=== PATIENT | female | born 1940 | race Caucasian/White ===

== ENCOUNTER → 2016-09-09 | Outpatient (CLI) | payer MEDICARE ==
--- NOTE | 2016-09-09 09:17 | CT ---
EXAMINATION TYPE: CT chest wo con DATE OF EXAM: 09/09/2016 COMPARISON: 09/01/2015 HISTORY: Patient has no complaints at time of study. Follow up study for known pulmonary nodule. CT DLP: 913 mGycm, Automated exposure control for dose reduction was used. CONTRAST: Performed injected with 0 mL of Omnipaque 300. TECHNIQUE: Axial images were obtained at 5 mm thick sections. Reconstructed images are reviewed on [employer] computer in the coronal plane. FINDINGS: Portion of the thyroid visualized is normal. On mediastinal windows there is a 1.4 x 1.6 cm nodule at the posterior left lung base. This is stable from August 2015. An additional 0.6 cm nodule appears stable in the posterior medial right lung base. Series 3 image 41. Some minimal stable peripheral thickening may be present in the posterior lateral right midlung. Series 3 image 33 lingular lung markings likewise appears stable. No enlarged mediastinal or hilar adenopathy is evident. The ascending aorta diameter at the level o f the main pulmonary artery is 3.6 cm. The main pulmonary artery diameter at the bifurcation is 3.7 cm. There is fullness within the main pulmonary artery at the bifurcation which could suggest some ea rly pulmonary hypertension. Coronary artery calcification is noted. Limited CT sections are obtained through the upper abdomen. Abdomen is essentially unremarkable. IMPRESSIONS: 1. Stable bilateral lung nodules. Follow-up in one year is again recommended to confirm stability.
== END | disposition home or self-care (01) ==
LOC: RADCTMAIN 08:42
PROVIDERS: ATTEND Internal Medicine
DX: R91.8 Other nonspecific abnormal finding of lung field (principal)
CPT/HCPCS: 71250

== ENCOUNTER → 2017-01-27 | Outpatient (CLI) | payer MEDICARE ==
[2017-01-27 12:56] LABS: CH 31.1; CHCM 31.1; HCT 47.5 % (34.0-46.0); HDW 2.07; HGB 14.4 gm/dL (11.4-16.0); MCH 30.6 pg (25.0-35.0); MCHC 30.4 g/dL (31.0-37.0); MCV 100.5 fL (80.0-100.0); Mean Platelet Volume 7.2; RBC 4.72 m/uL (3.80-5.40); RDW 13.7 % (11.5-15.5); WBC 8.1 k/uL (3.8-10.6)
[2017-01-27 13:01] LABS: ALT 40 U/L (9-52); AST 22 U/L (14-36); Alkaline Phosphatase 129 U/L (38-126); Anion Gap 10 mmol/L; Blood Urea Nitrogen 20 mg/dL (7-17); Calcium 9.5 mg/dL (8.4-10.2); Carbon Dioxide 28 mmol/L (22-30); Chloride 102 mmol/L (98-107); Glucose 114 mg/dL (74-99); Non-African American GFR(MDRD) 56 (>60 ml/min/1.73 sqM); Potassium 4.8 mmol/L (3.5-5.1); Sodium 140 mmol/L (137-145); Total Bilirubin 0.5 mg/dL (0.2-1.3); Total Protein 6.7 g/dL (6.3-8.2)
== END | disposition home or self-care (01) ==
LOC: LABWHC1 12:09
PROVIDERS: ATTEND Internal Medicine Interventional Cardiology
DX: I48.91 Unspecified atrial fibrillation (principal)
CPT/HCPCS: 36415; 80053; 84443; 85027

== ENCOUNTER 2017-02-22 05:55 | Day surgery (SDC) | payer MEDICARE ==
[2017-02-18 13:43] VITALS: BMI 50.1
[2017-02-22] MEDS ORDERED: ALPRAZolam 0.25 MG TAB PO PRN (06:14)
[2017-02-22] MEDS ORDERED: ASPIRIN 325 MG TAB PO STA (06:14)
[2017-02-22] MEDS ORDERED: ALPRAZolam 0.5 MG TAB PO PRN (06:14)
[2017-02-22] MEDS ORDERED: ATORVASTATIN 80 MG TAB PO STA (06:14)
[2017-02-22] MEDS ORDERED: NITROGLYCERIN SL TABS 0.4 MG TAB SUBLINGUAL PRN ×2 (06:14→10:43)
[2017-02-22] MEDS ORDERED: SODIUM CHLORIDE 0.9% 1,000 ML in EMPTY BAG 1 BAG IV ONE (06:30)
[2017-02-22] MEDS: SODIUM CHLORIDE 0.9% 1,000 ML IV SCH ×2 (07:05→17:42)
[2017-02-22] MEDS ORDERED: SODIUM CHLORIDE 0.9% 1,000 ML IV ONE (07:05)
[2017-02-22] MEDS ORDERED: Acetaminophen-Codeine 300-30mg TAB ONE (07:25)
[2017-02-22] MEDS ORDERED: LIDOCAINE 2% INJ 20 MG/ML (20 ML MDV) ONE (09:37)
[2017-02-22] MEDS ORDERED: VERAPAMIL 2.5 MG/ML 2 ML AMP ONE (09:37)
[2017-02-22] MEDS ORDERED: fentaNYL (PF) 50 MCG/ML 2 ML AMP ONE (09:50)
[2017-02-22] MEDS ORDERED: fentaNYL (PF) 50 MCG/ML 2 ML AMP IVP ONE (09:56)
[2017-02-22] MEDS ORDERED: MIDAZOLAM 2 MG/2 ML VIAL ONE (09:57)
[2017-02-22] MEDS ORDERED: LIDOCAINE 2% INJ 20 MG/ML SQ ONE (09:57)
[2017-02-22] MEDS ORDERED: METOPROLOL TARTRATE 5 MG/5 ML VIAL IVP ONE ×2 (10:00→10:01)
[2017-02-22] MEDS ORDERED: VERAPAMIL SYRINGE (5 MG/10 ML) IVP ONE (10:00)
[2017-02-22] MEDS ORDERED: MIDAZOLAM 2 MG/2 ML VIAL IVP ONE (10:00)
[2017-02-22] MEDS ORDERED: CLOPIDOGREL 75 MG TAB ONE (10:13)
[2017-02-22] MEDS ORDERED: BIVALIRUDIN BOLUS 250 MG/50 ML IV ONE (10:13)
[2017-02-22] MEDS ORDERED: BIVALIRUDIN 250 MG in SODIUM CHLORIDE 0.9% 50 ML IV ONE (10:14)
[2017-02-22] MEDS ORDERED: CLOPIDOGREL 75 MG TAB PO ONE (10:16)
[2017-02-22] MEDS ORDERED: IODIXANOL 320 MG/ML 100 ML INTRAARTER ONE (10:32)
[2017-02-22] MEDS ORDERED: RX INFO: IV CONTRAST WAS GIVEN 1 EACH MISC MISCELLANE PRN (10:43)
[2017-02-22] MEDS ORDERED: ZOLPIDEM 5 MG TAB PO PRN (10:43)
[2017-02-22] MEDS ORDERED: MAG HYDROX/AL HYDROX/SIMETH 30 ML CUP PO PRN (10:43)
[2017-02-22] MEDS ORDERED: ATROPINE SULFATE 0.1 MG/ML 10ML SYRINGE IV PRN (10:43)
[2017-02-22] MEDS ORDERED: SODIUM CHLORIDE 0.9% 1,000 ML IV SCH (10:45)
--- NOTE | 2017-02-22 11:24 | CC ---
CARDIAC CATHETERIZATION REPORT Mrs. Willis is a 77-year-old female with known history of hypertension, hyperlipidemia, who was recently noted to be in atrial fibrillation. She has been complaining of dyspnea on exertion and underwent a myocardial perfusion imaging that revealed inferolateral wall ischemia. In view of that, recommendation was made regarding cardiac catheterization. The procedure as well as the risks and complications were discussed with the patient who is in full understanding and agreement. PROCEDURE: Patient was brought to the laboratory technologist in a fasting semi-sedated state after receiving fentanyl and Benadryl and achieving moderate conscious sedated state. Using Xylocaine anesthesia in Seldinger technique, a 6-Thai sheath was introduced in the right radial artery. Selective right and left coronary angiography performed using care 5-Thai 3.5 bend right and left Michelle catheter. Multiple views of the coronary arteries including hemiaxial views were obtained. Following that, 5-Thai tight pigtail catheter was introduced into the left ventricle and pressures were calculated. Following that, catheter was removed. Images were reviewed. FINDINGS: FLUOROSCOPY: There was calcification involving the LAD and the right coronary artery. LEFT MAIN: This is a large-sized vessel trifurcating left circumflex, ramus intermedius and left anterior descending artery. Left main coronary artery has no evidence of high- grade stenosis. LEFT ANTERIOR DESCENDING ARTERY: This is a large-sized vessel reaching to the apex with a wrap around apex segment. The left anterior descending artery has a mild plaque in the proximal to mid segment up to 20%. The rest of the vessel has no high-grade stenosis. LEFT CIRCUMFLEX: This is a nondominant vessel giving rise to one obtuse marginal branch. The left circumflex as well as branches have no evidence of obstructive coronary artery disease. RAMUS INTERMEDIUS: This is a large-sized vessel reaching toward the apical lateral wall that has mild intimal disease proximally for about 20%. RIGHT CORONARY ARTERY: This is a large dominant vessel bifurcating distally PDA and posterolateral segment and branches. The right coronary artery in the proximal and mid segment has a 99% eccentric lesion. The rest of the vessel has no high-grade stenosis. LEFT VENTRICULOGRAM: Left ventriculogram was not performed. HEMODYNAMICS: There was no gradient across the aortic valve. The left ventricle end- diastolic pressure was 12 mmHg. CONCLUSION: 1. Critical stenosis involving the proximal and mid segment of the right coronary artery. 2. Mild disease in the ramus intermedius and the left anterior descending artery. RECOMMENDATION: In view of finding anatomy, I have recommended proceeding with angioplasty and stenting of the right coronary artery. The procedures as well as the risks and complications were discussed with the patient who was in full understanding and agreement. CARLA / JAZMIN: [id number] /
--- NOTE | 2017-02-22 11:39 | PTCA ---
PERCUTANEOUSTRANS CORORONARY ANGIOGRAPHY Mrs. Willis is a 77-year-old female with known history of hypertension, hyperlipidemia, who presented with an abnormal myocardial perfusion imaging and symptoms of progressive dyspnea. She underwent cardiac catheterization that revealed significant stenosis involving the proximal mid segment of the right coronary artery. In view of that, recommendation was made regarding angioplasty and stenting. The procedure as well as the risks and complications were discussed with the patient who is in full understanding and agreement. PROCEDURE: A 6-Jordanian FR4 guiding catheter was introduced in the system. After cannulating the right coronary ostium, a 0.014 balanced medium weight J-wire was advanced across the lesion, positioned distally. Then a 3.5 x 18 mm Xience Alpine stent was deployed, postdilated at 16 atmospheres. After the last inflation, after appropriate wait, the balloon and the guidewire were withdrawn back in the guiding catheter. Images were obtained, repeated. Those images reveal stable successful stenting. At that point, the guiding catheter, the balloon and the guidewire removed. The sheath was removed. Hemostasis was obtained with deployment of a TR band. There was no immediate complication. Patient was returned to her room in stable condition. Of note, the patient had no chest discomfort or EKG changes with the inflation. She has received Angiomax per protocol as well as oral loading dose of clopidogrel. She also received intra-arterial verapamil. RESULTS: Successful stenting of the proximal mid segment of the right coronary artery with reduction in stenosis from 99% to 0%. RECOMMENDATION: Patient will be continued on aspirin, Plavix, beta niki, and statin. The importance of dual antiplatelet treatment were discussed with the patient and her family and they are in full understanding and agreement. At later time, her aspirin will be stopped and she will be continued on anticoagulation because of her atrial fibrillation. Duration of the procedure is 35 minutes. MMODL / IJN: [id number] /
--- NOTE | 2017-02-22 11:45 | LTR ---
February 22, 2017 Re: Zaira Willis Dear Dr. Abad: I had the opportunity to perform coronary angiography including angioplasty and stenting on Mrs. Willis at [facility] on the 22 of February and a full copy of the procedure note will be forwarded to you. In brief, she was found to have significant stenosis involving the proximal mid segment of the right coronary artery underwent successful stenting of that vessel using a drug-eluting stent. I am hopeful that this procedure will stabilize her status and I will keep you updated on her progress. Thank you again for allowing me the opportunity to participate in her care. Please feel free to call for any questions. Sincerely yours, MD PELON TangL / MARCOSN: [id number] /
[2017-02-22] MEDS ORDERED: METOPROLOL TARTRATE 50 MG TAB PO ONE (12:15)
[2017-02-22] MEDS ORDERED: HYDROmorphone 0.5 MG/0.5 ML SYRINGE IVP STA (12:58)
[2017-02-22] MEDS: METOPROLOL TARTRATE 50 MG TAB PO SCH (20:08)
[2017-02-22 20:56] VITALS: RESP 18
[2017-02-22] MEDS ORDERED: ATORVASTATIN 80 MG TAB PO SCH (21:00)
[2017-02-22 21:07] LABS: Glucose,Whole Blood 128 mg/dL (75-99)
[2017-02-23] MEDS: SODIUM CHLORIDE 0.9% 1,000 ML IV SCH (01:54)
[2017-02-23 06:38] LABS: Anion Gap 10 mmol/L; Blood Urea Nitrogen 23 mg/dL (7-17); Calcium 9.3 mg/dL (8.4-10.2); Carbon Dioxide 24 mmol/L (22-30); Chloride 105 mmol/L (98-107); Glucose 104 mg/dL (74-99); Potassium 4.7 mmol/L (3.5-5.1); Sodium 139 mmol/L (137-145)
[2017-02-23 08:18] VITALS: BP 116/51; PULSE 52; TEMP 96.9
--- NOTE | 2017-02-23 08:28 | P.PN ---
Subjective Progress Note Date: 02/23/17 Principal diagnosis: RCA stent Discharge note This is a pleasant 77-year-old female with known history of hypertension, hyperlipidemia, who was recently noted to be in atrial fibrillation. She had been complaining of dyspnea on exertion and underwent a myocardial perfusion imaging which revealed inferior lateral wall ischemia. In view of that recommendations were made for her to proceed with cardiac catheterization. Patient was found to have critical stenosis involving the proximal and midsegment of the right coronary artery with mild disease in the ramus intermedius and left anterior descending artery. Patient underwent angioplasty and stenting of the right coronary artery. She was seen and examined this morning, feeling well overall. She has been up ambulating to the bathroom without any occult he. She denies any chest discomfort, no palpitations, and her breathing is stable. Let pressure 116/50 with a heart rate in the 60s, temperature 96.9 she is 95% on room air. Sodium 139, potassium 4.7, BUN 23, creatinine 0.9. EKG shows atrial fibrillation with no changes from post-PCI. Objective - Vital Signs Vital signs: Vital Signs Temp 96.9 F L 02/23/17 08:00 Pulse 52 L 02/23/17 08:00 Resp 18 02/23/17 03:15 BP 116/51 02/23/17 08:00 Pulse Ox 95 02/23/17 08:00 Intake & Output 02/22/17 02/23/17 02/23/17 18:59 06:59 18:59 Intake Total 730.7 Output Total 200 Balance 530.7 Weight 124.284 kg 126 kg Intake: IV 294.7 Sodium Chloride 0.9% 1, 100 000 ml @ 100 mls/hr IV . Q10H DEONTE Rx#:[id number] Intake, IV Titration 200 Amount Sodium Chloride 0.9% 1, 200 000 ml @ 100 mls/hr IV . Q10H DEONTE Rx#:[id number] Oral 236 Output: Urine 200 Other: Voiding Method Toilet # Voids 1 - Exam PHYSICAL EXAMINATION: HEENT: Head is atraumatic, normocephalic. Pupils equal, round. Neck is supple. There is no elevated jugular venous pressure. HEART EXAMINATION: S1 and S2 irregular irregular systolic ejection murmur is heard. CHEST EXAMINATION: Lungs are clear to auscultation and precussion. No chest wall tenderness is noted on palpation or with deep breathing. ABDOMEN: Soft,obese, nontender. Bowel sounds are heard. No organomegaly noted. EXTREMITIES: 2+ peripheral pulses with no evidence of peripheral edema and no calf tenderness noted. Right radial site is clean and dry, good distal pulse, no hematoma. NEUROLOGIC patient is awake, alert and oriented -3. . - Labs CBC & Chem 7: 02/23/17 05:40 Labs: Abnormal Lab Results - Last 24 Hours (Table) 02/22/17 02/23/17 Range/Units 21:05 05:40 BUN 23 H (7-17) mg/dL Glucose 104 H (74-99) mg/dL POC Glucose (mg/dL) 128 H (75-99) mg/dL Assessment and Plan Plan: Assessment and plan #1 status post angioplasty with stenting of the right coronary artery #2 hypertension #3 hyperlipidemia #4 chronic persistent atrial fibrillation #5 peripheral vascular disease Plan Patient may be able to be discharged home today. We will make her a follow-up appointment next week with Dr. Coates in the office. Sebastián BUN and creatinine will be checked at that time. She will be discharged home on aspirin 81 mg daily, Lipitor 80 mg daily, Plavix 75 mg daily, metoprolol 50 mg one tablet by mouth twice a day, Aldactone 50 mg daily, verapamil 120 mg daily, Savaysa 60 mg daily, and sublingual nitroglycerin as needed for chest pain. DNP note has been reviewed, I agree with a documented findings and plan of care. Patient was seen and examined.
[2017-02-23] MEDS ORDERED: Acetaminophen-Codeine 300-30mg TAB PO STA (08:32)
[2017-02-23] MEDS: METOPROLOL TARTRATE 50 MG TAB PO SCH (08:54)
[2017-02-23] MEDS ORDERED: ASPIRIN 81 MG PO SCH (09:00)
[2017-02-23] MEDS ORDERED: SPIRONOLACTONE 25 MG TAB PO SCH ×2 (09:00)
[2017-02-23] MEDS ORDERED: CLOPIDOGREL 75 MG TAB PO SCH (09:00)
[2017-02-23] MEDS ORDERED: VERAPAMIL SR 120 MG TABLET.ER PO SCH (09:00)
== END 2017-02-23 11:05 | disposition home or self-care (01) ==
LOC: CATHCVL 05:55 → 6SEL 12:52 → CATHCVL 02-23 11:05
PROVIDERS: ATTEND Internal Medicine Interventional Cardiology
DX: I25.10 Atherosclerotic heart disease of native coronary artery without angina pectoris (principal); I25.84 Coronary atherosclerosis due to calcified coronary lesion; I10 Essential (primary) hypertension; I48.2 Chronic atrial fibrillation; Z82.49 Family history of ischemic heart disease and other diseases of the circulatory system; I73.9 Peripheral vascular disease, unspecified; E78.2 Mixed hyperlipidemia; G47.33 Obstructive sleep apnea (adult) (pediatric); M19.90 Unspecified osteoarthritis, unspecified site; Z79.02 Long term (current) use of antithrombotics/antiplatelets; Z79.899 Other long term (current) drug therapy
CPT/HCPCS: 93458; 85347; 80048; C9600; C1769 ×3; C1887; C1894; C1874; J2001; J2250; Q9967; J3010; J0583; J1170

== ENCOUNTER 2017-02-25 19:14 | Observation (INO) | payer MEDICARE ==
--- NOTE | 2017-02-25 19:49 | ED ---
General Adult HPI - General Chief complaint: Dizziness Stated complaint: Jaw pain Time Seen by Provider: 02/25/17 19:26 Source: patient, family, RN notes reviewed, old records reviewed Mode of arrival: ambulatory Limitations: no limitations - History of Present Illness Initial comments: 77 -year-old female history of CAD and recent stent, postop day 3, presents for evaluation of lightheadedness, and jaw pain. Patient states that approximately 3 hours prior to arrival patient developed left-sided jaw pain. Denies central chest pain. States she does have some dyspnea associated with this. No nausea and no diaphoresis. She has been taking her medications as prescribed. She is currently on Plavix status post stenting. She does have history of atrial fibrillation and is on anticoagulation. Patient denies any abdominal pain. Denies vomiting or diarrhea. Denies headache. Denies vision changes. Denies fever or chills. Denies cough. - Related Data Home Medications Medication Instructions Recorded Confirmed Acetaminophen [Tylenol Extra 500 mg PO DAILY PRN 02/18/17 02/25/17 Strength] Acetaminophen-Codeine 300-30mg 1 tab PO Q6H PRN 02/18/17 02/25/17 [Tylenol #3] Edoxaban Tosylate [Savaysa] 60 mg PO QAM 02/18/17 02/25/17 Verapamil HCl [Verapamil ER] 120 mg PO QAM 02/18/17 02/25/17 Aspirin 81 mg PO HS 02/22/17 02/25/17 Clopidogrel [Plavix] 75 mg PO QAM 02/25/17 02/25/17 Spironolactone 50 mg PO QAM 02/25/17 02/25/17 Previous Rx's Medication Instructions Recorded Atorvastatin [Lipitor] 80 mg PO HS #30 tab 02/23/17 Metoprolol Tartrate [Lopressor] 50 mg PO BID #60 tab 02/23/17 Nitroglycerin Sl Tabs [Nitrostat] 0.4 mg SUBLINGUAL Q5M PRN #25 tab 02/23/17 Allergies Allergy/AdvReac Type Severity Reaction Status Date / Time No Known Allergies Allergy Verified 02/25/17 20:19 Review of Systems ROS Statement: Those systems with pertinent positive or pertinent negative responses have been documented in the HPI. ROS Other: All systems not noted in ROS Statement are negative. Past Medical History Past Medical History: Hyperlipidemia, Hypertension, Osteoarthritis (OA), Vascular Disorder Additional Past Medical History / Comment(s): hx irregular heart rate, 2 ruptured disc back, bladder leakage, pancreatitis, edd. lower leg swelling, shortness of breath History of Any Multi-Drug Resistant Organisms: None Reported Past Surgical History: Cholecystectomy, Hysterectomy, Orthopedic Surgery Additional Past Surgical History / Comment(s): lt knee arthroscopy Past Anesthesia/Blood Transfusion Reactions: No Reported Reaction Past Psychological History: No Psychological Hx Reported Smoking Status: Never smoker Past Alcohol Use History: Occasional Past Drug Use History: None Reported - Past Family History Mother Family Medical History: No Reported History General Exam Limitations: no limitations General appearance: alert, in no apparent distress, obese Head exam: Present: atraumatic, normocephalic Eye exam: Present: normal appearance, PERRL ENT exam: Present: normal exam Neck exam: Present: normal inspection. Absent: tenderness, meningismus Respiratory exam: Present: normal lung sounds bilaterally. Absent: respiratory distress, wheezes Cardiovascular Exam: Present: tachycardia, irregular rhythm GI/Abdominal exam: Present: soft. Absent: distended, tenderness Extremities exam: Present: normal inspection, normal capillary refill. Absent: pedal edema Neurological exam: Present: alert, oriented X3, CN II-XII intact. Absent: motor sensory deficit Psychiatric exam: Present: normal affect, normal mood, anxious. Absent: flat affect Skin exam: Present: warm, dry, intact. Absent: cyanosis, diaphoretic Course Vital Signs 02/25/17 02/25/17 19:15 20:19 Temperature 97.3 F L Pulse Rate 99 98 Respiratory 18 14 Rate Blood Pressure 132/89 125/57 O2 Sat by Pulse 96 98 Oximetry EKG Findings - EKG Comments: EKG Findings:: EKG shows atrial fibrillation with RVR, rate of 106, QRS duration 88, QTC [address] segment elevation, no significant change compared to prior Medical Decision Making - Medical Decision Making 77-year-old female presenting with left jaw pain, concern for anginal equivalent. EKG shows atrial fibrillation, no signs of acute ischemia. Patient has been taking her medication as prescribed. She had recent proximal and mid RCA stenting. Laboratory studies reveal normal white blood cell count, stable hemoglobin, left slightly normal limits, creatinine 1.1, troponin is negative chest x-ray shows cardiomegaly with no other acute findings. Head CT is obtained for complaint of lightheadedness and patient is on both antiplatelets and anti-coagulant, this is negative for intracranial hemorrhage. Patient will be observed for serial cardiac enzymes and cardiology evaluation. - Lab Data Result diagrams: 02/25/17 19:52 02/25/17 19:52 Lab Results 02/25/17 02/25/17 02/25/17 Range/Units 19:52 19:52 19:52 WBC 8.0 (3.8-10.6) k/uL RBC 4.40 (3.80-5.40) m/uL Hgb 13.5 (11.4-16.0) gm/dL Hct 42.9 (34.0-46.0) % MCV 97.4 (80.0-100.0) fL MCH 30.6 (25.0-35.0) pg MCHC 31.4 (31.0-37.0) g/dL RDW 12.4 (11.5-15.5) % Plt Count 245 (150-450) k/uL Neutrophils % 63 % Lymphocytes % 25 % Monocytes % 8 % Eosinophils % 2 % Basophils % 1 % Neutrophils # 5.0 (1.3-7.7) k/uL Lymphocytes # 2.0 (1.0-4.8) k/uL Monocytes # 0.6 (0-1.0) k/uL Eosinophils # 0.2 (0-0.7) k/uL Basophils # 0.0 (0-0.2) k/uL PT (9.0-12.0) sec INR (<1.2) APTT (22.0-30.0) sec Sodium 140 (137-145) mmol/L Potassium 4.5 (3.5-5.1) mmol/L Chloride 105 (98-107) mmol/L Carbon Dioxide 26 (22-30) mmol/L Anion Gap 9 mmol/L BUN 30 H (7-17) mg/dL Creatinine 1.11 H (0.52-1.04) mg/dL Est GFR (MDRD) Af Amer 58 (>60 ml/min/1.73 sqM) Est GFR (MDRD) Non-Af 48 (>60 ml/min/1.73 sqM) Glucose 92 (74-99) mg/dL Calcium 8.9 (8.4-10.2) mg/dL Magnesium 1.8 (1.6-2.3) mg/dL Total Bilirubin 0.4 (0.2-1.3) mg/dL AST 28 (14-36) U/L ALT 45 (9-52) U/L Alkaline Phosphatase 123 (38-126) U/L Total Creatine Kinase 50 (30-135) U/L CK-MB (CK-2) 0.2 (0.0-2.4) ng/mL CK-MB (CK-2) Rel Index 0.4 Troponin I <0.012 (0.000-0.034) ng/mL NT-Pro-B Natriuret Pep pg/mL Total Protein 6.0 L (6.3-8.2) g/dL Albumin 3.5 (3.5-5.0) g/dL 02/25/17 02/25/17 Range/Units 19:52 19:52 WBC (3.8-10.6) k/uL RBC (3.80-5.40) m/uL Hgb (11.4-16.0) gm/dL Hct (34.0-46.0) % MCV (80.0-100.0) fL MCH (25.0-35.0) pg MCHC (31.0-37.0) g/dL RDW (11.5-15.5) % Plt Count (150-450) k/uL Neutrophils % % Lymphocytes % % Monocytes % % Eosinophils % % Basophils % % Neutrophils # (1.3-7.7) k/uL Lymphocytes # (1.0-4.8) k/uL Monocytes # (0-1.0) k/uL Eosinophils # (0-0.7) k/uL Basophils # (0-0.2) k/uL PT 11.5 (9.0-12.0) sec INR 1.2 H (<1.2) APTT 23.3 (22.0-30.0) sec Sodium (137-145) mmol/L Potassium (3.5-5.1) mmol/L Chloride (98-107) mmol/L Carbon Dioxide (22-30) mmol/L Anion Gap mmol/L BUN (7-17) mg/dL Creatinine (0.52-1.04) mg/dL Est GFR (MDRD) Af Amer (>60 ml/min/1.73 sqM) Est GFR (MDRD) Non-Af (>60 ml/min/1.73 sqM) Glucose (74-99) mg/dL Calcium (8.4-10.2) mg/dL Magnesium (1.6-2.3) mg/dL Total Bilirubin (0.2-1.3) mg/dL AST (14-36) U/L ALT (9-52) U/L Alkaline Phosphatase (38-126) U/L Total Creatine Kinase (30-135) U/L CK-MB (CK-2) (0.0-2.4) ng/mL CK-MB (CK-2) Rel Index Troponin I (0.000-0.034) ng/mL NT-Pro-B Natriuret Pep 828 pg/mL Total Protein (6.3-8.2) g/dL Albumin (3.5-5.0) g/dL Disposition Clinical Impression: Anginal equivalent Disposition: ADMITTED IP TO THIS [facility] Condition: Stable Referrals: Gerard Abad MD [Primary Care Provider] - 1-2 days Decision to Admit Reason: Admit from EC Decision Date: 02/25/17 Decision Time: 21:55
[2017-02-25 20:06] LABS: Basophils % (A) 1 %; Eosinophils # (A) 0.2 k/uL (0-0.7); Eosinophils % (A) 2 %; HCT 42.9 % (34.0-46.0); HGB 13.5 gm/dL (11.4-16.0); Lymphocytes % (A) 25 %; MCH 30.6 pg (25.0-35.0); MCHC 31.4 g/dL (31.0-37.0); MCV 97.4 fL (80.0-100.0); Mean Platelet Volume 6.3; Monocytes # (A) 0.6 k/uL (0-1.0); Monocytes % (A) 8 %; Neutrophils % (A) 63 %; Platelet Count 245 k/uL (150-450); RDW 12.4 % (11.5-15.5)
[2017-02-25 20:11] LABS: Albumin 3.5 g/dL (3.5-5.0); Calcium 8.9 mg/dL (8.4-10.2); Magnesium 1.8 mg/dL (1.6-2.3); Potassium 4.5 mmol/L (3.5-5.1); Total Bilirubin 0.4 mg/dL (0.2-1.3)
--- NOTE | 2017-02-25 20:14 | CT ---
EXAMINATION TYPE: CT brain wo con DATE OF EXAM: 02/25/2017 COMPARISON: NONE HISTORY: Dizziness and jaw pain. CT DLP: 1007.1 mGycm Automated exposure control for dose reduction was used. FINDINGS: Ventricles and sulci appear normal for age. There is no mass effect nor midline shift. There is no si gn of intracranial hemorrhage. The calvarium is intact. IMPRESSION: NEGATIVE CT SCAN OF THE BRAIN. MILD ATROPHY.
[2017-02-25 20:15] LABS: Creatine Kinase 50 U/L (30-135)
[2017-02-25 20:28] LABS: Creatine Kinase MB 0.2 ng/mL (0.0-2.4); Troponin I <0.012 ng/mL (0.000-0.034)
[2017-02-25 20:31] LABS: INR 1.2 (<1.2); Partial Thromboplastin Time 23.3 sec (22.0-30.0); Prothrombin Time 11.5 sec (9.0-12.0)
--- NOTE | 2017-02-25 20:49 | XR ---
EXAMINATION TYPE: XR chest 2V DATE OF EXAM: 02/25/2017 COMPARISON: NONE HISTORY: Pain TECHNIQUE: Frontal and lateral views of the chest are obtained. FINDINGS: Exam is limited by patient size. Heart appears enlarged. There is no heart failure. There is no pleural effusion. Lungs appear clear of consolidation. Thoracic aorta is atheromatous. IMPRESSION: Cardiomegaly. No active cardiopulmonary disease.
[2017-02-25] MEDS ORDERED: ACETAMINOPHEN TAB 325 MG TAB PO PRN (21:55)
[2017-02-25] MEDS ORDERED: NALOXONE 0.4 MG/ML 1 ML VIAL IV PRN (21:55)
[2017-02-25] MEDS ORDERED: NITROGLYCERIN SL TABS 0.4 MG TAB SUBLINGUAL PRN (21:57)
[2017-02-25 22:43] VITALS: RESP 16
[2017-02-25 22:54] VITALS: BMI 50.3
[2017-02-25] MEDS ORDERED: MORPHINE SULFATE 2 MG/ML SYRINGE IVP PRN ×2 (23:00→23:01)
[2017-02-25] MEDS ORDERED: ZOLPIDEM 5 MG TAB PO PRN (23:00)
[2017-02-26 03:13] LABS: Creatine Kinase 44 U/L (30-135)
[2017-02-26 03:24] LABS: Creatine Kinase MB <0.2 ng/mL (0.0-2.4); Troponin I <0.012 ng/mL (0.000-0.034)
[2017-02-26 03:41] VITALS: TEMP 97.9
[2017-02-26 07:56] LABS: Creatine Kinase 44 U/L (30-135)
[2017-02-26 08:08] LABS: Creatine Kinase MB 0.3 ng/mL (0.0-2.4); Troponin I <0.012 ng/mL (0.000-0.034)
[2017-02-26 08:40] VITALS: BP 110/56; PULSE 64
[2017-02-26] MEDS ORDERED: VERAPAMIL SR 120 MG TABLET.ER PO SCH (09:00)
[2017-02-26] MEDS ORDERED: CLOPIDOGREL 75 MG TAB PO SCH (09:00)
[2017-02-26] MEDS ORDERED: METOPROLOL TARTRATE 50 MG TAB PO SCH (09:00)
[2017-02-26] MEDS ORDERED: EDOXABAN TOSYLATE 60 MG TABLET PO SCH (09:00)
[2017-02-26] MEDS ORDERED: SPIRONOLACTONE 25 MG TAB PO SCH (09:00)
[2017-02-26] MEDS ORDERED: METOPROLOL TARTRATE 25 MG TAB PO SCH (09:40)
--- NOTE | 2017-02-26 10:22 | CONS ---
CONSULTATION HISTORY: This is a 77-year-old female patient Dr. Coates who was recently admitted to the hospital and discharged after coronary stenting. He comes in with some chest discomfort going up into the jaw. She got very scared and came into the hospital. Her 12-lead ECG shows atrial fibrillation with RVR. No definite ST-T abnormalities. Three sets of cardiac enzymes are normal. LABORATORY DATA: Labs are reviewed. White count is 8.0, hemoglobin 13.5, hematocrit 42.9, electrolytes are normal. BUN is 30, creatinine 1.1. Three sets of cardiac enzymes are normal. NT proBNP is 828. MEDICATIONS: Medication list was reviewed and includes verapamil SR 120 mg daily, spironolactone, metoprolol tartrate 50 mg twice daily, , Plavix, Lipitor, aspirin, and Tylenol #3. ALLERGIES: No known drug allergies. REVIEW OF SYSTEMS: No fevers or chills or rigors. No cough or expectoration. No nausea, vomiting, diarrhea, hematuria, dysuria, strokes or seizures. No skin lesions or musculoskeletal complaints. REVIEW OF SYSTEMS: No fevers, chills or rigors. No cough or expectoration. No nausea, vomiting, diarrhea. No hematuria or dysuria. No strokes or seizures. No skin lesions. No musculoskeletal complaints. PHYSICAL EXAMINATION: On examination, blood pressure 110/56 mmHg, pulse rate is in the 90s to 110 beats per minute. Head and neck examination normal. Heart sounds are normal. Lungs are clear to auscultation. Extremities are warm. No edema. The rhythm is irregular. IMPRESSION: 1. Atrial fibrillation with rapid ventricular response, on appropriate drug treatment and on anticoagulants. 2. Coronary disease status post coronary artery stenting. 3. No evidence of acute myocardial infarction. Suggest rate control of atrial fibrillation and discharge in the next 24 to 48 hours. Suggest increase metoprolol to 75 mg twice daily for better rate control. Monitor on telemetry for up to 24 hours. TSH level and then she may go home. Follow up with Dr. Coates. MMODL / IJN: [id number] /
[2017-02-26] MEDS ORDERED: METOPROLOL TARTRATE 50 MG TAB PO STA (10:31)
--- NOTE | 2017-02-26 14:28 | P.DS ---
Providers Date of admission: 02/25/17 21:55 Expected date of discharge: 02/26/17 Attending physician: Gerard Abad Consults: 02/25/17 21:56 Consult Physician Urgent Consulting Provider: Daniel Negrete Consult Reason/Comments: Chest pain, anginal equivalent Do you want consulting provider notified?: Yes, Notify in am Primary care physician: Gerard Abad Hospital Course: This 77-year-old female was admitted to the hospital because of left jaw pain. The patient's pain was not typical for coronary artery disease however since the patient had a stent placed last week she was admitted to the hospital for observation. Her initial cardiac enzymes were negative EKG and unchanged and showed atrial fibrillation. The patient following admission remained hemodynamically stable with no significant symptoms to indicate coronary insufficiency. Her EKG rhythms remained stable with atrial fibrillation patient 's cardiac enzymes remained stable with no elevation of CPK and troponins remaining negative 3. Patient symptoms having been not recurrent and remaining stable patient is discharged home. Patient's condition was discussed with the patient and daughter in full detail including reviewed all the medications. Encouraged patient to lose weight and follow up in the outpatient. Patient's cervical degenerative arthritis and disc disease is probably the cause of the pain in the jaw line on the left side. The patient medication adjustment was metoprolol tartrate increased to 75 mg twice a day. This was because her heart rate had been in the 100 range. The patient was also seen by cardiology. Patient's condition stable at the time of discharge prognosis guarded she'll follow up with outpatient. Advised not to stop any anticoagulation without discussing with cardiology or me Final diagnosis to include 1. Left jaw pain 2. Coronary artery disease status post in place with a week ago 3. Chronic atrial fibrillation 4. History of benign essential hypertension, controlled 5. Chronic kidney disease stage III 6. Morbid obesity 7. 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 with radicular pain right leg Patient Condition at Discharge: Stable Plan - Discharge Summary New Discharge Prescriptions: New Metoprolol Tartrate [Lopressor] 75 mg PO BID tab Continue Acetaminophen-Codeine 300-30mg [Tylenol w/codeine #3] 1 tab PO Q6H PRN PRN Reason: Pain Acetaminophen [Tylenol Extra Strength] 500 mg PO DAILY PRN PRN Reason: Pain Verapamil HCl [Verapamil ER] 120 mg PO QAM Edoxaban Tosylate [Savaysa] 60 mg PO QAM Aspirin 81 mg PO HS Atorvastatin [Lipitor] 80 mg PO HS #30 tab Nitroglycerin Sl Tabs [Nitrostat] 0.4 mg SUBLINGUAL Q5M PRN #25 tab PRN Reason: Chest Pain Spironolactone 50 mg PO QAM Clopidogrel [Plavix] 75 mg PO QAM Discontinued Metoprolol Tartrate [Lopressor] 50 mg PO BID #60 tab Discharge Medication List Acetaminophen [Tylenol Extra Strength] 500 mg PO DAILY PRN 02/18/17 [History] Acetaminophen-Codeine 300-30mg [Tylenol w/codeine #3] 1 tab PO Q6H PRN 02/18/17 [History] Edoxaban Tosylate [Savaysa] 60 mg PO QAM 02/18/17 [History] Verapamil HCl [Verapamil ER] 120 mg PO QAM 02/18/17 [History] Aspirin 81 mg PO HS 02/22/17 [History] Atorvastatin [Lipitor] 80 mg PO HS #30 tab 02/23/17 [Rx] Nitroglycerin Sl Tabs [Nitrostat] 0.4 mg SUBLINGUAL Q5M PRN #25 tab 02/23/17 [Rx ] Clopidogrel [Plavix] 75 mg PO QAM 02/25/17 [History] Spironolactone 50 mg PO QAM 02/25/17 [History] Metoprolol Tartrate [Lopressor] 75 mg PO BID tab 02/26/17 [Rx] Follow up Appointment(s)/Referral(s): Gerard Abad MD [Primary Care Provider] - 1-2 days Discharge Disposition: HOME SELF-CARE
--- NOTE | 2017-02-26 14:50 | HP ---
HISTORY AND PHYSICAL ATTENDING PHYSICIAN: Dr. Ema Abad CHIEF COMPLAINT: Jaw pain. HISTORY OF PRESENT ILLNESS: This is a 77-year-old female who presented to the emergency room because of pain, which was reported as sharp jab on the lower left jaw. The patient has had the symptoms lasted off and on for a couple medications, resolved and then recurred. In view of this, she got nervous and came to the emergency room. She recently has had a stent placement. The patient denied any associated symptoms of chest pain, shortness of breath, palpitations. She is seen in the emergency room and subsequently admitted to the hospital for observation. She does have a history of atrial fibrillation at present and at present continues in atrial fibrillation and patient is on anticoagulation. Patient's troponins were negative in the emergency room. She did not reveal any evidence of any significant EKG changes. The patient does have a history of hypertension, obesity, and new onset atrial fibrillation. She does have this significant lumbosacral spine pain with some radicular symptoms to the right leg and had been receiving epidurals. In fact, the last epidural is when she went into atrial fibrillation. The patient had not received epidural at the time. Past history otherwise negative for any cardiac ailments. She has had chronic shortness of breath with dyspnea on exertion, mostly related to her obesity. The patient is morbidly obese. PAST MEDICAL HISTORY: Significant for as mentioned above, hypertension, obesity, atrial fibrillation, coronary artery disease with the right coronary artery stent placement about a week ago. PAST SURGICAL HISTORY: Negative for any major surgeries. PERSONAL HISTORY: Nonsmoker. No alcohol. ALLERGIES: None known. MEDICATIONS: Included verapamil 120 mg daily, spironolactone 50 mg daily, Nitrostat sublingual, Savaysa 60 mg daily, Plavix 75 mg daily, aspirin 81 mg daily, Lipitor 80 mg daily, Tylenol daily, metoprolol 75 mg b.i.d. SOCIAL HISTORY: Patient is , lives alone. Daughter helps out. FAMILY MEDICAL HISTORY: One daughter in good health. REVIEW OF SYSTEMS: NEURO: Denies any headaches, dizziness. No double vision, blurred vision. No symptoms of TIA, syncope, seizures. PSYCH: Some anxiety. CARDIAC: No chest pain, angina, palpitations. Present complaint of jaw pain. RESPIRATORY: No shortness of breath, cough, hemoptysis. GI: No nausea, vomiting, abdominal pain, diarrhea. : No symptoms of hematuria, urgency or frequency. EXTREMITIES: Denies pain, edema. CONSTITUTIONAL: No fever, chills. HEMATOLOGICAL: No anemia or bleeding disorder. ENDOCRINE: No history of diabetes mellitus, hypothyroidism. SKIN: Denies any rashes. PHYSICAL EXAMINATION: Pleasant, obese female present in no distress. Vital signs revealed temperature 97.9, pulse 64, respirations 16, blood pressure 110/56, pulse ox 97% on room air. HEENT: Normocephalic. Neck decreased range of motion. Pupils are reactive. Nostrils clear. Oral cavity is moist. No tenderness of the jaw. There is no supraclavicular lymphadenopathy. CHEST: Clear to auscultation and percussion. CARDIAC: Normal S1, S2 with no gallops, murmurs. Irregular rhythm. ABDOMEN: Protuberant, soft. Bowel sounds are active. EXTREMITIES: Reveal trace edema at the ankles. NEUROLOGICAL: Awake, alert, oriented x3 with well-coordinated movements. LABORATORY ASSESSMENT: Normal CBC, INR, BUN 30, creatinine 1.11, otherwise normal hepatic function, normal troponin and CPK and troponins. Thyroid function was normal. EKG reveals atrial fibrillation. Rate of 106. No acute ST changes. ER had done CT scan of the brain for no particular reason that could be identified by me. ASSESSMENT: 1. Left jaw pain, atypical, suspect cervical arthritic disease as the cause. 2. Coronary artery disease status post recent stent. 3. Chronic atrial fibrillation. 4. Obesity. 5. Hypertension. 6. Chronic kidney disease stage 3. PLAN: The patient is stable. Continue present medical regimen. Patient's condition discussed with the patient. Prognosis is guarded. The patient condition discussed with the daughter. MMODL / IJN: [id number] /
[2017-02-26] MEDS ORDERED: ATORVASTATIN 80 MG TAB PO SCH (21:00)
[2017-02-26] MEDS ORDERED: ASPIRIN 81 MG PO SCH (21:00)
[2017-02-27] MEDS ORDERED: EDOXABAN TOSYLATE 30 MG TABLET PO SCH (09:00)
== END 2017-02-26 12:26 | disposition home or self-care (01) ==
LOC: EC 19:14 → 3OBS 21:55
PROVIDERS: ADMIT Internal Medicine; ATTEND Internal Medicine
DX: R68.84 Jaw pain (principal); I25.118 Atherosclerotic heart disease of native coronary artery with other forms of angina pectoris; Z95.5 Presence of coronary angioplasty implant and graft; E78.5 Hyperlipidemia, unspecified; I48.2 Chronic atrial fibrillation; I12.9 Hypertensive chronic kidney disease with stage 1 through stage 4 chronic kidney disease, or unspecified chronic kidney disease; N18.3 Chronic kidney disease, stage 3 (moderate); M50.30 Other cervical disc degeneration, unspecified cervical region; M47.27 Other spondylosis with radiculopathy, lumbosacral region; Z79.01 Long term (current) use of anticoagulants; M19.90 Unspecified osteoarthritis, unspecified site; E66.01 Morbid (severe) obesity due to excess calories; Z79.82 Long term (current) use of aspirin; Z79.02 Long term (current) use of antithrombotics/antiplatelets; Z79.899 Other long term (current) drug therapy
CPT/HCPCS: 99285 ×2; 96374; 36415; 93005; 83880; 80053; 84443; 82550 ×2; 82553 ×2; 83735; 84484 ×2; 85025; 85610; 85730; 71046; 70450; G0378 ×2; J2270

== ENCOUNTER → 2017-03-15 | Outpatient (CLI) | payer MEDICARE ==
--- NOTE | 2017-03-15 17:57 | CONS ---
CONSULTATION REASON FOR CONSULTATION: Daytime drowsiness. HISTORY OF PRESENT ILLNESS: Pleasant 77-year-old female patient, obese who has been diagnosed having obstructive sleep apnea more than 15 years ago. The patient has been treated with CPAP for a few years and subsequently she quit the treatment. With her recent symptoms of symptomatology of snoring, sleep fragmentation and excessive daytime sleepiness and furthermore the recent cardiac events, the patient was asked to come [facility] to undergo another sleep evaluation. Specifically the patient is having snoring. She is unable to lay down in bed, and she moves back and forth to the bedside recliner to make herself more comfortable. She quits breathing. She snores loud and she is very much somnolent and sleepy during the day. Sleep is fragmented. At the same time she was having chest pain and jaw pain and she had further investigation with Cardiology and she was found to be in atrial fibrillation. She underwent a cardiac catheterization where she was found to have an underlying coronary artery disease with 99% lesion in the RCA. Successful stenting was performed by Cardiology. She is a bit anxious and she was recently started on angiolytic by her primary care physician. She has gained more than 30 pounds over the past 10 years at least. She is interested in considering the treatment of obstructive sleep apnea especially with ongoing symptomatology. Bison score is 11. PAST MEDICAL HISTORY: 1. Coronary artery disease with recent stenting of the RCA. 2. Chronic atrial fibrillation. 3. Obstructive sleep apnea. 4. Chronic back pain. 5. Obesity. 6. Hypertension. 7. Degenerative arthritis. 8. Impaired hearing. 9. Chronic anxiety. SURGICAL HISTORY: Includes cardiac catheterization and stenting, cholecystectomy and left knee surgery. DRUG ALLERGIES: Not known. OUTPATIENT MEDICATION LIST: Includes Aldactone 50 mg p.o. daily, Lipitor 80 mg p.o. daily, verapamil 120 mg p.o. daily, Savaysa 60 mg p.o. daily, metoprolol 75 mg twice a day. Plavix 75 mg p.o. daily, aspirin 81 mg p.o. daily and Tylenol Extra Strength. SOCIAL HISTORY: The patient is a nonsmoker. No history of alcohol. No history of IV drugs. FAMILY HISTORY: Negative for sleep apnea. REVIEW OF SYSTEMS: 12-point review of system was done. Constitutional is positive for obesity and weight gain. No fever, chills or night sweats. Head/HEENT: No head trauma. She has impaired hearing. Some visual changes in addition. She has loud snoring. She is a nose breather. No sinus infections. Cardiovascular: Angina and chest pain recovered following cardiac stent insertion. She has no palpitations. She has underlying chronic atrial fibrillation. Pulmonary exertional dyspnea chronic. No cough, sputum production, chest tightness or wheezing. GI: Negative for nausea, vomiting, abdominal pain, or GI bleed. negative for dysuria, frequency, urgency. MUSCULOSKELETAL: Chronic arthritic pain with large joints such as the knees and she has chronic back pains. Skin is negative for any wounds, ulceration or cellulitis. Neuro is negative for stroke or seizure activity or altered mentation. She is having some problems with her memory and concentration. His skin is negative. No wounds or ulcerations. Psych is positive for increased anxiety. PHYSICAL EXAMINATION: Her current vitals: BP is 111/81, pulse 75, respiratory rate 16, temperature 97.1, saturation 95% on room air. Neck size is 16 and quarter of an inch. Bison score is 11. BMI 52.9, weight is 280 and height is 5 feet 1 inches. General appearance: Calm, comfortable. Head is atraumatic, normocephalic. Neck short supple neck. Crowding of posterior pharynx, Mallampati class IV. LUNGS: Diminished breath sounds bilaterally, otherwise clear. HEART: Sounds are irregular. Positive S1, S2. No S3, S4. No murmurs. ABDOMEN: Soft, nontender. No organomegaly. EXTREMITIES: No edema. No cyanosis or clubbing. NEUROLOGIC: A and O x3. There is no focal neurological deficits. PSYCHIATRIC: There is increased anxiety. No depression. Skin is negative for open wounds, ulcers or cellulitis. IMPRESSION: 1. Obstructive sleep apnea. Symptomatic. The patient is coming in for reevaluation. She has been diagnosed and treated for obstructive sleep apnea more than 15 years ago and she is coming in for a reevaluation. She is obviously more symptomatic. 2. Daytime drowsiness and sleepiness, Bison Score of 11. 3. Obesity with a BMI of 52.9. 4. Coronary artery disease with recent angioplasty and stenting of RCA. 5. Chronic atrial fibrillation. 6. Chronic back pain. 7. Impaired hearing. 8. Hypertension. 9. Degenerative arthritis. PLAN: 1. We will proceed with a screening polysomnogram to assess the presence and severity of obstructive sleep apnea. 2. Encourage weight loss. 3. Tight control of cardiovascular risk factors. 4. Agree on a tranquilizer to improve his anxiety and this was taken care of by primary care physician. 5. We will review the sleep study and make further recommendations on treatment if needed. MMODL / IJN: [id number] /
== END | disposition home or self-care (01) ==
LOC: SLEEP 16:16
PROVIDERS: ATTEND Internal Medicine Critical Care Medicine
DX: G47.33 Obstructive sleep apnea (adult) (pediatric) (principal); I25.10 Atherosclerotic heart disease of native coronary artery without angina pectoris; M54.9 Dorsalgia, unspecified; G89.29 Other chronic pain; H91.90 Unspecified hearing loss, unspecified ear; I48.2 Chronic atrial fibrillation; M19.90 Unspecified osteoarthritis, unspecified site; F41.9 Anxiety disorder, unspecified; I10 Essential (primary) hypertension; E66.9 Obesity, unspecified; Z68.43 Body mass index [BMI] 50.0-59.9, adult; Z95.5 Presence of coronary angioplasty implant and graft; Z79.899 Other long term (current) drug therapy; Z79.02 Long term (current) use of antithrombotics/antiplatelets; Z79.82 Long term (current) use of aspirin
CPT/HCPCS: 99211

== ENCOUNTER 2017-03-17 06:03 | Day surgery (SDC) | payer MEDICARE ==
[2017-03-09 16:20] VITALS: BMI 50.6
[~2017-03-17 06:03] MED LIST: LACTATED RINGERS 1,000 ML IV SCH; SODIUM CHLORIDE 0.9% 1,000 ML IV SCH
[2017-03-17] MEDS ORDERED: SODIUM CHLORIDE 0.9% 500 ML IV ONE (06:46)
[2017-03-17] MEDS ORDERED: PROPOFOL 10 MG/ML 20 ML VIAL IV ONE (07:12)
[2017-03-17] MEDS: BENZOCAINE SPRAY 1 SPRAY CAN MUCOUS MEM ONE ×2 (07:12→07:14)
[2017-03-17] MEDS ORDERED: ACETAMINOPHEN TAB 500 MG TAB PO PRN (07:33)
[2017-03-17] MEDS ORDERED: Acetaminophen-Codeine 300-30mg TAB PO PRN (07:33)
[2017-03-17] MEDS ORDERED: NITROGLYCERIN SL TABS 0.4 MG TAB SUBLINGUAL PRN (07:33)
[2017-03-17] MEDS: HYDROmorphone 4 MG/ML 1 ML SYRINGE IV ONE ×2 (07:39→07:40)
[2017-03-17] MEDS ORDERED: HYDROmorphone 4 MG/ML 1 ML SYRINGE IVP ONE (07:40)
[2017-03-17] MEDS ORDERED: SODIUM CHLORIDE 0.9% 1,000 ML IV SCH (07:45)
--- NOTE | 2017-03-17 07:54 | ECHOT ---
TRANSESOPHAGEAL ECHOCARDIOGRAM INDICATION: Atrial fibrillation. PROCEDURE: After explaining the procedure to the patient as well as risks and the complications, after obtaining sedated state by the anesthesia department, her blood pressure, heart rate, O2 saturation was monitored. The throat was sprayed with Cetacaine. The probe was then introduced in the esophagus without difficulty. Images were obtained. Following that, the probe was removed. There was no immediate complication. FINDINGS: The left atrial size is mildly dilated. The left atrial appendage is normal. Left ventricular size and systolic function are normal. The aortic valve, mitral valve and tricuspid valve are normal. No pericardial effusion was noted. Descending thoracic aorta revealed no evidence of significant atherosclerotic. Contrast bubble study revealed no evidence of shunting across the interatrial septum. Doppler pulse wave and color Doppler obtained and revealed moderate mitral and tricuspid regurgitation with trace pulmonic regurgitation with no shunting by color Doppler study. CONCLUSION: 1. Mildly dilated left atrium with normal appearance left atrial appendage. 2. Normal left ventricular size and systolic function. 3. Moderate mitral and tricuspid regurgitation. 4. Trace pulmonic regurgitation. 5. No shunting across the interatrial septum. MMODL / IJN: [id number] /
[2017-03-17] MEDS ORDERED: IV FLUID CONTINUATION 1,000 ML IV ONE (08:00)
--- NOTE | 2017-03-17 08:00 | CE ---
CARDIAC ELECTROPHYSIOLOGY REPORT CARDIOVERSION PROCEDURE NOTE. INDICATION: Atrial fibrillation. PROCEDURE: After performing transesophageal echocardiogram and after obtaining sedated state, a biphasic synchronized cardioversion using 200 joules was unsuccessful in restoring normal sinus rhythm. A subsequent cardioversion using 300 joules were successful in restoring normal sinus rhythm. There was no immediate complication. CARLA / JAZMIN: [id number] /
[2017-03-17 08:16] VITALS: TEMP 98.1
[2017-03-17] MEDS ORDERED: ONDANSETRON 4 MG/2 ML VIAL ONE (09:28)
[2017-03-17 10:40] VITALS: RESP 16
[2017-03-17 12:02] VITALS: BP 111/72; PULSE 48
[2017-03-17] MEDS ORDERED: ASPIRIN 81 MG PO SCH (21:00)
[2017-03-17] MEDS ORDERED: METOPROLOL TARTRATE 25 MG TAB PO SCH (21:00)
[2017-03-17] MEDS ORDERED: ATORVASTATIN 80 MG TAB PO SCH (21:00)
[2017-03-18] MEDS ORDERED: CLOPIDOGREL 75 MG TAB PO SCH (09:00)
[2017-03-18] MEDS ORDERED: SPIRONOLACTONE 25 MG TAB PO SCH (09:00)
[2017-03-18] MEDS ORDERED: EDOXABAN TOSYLATE 60 MG TABLET PO SCH (09:00)
== END 2017-03-17 12:02 | disposition home or self-care (01) ==
LOC: CATHCVL 06:03
PROVIDERS: ATTEND Internal Medicine Interventional Cardiology
DX: I07.1 Rheumatic tricuspid insufficiency (principal); I37.1 Nonrheumatic pulmonary valve insufficiency; I48.1 Persistent atrial fibrillation; I25.10 Atherosclerotic heart disease of native coronary artery without angina pectoris; I10 Essential (primary) hypertension; E78.2 Mixed hyperlipidemia; I73.9 Peripheral vascular disease, unspecified; Z82.49 Family history of ischemic heart disease and other diseases of the circulatory system; G47.33 Obstructive sleep apnea (adult) (pediatric); M19.90 Unspecified osteoarthritis, unspecified site; Z79.82 Long term (current) use of aspirin; Z79.899 Other long term (current) drug therapy; Z79.02 Long term (current) use of antithrombotics/antiplatelets
CPT/HCPCS: 93312; 93320; 93325; 92960; J2405; J2704; J1170; 93005

== ENCOUNTER → 2017-05-10 | Day surgery (SDC) | payer MEDICARE ==
[2017-05-06 10:53] VITALS: BMI 49.9
[~2017-05-10] MED LIST changes: +ATORVASTATIN 80 MG TAB PO SCH; +Acetaminophen-Codeine 300-30mg TAB PO PRN; +CLOPIDOGREL 75 MG TAB PO SCH; +EDOXABAN TOSYLATE 60 MG TABLET PO SCH; +METOPROLOL TARTRATE 25 MG TAB PO SCH; +NITROGLYCERIN SL TABS 0.4 MG TAB SUBLINGUAL PRN; +ONDANSETRON 4 MG/2 ML VIAL IVP ONE; +PROPOFOL 10 MG/ML 20 ML VIAL IV ONE; +SODIUM CHLORIDE 0.9% 1,000 ML IV ONE; +SPIRONOLACTONE 25 MG TAB PO SCH
[2017-05-10 06:53] VITALS: TEMP 98.2
--- NOTE | 2017-05-10 08:02 | CE ---
CARDIAC ELECTROPHYSIOLOGY REPORT CARDIOVERSION PROCEDURE NOTE INDICATION: Atrial fibrillation. PROCEDURE: After explaining the procedure to the patient as well as risks and the complications, blood pressure, heart rate, O2 saturation was monitored. She received sedation per the anesthesia department and after achieving sedated state, a synchronized cardioversion using 250 joules, 300 joules and subsequently 300 joules were unsuccessful in restoring normal sinus rhythm. There was no immediate complication. CARLA / MARCOSN: [id number] /
[2017-05-10 08:58] VITALS: RESP 20
[2017-05-10 09:21] VITALS: BP 110/64; PULSE 80
== END | disposition home or self-care (01) ==
LOC: CATHCVL 05:58
PROVIDERS: ATTEND Internal Medicine Interventional Cardiology
DX: I48.1 Persistent atrial fibrillation (principal); I25.10 Atherosclerotic heart disease of native coronary artery without angina pectoris; Z95.5 Presence of coronary angioplasty implant and graft; I11.0 Hypertensive heart disease with heart failure; I50.9 Heart failure, unspecified; E78.2 Mixed hyperlipidemia; G47.33 Obstructive sleep apnea (adult) (pediatric); I73.9 Peripheral vascular disease, unspecified; Z99.89 Dependence on other enabling machines and devices; Z79.02 Long term (current) use of antithrombotics/antiplatelets; Z79.899 Other long term (current) drug therapy; Z79.891 Long term (current) use of opiate analgesic; Z82.49 Family history of ischemic heart disease and other diseases of the circulatory system
CPT/HCPCS: 92960; J2405; J2704

== ENCOUNTER → 2017-07-05 | Outpatient (CLI) | payer MEDICARE ==
--- NOTE | 2017-07-05 20:43 | PN ---
PROGRESS NOTE Zaira has severe symptomatic obstructive sleep apnea with an AHI of 55. Currently she is on CPAP pressure of 10 cm of water. She is coming in for a followup and a compliancy check. She reports marked improvement in her sleep quality in general. She is waking up much more alert and awake during the day. She is using her CPAP 100% of the time. She is achieving more than 4 hours 90% of the time. Her average CPAP is around 5 hours and 35 minutes. Her AHI while on treatment is down to 3.1. Leak factor is only 27. No complaints otherwise for now and treatment is successful. REVIEW OF SYSTEMS: 12-point review of system was done. Positive findings are mentioned above in the history of present illness. No palpitation at night time. No chest pain at night time. No shortness of breath. No heartburn. No sleepwalking or sleep talking. No parasomnias. PHYSICAL EXAMINATION: Her BP 117/75, pulse 100, respirations 16, temp 98.6, weight is 281. GENERAL APPEARANCE: Calm, comfortable. Head is atraumatic, normocephalic. NECK: Supple. There is no JVD. No goiter or neck masses. LUNGS: Clear to auscultation. HEART: Sounds are regular rate and rhythm. Normal S1, S2. No S3. No murmurs. ABDOMEN: Soft, nontender. No organomegaly. EXTREMITIES: No edema. No cyanosis or clubbing. NEURO: Alert and oriented x3. No focal neurological deficits. PSYCH is negative for anxiety or depression. IMPRESSION: 1. Severe symptomatic obstructive sleep apnea with an AHI of 55.6, currently on CPAP with successful therapy at a pressure of 10 cm of water. 2. Chronic atrial fibrillation. 3. Coronary artery disease. 4. Hypertension. 5. Hypersomnia improved. 6. Obesity. PLAN: 1. Continue CPAP at same level of pressure. 2. Encourage weight loss. 3. Treatment successful. 4. See me back in a year's time or earlier if needed. MMODL / IJN: [id number] /
== END | disposition home or self-care (01) ==
LOC: SLEEP 14:03
PROVIDERS: ATTEND Internal Medicine Critical Care Medicine
DX: G47.33 Obstructive sleep apnea (adult) (pediatric) (principal); I48.2 Chronic atrial fibrillation; I25.10 Atherosclerotic heart disease of native coronary artery without angina pectoris; I10 Essential (primary) hypertension; G47.10 Hypersomnia, unspecified; E66.9 Obesity, unspecified; Z99.89 Dependence on other enabling machines and devices

== ENCOUNTER → 2018-07-04 | Outpatient (CLI) | payer MEDICARE ==
--- NOTE | 2018-07-04 20:05 | PN ---
PROGRESS NOTE This is a pleasant 78-year-old female patient with known history of severe obstructive sleep apnea with an AHI of 55 and currently on CPAP of 10. She is coming in for an annual check. She is using AirFit nose mask. Her weight has been down by around 5 pounds. She is currently weighing 276. Compliancy check was done. The patient has been averaging around 3.6 hours of CPAP use per night with a leak factor of 60 per minute, and AHI is down to 2.6 while on treatment. No other new complaints for now. I noted that her compliance has gone down in general. Never the less, despite all this, she is feeling well. No major hypersomnia or sleepiness during the day. She continues to be in atrial fibrillation. She is on long-term anticoagulation with Coumadin. No recent heart attack. She is known to have coronary artery disease. Her current [place] score is 11. REVIEW OF SYSTEMS: Fourteen-point review of system was done, positive points all mentioned above in the history of present illness. PHYSICAL EXAMINATION: BP is 143/60, pulse is 90. Respirations 16, temperature 98.1. Saturation 96% on room air. Height is 5 feet 1 inches, weight is 276. BMI 52.1. GENERAL APPEARANCE: Calm, comfortable. Head is atraumatic, normocephalic. NECK: Supple. No JVD. No goiter or neck masses. LUNGS: Clear to auscultation. HEART: Sounds are regular rate and rhythm. Normal S1, S2. No S3. No murmurs. ABDOMEN: Soft, nontender. No organomegaly. EXTREMITIES: No edema. No cyanosis or clubbing. IMPRESSION: 1. Severe obstructive sleep apnea AHI 55 currently on CPAP pressure of 10. 2. Suboptimal compliancy based on the compliance data as noted today. 3. Hypersomnia with some interval worsening and sleepiness [place] score is 11. 4. Coronary artery disease. 5. Hypertension. 6. Obesity. PLAN: 1. We will ask the patient to utilize CPAP machine more frequently. The compliancy data has gone down. 2. Continue using AirFit P10 nose mask/pillow. 3. Encourage weight loss. 4. See me back in the office in a year's time in followup. MMODL / IJN: [id number] /
== END ==
LOC: SLEEP 13:06
PROVIDERS: ATTEND Internal Medicine Critical Care Medicine
DX: G47.33 Obstructive sleep apnea (adult) (pediatric) (principal); E66.9 Obesity, unspecified; I48.91 Unspecified atrial fibrillation; I25.10 Atherosclerotic heart disease of native coronary artery without angina pectoris; I10 Essential (primary) hypertension; Z99.89 Dependence on other enabling machines and devices; Z79.01 Long term (current) use of anticoagulants; Z68.43 Body mass index [BMI] 50.0-59.9, adult

== ENCOUNTER → 2018-07-26 | Outpatient (CLI) | payer MEDICARE ==
[2018-07-26 19:56] LABS: Albumin 4.2 g/dL (3.80-4.90); Albumin/Globulin Ratio 1.91 (1.60-3.17); Anion Gap 9.6 mmol/L (4.00-12.00); BUN/Creat Ratio 23.33 Ratio (12.00-20.00); Calcium 9.3 mg/dL (8.7-10.3); Carbon Dioxide 23.4 mmol/L (21.6-31.8); Globulin 2.2 g/dL (1.6-3.3); Potassium 4.6 mmol/L (3.5-5.5); Total Bilirubin 0.7 mg/dL (0.3-1.2); Total Protein 6.4 g/dL (6.2-8.2)
== END | disposition home or self-care (01) ==
LOC: LABWHC1 11:54
PROVIDERS: ATTEND Internal Medicine Interventional Cardiology
DX: I10 Essential (primary) hypertension (principal)
CPT/HCPCS: 36415; 80053

== ENCOUNTER 2018-08-04 11:53 | Inpatient (IN) | payer MEDICARE ==
[2018-08-04] MEDS ORDERED: MORPHINE SULFATE 4 MG/ML SYRINGE IVP STA (13:02)
[2018-08-04] MEDS ORDERED: methylPREDNISolone SOD SUCCI 125 MG/2 ML VIAL IV STA (13:02)
[2018-08-04 13:29] LABS: Basophils % (A) 0 %; Eosinophils # (A) 0.3 k/uL (0-0.7); Eosinophils % (A) 4 %; HCT 41.6 % (34.0-46.0); HGB 13.5 gm/dL (11.4-16.0); Lymphocytes # (A) 1.8 k/uL (1.0-4.8); Lymphocytes % (A) 29 %; MCH 32.2 pg (25.0-35.0); MCHC 32.4 g/dL (31.0-37.0); MCV 99.5 fL (80.0-100.0); Mean Platelet Volume 6.7; Monocytes # (A) 0.4 k/uL (0-1.0); Monocytes % (A) 6 %; Neutrophils # (A) 3.5 k/uL (1.3-7.7); Neutrophils % (A) 58 %; Platelet Count 185 k/uL (150-450); RBC 4.18 m/uL (3.80-5.40); RDW 12.6 % (11.5-15.5); WBC 6.2 k/uL (3.8-10.6)
[2018-08-04 13:48] LABS: Calcium 8.9 mg/dL (8.4-10.2); Potassium 4.6 mmol/L (3.5-5.1)
--- NOTE | 2018-08-04 14:29 | ED ---
Back Pain HPI - General Source: patient, EMS, RN notes reviewed, old records reviewed Limitations: physical limitation <Kelly Powell - Last Filed: 08/04/18 18:32> <Lakhwinder James - Last Filed: 08/06/18 07:15> - General Chief Complaint: Back Pain/Injury Stated Complaint: Back pain Time Seen by Provider: 08/04/18 12:02 - History of Present Illness Initial Comments: Patient is a morbidly obese 78-year-old female presents resources with worsening chronic back pain. She states that today she also sharp pain in the right side of her back, was unable to ambulate. Patient states that she has had a history of injection under spinal help with similar complaints. She states the pain does radiate down her right leg. She denies any recent fall or trauma. She denies abdominal pain. Patient reports she has history of CHF. She denies any worsening chest pain or shortness of breath. Patient states that she is having difficulty ambulating (Kelly Powell) - Related Data Home Medications Medication Instructions Recorded Confirmed Spironolactone 75 mg PO DAILY 02/25/17 08/04/18 ALPRAZolam [Xanax] 0.25 mg PO HS PRN 08/04/18 08/04/18 Apixaban [Eliquis] 5 mg PO BID 08/04/18 08/04/18 Metoprolol Tartrate [Lopressor] 75 mg PO BID 08/04/18 08/04/18 Previous Rx's Medication Instructions Recorded Atorvastatin [Lipitor] 80 mg PO HS #30 tab 02/23/17 Nitroglycerin Sl Tabs [Nitrostat] 0.4 mg SUBLINGUAL Q5M PRN #25 tab 02/23/17 Allergies Allergy/AdvReac Type Severity Reaction Status Date / Time No Known Allergies Allergy Verified 08/04/18 16:36 Review of Systems ROS Other: All systems not noted in ROS Statement are negative. <Kelly Powell - Last Filed: 08/04/18 18:32> ROS Other: All systems not noted in ROS Statement are negative. <Lakhwinder James - Last Filed: 08/06/18 07:15> ROS Statement: Those systems with pertinent positive or pertinent negative responses have been documented in the HPI. Past Medical History Past Medical History: Hyperlipidemia, Hypertension, Osteoarthritis (OA), Vascular Disorder Additional Past Medical History / Comment(s): -hx irregular heart rate, 2 ruptured disc back, bladder leakage, pancreatitis, edd. lower leg swelling, shortness of breath History of Any Multi-Drug Resistant Organisms: None Reported Past Surgical History: Cholecystectomy, Heart Catheterization With Stent, Hysterectomy, Orthopedic Surgery Additional Past Surgical History / Comment(s): lt knee arthroscopy Past Anesthesia/Blood Transfusion Reactions: No Reported Reaction Date of Last Stent Placement:: FEB 2017 Past Psychological History: Anxiety - Past Family History Mother Family Medical History: No Reported History Additional Family Medical History / Comment(s): heart issues Father Family Medical History: Cancer Additional Family Medical History / Comment(s): . <Kelly Powell - Last Filed: 08/04/18 18:32> General Exam Limitations: physical limitation General appearance: alert, in no apparent distress Head exam: Present: atraumatic, normocephalic, normal inspection Eye exam: Present: normal appearance, PERRL, EOMI. Absent: scleral icterus, conjunctival injection, periorbital swelling ENT exam: Present: normal exam, mucous membranes moist Neck exam: Present: normal inspection. Absent: tenderness, meningismus, lymphadenopathy Respiratory exam: Present: normal lung sounds bilaterally. Absent: respiratory distress, wheezes, rales, rhonchi, stridor Cardiovascular Exam: Present: regular rate, normal rhythm, normal heart sounds. Absent: systolic murmur, diastolic murmur, rubs, gallop, clicks GI/Abdominal exam: Present: soft, normal bowel sounds. Absent: distended, tenderness, guarding, rebound, rigid Extremities exam: Present: normal inspection, full ROM, normal capillary refill, other (Normocephalic pedis pulse bilaterally.). Absent: tenderness, pedal edema, joint swelling, calf tenderness Back exam: Present: normal inspection Neurological exam: Present: alert, oriented X3, CN II-XII intact Psychiatric exam: Present: normal affect <Kelly Powell - Last Filed: 08/04/18 18:32> - General Exam Comments Initial Comments: Morbidly obese 70-year-old female. No siginficiant Distress. (Kelly Powell) Course Vital Signs 08/04/18 08/04/18 11:56 15:30 Temperature 97.8 F 97.2 F L Pulse Rate 77 63 Respiratory 18 18 Rate Blood Pressure 125/83 121/73 O2 Sat by Pulse 98 96 Oximetry Medical Decision Making - Lab Data Result diagrams: 08/04/18 13:15 08/04/18 13:15 - Radiology Data Radiology results: report reviewed <AndreKelly lynn - Last Filed: 08/04/18 18:32> - Lab Data Result diagrams: 08/04/18 13:15 08/04/18 13:15 <Lakhwinder James - Last Filed: 08/06/18 07:15> - Medical Decision Making This patient's a 70-year-old female presenting to emergency department for evaluation for acute exacerbation of chronic back pain. She was unable to get out of her chair. She arrived via EMS. She is given IV fluids and pain medication. Multiple Tylenol or attempted to Kelly Patient and she was unable to do due to feeling dizzy as well as worsening pain. Labs were reviewed and unremarkable. I discussed that we can treat Patient with sugar pain medication steroids and have her follow up outpatient only, however family states they're concerned with taking her home by herself. Discussed with Dr. Hunt discusses Dr. Pak. will admit the Patient for observation due to acute exacerbation of chronic back pain, inability to ambulate. Generalized weakness. He states that they do think that she should be admitted to a rehab facility. (Kelly Powell) 70-year-old female presenting to the emergency department for acute on chronic back pain. Multiple rounds of pain medication or unsuccessful in alleviating the patient's pain. She is unable to ambulate. She will be kept in observation, may require placement. (Lakhwinder James) - Lab Data Lab Results 08/04/18 08/04/18 08/04/18 Range/Units 13:15 13:15 13:15 WBC 6.2 (3.8-10.6) k/uL RBC 4.18 (3.80-5.40) m/uL Hgb 13.5 (11.4-16.0) gm/dL Hct 41.6 (34.0-46.0) % MCV 99.5 (80.0-100.0) fL MCH 32.2 (25.0-35.0) pg MCHC 32.4 (31.0-37.0) g/dL RDW 12.6 (11.5-15.5) % Plt Count 185 (150-450) k/uL Neutrophils % 58 % Lymphocytes % 29 % Monocytes % 6 % Eosinophils % 4 % Basophils % 0 % Neutrophils # 3.5 (1.3-7.7) k/uL Lymphocytes # 1.8 (1.0-4.8) k/uL Monocytes # 0.4 (0-1.0) k/uL Eosinophils # 0.3 (0-0.7) k/uL Basophils # 0.0 (0-0.2) k/uL PT (9.0-12.0) sec INR (<1.2) APTT (22.0-30.0) sec Sodium 139 (137-145) mmol/L Potassium 4.6 (3.5-5.1) mmol/L Chloride 107 (98-107) mmol/L Carbon Dioxide 28 (22-30) mmol/L Anion Gap 4 mmol/L BUN 25 H (7-17) mg/dL Creatinine 0.76 (0.52-1.04) mg/dL Est GFR (CKD-EPI)AfAm 87 (>60 ml/min/1.73 sqM) Est GFR (CKD-EPI)NonAf 76 (>60 ml/min/1.73 sqM) Glucose 94 (74-99) mg/dL Calcium 8.9 (8.4-10.2) mg/dL Troponin I (0.000-0.034) ng/mL NT-Pro-B Natriuret Pep 1060 pg/mL Urine Color Urine Appearance (Clear) Urine pH (5.0-8.0) Ur Specific [place] (1.001-1.035) Urine Protein (Negative) Urine Glucose (UA) (Negative) Urine Ketones (Negative) Urine Blood (Negative) Urine Nitrite (Negative) Urine Bilirubin (Negative) Urine Urobilinogen (<2.0) mg/dL Ur Leukocyte Esterase (Negative) 08/04/18 08/04/18 08/04/18 Range/Units 13:15 13:15 15:49 WBC (3.8-10.6) k/uL RBC (3.80-5.40) m/uL Hgb (11.4-16.0) gm/dL Hct (34.0-46.0) % MCV (80.0-100.0) fL MCH (25.0-35.0) pg MCHC (31.0-37.0) g/dL RDW (11.5-15.5) % Plt Count (150-450) k/uL Neutrophils % % Lymphocytes % % Monocytes % % Eosinophils % % Basophils % % Neutrophils # (1.3-7.7) k/uL Lymphocytes # (1.0-4.8) k/uL Monocytes # (0-1.0) k/uL Eosinophils # (0-0.7) k/uL Basophils # (0-0.2) k/uL PT 10.6 (9.0-12.0) sec INR 1.0 (<1.2) APTT 23.5 (22.0-30.0) sec Sodium (137-145) mmol/L Potassium (3.5-5.1) mmol/L Chloride (98-107) mmol/L Carbon Dioxide (22-30) mmol/L Anion Gap mmol/L BUN (7-17) mg/dL Creatinine (0.52-1.04) mg/dL Est GFR (CKD-EPI)AfAm (>60 ml/min/1.73 sqM) Est GFR (CKD-EPI)NonAf (>60 ml/min/1.73 sqM) Glucose (74-99) mg/dL Calcium (8.4-10.2) mg/dL Troponin I <0.012 (0.000-0.034) ng/mL NT-Pro-B Natriuret Pep pg/mL Urine Color Light Yellow Urine Appearance Clear (Clear) Urine pH 5.5 (5.0-8.0) Ur Specific [place] 1.010 (1.001-1.035) Urine Protein Negative (Negative) Urine Glucose (UA) Negative (Negative) Urine Ketones Negative (Negative) Urine Blood Negative (Negative) Urine Nitrite Negative (Negative) Urine Bilirubin Negative (Negative) Urine Urobilinogen <2.0 (<2.0) mg/dL Ur Leukocyte Esterase Negative (Negative) 08/04/18 16:40 EKG performed at 1537 shows atrial fibrillation with PVCs, old. Nonspecific ST- T abnormally. Abnormal QRST angle. Abnormal T wave abnormality. Abnormal EKG. Ventricular rate of 99 bpm intervals undetected. Stressors a 6 QTQTC 336/431 ms. (Kelly Powell) - Radiology Data Also will return disease. Central stenosis L3-L4 and L4-L5. (Kelly Powell) Disposition Is patient prescribed a controlled substance at d/c from ED?: No Time of Disposition: 18:34 <Kelly Powell - Last Filed: 08/04/18 18:32> <Lakhwinder James - Last Filed: 08/06/18 07:15> Clinical Impression: Acute exacerbation of chronic low back pain, Generalized weakness, Risk for falls Disposition: ADMITTED IP TO THIS HOSP Condition: Stable
[2018-08-04] MEDS ORDERED: ONDANSETRON 4 MG/2 ML VIAL IVP STA (14:53)
--- NOTE | 2018-08-04 14:59 | CT ---
EXAMINATION TYPE: CT lumbar spine wo con DATE OF EXAM: 08/04/2018 COMPARISON: None HISTORY: Low back pain. CT DLP: 1963.[address] of the lumbar spine was performed. Bone and soft tissue window settings are submitted as well as coronal and sagittal reconstructions. L1-L2: Mild degenerative disc space narrowing No disc herniation protrusion or central stenosis. No facet joint arthropathy. No evidence for foraminal encroachment. L2-L3: There is evidence of vacuum disc. Circumferential disc bulge with mild effacement of the ventr al thecal sac. Bilateral lateral recess stenosis and foraminal encroachment. No evidence for central stenosis at this time. L3-L4: Moderate to severe degenerative disc disease. Circumferential disc bulge with hypertrophy of t he ligamentum flavum and facet joint arthropathy resulting in mild central stenosis. Mild bilateral f oraminal encroachment. L4-L5: Grade 1 anterolisthesis L4 and L5 of 3 mm. Moderate circumferential disc bulge. The ligamentum flavum and facet joint arthropathy with moderate central stenosis noted. No disc herni ation seen. L5-S1: Severe disc space narrowing. No paraspinal masses are identified. Lumbar segments are free if fracture. IMPRESSION: 1. Multilevel degenerative disc disease. 2. 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
[2018-08-04 16:01] LABS: Appearance,Urine Clear (Clear); Bilirubin,Urine Negative (Negative); Blood,Urine Negative (Negative); Color,Urine Light Yellow; Glucose,Urine (UA) Negative (Negative); Ketones,Urine Negative (Negative); Leukocyte Esterase,Urine Negative (Negative); Nitrite,Urine Negative (Negative); PH, Urine 5.5 (5.0-8.0); Protein,Urine Negative (Negative); Urobilinogen,Urine <2.0 mg/dL (<2.0)
--- NOTE | 2018-08-04 16:17 | XR ---
EXAMINATION TYPE: XR chest 2V DATE OF EXAM: 08/04/2018 COMPARISON: 02/25/2017 HISTORY: Shortness of breath TECHNIQUE: Frontal and lateral views of the chest are obtained. FINDINGS: Scattered senescent parenchymal changes noted. Hyperinflation compatible with COPD. No evidence for infiltrate. No evidence for atelectasis. There is evidence of cardiomegaly with chronic pulmonary venous prominence. No overt failure seen. Mediastinal structures are stable and grossly unremarkable. No evidence for hilar prominence. Degenerative changes dorsal spine. IMPRESSION: 1. There is evidence of cardiomegaly with chronic pulmonary venous prominence. No overt failure seen.
[2018-08-04 16:49] LABS: Partial Thromboplastin Time 23.5 sec (22.0-30.0); Prothrombin Time 10.6 sec (9.0-12.0)
[2018-08-04] MEDS ORDERED: ACETAMINOPHEN TAB 325 MG TAB PO PRN (18:35)
[2018-08-04] MEDS ORDERED: MORPHINE SULFATE 4 MG/ML SYRINGE IV PRN (18:35)
[2018-08-04] MEDS ORDERED: IBUPROFEN 400 MG TAB PO PRN (18:35)
[2018-08-04] MEDS ORDERED: ONDANSETRON 4 MG/2 ML VIAL IVP PRN (18:35)
[2018-08-04] MEDS ORDERED: NALOXONE 0.4 MG/ML 1 ML VIAL IV PRN (18:35)
[2018-08-04] MEDS ORDERED: ALPRAZolam 0.25 MG TAB PO PRN (21:52)
[2018-08-04] MEDS ORDERED: NITROGLYCERIN SL TABS 0.4 MG TAB SUBLINGUAL PRN (21:52)
[2018-08-04] MEDS: APIXABAN 5 MG TAB PO SCH (22:03)
[2018-08-04] MEDS: ATORVASTATIN 80 MG TAB PO SCH (22:05)
[2018-08-04] MEDS: METOPROLOL TARTRATE 25 MG TAB PO SCH (22:06)
[2018-08-04] MEDS: KETOROLAC 30 MG/ML 1 ML VIAL IVP PRN (22:10)
--- NOTE | 2018-08-04 22:51 | P.HPIM ---
History of Present Illness H&P Date: 08/04/18 Patient is a 78-year-old female with a past medical history of hypertension, hyperlipidemia, atrial fibrillation on Eliquis, coronary artery disease status post 1 stent in 2018, and chronic spine and hip DJD presents to the ED for acute worsening of chronic back and right hip pain. The patient notes that she has been suffering with chronic right-sided back pain for the past 7-8 years for which she has been following with an orthopedic surgeon and has received multiple steroids injections to her hip. She she notes that her pain is normally intermittent and at worst is a 10 out of 10, though after waking up today, her pain was a 15 out of 10, radiating to her R leg (typical of her pain), and she was unable to ambulate. She subsequently came to the ED. She notes that her symptoms are similar to prior with the exception of the intensity of the pain. She also reported long-standing stress urinary incontinence though denied recent worsening. She further denied bowel incontinence, or LE tingling or numbness. The patient denied fever, chills, nausea, vomiting, chest pain, SOB, diarrhea, or abdominal pain. She underwent an extensive evaluation in the ED w/ Lumbar spine CT showing multi-level DJD w/ spinal stenosis at L3-4 and L4-5. CXR revealed cardiomegaly with venous congestion. Laboratory evaluation revealed Troponin level < 0.012, BNP 1060, UA unremarkable, WBC 6.2, Hgb 13.5, BUn 25, and Cr 0.76. She was admitted to the medicine service for further management. Review of Systems Pertinent positives and negatives as discussed in HPI, a complete review of systems was performed and all other systems are negative. Past Medical History Past Medical History: Hyperlipidemia, Hypertension, Osteoarthritis (OA), Vasc ular Disorder Additional Past Medical History / Comment(s): -hx irregular heart rate, 2 ruptured disc back, bladder leakage, pancreatitis, edd. lower leg swelling, shortness of breath History of Any Multi-Drug Resistant Organisms: None Reported Past Surgical History: Cholecystectomy, Heart Catheterization With Stent, Hyster ectomy, Orthopedic Surgery Additional Past Surgical History / Comment(s): lt knee arthroscopy Past Anesthesia/Blood Transfusion Reactions: No Reported Reaction Date of Last Stent Placement:: FEB 2017 Past Psychological History: Anxiety - Past Family History Mother Family Medical History: No Reported History Additional Family Medical History / Comment(s): heart issues Father Family Medical History: Cancer Additional Family Medical History / Comment(s): . Medications and Allergies Home Medications Medication Instructions Recorded Confirmed Type Atorvastatin [Lipitor] 80 mg PO HS #30 tab 02/23/17 08/04/18 Rx Nitroglycerin Sl Tabs [Nitrostat] 0.4 mg SUBLINGUAL Q5M PRN #25 tab 02/23/17 08/04/18 Rx Spironolactone 75 mg PO DAILY 02/25/17 08/04/18 History ALPRAZolam [Xanax] 0.25 mg PO HS PRN 08/04/18 08/04/18 History Apixaban [Eliquis] 5 mg PO BID 08/04/18 08/04/18 History Metoprolol Tartrate [Lopressor] 75 mg PO BID 08/04/18 08/04/18 History Allergies Allergy/AdvReac Type Severity Reaction Status Date / Time No Known Allergies Allergy Verified 08/04/18 16:36 Physical Exam Vitals: Vital Signs Temp Pulse Pulse Resp BP BP Pulse Ox 08/04/18 21:39 97.8 F 82 18 111/78 92 L 08/04/18 15:30 97.2 F L 63 18 121/73 96 08/04/18 11:56 97.8 F 77 18 125/83 98 Intake and Output 08/04/18 08/04/18 08/04/18 06:59 14:59 22:59 Other: Weight 126.552 kg General: non toxic, no distress, appears at stated age, morbidly obese Derm: no unusual rashes/lesions no unusual ecchymoses, warm, dry Head: atraumatic, normocephalic, symmetric Eyes: EOMI, no lid lag, anicteric sclera, pupils equal round reactive to light ENT: Nose and ears atraumatic, no thrush, no pharyngeal erythema Neck: No thyromegaly, no cervical lymphadenopathy, trachea midline, supple Mouth: no lip lesion, mucus membranes moist Cardiovascular: S1S2 reg, no murmur, positive posterior tibial pulse bilateral, no edema, capillary refill less than 2 seconds Lungs: CTA bilateral, no rhonchi, no rales , no accessory muscle use Abdominal: soft, nontender to palpation, no guarding, no appreciable organomegaly, normal bowel sounds Ext: no gross muscle atrophy, muscle strength 5 out of 5 in UEs edd, Strength proximally of RLE limited to a 2/5 due to pain, distally strength 5/5 for edd LEs, LLE Proximal strengthh 3/5, no contractures, R posterior hip diffuse tenderness, no spinal tenderness noted Neuro: CN II-XI grossly intact, light touch intact all 4 extremities, finger to nose within normal limits, Psych: Alert, oriented, appropriate affect Results CBC & Chem 7: 08/04/18 13:15 08/04/18 13:15 Labs: Abnormal Lab Results - Last 24 Hours (Table) 08/04/18 Range/Units 13:15 BUN 25 H (7-17) mg/dL Assessment and Plan Plan: Acute worsening of chronic lower back and hip pain, secondary to DJD -Will consult Neurology and Orthopedic surgery -PT consult -Pain control -Fall precautions -Received Solumedrol in the ED Chronic conditions: HTN, HLD, Afib -C/w home meds DVT prophylaxis -Eliquis The patient is admitted with an anticipated less than 2 midnight stay for evaluation of acute on chronic lower back pain. CODE STATUS:full code Discussed with: patient, daughter Anticipated discharge date: 08/06/[address]: home A total of 45 minutes was spent on the care of this complex patient more than 50% of the time was spent in counseling and care coordination.
[2018-08-05] MEDS: SODIUM CHLORIDE 0.9% 1,000 ML IV SCH ×2 (02:43→20:21)
[2018-08-05 05:33] VITALS: RESP 16
[2018-08-05] MEDS: SPIRONOLACTONE 25 MG TAB PO SCH (09:32)
[2018-08-05] MEDS: APIXABAN 5 MG TAB PO SCH ×2 (09:32→20:20)
[2018-08-05] MEDS: METOPROLOL TARTRATE 25 MG TAB PO SCH ×2 (09:32→20:18)
[2018-08-05] MEDS: PANTOPRAZOLE 40 MG/10 ML VIAL IV SCH (09:33)
--- NOTE | 2018-08-05 12:16 | P.PN ---
Subjective Progress Note Date: 08/05/18 Patient seen and examined at bedside friend is present reports her pain at about a 1 today, reports that she's previously seen her PCP Dr. Abad was in the process of sending referral to Dr. Mckeon's office. The patient previously did well with intra-articular steroid injection. No acute events overnight Objective - Vital Signs Vital signs: Vital Signs Temp 97.3 F L 08/05/18 11:39 Pulse 84 08/05/18 11:39 Resp 16 08/05/18 11:39 BP 113/67 08/05/18 11:39 Pulse Ox 96 08/05/18 11:39 Intake & Output 08/04/18 08/05/18 08/05/18 18:59 06:59 18:59 Weight 126.552 kg 127 kg Other: Voiding Method Toilet Toilet # Voids 1 1 - Exam General: non toxic, no distress, appears at stated age, morbidly obese Derm: no unusual rashes/lesions no unusual ecchymoses, warm, dry Head: atraumatic, normocephalic, symmetric Eyes: EOMI, no lid lag, anicteric sclera, pupils equal round reactive to light ENT: Nose and ears atraumatic, no thrush, no pharyngeal erythema Neck: No thyromegaly, no cervical lymphadenopathy, trachea midline, supple Mouth: no lip lesion, mucus membranes moist Cardiovascular: S1S2 reg, no murmur, positive posterior tibial pulse bilateral, no edema, capillary refill less than 2 seconds Lungs: CTA bilateral, no rhonchi, no rales , no accessory muscle use Abdominal: soft, nontender to palpation, no guarding, no appreciable organomegaly, normal bowel sounds Ext: no gross muscle atrophy, muscle strength 5 out of 5 in UEs edd, Strength proximally of RLE limited to a 2/5 due to pain, distally strength 5/5 for edd LEs, LLE Proximal strengthh 3/5, no contractures, R posterior hip diffuse tenderness, no spinal tenderness noted Neuro: CN II-XI grossly intact, light touch intact all 4 extremities, finger to nose within normal limits, Psych: Alert, oriented, appropriate affect - Labs CBC & Chem 7: 08/04/18 13:15 08/04/18 13:15 Labs: Abnormal Lab Results - Last 24 Hours (Table) 08/04/18 Range/Units 13:15 BUN 25 H (7-17) mg/dL Assessment and Plan Assessment: Acute worsening of chronic lower back and hip pain, secondary to DJD -Will consult Neurology and Orthopedic surgery -PT consult -Pain control -Fall precautions -Received Solumedrol in the ED Chronic conditions: HTN, HLD, Afib -C/w home meds DVT prophylaxis -Eliquis The patient is admitted with an anticipated less than 2 midnight stay for evaluation of acute on chronic lower back pain. CODE STATUS:full code Discussed with: patient, daughter Anticipated discharge date: 08/06/[address]: home A total of 45 minutes was spent on the care of this complex patient more than 50% of the time was spent in counseling and care coordination.
--- NOTE | 2018-08-05 14:21 | XR ---
EXAMINATION TYPE: XR Hip Complete RT , 2 VIEWS DATE OF EXAM ORDERED: 08/05/2018 HISTORY: Hip pain. COMPARISON: None. FINDINGS: There are degenerative changes within the right hip with overgrowth of the acetabulum and joint space loss. No fracture or other bony destructive lesion is seen. IMPRESSION: OSTEOARTHRITIS.
--- NOTE | 2018-08-05 16:09 | P.CNOR ---
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 The patie nt states there was no injury that she knows of. She states her pain is located to the posterior right hip and which radiates into the groin. She states she was unable to bear weight or ambulate yesterday, therefore an ambulance was called and she was brought to the emergency department. She was given steroids and pain medication in the ED, with improvement of symptoms. She states currently her pain is located in the right posterior hip, and it has decreased markedly since presenting to the ED yesterday. Patient states she has been walking with a cane, which she does at baseline. Patient states she has received steroid injections into the back by Dr. Saravia, she has also seen Dr. Mckeon in the office for evaluation of her right hip, which she has done physical therapy for. Patient denies injury or falls, chest pain, shortness breath, fevers, chills, warmth or erythema of the right hip. She denies pain in the right knee, ankle, or foot. Patient denies additional complaints at the time of my exam. Vital signs stable. Past Medical History Past Medical History: Hyperlipidemia, Hypertension, Osteoarthritis (OA), Vascular Disorder Additional Past Medical History / Comment(s): -hx irregular heart rate, 2 ruptured disc back, bladder leakage, pancreatitis, edd. lower leg swelling, shortness of breath History of Any Multi-Drug Resistant Organisms: None Reported Past Surgical History: Cholecystectomy, Heart Catheterization With Stent, Hysterectomy, Orthopedic Surgery Additional Past Surgical History / Comment(s): lt knee arthroscopy Past Anesthesia/Blood Transfusion Reactions: No Reported Reaction Date of Last Stent Placement:: FEB 2017 Past Psychological History: Anxiety - Past Family History Mother Family Medical History: No Reported History Additional Family Medical History / Comment(s): heart issues Father Family Medical History: Cancer Additional Family Medical History / Comment(s): . Medications and Allergies Home Medications Medication Instructions Recorded Confirmed Type Atorvastatin [Lipitor] 80 mg PO HS #30 tab 02/23/17 08/04/18 Rx Nitroglycerin Sl Tabs [Nitrostat] 0.4 mg SUBLINGUAL Q5M PRN #25 tab 02/23/17 08/04/18 Rx Spironolactone 75 mg PO DAILY 02/25/17 08/04/18 History ALPRAZolam [Xanax] 0.25 mg PO HS PRN 08/04/18 08/04/18 History Apixaban [Eliquis] 5 mg PO BID 08/04/18 08/04/18 History Metoprolol Tartrate [Lopressor] 75 mg PO BID 08/04/18 08/04/18 History Allergies Allergy/AdvReac Type Severity Reaction Status Date / Time No Known Allergies Allergy Verified 08/04/18 16:36 Physical Examination On examination, the patient is sitting up in a wheelchair in no apparent distress. She is alert and oriented 3. There is no pain on palpation of the lumbar spine. There is pain on palpation of the right posterior hip. There is no pain with PROM of the right hip, knee, or ankle. Patient is able to dorsiflex and plantar flex the ankle without issue. She is able to dorsiflex and plantar flex the great toe without issue. Sensation is intact to light touch of the r ight lower extremity. Neurovascular and circulatory status is intact of the right lower extremity. The calves are soft and nontender to palpation bilaterally. Results CT lumbar spine 08/04/18: Multilevel degenerative disc disease. 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 Right hip x-ray 08/05/18: No acute fractures. No acute bony abnormalities. - Labs Labs: Abnormal Lab Results - Last 24 Hours (Table) 08/04/18 Range/Units 13:15 BUN 25 H (7-17) mg/dL H & H 08/04/18 Range/Units 13:15 Hgb 13.5 (11.4-16.0) gm/dL Hct 41.6 (34.0-46.0) % Coagulation 08/04/18 Range/Units 13:15 INR 1.0 (<1.2) Result Diagrams: 08/04/18 13:15 08/04/18 13:15 Assessment and Plan Assessment: Acute on chronic right hip pain. Plan: - X-rays of the right hip were negative for an acute fracture. There is no surgical intervention planned at this time. - Continue pain management per primary team. - Physical therapy for mobilization. - We will continue to monitor the patient while she remains inpatient and make recommendations as needed. Patient discussed with Dr. Hernandez.
[2018-08-05] MEDS: ATORVASTATIN 80 MG TAB PO SCH (20:20)
[2018-08-05 22:06] LABS: Appearance,Urine Clear (Clear); Bilirubin,Urine Negative (Negative); Blood,Urine Negative (Negative); Color,Urine Yellow; Glucose,Urine (UA) Negative (Negative); Ketones,Urine Negative (Negative); Leukocyte Esterase,Urine Negative (Negative); Nitrite,Urine Negative (Negative); PH, Urine 5.5 (5.0-8.0); Protein,Urine Negative (Negative); Specific Gravity,Urine 1.018 (1.001-1.035); Urobilinogen,Urine <2.0 mg/dL (<2.0)
[2018-08-06] MEDS: KETOROLAC 30 MG/ML 1 ML VIAL IVP PRN ×2 (01:16→08:46)
[2018-08-06 05:33] VITALS: BP 118/63; PULSE 85; TEMP 97.5
[2018-08-06] MEDS: PANTOPRAZOLE 40 MG/10 ML VIAL IV SCH (08:44)
[2018-08-06] MEDS: APIXABAN 5 MG TAB PO SCH (08:45)
[2018-08-06] MEDS: METOPROLOL TARTRATE 25 MG TAB PO SCH (08:45)
--- NOTE | 2018-08-06 09:06 | P.DS ---
Providers Date of admission: 08/04/18 18:03 Expected date of discharge: 08/06/18 Attending physician: Jacoby Carter MD Consults: 08/04/18 18:35 Consult Physician Stat Consulting Provider: Tony Andrade Consult Reason/Comments: acute on chronic back pain Do you want consulting provider notified?: Yes 08/04/18 22:49 Consult Physician Urgent Consulting Provider: Yesy Figueroa Consult Reason/Comments: acute on chronic LBP Do you want consulting provider notified?: Yes Primary care physician: Gerard [facility] Course: Discharge diagnosis Acute on chronic lower back pain Hip pain Lumbar degenerative joint disease Essential hypertension Atrial fibrillation Patient is a 78-year-old female with a past medical history of hypertension, hyperlipidemia, atrial fibrillation on Eliquis, coronary artery disease status post 1 stent in 2018, and chronic spine and hip DJD presents to the ED for acute worsening of chronic back and right hip pain that was admitted and placed in observation for intractable pain, she was started on analgesic therapy with morphine and given a loading dose of IV Solu-Medrol in the ER He continued on NSAID therapy with Toradol. CT of the lumbar spine was consistent with multilevel degenerative joint disease with central stenosis at L3-4 and L4-5. The patient was evaluated by orthopedic surgery recommended no surgical intervention at this time only continued analgesic regimen with plans for physical therapy and mobilization. With treatment the patient's pain subsided and she was able to get up and ambulate without any significant discomfort she was then discharged home in stable condition with home health for PT. This discharge process took approximately 30 minutes. Focused exam Extremities: No pain on palpation of the lumbar spine, no pain with PROM of the right hip, knee, or ankle; noted pain with palpation in the right posterior hip, Neurovascularly intact, able to dorsiflex and plantarflex of the ankle Patient Condition at Discharge: Stable Plan - Discharge Summary New Discharge Prescriptions: New Naproxen [EC-Naproxen] 500 mg PO AC-BID #20 tablet. Continue Atorvastatin [Lipitor] 80 mg PO HS #30 tab Nitroglycerin Sl Tabs [Nitrostat] 0.4 mg SUBLINGUAL Q5M PRN #25 tab PRN Reason: Chest Pain Spironolactone 75 mg PO DAILY Apixaban [Eliquis] 5 mg PO BID ALPRAZolam [Xanax] 0.25 mg PO HS PRN PRN Reason: Insomnia Metoprolol Tartrate [Lopressor] 75 mg PO BID Discharge Medication List Atorvastatin [Lipitor] 80 mg PO HS #30 tab 02/23/17 [Rx] Nitroglycerin Sl Tabs [Nitrostat] 0.4 mg SUBLINGUAL Q5M PRN #25 tab 02/23/17 [Rx] Spironolactone 75 mg PO DAILY 02/25/17 [History] ALPRAZolam [Xanax] 0.25 mg PO HS PRN 08/04/18 [History] Apixaban [Eliquis] 5 mg PO BID 08/04/18 [History] Metoprolol Tartrate [Lopressor] 75 mg PO BID 08/04/18 [History] Naproxen [EC-Naproxen] 500 mg PO AC-BID #20 tablet. 08/06/18 [Rx] Follow up Appointment(s)/Referral(s): Gerard Abad MD [Primary Care Provider] - 1-2 days [facility], [NON-STAFF] - 1-2 Days Discharge Disposition: HOME WITH HOME HEALTH SERVICES
[2018-08-06] MEDS: SPIRONOLACTONE 25 MG TAB PO SCH (11:29)
== END 2018-08-06 12:21 | disposition home health service (06) | DRG 552 ==
LOC: EC 11:53 → 3NMEDONC 18:03 → OBSVTOIN 18:03 → 3NMEDONC 08-05 12:39
PROVIDERS: ADMIT Family Medicine; ATTEND Family Medicine
DX: M47.816 Spondylosis without myelopathy or radiculopathy, lumbar region (principal); Z68.43 Body mass index [BMI] 50.0-59.9, adult; M48.061 Spinal stenosis, lumbar region without neurogenic claudication; E66.01 Morbid (severe) obesity due to excess calories; E78.5 Hyperlipidemia, unspecified; F41.9 Anxiety disorder, unspecified; G89.29 Other chronic pain; I11.0 Hypertensive heart disease with heart failure; I25.10 Atherosclerotic heart disease of native coronary artery without angina pectoris; I48.91 Unspecified atrial fibrillation; I50.9 Heart failure, unspecified; M16.10 Unilateral primary osteoarthritis, unspecified hip; Z79.01 Long term (current) use of anticoagulants; Z79.899 Other long term (current) drug therapy; Z90.710 Acquired absence of both cervix and uterus; Z91.81 History of falling; Z90.49 Acquired absence of other specified parts of digestive tract
CPT/HCPCS: 36415; 71046; 72131; 73502; 80048; 81003; 83880; 84484; 85025; 85610; 85730; 93005; 96374; 96375; 99285

== ENCOUNTER → 2018-10-05 | Outpatient (CLI) | payer MEDICARE ==
--- NOTE | 2018-10-05 18:01 | US ---
EXAMINATION TYPE: US venous doppler duplex LE LT DATE OF EXAM: 10/05/2018 5:43 PM COMPARISON: NONE CLINICAL HISTORY: M25.562 Pain in L knee. Pain left knee after injury on 09/24/2018. Pt is on blood th inners. No hx of DVT. SIDE PERFORMED: Left TECHNIQUE: The lower extremity deep venous system is examined utilizing real time linear array sonog vero with graded compression, doppler sonography and color-flow sonography. VESSELS IMAGED: Common Femoral Vein Deep Femoral Vein Greater Saphenous Vein * Femoral Vein Popliteal Vein Proximal Calf Veins (* superficial vessels) Left Leg: No evidence of DVT in veins imaged. Limited due to body habitus and technical limitations. Prox calf veins not clearly seen. EIV not seen. No evidence of deep venous thrombosis in the left leg. IMPRESSION:
== END | disposition home or self-care (01) ==
LOC: RADUSWWP 16:57
PROVIDERS: ATTEND Orthopaedic Surgery
DX: M79.662 Pain in left lower leg (principal); M25.562 Pain in left knee; S80.12XA Contusion of left lower leg, initial encounter

== ENCOUNTER 2020-01-15 16:38 | Observation (INO) | payer MEDICARE ==
[2020-01-15] MEDS ORDERED: ASPIRIN 81 MG PO STA (17:12)
--- NOTE | 2020-01-15 17:17 | ED ---
General Adult HPI - General Chief complaint: Arrhythmia/Palpitations Stated complaint: Afib/PCP sent Time Seen by Provider: 01/15/20 16:43 Source: patient, RN notes reviewed Mode of arrival: wheelchair Limitations: no limitations - History of Present Illness Initial comments: Patient is a pleasant 80-year-old female presenting to the emergency department after seen her doctor yesterday and today. Patient was there for routine visit. Patient does have history of atrophic ablation and was found to be an inch atrial fibrillation. Days. Patient unclear how often she is normally in atrial fibrillation. Patient did have some episodes of chest discomfort that have been mild, none at this time. Discomfort is left breast. No associated dyspnea, na usea, or diaphoresis. No leg pain or new leg swelling. - Related Data Home Medications Medication Instructions Recorded Confirmed Spironolactone 75 mg PO DAILY 02/25/17 08/04/18 ALPRAZolam [Xanax] 0.25 mg PO HS PRN 08/04/18 08/04/18 Apixaban [Eliquis] 5 mg PO BID 08/04/18 08/04/18 Metoprolol Tartrate [Lopressor] 75 mg PO BID 08/04/18 08/04/18 Previous Rx's Medication Instructions Recorded Atorvastatin [Lipitor] 80 mg PO HS #30 tab 02/23/17 Nitroglycerin Sl Tabs [Nitrostat] 0.4 mg SUBLINGUAL Q5M PRN #25 tab 02/23/17 Naproxen [EC-Naproxen] 500 mg PO AC-BID #20 tablet. 08/06/18 Allergies Allergy/AdvReac Type Severity Reaction Status Date / Time codeine Allergy Hallucinati Verified 01/15/20 16:45 ons Review of Systems ROS Statement: Those systems with pertinent positive or pertinent negative responses have been documented in the HPI. ROS Other: All systems not noted in ROS Statement are negative. Constitutional: Denies: fever Eyes: Denies: eye pain ENT: Denies: ear pain Respiratory: Denies: cough Cardiovascular: Reports: as per HPI, chest pain. Denies: palpitations Endocrine: Denies: fatigue Gastrointestinal: Denies: abdominal pain Genitourinary: Denies: dysuria Musculoskeletal: Denies: back pain Skin: Denies: rash Neurological: Denies: weakness Past Medical History Past Medical History: Atrial Fibrillation, Hyperlipidemia, Hypertension, Osteoarthritis (OA), Vascular Disorder Additional Past Medical History / Comment(s): -hx irregular heart rate, 2 ruptured disc back, bladder leakage, pancreatitis, edd. lower leg swelling, shortness of breath History of Any Multi-Drug Resistant Organisms: None Reported Past Surgical History: Cholecystectomy, Heart Catheterization With Stent, Hysterectomy, Orthopedic Surgery Additional Past Surgical History / Comment(s): lt knee arthroscopy Past Anesthesia/Blood Transfusion Reactions: No Reported Reaction Date of Last Stent Placement:: FEB 2017 Past Psychological History: Anxiety Smoking Status: Never smoker Past Alcohol Use History: Occasional Past Drug Use History: None Reported - Past Family History Mother Family Medical History: No Reported History Additional Family Medical History / Comment(s): heart issues Father Family Medical History: Cancer Additional Family Medical History / Comment(s): . General Exam Limitations: no limitations General appearance: alert, in no apparent distress Head exam: Present: normocephalic Eye exam: Present: normal appearance Neck exam: Present: normal inspection Respiratory exam: Present: normal lung sounds bilaterally. Absent: chest wall tenderness Cardiovascular Exam: Present: regular rate, normal rhythm Expanded Peripheral pulses: 2+: Radial (R), Radial (L), Dorsalis Pedis (R), Dorsalis Pedis (L) GI/Abdominal exam: Present: soft. Absent: distended, tenderness, guarding Extremities exam: Present: pedal edema (Patient states chronic). Absent: calf tenderness Neurological exam: Present: alert Psychiatric exam: Present: normal affect, normal mood Skin exam: Present: normal color Course Vital Signs 01/15/20 16:41 Temperature 98.6 F Pulse Rate 78 Respiratory 20 Rate Blood Pressure 161/68 O2 Sat by Pulse 95 Oximetry - Reevaluation(s) Reevaluation #1: 01/15/20 18:31 Patient did have monitor reading several times with heart rate up to 1:30 or 140, atrial fibrillation. Patient was placed on monitor to monitor for tachycardia. EKG Findings - EKG Comments: EKG Findings:: A. fib with rate of 89. QRS 88. QT 314. QTC 32. Normal axis. Low QRS voltage. Nonspecific ST-T. Medical Decision Making - Medical Decision Making Patient evaluated. Patient and family updated. Case was discussed in detail with Dr. Martinez, who will admit covering for Dr. Hernandez. - Lab Data Result diagrams: 01/15/20 17:26 01/15/20 17:28 Lab Results 01/15/20 01/15/20 01/15/20 Range/Units 17:26 17:28 17:28 WBC 7.1 (3.8-10.6) k/uL RBC 4.52 (3.80-5.40) m/uL Hgb 14.6 (11.4-16.0) gm/dL Hct 44.5 (34.0-46.0) % MCV 98.6 (80.0-100.0) fL MCH 32.3 (25.0-35.0) pg MCHC 32.8 (31.0-37.0) g/dL RDW 12.0 (11.5-15.5) % Plt Count 209 (150-450) k/uL MPV 7.1 Neutrophils % 59 % Lymphocytes % 28 % Monocytes % 8 % Eosinophils % 3 % Basophils % 0 % Neutrophils # 4.2 (1.3-7.7) k/uL Lymphocytes # 2.0 (1.0-4.8) k/uL Monocytes # 0.6 (0-1.0) k/uL Eosinophils # 0.2 (0-0.7) k/uL Basophils # 0.0 (0-0.2) k/uL PT 11.6 (9.0-12.0) sec INR 1.1 (<1.2) APTT 25.3 (22.0-30.0) sec Sodium 138 (137-145) mmol/L Potassium 4.3 (3.5-5.1) mmol/L Chloride 107 (98-107) mmol/L Carbon Dioxide 26 (22-30) mmol/L Anion Gap 5 mmol/L BUN 21 H (7-17) mg/dL Creatinine 1.09 H (0.52-1.04) mg/dL Est GFR (CKD-EPI)AfAm 56 (>60 ml/min/1.73 sqM) Est GFR (CKD-EPI)NonAf 48 (>60 ml/min/1.73 sqM) Glucose 88 (74-99) mg/dL Calcium 9.4 (8.4-10.2) mg/dL Magnesium 1.4 L (1.6-2.3) mg/dL Total Bilirubin 1.2 (0.2-1.3) mg/dL AST 28 (14-36) U/L ALT 20 (4-34) U/L Alkaline Phosphatase 115 (38-126) U/L Troponin I (0.000-0.034) ng/mL Total Protein 6.2 L (6.3-8.2) g/dL Albumin 3.6 (3.5-5.0) g/dL 01/15/20 Range/Units 17:28 WBC (3.8-10.6) k/uL RBC (3.80-5.40) m/uL Hgb (11.4-16.0) gm/dL Hct (34.0-46.0) % MCV (80.0-100.0) fL MCH (25.0-35.0) pg MCHC (31.0-37.0) g/dL RDW (11.5-15.5) % Plt Count (150-450) k/uL MPV Neutrophils % % Lymphocytes % % Monocytes % % Eosinophils % % Basophils % % Neutrophils # (1.3-7.7) k/uL Lymphocytes # (1.0-4.8) k/uL Monocytes # (0-1.0) k/uL Eosinophils # (0-0.7) k/uL Basophils # (0-0.2) k/uL PT (9.0-12.0) sec INR (<1.2) APTT (22.0-30.0) sec Sodium (137-145) mmol/L Potassium (3.5-5.1) mmol/L Chloride (98-107) mmol/L Carbon Dioxide (22-30) mmol/L Anion Gap mmol/L BUN (7-17) mg/dL Creatinine (0.52-1.04) mg/dL Est GFR (CKD-EPI)AfAm (>60 ml/min/1.73 sqM) Est GFR (CKD-EPI)NonAf (>60 ml/min/1.73 sqM) Glucose (74-99) mg/dL Calcium (8.4-10.2) mg/dL Magnesium (1.6-2.3) mg/dL Total Bilirubin (0.2-1.3) mg/dL AST (14-36) U/L ALT (4-34) U/L Alkaline Phosphatase (38-126) U/L Troponin I <0.012 (0.000-0.034) ng/mL Total Protein (6.3-8.2) g/dL Albumin (3.5-5.0) g/dL Critical Care Time Critical Care Time: Yes Total Critical Care Time: 32 Disposition Clinical Impression: Atrial fibrillation with RVR, Chest pain Disposition: ADMITTED IP TO THIS HOSP Is patient prescribed a controlled substance at d/c from ED?: No Referrals: Luna Newell MD [Primary Care Provider] - 1-2 days Decision Time: 18:32
[2020-01-15 17:43] LABS: Basophils % (A) 0 %; Eosinophils # (A) 0.2 k/uL (0-0.7); Eosinophils % (A) 3 %; HCT 44.5 % (34.0-46.0); HGB 14.6 gm/dL (11.4-16.0); Lymphocytes % (A) 28 %; MCH 32.3 pg (25.0-35.0); MCHC 32.8 g/dL (31.0-37.0); MCV 98.6 fL (80.0-100.0); Mean Platelet Volume 7.1; Monocytes # (A) 0.6 k/uL (0-1.0); Monocytes % (A) 8 %; Neutrophils # (A) 4.2 k/uL (1.3-7.7); Neutrophils % (A) 59 %; Platelet Count 209 k/uL (150-450); RBC 4.52 m/uL (3.80-5.40); WBC 7.1 k/uL (3.8-10.6)
[2020-01-15 17:55] LABS: Albumin 3.6 g/dL (3.5-5.0); Calcium 9.4 mg/dL (8.4-10.2); Magnesium 1.4 mg/dL (1.6-2.3); Potassium 4.3 mmol/L (3.5-5.1); Total Bilirubin 1.2 mg/dL (0.2-1.3); Total Protein 6.2 g/dL (6.3-8.2)
[2020-01-15] MEDS ORDERED: DILTIAZEM 125 MG in SODIUM CHLORIDE 0.9% 100 ML IV SCH (18:00)
--- NOTE | 2020-01-15 18:08 | XR ---
EXAMINATION TYPE: XR chest 2V DATE OF EXAM: 01/15/2020 COMPARISON: 08/04/2018 HISTORY: Back pain TECHNIQUE: 2 views FINDINGS: Heart is enlarged. There is mild pulmonary congestion. There is some mild infiltrate at the right lung base. There are chest leads. There is no definite pleural effusion. IMPRESSION: Cardiomegaly and small area of infiltrate right lower lobe. Infiltrate is new compared to old exam. There is mild pulmonary congestion but no obvious heart failure. No definite pleural fluid .
[2020-01-15 18:09] LABS: INR 1.1 (<1.2); Partial Thromboplastin Time 25.3 sec (22.0-30.0); Prothrombin Time 11.6 sec (9.0-12.0)
[2020-01-15] MEDS: MAGNESIUM SULFATE-D5W PMX 1 GM in DEXTROSE/WATER 1 100ML.BAG IVPB SCH ×2 (19:00→22:18)
[2020-01-15] MEDS: ONDANSETRON 4 MG/2 ML VIAL IVP SCH ×2 (19:06→23:30)
[2020-01-15] MEDS ORDERED: ALPRAZolam 0.25 MG TAB PO PRN (22:01)
[2020-01-15] MEDS ORDERED: Acetaminophen-Codeine 300-30mg TAB PO PRN (22:01)
--- NOTE | 2020-01-15 22:01 | P.HPIM ---
History of Present Illness H&P Date: 01/15/20 The patient is an 80-year-old female with a PMH of persistent A. fib on Eliquis, hypertension, and hyperlipidemia who presented to the emergency room with complaints of chest discomfort. The patient was initially seen at her PMDs office yesterday for routine physical, at which time she was noted to be in A. fib at 103 bpm. The patient had also endorsed occasional left-sided chest discomfort and her primary care physician advised her to come to the emergency room. The patient however did not wish to do so at the time and thereby came in earlier today. She reports intermittent L sided chest discomfort, occurring 3-4 times weekly, pressure-like and aching in nature, nonradiating, 4 out of 10 in intensity, with no associated features. The pain occurs at rest and exertion with no clear inciting or alleviating features. She notes tenderness at the site though notes that it is not pleuritic in nature. She denied associated shortness of breath, palpitations, or dizziness. Denied orthopnea, PND. Notes chronic unchanged lower extremity bilateral edema. Denied lower extremity pain. The patient also denied fever, chills, cough, nausea, vomiting, diarrhea, or abdominal pain. The patient underwent an extensive evaluation in the emergency room. She was noted to be in A. fib with RVR on the monitor and subsequent started on Cardizem infusion. EKG revealed A. fib at 89 bpm. Chest x-ray revealed cardiomegaly with a small area of infiltrate in the right lower lobe with mild pulmonary congestion. Review of Systems Pertinent positives and negatives as discussed in HPI, a complete review of systems was performed and all other systems are negative. Past Medical History Past Medical History: Atrial Fibrillation, Hyperlipidemia, Hypertension, Osteoarthritis (OA), Vascular Disorder Additional Past Medical History / Comment(s): -hx irregular heart rate, 2 ruptured disc back, bladder leakage, pancreatitis, edd. lower leg swelling, shortness of breath History of Any Multi-Drug Resistant Organisms: None Reported Past Surgical History: Cholecystectomy, Heart Catheterization With Stent, Hysterectomy, Orthopedic Surgery Additional Past Surgical History / Comment(s): lt knee arthroscopy Past Anesthesia/Blood Transfusion Reactions: No Reported Reaction Date of Last Stent Placement:: FEB 2017 Past Psychological History: Anxiety Smoking Status: Never smoker Past Alcohol Use History: Occasional Past Drug Use History: None Reported - Past Family History Mother Family Medical History: No Reported History Additional Family Medical History / Comment(s): heart issues Father Family Medical History: Cancer Additional Family Medical History / Comment(s): . Medications and Allergies Home Medications Medication Instructions Recorded Confirmed Type Atorvastatin [Lipitor] 80 mg PO HS #30 tab 02/23/17 01/15/20 Rx Nitroglycerin Sl Tabs [Nitrostat] 0.4 mg SUBLINGUAL Q5M PRN #25 tab 02/23/17 01/15/20 Rx Spironolactone 75 mg PO DAILY 02/25/17 01/15/20 History ALPRAZolam [Xanax] 0.25 mg PO HS PRN 08/04/18 01/15/20 History Apixaban [Eliquis] 5 mg PO BID 08/04/18 01/15/20 History Metoprolol Tartrate [Lopressor] 75 mg PO BID 08/04/18 01/15/20 History Acetaminophen [Tylenol] 1,000 mg PO Q4-6H PRN 01/15/20 01/15/20 History Acetaminophen-Codeine 300-30mg 1 tab PO Q6H PRN 01/15/20 01/15/20 History [Tylenol w/codeine #3] Aspirin EC [Ecotrin Low Dose] 81 mg PO DAILY 01/15/20 01/15/20 History Calcium Carbonate [Calcium] 600 mg PO DAILY 01/15/20 01/15/20 History Cholecalciferol [Vitamin D3 (25 1,000 unit PO DAILY 01/15/20 01/15/20 History Mcg = 1000 Iu)] Metoprolol Tartrate [Lopressor] 100 mg PO DIRECTED 01/15/20 01/15/20 History Allergies Allergy/AdvReac Type Severity Reaction Status Date / Time codeine Allergy Hallucinati Verified 01/15/20 18:31 ons Physical Exam Vitals: Vital Signs Temp Pulse Resp BP Pulse Ox 01/15/20 18:28 100 18 134/72 98 01/15/20 16:41 98.6 F 78 20 161/68 95 Intake and Output 01/15/20 01/15/20 01/15/20 06:59 14:59 22:59 Other: Weight 121.563 kg General: non toxic, no distress, appears at stated age, morbidly obese Derm: no unusual rashes/lesions no unusual ecchymoses, warm, dry Head: atraumatic, normocephalic, symmetric Eyes: EOMI, no lid lag, anicteric sclera, pupils equal round reactive to light ENT: Nose and ears atraumatic, no thrush, no pharyngeal erythema Neck: No thyromegaly, no cervical lymphadenopathy, trachea midline, supple Mouth: no lip lesion, mucus membranes moist Cardiovascular: Irregularly irregular, no murmur, positive posterior tibial pulse bilateral, 1+ bilateral lower extremity edema, capillary refill less than 2 seconds, left sided chest point tenderness with reproducible pain Lungs: CTA bilateral, no rhonchi, no rales , no accessory muscle use Abdominal: soft, nontender to palpation, no guarding, no appreciable organomeg sabina, normal bowel sounds Ext: no gross muscle atrophy, muscle strength 4 out of 5 in all 4 extremities grossly, no contractures, Neuro: CN II-XI grossly intact, light touch intact all 4 extremities, finger to nose within normal limits, Psych: Alert, oriented, appropriate affect Results CBC & Chem 7: 01/15/20 17:26 01/15/20 17:28 Labs: Abnormal Lab Results - Last 24 Hours (Table) 01/15/20 Range/Units 17:28 BUN 21 H (7-17) mg/dL Creatinine 1.09 H (0.52-1.04) mg/dL Magnesium 1.4 L (1.6-2.3) mg/dL Total Protein 6.2 L (6.3-8.2) g/dL Assessment and Plan Plan: Atypical chest pain -Rule out ACS -Trend troponin -Cardiac monitoring -Cardiology consult ATej morales with RVR -Cardizem infusion for now -Continue with home Eliquis -Continue with home metoprolol (patient's dose was increased yesterday by PMD from 75 mg twice a day to 100 mg twice a day) Hypomagnesemia -Replace and monitor CKD stage 3a -At baseline DVT prophylaxis -Eliquis The patient is admitted with an anticipated less than 2 midnight stay for evaluation of chest pain CODE STATUS: Full Code Discussed with: Patient Anticipated discharge date: in am Anticipated discharge place: Home A total of 35 minutes was spent on the care of this complex patient more than 50% of the time was spent in counseling and care coordination.
[2020-01-15] MEDS ORDERED: ATORVASTATIN 80 MG TAB PO STA (22:28)
[2020-01-15] MEDS: METOPROLOL TARTRATE 50 MG TAB PO SCH (23:29)
[2020-01-16 00:04] VITALS: RESP 18
[2020-01-16] MEDS ORDERED: MAGNESIUM SULFATE-D5W PMX 1 GM in DEXTROSE/WATER 1 100ML.BAG IVPB ONE (03:06)
[2020-01-16] MEDS: ONDANSETRON 4 MG/2 ML VIAL IVP SCH (08:03)
[2020-01-16 08:07] VITALS: PULSE 62
[2020-01-16] MEDS: METOPROLOL TARTRATE 50 MG TAB PO SCH (08:09)
[2020-01-16 08:39] LABS: HCT 44.3 % (34.0-46.0); HGB 14.4 gm/dL (11.4-16.0); MCH 33.1 pg (25.0-35.0); MCHC 32.5 g/dL (31.0-37.0); MCV 101.9 fL (80.0-100.0); Mean Platelet Volume 7.1; Platelet Count 215 k/uL (150-450); RBC 4.35 m/uL (3.80-5.40); RDW 12.2 % (11.5-15.5); WBC 6.6 k/uL (3.8-10.6)
[2020-01-16] MEDS ORDERED: ASPIRIN 325 MG TAB PO SCH (09:00)
[2020-01-16] MEDS ORDERED: SPIRONOLACTONE 25 MG TAB PO SCH (09:00)
[2020-01-16] MEDS ORDERED: APIXABAN 5 MG TAB PO SCH (09:00)
[2020-01-16] MEDS ORDERED: CALCIUM CARBONATE 500 MG CHEWABLE PO SCH (09:00)
[2020-01-16] MEDS ORDERED: ASPIRIN 81 MG PO SCH (09:00)
[2020-01-16 09:03] LABS: Calcium 8.8 mg/dL (8.4-10.2); Magnesium 2.2 mg/dL (1.6-2.3); Potassium 4.7 mmol/L (3.5-5.1)
--- NOTE | 2020-01-16 10:10 | P.CRDCN ---
History of Present Illness History of present illness: HISTORY OF PRESENTING ILLNESS This is a pleasant 80-year-old female past medical history significant for chronic persistent atrial fibrillation on long-term anticoagulation, dyslip idemia, hypertension, coronary artery disease status post PCI of the mid RCA in 2018 and morbid obesity. She underwent a cardioversion on 2 separate occasions in 2018 that was unsuccessful. She follows in the office with Dr. Coates. We have been asked to see in consultation for atrial fibrillation. She was sent to the hospital on advice of her primary care physician. The patient states she recently reestablished with a new PCP as hers recently retired. When she was in the office she was noted to be in atrial fibrillation. The patient has a history of chronic persistent A. fib. According to the patient she had no symptoms of chest pain, shortness of breath, dizziness or palpitations. She is seen and examined sitting up in the chair in no acute distress. On arrival to the emergency department EKG revealed atrial fibrillation with heart rate 89. Telemetry tracings revealed persistent atrial fibrillation with controlled ventricular rates. Chest x-ray reveals cardiomegaly and a small area of infiltrate of the right lower lobe. No obvious heart failure. Laboratory data reviewed, CBC unremarkable, sodium 138, potassium 4.7, creatinine 1.11, magnesium 2.2, cardiac enzymes negative 3, LDL 55 and HDL 55. Currently maintained on Eliquis 5 mg twice a day, atorvastatin 80 mg at bedtime, Lopressor 75 mg twice a day, Aldactone 75 mg daily and aspirin 81 mg daily. Most recent e chocardiogram obtained in the office in 2018 reveals preserved LV systolic function with ejection fraction 50%, moderate concentric LVH, mild mitral regurgitation and moderately dilated left atrium. REVIEW OF SYSTEMS At the time of my exam: CONSTITUTIONAL: Denies fever or chills. CARDIOVASCULAR: Denies chest pain, shortness of breath, orthopnea, PND or palpitations. RESPIRATORY: Denies cough. GASTROINTESTINAL: Denies abdominal pain, diarrhea, constipation, nausea or vomiting. MUSCULOSKELETAL: Denies myalgias. NEUROLOGIC: Denies numbness, tingling or weakness. ENDOCRINE: Denies fatigue, weight change, polydipsia or polyurina. GENITOURINARY: Denies burning, hematuria or urgency with micturation. HEMATOLOGIC: Denies history of anemia or bleeding. PHYSICAL EXAMINATION Blood pressure 110/55 heart rate 62 afebrile and maintaining oxygen saturation on room air. CONSTITUTIONAL: No apparent distress. Morbidly obese. HEENT: Head is normocephalic. Pupils are equal, round. Sclerae anicteric. Mucous membranes of the mouth are moist. No JVD. No carotid bruit. CHEST EXAMINATION: Lungs are clear to auscultation. No chest wall tenderness is noted on palpation or with deep breathing. HEART EXAMINATION: Irregular rate and rhythm. S1, S2 heard. Systolic ejection murmur at the apex, no gallops or rub. ABDOMEN: Soft, nontender. Positive bowel sounds. EXTREMITIES: 2+ peripheral pulses, no lower extremity edema and no calf tenderness. NEUROLOGIC EXAMINATION: Patient is awake, alert and oriented x3. ASSESSMENT Chronic persistent atrial fibrillation with controlled ventricular rate mainta ined on Eliquis and beta blockers Hypomagnesemia status post replacement Hypertension Dyslipidemia Coronary artery disease status post PCI of the RCA in 2018 Morbid obesity, BMI 48 PLAN Clinically stable from a cardiac perspective. Heart rates are controlled on current medical regimen. Stable for discharge, follow-up in the office with Dr. Coates in 2 weeks. Thank you kindly for this consultation. Nurse Practitioner note has been reviewed, I agree with a documented findings and plan of care. Patient was seen and examined. Past Medical History Past Medical History: Atrial Fibrillation, Hyperlipidemia, Hypertension, Osteoarthritis (OA), Vascular Disorder Additional Past Medical History / Comment(s): -hx irregular heart rate, 2 ruptured disc back, bladder leakage, pancreatitis, edd. lower leg swelling, shortness of breath History of Any Multi-Drug Resistant Organisms: None Reported Past Surgical History: Cholecystectomy, Heart Catheterization With Stent, Hysterectomy, Orthopedic Surgery Additional Past Surgical History / Comment(s): lt knee arthroscopy Past Anesthesia/Blood Transfusion Reactions: No Reported Reaction Date of Last Stent Placement:: FEB 2017 Past Psychological History: Anxiety Smoking Status: Never smoker Past Alcohol Use History: Occasional Past Drug Use History: None Reported - Past Family History Mother Family Medical History: No Reported History Additional Family Medical History / Comment(s): heart issues Father Family Medical History: Cancer Additional Family Medical History / Comment(s): . Medications and Allergies Home Medications Medication Instructions Recorded Confirmed Type Atorvastatin [Lipitor] 80 mg PO HS #30 tab 02/23/17 01/15/20 Rx Nitroglycerin Sl Tabs [Nitrostat] 0.4 mg SUBLINGUAL Q5M PRN #25 tab 02/23/17 01/15/20 Rx Spironolactone 75 mg PO DAILY 02/25/17 01/15/20 History ALPRAZolam [Xanax] 0.25 mg PO HS PRN 08/04/18 01/15/20 History Apixaban [Eliquis] 5 mg PO BID 08/04/18 01/15/20 History Metoprolol Tartrate [Lopressor] 75 mg PO BID 08/04/18 01/15/20 History Acetaminophen [Tylenol] 1,000 mg PO Q4-6H PRN 01/15/20 01/15/20 History Acetaminophen-Codeine 300-30mg 1 tab PO Q6H PRN 01/15/20 01/15/20 History [Tylenol w/codeine #3] Aspirin EC [Ecotrin Low Dose] 81 mg PO DAILY 01/15/20 01/15/20 History Calcium Carbonate [Calcium] 600 mg PO DAILY 01/15/20 01/15/20 History Cholecalciferol [Vitamin D3 (25 1,000 unit PO DAILY 01/15/20 01/15/20 History Mcg = 1000 Iu)] Metoprolol Tartrate [Lopressor] 100 mg PO DIRECTED 01/15/20 01/15/20 History Allergies Allergy/AdvReac Type Severity Reaction Status Date / Time codeine Allergy Hallucinati Verified 01/15/20 18:31 ons Physical Exam Vitals: Vital Signs Temp Pulse Pulse Resp BP BP Pulse Ox 01/16/20 08:00 98.4 F 62 18 110/55 98 01/16/20 03:39 97.5 F L 77 18 120/75 99 01/16/20 00:00 97.8 F 89 18 103/57 97 01/15/20 21:59 97.7 F 83 20 100/59 94 L 01/15/20 18:28 100 18 134/72 98 01/15/20 16:41 98.6 F 78 20 161/68 95 Intake and Output 01/15/20 01/16/20 01/16/20 22:59 06:59 14:59 Intake Total 720 Balance 720 Intake: Oral 720 Other: # Voids 1 1 Weight 121.563 kg 121.3 kg Results 01/16/20 07:34 01/16/20 07:34 Cardiac Enzymes 01/15/20 01/15/20 01/15/20 Range/Units 17:28 17:28 20:00 AST 28 (14-36) U/L Troponin I <0.012 <0.012 (0.000-0.034) ng/mL 01/15/20 Range/Units 23:14 AST (14-36) U/L Troponin I <0.012 (0.000-0.034) ng/mL Coagulation 01/15/20 Range/Units 17:28 PT 11.6 (9.0-12.0) sec APTT 25.3 (22.0-30.0) sec Lipids 01/16/20 Range/Units 07:34 Triglycerides 82 (<150) mg/dL Cholesterol 126 (<200) mg/dL HDL Cholesterol 55 (40-60) mg/dL CBC 01/15/20 01/16/20 Range/Units 17:26 07:34 WBC 7.1 6.6 (3.8-10.6) k/uL RBC 4.52 4.35 (3.80-5.40) m/uL Hgb 14.6 14.4 (11.4-16.0) gm/dL Hct 44.5 44.3 (34.0-46.0) % Plt Count 209 215 (150-450) k/uL Comprehensive Metabolic Panel 01/15/20 01/16/20 Range/Units 17:28 07:34 Sodium 138 138 (137-145) mmol/L Potassium 4.3 4.7 (3.5-5.1) mmol/L Chloride 107 102 (98-107) mmol/L Carbon Dioxide 26 32 H (22-30) mmol/L BUN 21 H 20 H (7-17) mg/dL Creatinine 1.09 H 1.11 H (0.52-1.04) mg/dL Glucose 88 153 H (74-99) mg/dL Calcium 9.4 8.8 (8.4-10.2) mg/dL AST 28 (14-36) U/L ALT 20 (4-34) U/L Alkaline Phosphatase 115 (38-126) U/L Total Protein 6.2 L (6.3-8.2) g/dL Albumin 3.6 (3.5-5.0) g/dL Current Medications Generic Name Dose Route Start Last Admin Trade Name Freq PRN Reason Stop Dose Admin Acetaminophen/Codeine Phosphate 1 each 01/15/20 22:01 Acetaminophen-Codeine 300-30mg Tab PO Q6H PRN Pain Alprazolam 0.25 mg 01/15/20 22:01 Alprazolam 0.25 Mg Tab PO HS PRN Insomnia Apixaban 5 mg 01/16/20 09:00 01/16/20 08:08 Apixaban 5 Mg Tab PO 5 mg BID DEONTE Administration Aspirin 81 mg 01/16/20 09:00 01/16/20 08:08 Aspirin 81 Mg PO 81 mg DAILY EDONTE Administration Atorvastatin Calcium 80 mg 01/16/20 21:00 Atorvastatin 80 Mg Tab PO HS DEONTE Calcium Carbonate/Glycine 500 mg 01/16/20 09:00 01/16/20 08:09 Calcium Carbonate 500 Mg Chewable PO 500 mg DAILY DEONTE Administration Diltiazem HCl 125 mg/ Sodium 125 mls @ 2.5 mls/hr 01/15/20 18:00 01/15/20 18:07 Chloride IV 2.5 mg/hr .Q24H DEOTNE 2.5 mls/hr Administration 2.5 MG/HR Metoprolol Tartrate 100 mg 01/15/20 22:30 01/16/20 08:09 Metoprolol Tartrate 50 Mg Tab PO 100 mg BID DEONTE Administration Ondansetron HCl 4 mg 01/15/20 19:15 01/16/20 08:03 Ondansetron 4 Mg/2 Ml Vial IVP Not Given Q8HR DEONTE Spironolactone 75 mg 01/16/20 09:00 01/16/20 08:09 Spironolactone 25 Mg Tab PO 75 mg DAILY DEONTE Administration Intake and Output 01/15/20 01/16/20 01/16/20 22:59 06:59 14:59 Intake Total 720 Balance 720 Intake: Oral 720 Other: # Voids 1 1 Weight 121.563 kg 121.3 kg 01/16/20 07:34 01/16/20 07:34
--- NOTE | 2020-01-16 10:52 | ECHOF ---
Referral Reason:Chest pain, A. fib MEASUREMENTS -------- HEIGHT: 157.5 cm WEIGHT: 121.1 kg BP: 120/75 RVIDd: 3.4 cm (< 3.3) IVSd: 1.3 cm (0.6 - 1.1) LVIDd: 4.5 cm (3.9 - 5.3) LVPWd: 1.6 cm (0.6 - 1.1) IVSs: 1.6 cm LVIDs: 3.6 cm LVPWs: 2.1 cm LAESV Index (A-L): 39.86 ml/m Ao Diam: 3.2 cm (2.0 - 3.7) AV Cusp: 1.8 cm (1.5 - 2.6) MV EXCURSION: 21.085 mm (> 18.000) MV EF SLOPE: 101 mm/s (70 - 150) EPSS: 0.9 cm RAP: 5.00 mmHg RVSP: 29.49 mmHg FINDINGS -------- Atrial fibrillation. This was a technically difficult study with suboptimal views. The left ventricular size is normal. There is mild concentric left ventricular hypertrophy. Overa ll left ventricular systolic function is mildly impaired with, an EF between 45 - 50 %. The right ventricle is mild to moderately enlarged. LA is moderately dilated 34-39 ml/m2 The right atrium was not well visualized. xx ml of Lumason was utilized for enhancement of images. Interatrial and interventricular septum intact. There is no evidence of aortic regurgitation. There is no evidence of aortic stenosis. [id number] mitral regurgitation is present. Mild tricuspid regurgitation present. There is no evidence of pulmonary hypertension. The right v entricular systolic pressure, as measured by Doppler, is 29.49mmHg. There is no pulmonic regurgitation present. The aortic root size is normal. Normal inferior vena cava with normal inspiratory collapse consistent with estimated right atrial pre ssure of 5 mmHg. There is no pericardial effusion. CONCLUSIONS -------- 1. The left ventricular size is normal. 2. There is mild concentric left ventricular hypertrophy. 3. Overall left ventricular systolic function is mildly impaired with, an EF between 45 - 50 %. 4. The right ventricle is mild to moderately enlarged. 5. LA is moderately dilated 34-39 ml/m2 6. Gael-ng-yzzwnxiy mitral regurgitation is present. 7. Mild tricuspid regurgitation present. POULTRYMAN: Carissa Rousseau RDCS
[2020-01-16 11:23] VITALS: BP 91/54; TEMP 98.1
--- NOTE | 2020-01-16 11:59 | P.DS ---
Providers Date of admission: 01/15/20 18:34 Expected date of discharge: 01/16/20 Attending physician: Guillermina Escobar Consults: 01/15/20 18:33 Consult Physician Urgent Consulting Provider: Luna Coates Consult Reason/Comments: a fib, cp Do you want consulting provider notified?: Yes Primary care physician: Luna Newell MD Hospital Course: This is a 80-year-old female with past medical history significant for chronic atrial fibrillation on anticoagulation with Eliquis, essential hypertension, coronary artery disease, and hyperlipidemia who presented to the emergency room with chest discomfort. Patient was sent by her PCP. She was noted to have A. fib with RVR with heart rate up to 130. Patient was evaluated in the ER and started on low-dose Cardizem drip. Her heart rate improved significantly. Her home dose of metoprolol was increased to 100 mg twice daily. She was seen and evaluated by cardiology. Echocardiogram showed EF of 40-45%. Mild to moderate MR noted. No significant valvular disease otherwise. Patient was noted to have hypomagnesemia on presentation which was replaced. Her overall condition improved significantly. She was cleared by cardiology for discharge. Patient will be discharged home in a stable condition. For further details about this hospitalization please refer to the electronic chart. Time spent on discharge > 30 minutes including counseling and coordination of care Patient Condition at Discharge: Stable Plan - Discharge Summary Discharge Rx Participant: No New Discharge Prescriptions: Continue Atorvastatin [Lipitor] 80 mg PO HS #30 tab Nitroglycerin Sl Tabs [Nitrostat] 0.4 mg SUBLINGUAL Q5M PRN #25 tab PRN Reason: Chest Pain Spironolactone 75 mg PO DAILY Apixaban [Eliquis] 5 mg PO BID ALPRAZolam [Xanax] 0.25 mg PO HS PRN PRN Reason: Insomnia Calcium Carbonate [Calcium] 600 mg PO DAILY Cholecalciferol [Vitamin D3 (25 Mcg = 1000 Iu)] 1,000 unit PO DAILY Aspirin EC [Ecotrin Low Dose] 81 mg PO DAILY Acetaminophen-Codeine 300-30mg [Tylenol w/codeine #3] 1 tab PO Q6H PRN PRN Reason: Pain Acetaminophen [Tylenol] 1,000 mg PO Q4-6H PRN PRN Reason: Pain Changed Metoprolol Tartrate [Lopressor] 100 mg PO BID #60 tab Discontinued Metoprolol Tartrate [Lopressor] 75 mg PO BID Discharge Medication List Atorvastatin [Lipitor] 80 mg PO HS #30 tab 02/23/17 [Rx] Nitroglycerin Sl Tabs [Nitrostat] 0.4 mg SUBLINGUAL Q5M PRN #25 tab 02/23/17 [Rx] Spironolactone 75 mg PO DAILY 02/25/17 [History] ALPRAZolam [Xanax] 0.25 mg PO HS PRN 08/04/18 [History] Apixaban [Eliquis] 5 mg PO BID 08/04/18 [History] Acetaminophen [Tylenol] 1,000 mg PO Q4-6H PRN 01/15/20 [History] Acetaminophen-Codeine 300-30mg [Tylenol w/codeine #3] 1 tab PO Q6H PRN 01/15/20 [History] Aspirin EC [Ecotrin Low Dose] 81 mg PO DAILY 01/15/20 [History] Calcium Carbonate [Calcium] 600 mg PO DAILY 01/15/20 [History] Cholecalciferol [Vitamin D3 (25 Mcg = 1000 Iu)] 1,000 unit PO DAILY 01/15/20 [History] Metoprolol Tartrate [Lopressor] 100 mg PO BID #60 tab 01/16/20 [Rx] Follow up Appointment(s)/Referral(s): Luna Newell MD [Primary Care Provider] - 3 Days Discharge Disposition: HOME SELF-CARE
[2020-01-16] MEDS ORDERED: ATORVASTATIN 80 MG TAB PO SCH (21:00)
== END 2020-01-16 15:35 | disposition home or self-care (01) ==
LOC: EC 16:38 → 3SCARD 18:34 → INTOOBSV 18:34
PROVIDERS: ADMIT Internal Medicine; ATTEND Internal Medicine
DX: I48.19 Other persistent atrial fibrillation (principal); E78.5 Hyperlipidemia, unspecified; E66.01 Morbid (severe) obesity due to excess calories; Z68.42 Body mass index [BMI] 45.0-49.9, adult; E83.42 Hypomagnesemia; I13.10 Hypertensive heart and chronic kidney disease without heart failure, with stage 1 through stage 4 chronic kidney disease, or unspecified chronic kidney disease; N18.31 Chronic kidney disease, stage 3a; I25.10 Atherosclerotic heart disease of native coronary artery without angina pectoris; G47.00 Insomnia, unspecified; M19.90 Unspecified osteoarthritis, unspecified site; R32 Unspecified urinary incontinence; I49.9 Cardiac arrhythmia, unspecified; R60.9 Edema, unspecified; M79.89 Other specified soft tissue disorders; F41.9 Anxiety disorder, unspecified; Z79.82 Long term (current) use of aspirin; Z79.891 Long term (current) use of opiate analgesic; Z79.899 Other long term (current) drug therapy; Z79.01 Long term (current) use of anticoagulants; Z88.5 Allergy status to narcotic agent; Z90.710 Acquired absence of both cervix and uterus; Z90.49 Acquired absence of other specified parts of digestive tract; Z95.5 Presence of coronary angioplasty implant and graft; Z87.19 Personal history of other diseases of the digestive system; Z82.49 Family history of ischemic heart disease and other diseases of the circulatory system; Z80.9 Family history of malignant neoplasm, unspecified
CPT/HCPCS: 96366 ×3; 96368 ×2; 93005 ×2; 96365; 96375; 99291; 36415; 80061; 80053; 80048; 83735 ×2; 84484; 85025; 85027; 85610; 85730; 71046; G0378 ×2; C8929; J2405; J3475 ×2; Q9950; 93306

== ENCOUNTER → 2020-02-04 | Outpatient (CLI) | payer MEDICARE ==
--- NOTE | 2020-02-05 16:40 | BD ---
EXAMINATION TYPE: Axial Bone Density DATE OF EXAM: 02/04/2020 COMPARISON: NONE CLINICAL HISTORY: Height: 5 FT 3/4 IN Weight: 265 FRAX RISK QUESTIONS: Alcohol (3 or more units per day): NO Family History (Parent hip fracture): NO Glucocorticoids (More than 3mos): NO (Ex: prednisone, prednisolone, methylprednisolone, dexamethasone, and hydrocortisone). History of Fracture in Adulthood: YES Secondary Osteoporosis: 1. Type 1 Diabetes: NO 2. Hyperthyroidism: NO 3. Menopause before 45: YES 4. Malnutrition: NO 5. Chronic liver disease: NO Rheumatoid Arthritis: YES Current Tobacco Use: NO RISK FACTORS HISTORY OF: Family History of Osteoporosis: NO Active: NO Diet low in dairy products/other sources of calcium: NO Postmenopausal woman: AGE 50 Take estrogen and/or progesterone medications: NONE Lost more than 2 inches in height since high school: YES Poor Health: FAIR MEDICATIONS: Additional Medications: ELEQUIS, VIT D 3 , CALCIUM H2O PILL, ASPIRIN, METOPROLOL, Additional History: A FIB PT SHORT OF BREATHE EXAM MEASUREMENTS: Bone mineral densitometry was performed using the Petsy System. Bone mineral density as measured about the Lumbar spine is: ----- L1-L4(G/cm2): 1.421 T Score Values are as follows: ----- L2: 1.8 ----- L3: 2.0 ----- L4: 2.3 ----- L1-L4: 2.0 Bone mineral density has: INCREASED 4.2 % since study of: 2007 Bone mineral density about the R hip (g/cm2): 0.794 Bone mineral density about the L hip (g/cm2): 0.973 T Score values are as follows: -----R Neck: -1.8 -----L Neck: -0.5 -----R Total: -0.7 -----L Total: 0.1 Bone mineral density has: DECREASED -6.5 % since study of: 2007 IMPRESSION: Osteopenia (T Score between -2.5 and -1). There is slightly increased risk of fracture and the patient may be considered for treatment. Re-Screen 2-5 years. NOTE: T-SCORE=SD OF THE YOUNG ADULT MEAN.
== END | disposition home or self-care (01) ==
LOC: RADBDWWP 16:18
PROVIDERS: ATTEND Internal Medicine
DX: M85.80 Other specified disorders of bone density and structure, unspecified site (principal); Z78.0 Asymptomatic menopausal state
CPT/HCPCS: 77080

== ENCOUNTER 2020-07-21 17:20 | Emergency (ER) | payer MEDICARE ==
[2020-07-21 17:24] VITALS: BP 116/80; PULSE 89; RESP 18; TEMP 98.1
[2020-07-21] MEDS ORDERED: AMPICILLIN-SULBACTAM 3 GM in SODIUM CHLORIDE 0.9% 100 ML IVPB STA (17:48)
[2020-07-21] MEDS ORDERED: KETOROLAC 15 MG/ML 1 ML VIAL IVP STA (17:48)
--- NOTE | 2020-07-21 17:52 | ED ---
General Adult HPI - General Chief complaint: Recheck/Abnormal Lab/Rx Stated complaint: abn labs Time Seen by Provider: 07/21/20 17:25 Source: patient, RN notes reviewed, old records reviewed Mode of arrival: wheelchair Limitations: no limitations - History of Present Illness Initial comments: This is an 80-year-old female who presents emergency Department dated she's been on 2 different antibiotics to treat a urinary tract infection over the last jeevan h and her doctor just told her today that the antibiotics she was on was not doing the trick because her cultures came back and showed that it wasn't effective. Patient states now she has right CVA tenderness there is no left CVA tenderness. Patient denies any suprapubic pain. Patient denies any dysuria hematuria urinary frequency. Patient denies any fever chills. Patient denies any chest pain difficulty breathing shortness of breath. - Related Data Home Medications Medication Instructions Recorded Confirmed Spironolactone 75 mg PO DAILY 02/25/17 01/15/20 ALPRAZolam [Xanax] 0.25 mg PO HS PRN 08/04/18 01/15/20 Apixaban [Eliquis] 5 mg PO BID 08/04/18 01/15/20 Acetaminophen [Tylenol] 1,000 mg PO Q4-6H PRN 01/15/20 01/15/20 Acetaminophen-Codeine 300-30mg 1 tab PO Q6H PRN 01/15/20 01/15/20 [Tylenol w/codeine #3] Aspirin EC [Ecotrin Low Dose] 81 mg PO DAILY 01/15/20 01/15/20 Calcium Carbonate [Calcium] 600 mg PO DAILY 01/15/20 01/15/20 Cholecalciferol [Vitamin D3 (25 1,000 unit PO DAILY 01/15/20 01/15/20 Mcg = 1000 Iu)] Previous Rx's Medication Instructions Recorded Atorvastatin [Lipitor] 80 mg PO HS #30 tab 02/23/17 Nitroglycerin Sl Tabs [Nitrostat] 0.4 mg SUBLINGUAL Q5M PRN #25 tab 02/23/17 Metoprolol Tartrate [Lopressor] 100 mg PO BID #60 tab 01/16/20 Allergies Allergy/AdvReac Type Severity Reaction Status Date / Time codeine Allergy Hallucinati Verified 07/21/20 17:24 ons Review of Systems ROS Statement: Those systems with pertinent positive or pertinent negative responses have been documented in the HPI. ROS Other: All systems not noted in ROS Statement are negative. Past Medical History Past Medical History: Atrial Fibrillation, Hyperlipidemia, Hypertension, Osteoarthritis (OA), Vascular Disorder Additional Past Medical History / Comment(s): -hx irregular heart rate, 2 ruptured disc back, bladder leakage, pancreatitis, edd. lower leg swelling, shortness of breath History of Any Multi-Drug Resistant Organisms: None Reported Past Surgical History: Cholecystectomy, Heart Catheterization With Stent, Hysterectomy, Orthopedic Surgery Additional Past Surgical History / Comment(s): lt knee arthroscopy Past Anesthesia/Blood Transfusion Reactions: No Reported Reaction Date of Last Stent Placement:: FEB 2017 Past Psychological History: Anxiety Smoking Status: Never smoker Past Alcohol Use History: Occasional Past Drug Use History: None Reported - Past Family History Mother Family Medical History: No Reported History Additional Family Medical History / Comment(s): heart issues Father Family Medical History: Cancer Additional Family Medical History / Comment(s): . General Exam - General Exam Comments Initial Comments: GENERAL: Patient is well-developed and well-nourished. Patient is nontoxic and well- hydrated and is in mild distress. ENT: Neck is soft and supple. No significant lymphadenopathy is noted. Oropharynx is clear. Moist mucous membranes. Neck has full range of motion without eliciting any pain. EYES: The sclera were anicteric and conjunctiva were pink and moist. Extraocular movements were intact and pupils were equal round and reactive to light. Eyelids were unremarkable. PULMONARY: Unlabored respirations. Good breath sounds bilaterally. No audible rales rhonchi or wheezing was noted. CARDIOVASCULAR: There is a regular rate and rhythm without any murmurs gallops or rubs. ABDOMEN: Soft and nontender with normal bowel sounds. SKIN: Skin is clear with no lesions or rashes and otherwise unremarkable. NEUROLOGIC: Patient is alert and oriented x3. Cranial nerves II through XII are grossly intact. Motor and sensory are also intact. Normal speech, volume and content. Symmetrical smile. MUSCULOSKELETAL: Normal extremities with adequate strength and full range of motion. Patient has right CVA tenderness LYMPHATICS: No significant lymphadenopathy is noted PSYCHIATRIC: Normal psychiatric evaluation. Limitations: no limitations Course Vital Signs 07/21/20 17:21 Temperature 98.1 F Pulse Rate 89 Respiratory 18 Rate Blood Pressure 116/80 O2 Sat by Pulse 97 Oximetry Medical Decision Making - Medical Decision Making Patient states the back pain goes away if she sits still and doesn't move and any movement seems to bring it on or make it worse. - Lab Data Result diagrams: 07/21/20 18:07 07/21/20 18:07 Lab Results 07/21/20 07/21/20 07/21/20 Range/Units 18:07 18:07 19:42 WBC 6.5 (3.8-10.6) k/uL RBC 4.65 (3.80-5.40) m/uL Hgb 14.4 (11.4-16.0) gm/dL Hct 45.9 (34.0-46.0) % MCV 98.7 (80.0-100.0) fL MCH 31.0 (25.0-35.0) pg MCHC 31.4 (31.0-37.0) g/dL RDW 12.9 (11.5-15.5) % Plt Count 222 (150-450) k/uL MPV 6.9 Neutrophils % 62 % Lymphocytes % 26 % Monocytes % 7 % Eosinophils % 3 % Basophils % 0 % Neutrophils # 4.0 (1.3-7.7) k/uL Lymphocytes # 1.7 (1.0-4.8) k/uL Monocytes # 0.5 (0-1.0) k/uL Eosinophils # 0.2 (0-0.7) k/uL Basophils # 0.0 (0-0.2) k/uL Sodium 141 (137-145) mmol/L Potassium 4.2 (3.5-5.1) mmol/L Chloride 107 (98-107) mmol/L Carbon Dioxide 29 (22-30) mmol/L Anion Gap 5 mmol/L BUN 20 H (7-17) mg/dL Creatinine 1.06 H (0.52-1.04) mg/dL Est GFR (CKD-EPI)AfAm 58 (>60 ml/min/1.73 sqM) Est GFR (CKD-EPI)NonAf 50 (>60 ml/min/1.73 sqM) Glucose 88 (74-99) mg/dL Calcium 9.1 (8.4-10.2) mg/dL Total Bilirubin 0.8 (0.2-1.3) mg/dL AST 28 (14-36) U/L ALT 18 (4-34) U/L Alkaline Phosphatase 142 H (38-126) U/L Total Protein 6.2 L (6.3-8.2) g/dL Albumin 3.7 (3.5-5.0) g/dL Urine Color Yellow Urine Appearance Clear (Clear) Urine pH 5.5 (5.0-8.0) Ur Specific Upperco >1.030 (1.001-1.035) Urine Protein 1+ (Negative) Urine Glucose (UA) Negative (Negative) Urine Ketones Negative (Negative) Urine Blood Negative (Negative) Urine Nitrite Negative (Negative) Urine Bilirubin Negative (Negative) Urine Urobilinogen <2.0 (<2.0) mg/dL Ur Leukocyte Esterase Negative (Negative) Urine RBC <1 (0-5) /hpf Urine WBC 2 (0-5) /hpf Ur Squamous Epith Cells 8 H (0-4) /hpf Hyaline Casts 34 H (0-2) /lpf Urine Mucus Rare H (None) /hpf Disposition Clinical Impression: Musculoskeletal back pain Disposition: HOME SELF-CARE Condition: Good Additional Instructions: Patient should take Motrin 400 mg 3 times a day for 4-5 days. Is patient prescribed a controlled substance at d/c from ED?: No Referrals: Luna Newell MD [Primary Care Provider] - 1-2 days Time of Disposition: 20:35
[2020-07-21 18:17] LABS: Basophils % (A) 0 %; Eosinophils # (A) 0.2 k/uL (0-0.7); Eosinophils % (A) 3 %; HCT 45.9 % (34.0-46.0); HGB 14.4 gm/dL (11.4-16.0); Lymphocytes # (A) 1.7 k/uL (1.0-4.8); Lymphocytes % (A) 26 %; MCHC 31.4 g/dL (31.0-37.0); MCV 98.7 fL (80.0-100.0); Mean Platelet Volume 6.9; Monocytes # (A) 0.5 k/uL (0-1.0); Monocytes % (A) 7 %; Neutrophils % (A) 62 %; Platelet Count 222 k/uL (150-450); RBC 4.65 m/uL (3.80-5.40); RDW 12.9 % (11.5-15.5); WBC 6.5 k/uL (3.8-10.6)
[2020-07-21 18:46] LABS: Albumin 3.7 g/dL (3.5-5.0); Calcium 9.1 mg/dL (8.4-10.2); Potassium 4.2 mmol/L (3.5-5.1); Total Bilirubin 0.8 mg/dL (0.2-1.3); Total Protein 6.2 g/dL (6.3-8.2)
[2020-07-21 19:53] LABS: Color,Urine Yellow
[2020-07-21 19:54] LABS: Appearance,Urine Clear (Clear); Bilirubin,Urine Negative (Negative); Glucose,Urine (UA) Negative (Negative); Ketones,Urine Negative (Negative); PH, Urine 5.5 (5.0-8.0); Protein,Urine 1+ (Negative); Specific Gravity,Urine >1.030 (1.001-1.035)
[2020-07-21 19:55] LABS: Blood,Urine Negative (Negative); Leukocyte Esterase,Urine Negative (Negative); Nitrite,Urine Negative (Negative); Urobilinogen,Urine <2.0 mg/dL (<2.0)
[2020-07-21 20:05] LABS: Hyaline Casts,Urine 34 /lpf (0-2); Mucus,Urine Rare /hpf; RBC,Urine <1 /hpf (0-5); Squamous Epithelial Cell,Urine 8 /hpf (0-4); WBC,Urine 2 /hpf (0-5)
[2020-07-21] MEDS ORDERED: Acetaminophen-Codeine 300-30mg TAB PO STA (20:07)
== END 2020-07-21 20:55 | disposition home or self-care (01) ==
LOC: EC 17:20
DX: M54.9 Dorsalgia, unspecified (principal); R79.9 Abnormal finding of blood chemistry, unspecified; I10 Essential (primary) hypertension; E78.5 Hyperlipidemia, unspecified; I48.91 Unspecified atrial fibrillation; M19.90 Unspecified osteoarthritis, unspecified site; F41.9 Anxiety disorder, unspecified; Z79.82 Long term (current) use of aspirin; Z79.01 Long term (current) use of anticoagulants
CPT/HCPCS: 36415; 80053; 85025; 81001; 87040; 87086; 99283; 96365; 96375; J0295; J1885

== ENCOUNTER → 2021-09-21 | Outpatient (CLI) | payer MEDICARE ==
--- NOTE | 2021-09-21 10:58 | CT ---
EXAMINATION TYPE: CT brain cspine wo con CT DLP: 732.70 mGycm, Automated exposure control for dose reduction was used. DATE OF EXAM: 09/21/2021 10:15 AM COMPARISON: CT brain 02/25/2017. CLINICAL INDICATION:Female, 81 years old with history of W19.XXXA Fall at home; Fall TECHNIQUE: Brain: Multiple axial CT images of the brain were obtained without IV contrast. Cspine: Axial CT images from the skull base to the inferior aspect of T2 we obtained without intraven ous contrast. Coronal and sagittal reformatted images were also reviewed. FINDINGS: Brain: Extra-axial spaces: No abnormal extra-axial fluid collections. Ventricular system: Within normal limits Cerebral parenchyma: No acute intraparenchymal hemorrhage or mass effect. The barber-white junction is well differentiated. Scattered hypoattenuating areas are seen within the white matter. Cerebral vol ume loss. Cerebellum: Unremarkable. Mass effect: No evidence of midline shift. Intracranial vasculature: Atherosclerotic calcifications of the intracranial vessels. Soft tissues: Normal. Calvarium/osseous structures: No depressed skull fracture. Paranasal sinuses and mastoid air cells: Clear. Visualized orbits: No acute process. Cervical spine: Fracture: None. Osseous structures: Unremarkable Vertebral alignment: No spondylolisthesis. Straightening of the cervical spine which may be due to pa tient position versus muscle spasm. Spinal canal/Neural Foramina: Disc osteophyte complexes at C5-C6 and C6-C7 with at least mild spinal canal stenosis. Facet joint uncovertebral joint arthropathy scattered throughout the cervical spine w ith varying degrees of neural foraminal stenosis. Neck soft tissues: Prevertebral soft tissues are within normal limits. Other: The airway is patent. Mosaic attenuation in the left upper lobe likely related to air trapping . IMPRESSION: * No acute intracranial process. * Nonspecific white matter changes, likely secondary to chronic small vessel ischemic disease. * No evidence of cervical spine fracture. * Mild to moderate multilevel degenerative disc disease.
== END | disposition home or self-care (01) ==
LOC: RADCTMAIN 09:19
PROVIDERS: ATTEND Internal Medicine
DX: M47.812 Spondylosis without myelopathy or radiculopathy, cervical region (principal); M48.02 Spinal stenosis, cervical region; M99.71 Connective tissue and disc stenosis of intervertebral foramina of cervical region
CPT/HCPCS: 70450; 72125

== ENCOUNTER 2022-06-25 12:30 | Emergency (ER) | payer MEDICARE ==
--- NOTE | 2022-06-25 13:14 | ED ---
General Adult HPI - General Chief complaint: Urogenital Stated complaint: UTI/AMS Time Seen by Provider: 06/25/22 13:02 Source: patient, family ([email or web address]), RN notes reviewed Mode of arrival: ambulatory Limitations: altered mental status, physical limitation - History of Present Illness Initial comments: Patient is a 82-year-old female presenting to the emergency room with her daughter with concerns regarding worsening episodes of confusion ongoing for the last few weeks. She reports generalized malaise last week with fevers and body aches along with worsening of her chronic urinary incontinence and dysuria. She admits to continued occasional dysuria. She states that she was placed on samples of Myrbetriq 3 weeks ago by her urologist which did help with her urgency incontinence some. Patient reports that overall she is feeling better than last week however her daughter is concerned regarding her continued episodes of confusion. She reported abdominal pain with nausea and vomiting last week but denies any at this time. She denies any chest pain, shortness of breath, abdominal pain, pelvic pain, flank pain, hematuria, dizziness, fevers or chills. In addition to her urinary incontinence as indicated above she has past medical history is for A. fib, hypertension, hyperlipidemia, osteoarthritis, peripheral vascular disease with chronic lower extremity edema. - Related Data Home Medications Medication Instructions Recorded Confirmed Spironolactone 50 mg PO DAILY 02/25/17 06/25/22 Apixaban [Eliquis] 5 mg PO BID 08/04/18 06/25/22 Aspirin EC [Ecotrin Low Dose] 81 mg PO DAILY 01/15/20 06/25/22 Benzocaine/Menthol [place] 1 applic TOPICAL QID PRN 06/25/22 06/25/22 [Dermoplast [place]] Cholecalciferol [Vitamin D3 (25 100 mcg PO DAILY 06/25/22 06/25/22 Mcg = 1000 Iu)] Cranberry 4,200 Mg Qd 4,200 mg PO DAILY 06/25/22 06/25/22 Mirabegron [Myrbetriq] 25 mg PO DAILY 06/25/22 06/25/22 Previous Rx's Medication Instructions Recorded Atorvastatin [Lipitor] 80 mg PO HS #30 tab 02/23/17 Nitroglycerin Sl Tabs [Nitrostat] 0.4 mg SUBLINGUAL Q5M PRN #25 tab 02/23/17 Metoprolol Tartrate [Lopressor] 100 mg PO BID #60 tab 01/16/20 Sulfamethox-Tmp 800-160Mg [Bactrim 1 tab PO Q12HR 5 Days #10 tab 06/25/22 DS 800-160 mg] Allergies Allergy/AdvReac Type Severity Reaction Status Date / Time codeine Allergy Hallucinati Verified 06/25/22 14:05 ons Review of Systems ROS Statement: Those systems with pertinent positive or pertinent negative responses have been documented in the HPI. ROS Other: All systems not noted in ROS Statement are negative. Past Medical History Past Medical History: Atrial Fibrillation, Hyperlipidemia, Hypertension, Osteoarthritis (OA), Vascular Disorder Additional Past Medical History / Comment(s): -hx irregular heart rate, 2 ruptured disc back, bladder leakage, pancreatitis, edd. lower leg swelling, shortness of breath History of Any Multi-Drug Resistant Organisms: ESBL Date of last positivie culture/infection: 07/15/20 ESBL Klebsiella MDRO Source:: Urine Past Surgical History: Cholecystectomy, Heart Catheterization With Stent, Hysterectomy, Orthopedic Surgery Additional Past Surgical History / Comment(s): lt knee arthroscopy Past Anesthesia/Blood Transfusion Reactions: No Reported Reaction Date of Last Stent Placement:: FEB 2017 Past Psychological History: Anxiety Smoking Status: Never smoker Past Alcohol Use History: Occasional Past Drug Use History: None Reported - Past Family History Mother Family Medical History: No Reported History Additional Family Medical History / Comment(s): heart issues Father Family Medical History: Cancer Additional Family Medical History / Comment(s): . General Exam - General Exam Comments Initial Comments: GENERAL: No acute distress, obese. HEENT: Normocephalic, atraumatic. Pupils equal, round, reactive to light. Moist mucous membranes. LUNGS: No respiratory distress. Clear to auscultation, no adventitious sounds, no use of accessory muscles. HEART: Irregular rhythm, controlled rate, systolic murmur III/ no rub or gallop. ABDOMEN: Normal bowel sounds. Soft, non-tender, non-distended. Rounded. BACK: Normal inspection. EXTREMITIES: Bilateral lower extremity edema +4, chronic with discoloration, range of motion limited due to edema and obesity. NEUROLOGIC: Alert & oriented x 3. Poor historian. Forgetful at times. CN II-XII grossly intact. PSYCHIATRIC: Normal affect and behavior. DERMATOLOGIC: Bilateral lower extremities discolored with erythema and primarily anteriorly. Excoriation to buttocks not evaluated.. Limitations: altered mental status, physical limitation Course Vital Signs 06/25/22 06/25/22 12:32 15:00 Temperature 98.0 F Pulse Rate 92 74 Respiratory 18 18 Rate Blood Pressure 115/62 120/73 O2 Sat by Pulse 97 96 Oximetry Medical Decision Making - Medical Decision Making Was pt. sent in by a medical professional or institution (, PA, FREIGHT CALLER, urgent care, hospital, or intermediate...) When possible be specific @ -No Did you speak to anyone other than the patient for history (EMS, parent, family, police, friend...)? What history was obtained from this source @ -Yes, spoke with daughter at bedside for confirmation and clarification of history of present illness, past medical history and current medications. Did you review nursing and triage notes (agree or disagree)? Why? @ -I reviewed and agree with nursing and triage notes Were old charts reviewed (outside hosp., previous admission, EMS record, old EKG, old radiological studies, urgent care reports/EKG's, intermediate records)? Report findings @ -No old charts were reviewed Differential Diagnosis (chest pain, altered mental status, abdominal pain women, abdominal pain men, vaginal bleeding, weakness, fever, dyspnea, syncope, headache, dizziness, GI bleed, back pain, seizure, CVA, palpatations, mental health, musculoskeletal)? @ -Differential Altered Mental Status: Hypoglycemia, DKA, hypercapnia, ETOH, overdose, CO poisoning, trauma, myxedema coma, HTN encephalopathy, infection, encephalitis, psychosis, intercranial hemorrhage, hepatic encephalopathy, meningitis, CVA, this is not meant to be an all-inclusive list EKG interpreted by me (3pts min.). @ -None done X-rays interpreted by me (1pt min.). @ -None done CT interpreted by me (1pt min.). @ -None done U/S interpreted by me (1pt. min.). @ -None done What testing was considered but not performed or refused? (CT, X-rays, U/S, labs)? Why? @ -CT of brain considered but deferred due to intermittent episodes of conf usion with alert and oriented at time of the exam without any focal neurological deficits and systems consistent with urinary tract infection. What meds were considered but not given or refused? Why? @ -None Did you discuss the management of the patient with other professionals (professionals i.e. , PA, FREIGHT CALLER, lab, RT, psych nurse, social worker masters, city plant supervisor, teacher, aoc plans intelligence officer chief, dependency case manager)? Give summary @ -No Was smoking cessation discussed for >3mins.? @ -No Was critical care preformed (if so, how long)? @ -No Were there social determinants of health that impacted care today? How? (Homelessness, low income, unemployed, alcoholism, drug addiction, transportation, low edu. Level, literacy, decrease access to med. care, [facility], rehab)? @ -No Was there de-escalation of care discussed even if they declined (Discuss DNR or withdrawal of care, Hospice)? DNR status @ -No What co-morbidities impacted this encounter? (DM, HTN, Smoking, COPD, CAD, C ancer, CVA, ARF, Chemo, Hep., AIDS, mental health diagnosis, sleep apnea, morbid obesity)? @ -None Was patient admitted / discharged? Hospital course, mention meds given and route, prescriptions, significant lab abnormalities, going to OR and other pertinent info. @ -82-year-old female presenting to the emergency room with her nadja jenn with concerns regarding worsening episodes of confusion ongoing for the last few weeks. She reports generalized malaise last week with fevers and body aches along with worsening of her chronic urinary incontinence and dysuria. Overall neuro exam without significant abnormalities, forgetful and poor historian at times but alert and oriented times 3 without focal neurological deficits no indication for diagnostic imaging at this time. Will obtain laboratory studies of CBC, CMP, lactic acid, urinalysis with reflex to culture. Currently afebrile without any tachycardia due to lower extremity edema and absence of sepsis symptoms will hold IV hydration and antibiotics at this time. CBC with white cell count high normal 10.3, neutrophils elevated 8.4 no other abnormalities on CBC with differential. CMP with low sodium 136 normal renal function remaining electrolytes normal. AST elevated 49 a.l. T normal 33 alkaline phosphatase elevated 278. Lactic acid elevation noted with level of 2. 3. Urinalysis with large amount of blood, positive for nitrates large leukocyte Estrace RBCs 100, WBCs greater than 182 rare white blood cell clumps, many bacteria and rare mucus. No indication for diagnostic imaging. Discussion with pharmacy regarding patient's treatment for urinary tract infection last month reveals that she was on Cipro 250 mg twice a day for 3 days. Will treat with Bactrim in the setting of recent Cipro treatment in the setting of no antibiotic drug ALLERGIES and normal renal function. Discussed urinary tract symptoms, when to seek medical attention. Advised keeping perineum clean and dry with regular incontinence pads changing. Encouraged continued follow-up with urology. Questions and concerns answered. Return parameters to the emergency room discussed. Will discharge home in stable condition on Bactrim for urinary tract infection advising follow-up with primary care provider and urologist. Undiagnosed new problem with uncertain prognosis? @ -No Drug Therapy requiring intensive monitoring for toxicity (Heparin, Nitro, Insulin, Cardizem)? @ -No Were any procedures done? @ -No Diagnosis/symptom? @ -Urinary tract infection Acute, or Chronic, or Acute on Chronic? @ -Acute Uncomplicated (without systemic symptoms) or Complicated (systemic symptoms)? @ -Uncomplicated Side effects of treatment? @ -No Exacerbation, Progression, or Severe Exacerbation? @ -No Poses a threat to life or bodily function? How? (Chest pain, [place], [place], pneumonia, PE, COPD, DKA, ARF, appy, cholecystitis, CVA, Diverticulitis, Homicidal, Suicidal, threat to staff... and all critical care pts) @ -No. Case discussed with Dr. Zendejas. - Lab Data Result diagrams: 06/25/22 13:31 06/25/22 13:31 Lab Results 06/25/22 06/25/22 06/25/22 Range/Units 13:31 13:31 13:31 WBC 10.3 (3.8-10.6) k/uL RBC 4.33 (3.80-5.40) m/uL Hgb 13.8 (11.4-16.0) gm/dL Hct 42.6 (34.0-46.0) % MCV 98.3 (80.0-100.0) fL MCH 31.9 (25.0-35.0) pg MCHC 32.4 (31.0-37.0) g/dL RDW 12.4 (11.5-15.5) % Plt Count 315 (150-450) k/uL MPV 7.4 Neutrophils % 82 % Lymphocytes % 9 % Monocytes % 6 % Eosinophils % 2 % Basophils % 0 % Neutrophils # 8.4 H (1.3-7.7) k/uL Lymphocytes # 1.0 (1.0-4.8) k/uL Monocytes # 0.6 (0-1.0) k/uL Eosinophils # 0.2 (0-0.7) k/uL Basophils # 0.0 (0-0.2) k/uL Sodium 136 L (137-145) mmol/L Potassium 3.9 (3.5-5.1) mmol/L Chloride 100 (98-107) mmol/L Carbon Dioxide 28 (22-30) mmol/L Anion Gap 8 mmol/L BUN 15 (7-17) mg/dL Creatinine 0.99 (0.52-1.04) mg/dL Est GFR (CKD-EPI)AfAm 62 (>60 ml/min/1.73 sqM) Est GFR (CKD-EPI)NonAf 53 (>60 ml/min/1.73 sqM) Glucose 109 H (74-99) mg/dL Plasma Lactic Acid Rony (0.7-2.0) mmol/L Calcium 8.0 L (8.4-10.2) mg/dL Total Bilirubin 1.2 (0.2-1.3) mg/dL AST 49 H (14-36) U/L ALT 33 (4-34) U/L Alkaline Phosphatase 278 H (38-126) U/L Total Protein 5.8 L (6.3-8.2) g/dL Albumin 3.0 L (3.5-5.0) g/dL Urine Color Yellow Urine Appearance Turbid H (Clear) Urine pH 6.0 (5.0-8.0) Ur Specific [place] 1.012 (1.001-1.035) Urine Protein 1+ H (Negative) Urine Glucose (UA) Negative (Negative) Urine Ketones Negative (Negative) Urine Blood Large H (Negative) Urine Nitrite Positive H (Negative) Urine Bilirubin Negative (Negative) Urine Urobilinogen <2.0 (<2.0) mg/dL Ur Leukocyte Esterase Large H (Negative) Urine RBC 100 H (0-5) /hpf Urine WBC >182 H (0-5) /hpf Urine WBC Clumps Rare H (None) /hpf Ur Squamous Epith Cells 3 (0-4) /hpf Urine Bacteria Many H (None) /hpf Urine Mucus Rare H (None) /hpf 06/25/22 Range/Units 13:31 WBC (3.8-10.6) k/uL RBC (3.80-5.40) m/uL Hgb (11.4-16.0) gm/dL Hct (34.0-46.0) % MCV (80.0-100.0) fL MCH (25.0-35.0) pg MCHC (31.0-37.0) g/dL RDW (11.5-15.5) % Plt Count (150-450) k/uL MPV Neutrophils % % Lymphocytes % % Monocytes % % Eosinophils % % Basophils % % Neutrophils # (1.3-7.7) k/uL Lymphocytes # (1.0-4.8) k/uL Monocytes # (0-1.0) k/uL Eosinophils # (0-0.7) k/uL Basophils # (0-0.2) k/uL Sodium (137-145) mmol/L Potassium (3.5-5.1) mmol/L Chloride (98-107) mmol/L Carbon Dioxide (22-30) mmol/L Anion Gap mmol/L BUN (7-17) mg/dL Creatinine (0.52-1.04) mg/dL Est GFR (CKD-EPI)AfAm (>60 ml/min/1.73 sqM) Est GFR (CKD-EPI)NonAf (>60 ml/min/1.73 sqM) Glucose (74-99) mg/dL Plasma Lactic Acid Rony 2.3 H* (0.7-2.0) mmol/L Calcium (8.4-10.2) mg/dL Total Bilirubin (0.2-1.3) mg/dL AST (14-36) U/L ALT (4-34) U/L Alkaline Phosphatase (38-126) U/L Total Protein (6.3-8.2) g/dL Albumin (3.5-5.0) g/dL Urine Color Urine Appearance (Clear) Urine pH (5.0-8.0) Ur Specific [place] (1.001-1.035) Urine Protein (Negative) Urine Glucose (UA) (Negative) Urine Ketones (Negative) Urine Blood (Negative) Urine Nitrite (Negative) Urine Bilirubin (Negative) Urine Urobilinogen (<2.0) mg/dL Ur Leukocyte Esterase (Negative) Urine RBC (0-5) /hpf Urine WBC (0-5) /hpf Urine WBC Clumps (None) /hpf Ur Squamous Epith Cells (0-4) /hpf Urine Bacteria (None) /hpf Urine Mucus (None) /hpf Disposition Clinical Impression: Urinary tract infection Disposition: HOME SELF-CARE Condition: Stable Instructions (If sedation given, give patient instructions): Urinary Tract Infection in Women (ED) Additional Instructions: Keep perineum clean and dry with regular changing of urinary incontinence pads. Do not attempt to hold urine. Please complete course of antibiotic as prescribed. Please follow-up with your primary care provider and or your urologist as needed. Please return to the Emergency Department if symptoms worsen or any other concerns. Prescriptions: Sulfamethox-Tmp 800-160Mg [Bactrim DS 800-160 mg] 1 tab PO Q12HR 5 Days #10 tab Is patient prescribed a controlled substance at d/c from ED?: No Referrals: Joe Araya MD [Primary Care Provider] - 1-2 days Time of Disposition: 15:28
[2022-06-25 13:48] LABS: Basophils % (A) 0 %; Eosinophils # (A) 0.2 k/uL (0-0.7); Eosinophils % (A) 2 %; HCT 42.6 % (34.0-46.0); HGB 13.8 gm/dL (11.4-16.0); Lymphocytes % (A) 9 %; MCH 31.9 pg (25.0-35.0); MCHC 32.4 g/dL (31.0-37.0); MCV 98.3 fL (80.0-100.0); Mean Platelet Volume 7.4; Monocytes # (A) 0.6 k/uL (0-1.0); Monocytes % (A) 6 %; Neutrophils # (A) 8.4 k/uL (1.3-7.7); Neutrophils % (A) 82 %; Platelet Count 315 k/uL (150-450); RBC 4.33 m/uL (3.80-5.40); RDW 12.4 % (11.5-15.5); WBC 10.3 k/uL (3.8-10.6)
[2022-06-25 14:12] LABS: Total Bilirubin 1.2 mg/dL (0.2-1.3); Total Protein 5.8 g/dL (6.3-8.2)
[2022-06-25 14:16] LABS: Potassium 3.9 mmol/L (3.5-5.1)
[2022-06-25 15:10] LABS: Appearance,Urine Turbid (Clear); Bacteria,Urine Many /hpf; Bilirubin,Urine Negative (Negative); Blood,Urine Large (Negative); Color,Urine Yellow; Glucose,Urine (UA) Negative (Negative); Ketones,Urine Negative (Negative); Leukocyte Esterase,Urine Large (Negative); Mucus,Urine Rare /hpf; Nitrite,Urine Positive (Negative); Protein,Urine 1+ (Negative); RBC,Urine 100 /hpf (0-5); Specific Gravity,Urine 1.012 (1.001-1.035); Squamous Epithelial Cell,Urine 3 /hpf (0-4); Urobilinogen,Urine <2.0 mg/dL (<2.0); WBC,Urine >182 /hpf (0-5)
[2022-06-25] MEDS ORDERED: SULFAMETHOX-TMP 800-160MG 1 EACH TAB PO STA (15:26)
[2022-06-25 15:49] VITALS: BP 101/81; PULSE 99; RESP 20; TEMP 97.6
== END 2022-06-25 15:52 | disposition home or self-care (01) ==
LOC: EC 12:30
DX: N39.0 Urinary tract infection, site not specified (principal); I10 Essential (primary) hypertension; I48.91 Unspecified atrial fibrillation; Z79.01 Long term (current) use of anticoagulants; Z79.82 Long term (current) use of aspirin; Z88.5 Allergy status to narcotic agent; Z90.49 Acquired absence of other specified parts of digestive tract
CPT/HCPCS: 36415; 80053; 81001; 83605; 85025; 87040; 87077; 87086; 87186; 99283

== ENCOUNTER 2022-08-14 13:01 | Emergency (ER) | payer MEDICARE ==
[2022-08-14] MEDS ORDERED: IPRATROPIUM-ALBUTEROL 3 ML NEB INHALATION STA (13:28)
[2022-08-14] MEDS ORDERED: FAMOTIDINE 20 MG/2 ML VIAL IV STA (13:28)
[2022-08-14] MEDS ORDERED: diphenhydrAMINE 50 MG/ML 1 ML VIAL IVP STA (13:28)
[2022-08-14] MEDS ORDERED: methylPREDNISolone SOD SUCCI 125 MG/2 ML VIAL IV STA (13:28)
[2022-08-14] MEDS ORDERED: cefTRIAXone IN SWFI 1,000 MG/10 ML SYRINGE IVP STA (13:28)
--- NOTE | 2022-08-14 13:31 | ED ---
General Adult HPI - General Chief complaint: Allergic Reaction Stated complaint: allergic reaction Time Seen by Provider: 08/14/22 13:05 Source: patient, RN notes reviewed, old records reviewed Mode of arrival: ambulatory - History of Present Illness Initial comments: This is an 82-year-old female presents emergency department stating that she took her first dose of Bactrim for urinary tract infection she became itchy all over had a rash on her legs she also noted a little bit of difficulty breathing but not severe. Patient stated she had no problems swallowing. Patient denies any chest pain or palpitations. Patient states she still is itching she did not take any medications at home. Patient states she doesn't believe she took Bactrim in the past. - Related Data Home Medications Medication Instructions Recorded Confirmed Spironolactone 50 mg PO DAILY 02/25/17 06/25/22 Apixaban [Eliquis] 5 mg PO BID 08/04/18 06/25/22 Aspirin EC [Ecotrin Low Dose] 81 mg PO DAILY 01/15/20 06/25/22 Benzocaine/Menthol [place] 1 applic TOPICAL QID PRN 06/25/22 06/25/22 [Dermoplast [place]] Cholecalciferol [Vitamin D3 (25 100 mcg PO DAILY 06/25/22 06/25/22 Mcg = 1000 Iu)] Cranberry 4,200 Mg Qd 4,200 mg PO DAILY 06/25/22 06/25/22 Mirabegron [Myrbetriq] 25 mg PO DAILY 06/25/22 06/25/22 Previous Rx's Medication Instructions Recorded Atorvastatin [Lipitor] 80 mg PO HS #30 tab 02/23/17 Nitroglycerin Sl Tabs [Nitrostat] 0.4 mg SUBLINGUAL Q5M PRN #25 tab 02/23/17 Metoprolol Tartrate [Lopressor] 100 mg PO BID #60 tab 01/16/20 Sulfamethox-Tmp 800-160Mg [Bactrim 1 tab PO Q12HR 5 Days #10 tab 06/25/22 DS 800-160 mg] Ciprofloxacin HCl [Cipro] 500 mg PO Q12HR #20 tablet 08/14/22 predniSONE [Deltasone] 40 mg PO DAILY #8 tab 08/14/22 Allergies Allergy/AdvReac Type Severity Reaction Status Date / Time codeine Allergy Hallucinati Verified 08/14/22 13:07 ons Review of Systems ROS Statement: Those systems with pertinent positive or pertinent negative responses have been documented in the HPI. ROS Other: All systems not noted in ROS Statement are negative. Past Medical History Past Medical History: Atrial Fibrillation, Hyperlipidemia, Hypertension, Osteoarthritis (OA), Vascular Disorder Additional Past Medical History / Comment(s): -hx irregular heart rate, 2 ruptured disc back, bladder leakage, pancreatitis, edd. lower leg swelling, shortness of breath History of Any Multi-Drug Resistant Organisms: ESBL Date of last positivie culture/infection: 07/15/20 ESBL Klebsiella MDRO Source:: Urine Past Surgical History: Cholecystectomy, Heart Catheterization With Stent, Hysterectomy, Orthopedic Surgery Additional Past Surgical History / Comment(s): lt knee arthroscopy Past Anesthesia/Blood Transfusion Reactions: No Reported Reaction Date of Last Stent Placement:: FEB 2017 Past Psychological History: Anxiety Smoking Status: Never smoker Past Alcohol Use History: Occasional Past Drug Use History: None Reported - Past Family History Mother Family Medical History: No Reported History Additional Family Medical History / Comment(s): heart issues Father Family Medical History: Cancer Additional Family Medical History / Comment(s): . General Exam - General Exam Comments Initial Comments: GENERAL: Patient is well-developed and well-nourished. Patient is nontoxic and well- hydrated and is in mild distress. ENT: Neck is soft and supple. No significant lymphadenopathy is noted. Oropharynx is clear. Moist mucous membranes. Neck has full range of motion without eliciting any pain. EYES: The sclera were anicteric and conjunctiva were pink and moist. Extraocular movements were intact and pupils were equal round and reactive to light. Eyelids were unremarkable. PULMONARY: Unlabored respirations. Good breath sounds bilaterally. Patient has slight expiratory wheeze CARDIOVASCULAR: There is a regular rate and rhythm without any murmurs gallops or rubs. ABDOMEN: Soft and nontender with normal bowel sounds. SKIN: Patient has small hives on her back and a couple on her legs. NEUROLOGIC: Patient is alert and oriented x3. Cranial nerves II through XII are grossly intact. Motor and sensory are also intact. Normal speech, volume and content. Symmetrical smile. MUSCULOSKELETAL: Normal extremities with adequate strength and full range of motion. LYMPHATICS: No significant lymphadenopathy is noted PSYCHIATRIC: Normal psychiatric evaluation. Course Vital Signs 08/14/22 08/14/22 08/14/22 13:03 13:28 13:30 Temperature 97.4 F L Pulse Rate 79 Pulse Rate [ 60 Investment Representative ] Respiratory 24 20 Rate Blood Pressure 106/64 O2 Sat by Pulse 97 Oximetry 08/14/22 08/14/22 08/14/22 13:43 13:53 14:29 Temperature 98.8 F Pulse Rate 66 70 76 Pulse Rate [ Investment Representative ] Respiratory 20 Rate Blood Pressure 91/61 O2 Sat by Pulse 97 Oximetry Medical Decision Making - Medical Decision Making Was pt. sent in by a medical professional or institution (, LALY, COIN MACHINE COLLECTOR SUPERVISOR, urgent care, hospital, or intermediate...) When possible be specific @ -No Did you speak to anyone other than the patient for history (EMS, parent, family, police, friend...)? What history was obtained from this source @ -No Did you review nursing and triage notes (agree or disagree)? Why? @ -I reviewed and agree with nursing and triage notes Were old charts reviewed (outside hosp., previous admission, EMS record, old EKG, old radiological studies, urgent care reports/EKG's, intermediate records)? Report findings @ -No old charts were reviewed Differential Diagnosis (chest pain, altered mental status, abdominal pain women, abdominal pain men, vaginal bleeding, weakness, fever, dyspnea, syncope, headache, dizziness, GI bleed, back pain, seizure, CVA, palpatations, mental health, musculoskeletal)? @ -DDifferential Dyspnea: Coronary syndrome, arrhythmia, tamponade, asthma, COPD, pulmonary embolism, pneumonia, pneumothorax, pulmonary effusion, anaphylaxis, diabetic ketoacidosis, flailed chest, pulmonary contusion, diaphragmatic rupture, anemia, neuromuscular, this is not meant to be an all-inclusive list. y EKG interpreted by me (3pts min.). @ -As above X-rays interpreted by me (1pt min.). @ -None done CT interpreted by me (1pt min.). @ -None done U/S interpreted by me (1pt. min.). @ -None done What testing was considered but not performed or refused? (CT, X-rays, U/S, labs)? Why? @ -None What meds were considered but not given or refused? Why? @ -None Did you discuss the management of the patient with other professionals (professionals i.e. , PA, COIN MACHINE COLLECTOR SUPERVISOR, lab, RT, psych nurse, rn social work, senior contracts administrator, teacher, campus police officer, case technician)? Give summary @ -No Was smoking cessation discussed for >3mins.? @ -No Was critical care preformed (if so, how long)? @ -No Were there social determinants of health that impacted care today? How? (Homelessness, low income, unemployed, alcoholism, drug addiction, transportation, low edu. Level, literacy, decrease access to med. care, retirement, rehab)? @ -No Was there de-escalation of care discussed even if they declined (Discuss DNR or withdrawal of care, Hospice)? DNR status @ -No What co-morbidities impacted this encounter? (DM, HTN, Smoking, COPD, CAD, Cancer, CVA, ARF, Chemo, Hep., AIDS, mental health diagnosis, sleep apnea, morbid obesity)? @ -None Was patient admitted / discharged? Hospital course, mention meds given and route, prescriptions, significant lab abnormalities, going to OR and other pertinent info. @ -Patient is a very slight wheeze slightly given albuterol treatment. Patient did have some hives on her back and legs Pepcid and Benadryl and Solu-Medrol. When I went back and reevaluated. She was feeling much better but she still was a little nauseated so she received Zofran. Patient will be sent home with prednisone and Zofran. Patient also be given a new antibiotic because the Bactrim is which she believes caused this ALLERGIC reaction . Patient also had 2 g of Rocephin for her urinary tract infection Undiagnosed new problem with uncertain prognosis? @ -No Drug Therapy requiring intensive monitoring for toxicity (Heparin, Nitro, Insulin, Cardizem)? @ -No Were any procedures done? @ -No Diagnosis/symptom? @ -ALLERGIC reaction Acute, or Chronic, or Acute on Chronic? @ -Acute Uncomplicated (without systemic symptoms) or Complicated (systemic symptoms)? @ -Complicated Side effects of treatment? @ -No Exacerbation, Progression, or Severe Exacerbation? @ -No Poses a threat to life or bodily function? How? (Chest pain, [place], [place], pneumonia, PE, COPD, DKA, ARF, appy, cholecystitis, CVA, Diverticulitis, Homicidal, Suicidal, threat to staff... and all critical care pts) @ -No Diagnosis/symptom? @ -Urinary tract infection Acute, or Chronic, or Acute on Chronic? @ -Acute Uncomplicated (without systemic symptoms) or Complicated (systemic symptoms)? @ -Uncomplicated Side effects of treatment? @ -none Exacerbation, Progression, or Severe Exacerbation] @ -no Poses a threat to life or bodily function? @ -no Disposition Clinical Impression: Allergic reaction Disposition: HOME SELF-CARE Additional Instructions: Patient should stop Bactrim patient should start taking Cipro as prescribed Prescriptions: Ciprofloxacin HCl [Cipro] 500 mg PO Q12HR #20 tablet predniSONE [Deltasone] 40 mg PO DAILY #8 tab Is patient prescribed a controlled substance at d/c from ED?: No Referrals: Joe Araya MD [Primary Care Provider] - 1-2 days Time of Disposition: 14:54
[2022-08-14 14:34] VITALS: TEMP 98.8
[2022-08-14] MEDS ORDERED: ONDANSETRON 4 MG ODT STARTER PACK 2 TAB BTL PO STA (14:56)
[2022-08-14 16:07] VITALS: BP 96/44; PULSE 65; RESP 18
== END 2022-08-14 16:07 | disposition home or self-care (01) ==
LOC: EC 13:01
DX: T78.40XA Allergy, unspecified, initial encounter (principal); I10 Essential (primary) hypertension; I48.91 Unspecified atrial fibrillation; E78.5 Hyperlipidemia, unspecified; M19.90 Unspecified osteoarthritis, unspecified site; F41.9 Anxiety disorder, unspecified; Z79.01 Long term (current) use of anticoagulants; Z79.82 Long term (current) use of aspirin; Z79.899 Other long term (current) drug therapy; Z88.5 Allergy status to narcotic agent
CPT/HCPCS: 94640; 99283; 96374; 96375 ×3; J1200; J2930; J0696; S0119

== ENCOUNTER 2023-05-13 10:43 | Inpatient (IN) | payer MEDICARE ==
--- NOTE | 2023-05-13 11:20 | ED ---
General Adult HPI - General Chief complaint: Chest Pain Stated complaint: Chest Pains/SOB Time Seen by Provider: 05/13/23 10:55 Source: patient, RN notes reviewed, old records reviewed Mode of arrival: ambulatory Limitations: no limitations - History of Present Illness Initial comments: This is an 83-year-old female who presents to the emergency department stating that she was recently treated for urinary tract infection and has been placed on some meds. Patient states last night she had an episode of diarrhea which she often does but she also was feeling short of breath. Patient states this morning she woke up and continued to feel short of breath and she is now having some anterior chest pain which she describes as a pressure. Patient states she also was mildly nauseated. Patient denies any radiation of the pain. Patient denies any diaphoretic episode. Patient denies any vomiting today or any diarrhea today. Patient denies any increased swelling to the legs or calf tenderness. - Related Data Home Medications Medication Instructions Recorded Confirmed Spironolactone 50 mg PO DAILY 02/25/17 05/13/23 Apixaban [Eliquis] 5 mg PO BID 08/04/18 05/13/23 Aspirin EC [Ecotrin Low Dose] 81 mg PO DAILY 01/15/20 05/13/23 Cholecalciferol (Vitamin D3) 50 mcg PO DAILY 05/13/23 05/13/23 [Vitamin D3 (50 Mcg = 2000 Iu)] Cranberry Fruit Extract [Cranberry] 500 mg PO DAILY 05/13/23 05/13/23 Nitrofurantoin Monohyd/M-Cryst 100 mg PO Q12HR 05/13/23 05/13/23 [Macrobid] Tolterodine ER [Detrol LA] 4 mg PO DAILY 05/13/23 05/13/23 Previous Rx's Medication Instructions Recorded Atorvastatin [Lipitor] 80 mg PO HS #30 tab 02/23/17 Metoprolol Tartrate [Lopressor] 100 mg PO BID #60 tab 01/16/20 Allergies Allergy/AdvReac Type Severity Reaction Status Date / Time codeine Allergy Hallucinati Verified 05/13/23 13:40 ons Review of Systems ROS Statement: Those systems with pertinent positive or pertinent negative responses have been documented in the HPI. ROS Other: All systems not noted in ROS Statement are negative. Past Medical History Past Medical History: Atrial Fibrillation, Hyperlipidemia, Hypertension, Osteoarthritis (OA), Vascular Disorder Additional Past Medical History / Comment(s): -hx irregular heart rate, 2 ruptured disc back, bladder leakage, pancreatitis, edd. lower leg swelling, shortness of breath History of Any Multi-Drug Resistant Organisms: ESBL Date of last positivie culture/infection: 07/15/20 ESBL Klebsiella MDRO Source:: Urine Past Surgical History: Cholecystectomy, Heart Catheterization With Stent, Hysterectomy, Orthopedic Surgery Additional Past Surgical History / Comment(s): lt knee arthroscopy Past Anesthesia/Blood Transfusion Reactions: No Reported Reaction Date of Last Stent Placement:: FEB 2017 Past Psychological History: Anxiety Smoking Status: Never smoker Past Alcohol Use History: Occasional Past Drug Use History: None Reported - Past Family History Mother Family Medical History: No Reported History Additional Family Medical History / Comment(s): heart issues Father Family Medical History: Cancer Additional Family Medical History / Comment(s): . General Exam - General Exam Comments Initial Comments: GENERAL: Patient is well-developed and well-nourished. Patient is nontoxic and well- hydrated and is in mild distress. ENT: Neck is soft and supple. No significant lymphadenopathy is noted. Oropharynx is clear. Moist mucous membranes. Neck has full range of motion without eliciting any pain. EYES: The sclera were anicteric and conjunctiva were pink and moist. Extraocular movements were intact and pupils were equal round and reactive to light. Eyelids were unremarkable. PULMONARY: Unlabored respirations. Good breath sounds bilaterally. No audible rales rhonchi or wheezing was noted. CARDIOVASCULAR: There is a regular rate and rhythm without any murmurs gallops or rubs. ABDOMEN: Soft and nontender with normal bowel sounds. SKIN: Skin is clear with no lesions or rashes and otherwise unremarkable. NEUROLOGIC: Patient is alert and oriented x3. Cranial nerves II through XII are grossly intact. Motor and sensory are also intact. Normal speech, volume and content. Symmetrical smile. MUSCULOSKELETAL: Normal extremities with adequate strength and full range of motion. 2+ edema bilaterally LYMPHATICS: No significant lymphadenopathy is noted PSYCHIATRIC: Normal psychiatric evaluation. Limitations: no limitations Course Vital Signs 05/13/23 05/13/23 05/13/23 10:45 12:05 12:08 Temperature 98.2 F Pulse Rate 104 H 117 H Respiratory 20 24 Rate Blood Pressure 109/73 129/74 O2 Sat by Pulse 90 L 89 L 96 Oximetry Medical Decision Making - Medical Decision Making EKG is interpreted by myself but EKG shows atrial fibrillation at 118 bpm QRS is 89 QT interval is 285 QTc is 355. Patient's EKG shows no ST segment elevation. Was pt. sent in by a medical professional or institution (LALY Morales, SWAMPER, urgent care, hospital, or fci...) When possible be specific @ -No Did you speak to anyone other than the patient for history (EMS, parent, family, police, friend...)? What history was obtained from this source @ -No Did you review nursing and triage notes (agree or disagree)? Why? @ -I reviewed and agree with nursing and triage notes Were old charts reviewed (outside hosp., previous admission, EMS record, old EKG, old radiological studies, urgent care reports/EKG's, fci records)? Report findings @ -I reviewed prior charts and this patient compared the x-rays to this patient this x-ray shows more infiltrate and pulmonary edema Differential Diagnosis (chest pain, altered mental status, abdominal pain women, abdominal pain men, vaginal bleeding, weakness, fever, dyspnea, syncope, headache, dizziness, GI bleed, back pain, seizure, CVA, palpatations, mental health, musculoskeletal)? @ -Differential Dyspnea: Coronary syndrome, arrhythmia, tamponade, asthma, COPD, pulmonary embolism, pneumonia, pneumothorax, pulmonary effusion, anaphylaxis, diabetic ketoacidosis, flailed chest, pulmonary contusion, diaphragmatic rupture, anemia, neuromuscular, this is not meant to be an all-inclusive list. EKG interpreted by me (3pts min.). @ -As above X-rays interpreted by me (1pt min.). @ -X-ray of the chest shows pulmonary edema and possible infiltrates CT interpreted by me (1pt min.). @ -None done U/S interpreted by me (1pt. min.). @ -None done What testing was considered but not performed or refused? (CT, X-rays, U/S, labs)? Why? @ -None What meds were considered but not given or refused? Why? @ -None Did you discuss the management of the patient with other professionals (professionals i.e. LALY Morales, SWAMPER, lab, RT, psych nurse, high school social studies teacher, coin machine service repairer, teacher, correction officer city or county jail, briefcase sewer)? Give summary @ -I spoke with [facility] hospitalist they agreed to admit the patient. Was smoking cessation discussed for >3mins.? @ -No Was critical care preformed (if so, how long)? @ -35 minutes Were there social determinants of health that impacted care today? How? (Homelessness, low income, unemployed, alcoholism, drug addiction, transportation, low edu. Level, literacy, decrease access to med. care, residential, rehab)? @ -No Was there de-escalation of care discussed even if they declined (Discuss DNR or withdrawal of care, Hospice)? DNR status @ -No What co-morbidities impacted this encounter? (DM, HTN, Smoking, COPD, CAD, [place] ncer, CVA, ARF, Chemo, Hep., AIDS, mental health diagnosis, sleep apnea, morbid obesity)? @ -None Was patient admitted / discharged? Hospital course, mention meds given and route, prescriptions, significant lab abnormalities, going to OR and other pertinent info. @ -Patient had pulmonary edema on the chest x-ray I started the patient on Lasix. Patient also had a possible infiltrate with elevated white count and I started the patient on Rocephin and will put patient on antibiotics as an inpatient. Patient also had a very low magnesium at 1.1 so I ordered 3 g of mag sulfate IV. I spoke with [facility]'s hospitalist and they agreed to admit the patient. Undiagnosed new problem with uncertain prognosis? @ -No Drug Therapy requiring intensive monitoring for toxicity (Heparin, Nitro, In sulin, Cardizem)? @ -No Were any procedures done? @ -No Diagnosis/symptom? @ -Acute pulmonary edema Acute, or Chronic, or Acute on Chronic? @ -Acute Uncomplicated (without systemic symptoms) or Complicated (systemic symptoms)? @ -Complicated Side effects of treatment? @ -No Exacerbation, Progression, or Severe Exacerbation? @ -No Poses a threat to life or bodily function? How? (Chest pain, [place], [place], pneumonia, PE, COPD, DKA, ARF, appy, cholecystitis, CVA, Diverticulitis, Homicidal, Suicidal, threat to staff... and all critical care pts) @ -Yes this could lead to endorgan dysfunction Diagnosis/symptom? @ -Hypomagnesemia Acute, or Chronic, or Acute on Chronic? @ -Acute Uncomplicated (without systemic symptoms) or Complicated (systemic symptoms)? @ -Complicated Side effects of treatment? @ -None Exacerbation, Progression, or Severe Exacerbation] @ -No Poses a threat to life or bodily function? @ -No Diagnosis/symptom? @ -Pneumonia Acute, or Chronic, or Acute on Chronic? @ -Acute Uncomplicated (without systemic symptoms) or Complicated (systemic symptoms)? @ -Complicated Side effects of treatment? @ -None Exacerbation, Progression, or Severe Exacerbation] @ -No Poses a threat to life or bodily function? @ -Yes this could lead to sepsis and end organ dysfunction - Lab Data Result diagrams: 05/13/23 11:35 05/13/23 11:35 Lab Results 05/13/23 05/13/23 05/13/23 Range/Units 11:35 11:35 11:35 WBC 16.5 H (3.8-10.6) k/uL RBC 4.35 (3.80-5.40) m/uL Hgb 14.0 (11.4-16.0) gm/dL Hct 43.8 (34.0-46.0) % MCV 100.7 H (80.0-100.0) fL MCH 32.1 (25.0-35.0) pg MCHC 31.9 (31.0-37.0) g/dL RDW 12.1 (11.5-15.5) % Plt Count 261 (150-450) k/uL MPV 8.2 Neutrophils % 84 % Lymphocytes % 6 % Monocytes % 6 % Eosinophils % 3 % Basophils % 0 % Neutrophils # 13.8 H (1.3-7.7) k/uL Lymphocytes # 1.0 (1.0-4.8) k/uL Monocytes # 1.0 (0-1.0) k/uL Eosinophils # 0.5 (0-0.7) k/uL Basophils # 0.1 (0-0.2) k/uL PT 13.8 H (10.0-12.5) sec INR 1.3 H (<1.2) APTT 24.9 (22.0-30.0) sec Sodium 134 L (137-145) mmol/L Potassium 4.9 (3.5-5.1) mmol/L Chloride 99 (98-107) mmol/L Carbon Dioxide 25 (22-30) mmol/L Anion Gap 10 mmol/L BUN 17 (7-17) mg/dL Creatinine 1.00 (0.52-1.04) mg/dL Est GFR (CKD-EPI)AfAm 61 (>60 ml/min/1.73 sqM) Est GFR (CKD-EPI)NonAf 53 (>60 ml/min/1.73 sqM) Glucose 90 (74-99) mg/dL Calcium 8.6 (8.4-10.2) mg/dL Magnesium 1.1 L (1.6-2.3) mg/dL Total Bilirubin 2.4 H (0.2-1.3) mg/dL AST 47 H (14-36) U/L ALT 27 (4-34) U/L Alkaline Phosphatase 209 H (38-126) U/L Troponin I (0.000-0.034) ng/mL NT-Pro-B Natriuret Pep 2380 pg/mL Total Protein 6.8 (6.3-8.2) g/dL Albumin 3.4 L (3.5-5.0) g/dL Lipase 32 (23-300) U/L Urine Color Urine Appearance (Clear) Urine pH (5.0-8.0) Ur Specific Colver (1.001-1.035) Urine Protein (Negative) Urine Glucose (UA) (Negative) Urine Ketones (Negative) Urine Blood (Negative) Urine Nitrite (Negative) Urine Bilirubin (Negative) Urine Urobilinogen (<2.0) mg/dL Ur Leukocyte Esterase (Negative) 05/13/23 05/13/23 Range/Units 11:35 12:39 WBC (3.8-10.6) k/uL RBC (3.80-5.40) m/uL Hgb (11.4-16.0) gm/dL Hct (34.0-46.0) % MCV (80.0-100.0) fL MCH (25.0-35.0) pg MCHC (31.0-37.0) g/dL RDW (11.5-15.5) % Plt Count (150-450) k/uL MPV Neutrophils % % Lymphocytes % % Monocytes % % Eosinophils % % Basophils % % Neutrophils # (1.3-7.7) k/uL Lymphocytes # (1.0-4.8) k/uL Monocytes # (0-1.0) k/uL Eosinophils # (0-0.7) k/uL Basophils # (0-0.2) k/uL PT (10.0-12.5) sec INR (<1.2) APTT (22.0-30.0) sec Sodium (137-145) mmol/L Potassium (3.5-5.1) mmol/L Chloride (98-107) mmol/L Carbon Dioxide (22-30) mmol/L Anion Gap mmol/L BUN (7-17) mg/dL Creatinine (0.52-1.04) mg/dL Est GFR (CKD-EPI)AfAm (>60 ml/min/1.73 sqM) Est GFR (CKD-EPI)NonAf (>60 ml/min/1.73 sqM) Glucose (74-99) mg/dL Calcium (8.4-10.2) mg/dL Magnesium (1.6-2.3) mg/dL Total Bilirubin (0.2-1.3) mg/dL AST (14-36) U/L ALT (4-34) U/L Alkaline Phosphatase (38-126) U/L Troponin I <0.012 (0.000-0.034) ng/mL NT-Pro-B Natriuret Pep pg/mL Total Protein (6.3-8.2) g/dL Albumin (3.5-5.0) g/dL Lipase (23-300) U/L Urine Color Yellow Urine Appearance Clear (Clear) Urine pH 5.0 (5.0-8.0) Ur Specific Colver 1.010 (1.001-1.035) Urine Protein Negative (Negative) Urine Glucose (UA) Negative (Negative) Urine Ketones Negative (Negative) Urine Blood Negative (Negative) Urine Nitrite Negative (Negative) Urine Bilirubin Negative (Negative) Urine Urobilinogen <2.0 (<2.0) mg/dL Ur Leukocyte Esterase Negative (Negative) Critical Care Time Critical Care Time: Yes Total Critical Care Time: 35 Disposition Clinical Impression: Hypomagnesemia, Pneumonia, Acute pulmonary edema, Atrial fibrillation with rapid ventricular response Disposition: ADMITTED IP TO THIS [facility] Time of Disposition: 13:32
--- NOTE | 2023-05-13 11:54 | XR ---
EXAMINATION TYPE: XR chest 2V DATE OF EXAM: 05/13/2023 COMPARISON: 01/15/2020 HISTORY: Shortness of breath TECHNIQUE: Frontal and lateral views of the chest are obtained. FINDINGS: Scattered senescent parenchymal changes noted. No evidence for infiltrate. No evidence for atelectasis. Cardiomegaly with scattered infiltrates and small effusions compatible with mild CHF. Correlate clini nasra. Infiltrates of other etiology not excluded. Mediastinal structures are stable and grossly unremarkable. No evidence for hilar prominence. Degenerative changes dorsal spine. IMPRESSION: 1. Cardiomegaly with scattered infiltrates and small effusions compatible with mild CHF. Correlate cl inically. Infiltrates of other etiology not excluded.
[2023-05-13] MEDS: ASPIRIN 81 MG PO STA (11:59)
[2023-05-13] MEDS: NITROGLYCERIN OINT 1 INCH/GM PACKET TOPICAL STA (12:00)
[2023-05-13 12:02] LABS: Basophils # (A) 0.1 k/uL (0-0.2); Basophils % (A) 0 %; Eosinophils # (A) 0.5 k/uL (0-0.7); Eosinophils % (A) 3 %; HCT 43.8 % (34.0-46.0); Lymphocytes % (A) 6 %; MCH 32.1 pg (25.0-35.0); MCHC 31.9 g/dL (31.0-37.0); MCV 100.7 fL (80.0-100.0); Mean Platelet Volume 8.2; Monocytes % (A) 6 %; Neutrophils # (A) 13.8 k/uL (1.3-7.7); Neutrophils % (A) 84 %; Platelet Count 261 k/uL (150-450); RBC 4.35 m/uL (3.80-5.40); RDW 12.1 % (11.5-15.5); WBC 16.5 k/uL (3.8-10.6)
[2023-05-13 12:03] LABS: ALT 27 U/L (4-34); African American GFR (CKD) 61 (>60 ml/min/1.73 sqM); Albumin 3.4 g/dL (3.5-5.0); Anion Gap 10 mmol/L; Blood Urea Nitrogen 17 mg/dL (7-17); Calcium 8.6 mg/dL (8.4-10.2); Carbon Dioxide 25 mmol/L (22-30); Chloride 99 mmol/L (98-107); Glucose 90 mg/dL (74-99); Lipase 32 U/L (23-300); Non-African American GFR(CKD) 53 (>60 ml/min/1.73 sqM); Sodium 134 mmol/L (137-145); Total Bilirubin 2.4 mg/dL (0.2-1.3); Total Protein 6.8 g/dL (6.3-8.2)
[2023-05-13 12:04] LABS: INR 1.3 (<1.2); Partial Thromboplastin Time 24.9 sec (22.0-30.0); Prothrombin Time 13.8 sec (10.0-12.5)
[2023-05-13 12:10] LABS: NT-Pro-B-Type Natriuretic Pept 2380 pg/mL
[2023-05-13 12:23] LABS: AST 47 U/L (14-36); Alkaline Phosphatase 209 U/L (38-126); Magnesium 1.1 mg/dL (1.6-2.3); Potassium 4.9 mmol/L (3.5-5.1)
[2023-05-13 12:59] LABS: Appearance,Urine Clear (Clear); Bilirubin,Urine Negative (Negative); Blood,Urine Negative (Negative); Color,Urine Yellow; Glucose,Urine (UA) Negative (Negative); Ketones,Urine Negative (Negative); Leukocyte Esterase,Urine Negative (Negative); Nitrite,Urine Negative (Negative); Protein,Urine Negative (Negative); Urobilinogen,Urine <2.0 mg/dL (<2.0)
[2023-05-13] MEDS ORDERED: PNEUMONIA PROTOCOL UTILIZED 1 EACH MISC PO PRN (13:33)
[2023-05-13] MEDS: MAGNESIUM SULFATE-D5W PMX 1 GM in DEXTROSE/WATER 1 100ML.BAG IVPB SCH (15:09)
[2023-05-13] MEDS: cefTRIAXone IN SWFI 1,000 MG/10 ML SYRINGE IVP STA (15:09)
[2023-05-13] MEDS: FUROSEMIDE 10 MG/ML 4 ML VIAL IV STA (15:10)
[2023-05-13] MEDS: AZITHROMYCIN 500 MG in SODIUM CHLORIDE 0.9% 250 ML IVPB STA (15:10)
[2023-05-13] MEDS: DILTIAZEM 125 MG in SODIUM CHLORIDE 0.9% 100 ML IV SCH (17:53)
[2023-05-13] MEDS: DILTIAZEM DRIP BOLUS FROM BAG 1 MG SOLN IV ONE (17:54)
[2023-05-13] MEDS: FUROSEMIDE 10 MG/ML 4 ML VIAL IV SCH (20:29)
[2023-05-13] MEDS: APIXABAN 5 MG TAB PO SCH (20:30)
[2023-05-13] MEDS: ATORVASTATIN 80 MG TAB PO SCH (20:30)
[2023-05-13] MEDS: METOPROLOL TARTRATE 50 MG TAB PO SCH (20:30)
--- NOTE | 2023-05-14 08:00 | XR ---
EXAMINATION TYPE: XR chest 1V portable DATE OF EXAM: 05/14/2023 HISTORY: Shortness of breath. COMPARISON: 05/13/2023 TECHNIQUE: Single view of the chest is submitted. FINDINGS: Demonstrated are scattered senescent parenchymal change. Perihilar and basilar infiltrates persist without significant change. Small effusions are noted. Continued cardiomegaly. Hilar and mediastinal structures are within normal limits. Degenerative changes are seen of the dorsal spine. IMPRESSION: 1. Perihilar and basilar infiltrates persist without significant change. Small effusions are noted.
[2023-05-14] MEDS: SPIRONOLACTONE 25 MG TAB PO SCH (08:11)
[2023-05-14] MEDS: AZITHROMYCIN 500 MG TAB PO SCH (08:11)
[2023-05-14] MEDS: ASPIRIN 81 MG PO SCH (08:12)
--- NOTE | 2023-05-14 10:13 | P.CRDCN ---
History of Present Illness History of present illness: HISTORY OF PRESENT ILLNESS: This is a 83-year-old female with a past medical history significant for atrial fibrillation, coronary artery disease with previous stenting, peripheral vascul ar disease, hypertension, and hyperlipidemia. Patient follows in the office with Dr. Coates. We have been asked to see the patient in consultation for congestive heart failure. Patient examined at the bedside. Patient presented to the hospital with a chief complaint of shortness of breath. Patient also reports having GI symptoms at home. Patient was found to be positive for COVID. Patient was found to be in A-fib with RVR. She was started on IV Cardizem. Heart rates are controlled this morning. Patient was also found to be in congestive heart failure and was started on IV diuretics. She reports improvement in her shortness of breath this morning. She currently denies any chest pain or pressure. Blood pressure is on the lower end with a systolic around 90 DIAGNOSTICS: - EKG reveals A-fib with RVR. - Chest xray cardiomegaly with scattered infiltrates and small effusions compatible with mild CHF.. - Laboratory data: WBC 16.5. Hemoglobin 14.0. Platelet count 261. Sodium 134. Potassium 4.9. BUN 17. Creatinine 1.0. Magnesium 1.1. Troponin negative x 1. proBNP 2380. - Current home cardiac medications include Aldactone 50 mg daily, Lipitor 80 mg at night, metoprolol tartrate 100 mg twice a day, aspirin 81 mg daily, and Eliquis 5 mg twice a day. - Most recent echocardiogram obtained in August 2021 reveals ejection fraction 50% with mild MR. - Cardiac catheterization history: February 2017 with stenting of the mid RCA REVIEW OF SYSTEMS: At the time of my exam: CONSTITUTIONAL: Denies fever or chills. HEENT: Denies blurred vision, vision changes, or eye pain. Denies hemoptysis CARDIOVASCULAR: Denies chest pain. Denies orthopnea. Denies PND. Denies palpitations RESPIRATORY: Denies shortness of breath. GASTROINTESTINAL: Denies abdominal pain. Denies nausea or vomiting. HEMATOLOGIC: Denies bleeding disorders. GENITOURINARY: Denies any blood in urine. SKIN: Denies pruitis. Denies rash. PHYSICAL EXAM: VITAL SIGNS: Reviewed. GENERAL: Well-developed in no acute distress. HEENT: Head is normocephalic. Pupils are equal, round. Sclerae anicteric. Mucous membranes of the mouth are moist. Neck supple. No JVD or thyromegaly LUNGS: Respirations even and unlabored. Lungs essentially clear to auscultation bilaterally, diminished. HEART: Irregular rate and rhythm. S1 and S2 heard. Systolic murmur noted ABDOMEN: Soft. Nondistended. Nontender. EXTREMITIES: Normal range of motion. No clubbing or cyanosis. Peripheral pulses intact. 1+ bilateral lower extremity edema NEUROLOGIC: Awake and alert. Oriented x 3. ASSESSMENT: Nausea Diarrhea COVID-19 Permanent atrial fibrillation with RVR, currently rate controlled Acute heart failure with preserved EF, 50% Coronary artery disease with stenting of the mid RCA Peripheral vascular disease Hypertension Hyperlipidemia Morbid obesity: BMI 43.7 PLAN: Obtain 2D echo to assess cardiac structure and function Discontinue IV Cardizem Continue oral dose of metoprolol Continue IV Lasix 40 mg every 12 hours Daily weights, accurate intake and output, and monitoring of kidney function Further recommendations pending patient course Nurse practitioner note has been reviewed by physician. Signing provider agrees with the documented findings, assessment, and plan of care documented by PIG CASTER as a scribe. Past Medical History Past Medical History: Atrial Fibrillation, Hyperlipidemia, Hypertension, Osteoarthritis (OA), Vascular Disorder Additional Past Medical History / Comment(s): -hx irregular heart rate, 2 ruptured disc back, bladder leakage, pancreatitis, edd. lower leg swelling, shortness of breath History of Any Multi-Drug Resistant Organisms: ESBL Date of last positivie culture/infection: 07/15/20 ESBL Klebsiella MDRO Source:: Urine Past Surgical History: Cholecystectomy, Heart Catheterization With Stent, Hysterectomy, Orthopedic Surgery Additional Past Surgical History / Comment(s): lt knee arthroscopy Past Anesthesia/Blood Transfusion Reactions: No Reported Reaction Date of Last Stent Placement:: FEB 2017 Past Psychological History: Anxiety Smoking Status: Never smoker Past Alcohol Use History: Occasional Past Drug Use History: None Reported - Past Family History Mother Family Medical History: No Reported History Additional Family Medical History / Comment(s): heart issues Father Family Medical History: Cancer Additional Family Medical History / Comment(s): . Medications and Allergies Home Medications Medication Instructions Recorded Confirmed Type Atorvastatin [Lipitor] 80 mg PO HS #30 tab 02/23/17 05/13/23 Rx Spironolactone 50 mg PO DAILY 02/25/17 05/13/23 History Apixaban [Eliquis] 5 mg PO BID 08/04/18 05/13/23 History Aspirin EC [Ecotrin Low Dose] 81 mg PO DAILY 01/15/20 05/13/23 History Metoprolol Tartrate [Lopressor] 100 mg PO BID #60 tab 01/16/20 05/13/23 Rx Cholecalciferol (Vitamin D3) 50 mcg PO DAILY 05/13/23 05/13/23 History [Vitamin D3 (50 Mcg = 2000 Iu)] Cranberry Fruit Extract [Cranberry] 500 mg PO DAILY 05/13/23 05/13/23 History Nitrofurantoin Monohyd/M-Cryst 100 mg PO Q12HR 05/13/23 05/13/23 History [Macrobid] Tolterodine ER [Detrol LA] 4 mg PO DAILY 05/13/23 05/13/23 History Allergies Allergy/AdvReac Type Severity Reaction Status Date / Time codeine Allergy Hallucinati Verified 05/13/23 13:40 ons Physical Exam Vitals: Vital Signs Temp Pulse Pulse Resp BP BP Pulse Ox 05/14/23 08:17 16 96 05/14/23 08:06 98.0 F 74 16 91/57 98 05/14/23 03:09 89 19 84/50 97 05/13/23 23:10 80 18 94/61 97 05/13/23 20:27 97.6 F 72 18 98/64 98 05/13/23 16:00 60 18 95/60 98 05/13/23 15:00 97.5 F L 126 H 20 124/58 98 05/13/23 14:00 128 H 22 126/58 98 05/13/23 13:00 115 H 22 118/78 96 05/13/23 12:08 96 05/13/23 12:05 117 H 24 129/74 89 L 05/13/23 11:15 126 H 20 05/13/23 10:45 98.2 F 104 H 20 109/73 90 L Intake and Output 05/13/23 05/14/23 05/14/23 22:59 06:59 14:59 Intake Total 358 71.583 Output Total 700 1500 Balance -342 -1500 71.583 Intake: Intake, IV Titration 71.583 Amount Diltiazem 125 mg In 71.583 Sodium Chloride 0.9% 100 ml @ 5 MG/HR 5 mls/hr IV .Q24H [facility] Rx#:[id number] Oral 358 Output: Urine 700 1500 Other: Voiding Method External Catheter External Catheter External Catheter Weight 105 kg Results 05/13/23 11:35 05/13/23 11:35 Cardiac Enzymes 05/13/23 05/13/23 Range/Units 11:35 11:35 AST 47 H (14-36) U/L Troponin I <0.012 (0.000-0.034) ng/mL Coagulation 05/13/23 Range/Units 11:35 PT 13.8 H (10.0-12.5) sec APTT 24.9 (22.0-30.0) sec CBC 05/13/23 Range/Units 11:35 WBC 16.5 H (3.8-10.6) k/uL RBC 4.35 (3.80-5.40) m/uL Hgb 14.0 (11.4-16.0) gm/dL Hct 43.8 (34.0-46.0) % Plt Count 261 (150-450) k/uL Comprehensive Metabolic Panel 05/13/23 Range/Units 11:35 Sodium 134 L (137-145) mmol/L Potassium 4.9 (3.5-5.1) mmol/L Chloride 99 (98-107) mmol/L Carbon Dioxide 25 (22-30) mmol/L BUN 17 (7-17) mg/dL Creatinine 1.00 (0.52-1.04) mg/dL Glucose 90 (74-99) mg/dL Calcium 8.6 (8.4-10.2) mg/dL AST 47 H (14-36) U/L ALT 27 (4-34) U/L Alkaline Phosphatase 209 H (38-126) U/L Total Protein 6.8 (6.3-8.2) g/dL Albumin 3.4 L (3.5-5.0) g/dL Current Medications Generic Name Dose Route Start Last Admin Trade Name Freq PRN Reason Stop Dose Admin Apixaban 5 mg 05/13/23 21:00 05/14/23 08:11 Apixaban 5 Mg Tab PO 5 mg BID DEONTE Administration Protocol Aspirin 81 mg 05/14/23 09:00 05/14/23 08:12 Aspirin 81 Mg PO 81 mg DAILY DEONTE Administration Atorvastatin Calcium 80 mg 05/13/23 21:00 05/13/23 20:30 Atorvastatin 80 Mg Tab PO 80 mg HS DEONTE Administration Azithromycin 500 mg 05/14/23 09:00 05/14/23 08:11 Azithromycin 500 Mg Tab PO 05/15/23 09:01 500 mg DAILY DEONTE Administration Protocol Furosemide 40 mg 05/13/23 21:00 05/14/23 08:11 Furosemide 10 Mg/Ml 4 Ml Vial IV 40 mg Q12HR DEONTE Administration Ceftriaxone Sodium 2 gm/ 50 mls @ 100 mls/hr 05/14/23 09:00 05/14/23 08:11 Sodium Chloride IVPB 05/17/23 09:29 100 mls/hr Q24HR DEONTE Administration Protocol Metoprolol Tartrate 100 mg 05/13/23 21:00 05/14/23 08:11 Metoprolol Tartrate 50 Mg Tab PO 100 mg BID DEONTE Administration Miscellaneous Information 1 each 05/13/23 13:33 Pneumonia Protocol Utilized 1 Each Misc PO ONCE PRN Per Protocol Spironolactone 50 mg 05/14/23 09:00 05/14/23 08:11 Spironolactone 25 Mg Tab PO 50 mg DAILY DEONTE Administration Intake and Output 05/13/23 05/14/23 05/14/23 22:59 06:59 14:59 Intake Total 358 71.583 Output Total 700 1500 Balance -342 -1500 71.583 Intake: Intake, IV Titration 71.583 Amount Diltiazem 125 mg In 71.583 Sodium Chloride 0.9% 100 ml @ 5 MG/HR 5 mls/hr IV .Q24H [facility] Rx#:[id number] Oral 358 Output: Urine 700 1500 Other: Voiding Method External Catheter External Catheter External Catheter Weight 105 kg 05/13/23 11:35 05/13/23 11:35
--- NOTE | 2023-05-14 10:59 | P.HPIM ---
History of Present Illness 83-year-old pleasant female with known history of congestive heart failure with preserved ejection fraction came with complaints of shortness of breath and orthopnea, admitted for CHF exacerbation found to have pulm edema on the chest x-ray with elevated BNP of around 2380 no significant pedal edema on exam. Patient is also found to have COVID-19. Patient does not have any fevers does have leukocytosis I do not have any procalcitonin available patient is complaining of cough without any significant sputum production does not use any oxygen at home presently on 2 L of oxygen. Heart rate went up today morning patient does have history of atrial fibrillation presently in A-fib with rapid ventricular rate. Patient lives by herself and not dependent on ADLs and IADLs. Patient has nausea and diarrhea which resolved at this time. REVIEW OF SYSTEMS: CONSTITUTIONAL: No fever, no malaise, no fatigue. HEENT: No recent visual problems or hearing problems. Denied any sore throat. CARDIOVASCULAR: No chest pain, no palpitations, no syncope. PULMONARY: , no hemoptysis. GASTROINTESTINAL: No diarrhea, no nausea, no vomiting, no abdominal pain. NEUROLOGICAL: No headaches, no weakness, no numbness. HEMATOLOGICAL: Denies any bleeding or petechiae. GENITOURINARY: Denies any burning micturition, frequency, or urgency. MUSCULOSKELETAL/RHEUMATOLOGICAL: Denies any joint pain, swelling, or any muscle pain. ENDOCRINE: Denies any polyuria or polydipsia. The rest of the 14-point review of systems is negative. PHYSICAL EXAMINATION: GENERAL: The patient is alert and oriented x3, not in any acute distress. Well developed, well nourished. Obese HEENT: Pupils are round and equally reacting to light. EOMI. No scleral icterus. No conjunctival pallor. Normocephalic, atraumatic. No pharyngeal erythema. No thyromegaly. CARDIOVASCULAR: S1 and S2 present. No murmurs, rubs, or gallops. PULMONARY: Chest is clear to auscultation, no wheezing or crackles. ABDOMEN: Soft, nontender, nondistended, normoactive bowel sounds. No palpable organomegaly. MUSCULOSKELETAL: No joint swelling or deformity. EXTREMITIES: No cyanosis, clubbing, or pedal edema. NEUROLOGICAL: Gross neurological examination did not reveal any focal deficits. SKIN: No rashes. Assessment and plan -Congestive heart failure chronic diastolic dysfunction with acute exacerbation patient is on Lasix 40 mg twice a day which will be continued her CHF exacerbation is probably secondary to her COVID-19 illness -Nausea vomiting diarrhea: Secondary to COVID-19 -Acute hypoxemia secondary to congestive heart failure -Permanent atrial fibrillation with rapid ventricular rate currently atrial rate controlled, Cardizem was discontinued and patient was started on metoprolol overall -Coronary disease with stenting to RCA -Peripheral vascular disease -Hypertension -Hyperlipidemia -Obesity patient will benefit from sleep study as an outpatient -Concerns for age-related muscle atrophy and patient lives by herself will get physical therapy and Occupational Therapy evaluation to assess appropriateness of discharge back to home when medically stable -Low possibility of pneumonia antibiotics were discontinued I will obtain procalcitonin if that is negative patient will not require any antibiotics DVT prophylaxis: On anticoagulation for atrial fibrillation with Eliquis Past Medical History Past Medical History: Atrial Fibrillation, Hyperlipidemia, Hypertension, Osteoarthritis (OA), Vascular Disorder Additional Past Medical History / Comment(s): -hx irregular heart rate, 2 ruptured disc back, bladder leakage, pancreatitis, edd. lower leg swelling, shortness of breath History of Any Multi-Drug Resistant Organisms: ESBL Date of last positivie culture/infection: 07/15/20 ESBL Klebsiella MDRO Source:: Urine Past Surgical History: Cholecystectomy, Heart Catheterization With Stent, Hysterectomy, Orthopedic Surgery Additional Past Surgical History / Comment(s): lt knee arthroscopy Past Anesthesia/Blood Transfusion Reactions: No Reported Reaction Date of Last Stent Placement:: FEB 2017 Past Psychological History: Anxiety Smoking Status: Never smoker Past Alcohol Use History: Occasional Past Drug Use History: None Reported - Past Family History Mother Family Medical History: No Reported History Additional Family Medical History / Comment(s): heart issues Father Family Medical History: Cancer Additional Family Medical History / Comment(s): . Medications and Allergies Home Medications Medication Instructions Recorded Confirmed Type Atorvastatin [Lipitor] 80 mg PO HS #30 tab 02/23/17 05/13/23 Rx Spironolactone 50 mg PO DAILY 02/25/17 05/13/23 History Apixaban [Eliquis] 5 mg PO BID 08/04/18 05/13/23 History Aspirin EC [Ecotrin Low Dose] 81 mg PO DAILY 01/15/20 05/13/23 History Metoprolol Tartrate [Lopressor] 100 mg PO BID #60 tab 01/16/20 05/13/23 Rx Cholecalciferol (Vitamin D3) 50 mcg PO DAILY 05/13/23 05/13/23 History [Vitamin D3 (50 Mcg = 2000 Iu)] Cranberry Fruit Extract [Cranberry] 500 mg PO DAILY 05/13/23 05/13/23 History Nitrofurantoin Monohyd/M-Cryst 100 mg PO Q12HR 05/13/23 05/13/23 History [Macrobid] Tolterodine ER [Detrol LA] 4 mg PO DAILY 05/13/23 05/13/23 History Allergies Allergy/AdvReac Type Severity Reaction Status Date / Time codeine Allergy Hallucinati Verified 05/13/23 13:40 ons Physical Exam Vitals: Vital Signs Temp Pulse Pulse Resp BP BP Pulse Ox 05/14/23 08:17 16 96 05/14/23 08:06 98.0 F 74 16 91/57 98 05/14/23 03:09 89 19 84/50 97 05/13/23 23:10 80 18 94/61 97 05/13/23 20:27 97.6 F 72 18 98/64 98 05/13/23 16:00 60 18 95/60 98 05/13/23 15:00 97.5 F L 126 H 20 124/58 98 05/13/23 14:00 128 H 22 126/58 98 05/13/23 13:00 115 H 22 118/78 96 05/13/23 12:08 96 05/13/23 12:05 117 H 24 129/74 89 L 05/13/23 11:15 126 H 20 Intake and Output 05/13/23 05/14/23 05/14/23 22:59 06:59 14:59 Intake Total 358 71.583 Output Total 700 1500 Balance -342 -1500 71.583 Intake: Intake, IV Titration 71.583 Amount Diltiazem 125 mg In 71.583 Sodium Chloride 0.9% 100 ml @ 5 MG/HR 5 mls/hr IV .Q24H [facility] Rx#:[id number] Oral 358 Output: Urine 700 1500 Other: Voiding Method External Catheter External Catheter External Catheter Weight 105 kg Results CBC & Chem 7: 05/13/23 11:35 05/13/23 11:35 Labs: Abnormal Lab Results - Last 24 Hours (Table) 04/06/3005/13/23 05/13/23 Range/Units 11:35 11:35 11:35 WBC 16.5 H (3.8-10.6) k/uL MCV 100.7 H (80.0-100.0) fL Neutrophils # 13.8 H (1.3-7.7) k/uL PT 13.8 H (10.0-12.5) sec INR 1.3 H (<1.2) Sodium 134 L (137-145) mmol/L Magnesium 1.1 L (1.6-2.3) mg/dL Total Bilirubin 2.4 H (0.2-1.3) mg/dL AST 47 H (14-36) U/L Alkaline Phosphatase 209 H (38-126) U/L Albumin 3.4 L (3.5-5.0) g/dL SARS-CoV-2 (PCR) (Not Detectd) 05/13/23 Range/Units 19:16 WBC (3.8-10.6) k/uL MCV (80.0-100.0) fL Neutrophils # (1.3-7.7) k/uL PT (10.0-12.5) sec INR (<1.2) Sodium (137-145) mmol/L Magnesium (1.6-2.3) mg/dL Total Bilirubin (0.2-1.3) mg/dL AST (14-36) U/L Alkaline Phosphatase (38-126) U/L Albumin (3.5-5.0) g/dL SARS-CoV-2 (PCR) Detected A (Not Detectd)
[2023-05-14] MEDS: ACETAMINOPHEN TAB 325 MG TAB PO PRN (15:42)
[2023-05-14 17:34] LABS: Magnesium 1.9 mg/dL (1.6-2.3)
[2023-05-14] MEDS: MAGNESIUM SULFATE-D5W PMX 1 GM in DEXTROSE/WATER 1 100ML.BAG IVPB ONE (18:07)
[2023-05-14] MEDS: FAMOTIDINE 20 MG TAB PO SCH (20:44)
[2023-05-15 06:26] LABS: HCT 40.3 % (34.0-46.0); HGB 12.7 gm/dL (11.4-16.0); MCH 32.1 pg (25.0-35.0); MCHC 31.6 g/dL (31.0-37.0); MCV 101.5 fL (80.0-100.0); Mean Platelet Volume 7.7; Platelet Count 259 k/uL (150-450); RBC 3.97 m/uL (3.80-5.40); RDW 12.1 % (11.5-15.5); WBC 11.4 k/uL (3.8-10.6)
[2023-05-15 06:50] LABS: African American GFR (CKD) 52 (>60 ml/min/1.73 sqM); Anion Gap 5 mmol/L; Blood Urea Nitrogen 27 mg/dL (7-17); Carbon Dioxide 34 mmol/L (22-30); Chloride 97 mmol/L (98-107); Glucose 108 mg/dL (74-99); Non-African American GFR(CKD) 46 (>60 ml/min/1.73 sqM); Potassium 3.7 mmol/L (3.5-5.1); Sodium 136 mmol/L (137-145)
--- NOTE | 2023-05-15 09:16 | CA ---
Transthoracic Echo Report Name: Zaira Willis Age: 83 Gender: F : 1940 Exam Date: 05/14/2023 10:36 Exam Location: [facility] Ht (in): 61 Wt (lb): 231 Ordering Physician: Valery Aparicio Attending/Referring Phys: [id number], Markus Senior Education Specialist Josephine Galan, EVANGELIST Procedure CPT: Indications: LV function, AF, CHF Cardiac Hx: a fib Technical Quality: Technically difficult study Contrast 1: Definity Total Dose (mL): 2 Contrast 2: Total Dose (mL): MEASUREMENTS (Male / Female) Normal Values 2D ECHO LV Diastolic Diameter PLAX 5.0 cm 4.2 - 5.9 / 3.9 - 5.3 cm LV Systolic Diameter PLAX 3.2 cm IVS Diastolic Thickness 1.1 cm 0.6 - 1.0 / 0.6 - 0.9 cm LVPW Diastolic Thickness 1.2 cm 0.6 - 1.0 / 0.6 - 0.9 cm LV Relative Wall Thickness 0.5 RV Internal Dim ED PLAX 3.0 cm LVOT Diameter 2.1 cm LA Systolic Diameter LX 4.5 cm 3.0 - 4.0 / 2.7 - 3.8 cm LA Volume 65.6 cm??? 18 - 58 / 22 - 52 cm??? LA Volume Index 30.0 cm???/m??? 16 - 28 cm???/m??? M-MODE Aortic Root Diameter MM 2.8 cm DOPPLER AV Peak Velocity 135.3 cm/s AV Peak Gradient 7.3 mmHg MV Area PHT 4.6 cm??? MV Deceleration Time 196.8 ms TR Peak Velocity 243.5 cm/s TR Peak Gradient 23.7 mmHg Right Ventricular Systolic Press 28.1 mmHg FINDINGS Left Ventricle Left ventricular ejection fraction is estimated at 40 %. Left ventricular wall thickness normal. Mildly increased septal wall thickness. Mildly increased posterior wall thickness. Right Ventricle Normal right ventricular size. Right ventricular systolic pressure within normal limits. Right Atrium Right atrium not well visualized. Left Atrium Moderately increased left atrial diameter. Mildly increased left atrial volume. Mildly increased left atrial area. Mitral Valve Mitral valve thickened. Mild mitral annular calcification. No mitral stenosis, regurgitation or prolapse. Aortic Valve Trileaflet aortic valve. Thickened aortic valve without stenosis. Tricuspid Valve Structurally normal tricuspid valve. Mild tricuspid regurgitation. Pulmonic Valve Structurally normal pulmonic valve. No pulmonic regurgitation. Pericardium No pericardial effusion. Pericardial fat pad Aorta Normal size aortic root and proximal ascending aorta. CONCLUSIONS Moderate LV systolic dysfunction with an ejection fraction of 40% Moderate left atrial enlargement Previewed by: Dr. Elder Rajput MD (Electronically Signed) Final Date: 15 May 2023 09:15
--- NOTE | 2023-05-15 09:49 | P.PN ---
Subjective HISTORY OF PRESENT ILLNESS: This is a 83-year-old female with a past medical history significant for atrial fibrillation, coronary artery disease with previous stenting, peripheral vascular disease, hypertension, and hyperlipidemia. Patient follows in the office with Dr. Coates. We have been asked to see the patient in consultation for congestive heart failure. Patient examined at the bedside. Patient presented to the hospital with a chief complaint of shortness of breath. Patient also reports having GI symptoms at home. Patient was found to be positive for COVID. Patient was found to be in A-fib with RVR. She was started on IV Cardizem. Heart rates are controlled this morning. Patient was also found to be in congestive heart failure and was started on IV diuretics. She reports improvement in her shortness of breath this morning. She currently denies any chest pain or pressure. Blood pressure is on the lower end with a s ystolic around 90 DIAGNOSTICS: - EKG reveals A-fib with RVR. - Chest xray cardiomegaly with scattered infiltrates and small effusions compatible with mild CHF.. - Laboratory data: WBC 16.5. Hemoglobin 14.0. Platelet count 261. Sodium 134. Potassium 4.9. BUN 17. Creatinine 1.0. Magnesium 1.1. Troponin negative x 1. proBNP 2380. - Current home cardiac medications include Aldactone 50 mg daily, Lipitor 80 mg at night, metoprolol tartrate 100 mg twice a day, aspirin 81 mg daily, and Eliquis 5 mg twice a day. - Most recent echocardiogram obtained in August 2021 reveals ejection fraction 50% with mild MR. - Cardiac catheterization history: February 2017 with stenting of the mid RCA 05/15/2023 Patient examined this morning. She is sitting up in the chair. Patient denies chest pain or pressure. She reports mild shortness of breath. Telemetry reveals atrial fibrillation with a heart rate in the 80s. She states that she does not feel quite back to her baseline yet. Echocardiogram completed revealing ejection fraction 40%, mild TR PHYSICAL EXAM: VITAL SIGNS: Reviewed. GENERAL: Well-developed in no acute distress. HEENT: Head is normocephalic. Pupils are equal, round. Sclerae anicteric. Mucous membranes of the mouth are moist. Neck supple. No JVD or thyromegaly LUNGS: Respirations even and unlabored. Lungs essentially clear to auscultation bilaterally, diminished. HEART: Irregular rate and rhythm. S1 and S2 heard. Systolic murmur noted ABDOMEN: Soft. Nondistended. Nontender. EXTREMITIES: Normal range of motion. No clubbing or cyanosis. Peripheral pulses intact. 1+ bilateral lower extremity edema NEUROLOGIC: Awake and alert. Oriented x 3. ASSESSMENT: Nausea Diarrhea COVID-19 Permanent atrial fibrillation with RVR, currently rate controlled Acute heart failure with reduced EF, 40% New onset cardiomyopathy, 40%, ischemic versus nonischemic, previous echocardi ogram in August 2021 revealed ejection fraction 50% Coronary artery disease with stenting of the mid RCA Peripheral vascular disease Hypertension Hyperlipidemia Morbid obesity: BMI 43.7 PLAN: Continue current cardiac medications Continue IV lasix 40mg Q12 IVP Daily weights, accurate I&O, and monitoring of kidney function Add Farxiga Will need further evaluation of new cardiomyopathy when recovered from Covid Further recommendations pending patient course Nurse practitioner note has been reviewed by physician. Signing provider agrees with the documented findings, assessment, and plan of care documented by MANUFACTURING PRODUCTION TECHNICIAN as a scribe. Objective - Vital Signs Vital signs: Vital Signs Temp 98.2 F 05/15/23 07:38 Pulse 88 05/15/23 07:38 Resp 20 05/15/23 07:38 BP 92/57 05/15/23 07:38 Pulse Ox 97 05/15/23 07:38 FiO2 Intake & Output 05/14/23 05/15/23 05/15/23 18:59 06:59 18:59 Intake Total 411.583 358 Output Total 1950 1999 Balance -1538.417 -1999 358 Weight 100 kg Intake: Intake, IV Titration 71.583 Amount Diltiazem 125 mg In 71.583 Sodium Chloride 0.9% 100 ml @ 5 MG/HR 5 mls/hr IV .Q24H [facility] Rx#:[id number] Oral 340 358 Output: Urine 1949 1999 Other: Voiding Method External Catheter External Catheter External Catheter # Voids 2 # Bowel Movements 0 - Labs CBC & Chem 7: 05/15/23 06:08 05/15/23 06:08 Labs: Abnormal Lab Results - Last 24 Hours (Table) 05/15/23 05/15/23 Range/Units 06:08 06:08 WBC 11.4 H (3.8-10.6) k/uL MCV 101.5 H (80.0-100.0) fL Sodium 136 L (137-145) mmol/L Chloride 97 L (98-107) mmol/L Carbon Dioxide 34 H (22-30) mmol/L BUN 27 H (7-17) mg/dL Creatinine 1.12 H (0.52-1.04) mg/dL Glucose 108 H (74-99) mg/dL Calcium 8.0 L (8.4-10.2) mg/dL Microbiology - Last 24 Hours (Table) 05/13/23 14:45 Blood Culture - Preliminary Blood 05/13/23 14:50 Blood Culture - Preliminary Blood
--- NOTE | 2023-05-15 13:55 | P.PN ---
Subjective Progress Note Date: 05/15/23 83-year-old pleasant female with known history of congestive heart failure with preserved ejection fraction came with complaints of shortness of breath and orthopnea, admitted for CHF exacerbation found to have pulm edema on the chest x-ray with elevated BNP of around 2380 no significant pedal edema on exam. Patient is also found to have COVID-19. Patient does not have any fevers does have leukocytosis I do not have any procalcitonin available patient is complaining of cough without any significant sputum production does not use any oxygen at home presently on 2 L of oxygen. Heart rate went up today morning patient does have history of atrial fibrillation presently in A-fib with rapid ventricular rate. Patient lives by herself and not dependent on ADLs and IADLs. Patient has nausea and diarrhea which resolved at this time. 05/15/2023 Patient is evaluated in follow-up today on the medical floor. She is reporting improvement in her shortness of breath. She is been maintained on IV Lasix she does have continued lower extremity edema. Patient remains on oxygen 2 L nasal cannula. Procalcitonin level is mildly elevated at 1.05. White blood cell count improving down to 11.4. Echocardiogram comes back showing moderate LV systolic dysfunction with an ejection fraction of 40% with moderate left atrial enlargement. Anticoagulated with Eliquis. Review of Systems Constitutional: Denied any fatigue denied any fever. Cardio vascular: denied any chest pain, palpitations Gastrointestinal: denied any nausea, vomiting. Reports diarrhea. Pulmonary: Denied any shortness of breath cough Neurologic denied any new focal deficits All inpatient medications were reviewed and appropriate changes in these medications as dictated in the interval history and assessment and plan. PHYSICAL EXAMINATION: GENERAL: The patient is alert and oriented x3, not in any acute distress. Well developed, well nourished. Obese HEENT: Pupils are round and equally reacting to light. EOMI. No scleral icterus. No conjunctival pallor. Normocephalic, atraumatic. No pharyngeal erythema. No thyromegaly. CARDIOVASCULAR: S1 and S2 present. No murmurs, rubs, or gallops. PULMONARY: Chest is clear to auscultation, no wheezing or crackles. ABDOMEN: Soft, nontender, nondistended, normoactive bowel sounds. No palpable organomegaly. MUSCULOSKELETAL: No joint swelling or deformity. EXTREMITIES: No cyanosis, clubbing, or pedal edema. Mild lower extremity peripheral edema. NEUROLOGICAL: Gross neurological examination did not reveal any focal deficits. SKIN: No rashes. Assessment and plan -Congestive heart failure chronic diastolic dysfunction with acute exacerbation patient is on Lasix 40 mg twice a day which will be continued her CHF exacerbation is probably secondary to her COVID-19 illness -Nausea vomiting diarrhea: Secondary to COVID-19, although patient does report the diarrhea and liquid stools has been ongoing for the last year. She feels like she is due for a colonoscopy and is asking for something to help bulk her stools up. We will add Questran if the C. difficile is negative. -Acute hypoxemia secondary to congestive heart failure continues into liters nasal cannula with an oxygen saturation of 98% we can probably wean the oxygen at this point. -Permanent atrial fibrillation with rapid ventricular rate currently atrial rate controlled, Cardizem was discontinued and patient was started on metoprolol -Coronary disease with stenting to RCA -Peripheral vascular disease -Hypertension -Hyperlipidemia -Obesity patient will benefit from sleep study as an outpatient -Concerns for age-related muscle atrophy and patient lives by herself will get physical therapy and Occupational Therapy evaluation to assess appropriateness of discharge back to home when medically stable -Low possibility of pneumonia antibiotics were discontinued, procalcitonin is mildly elevated at 1.05. DVT prophylaxis: On anticoagulation for atrial fibrillation with Eliquis The impression and plan of care has been dictated by Yesi Larios, Nurse Practitioner as directed. Dr. Ave MD I have performed a history and physical examination and medical decision making of this patient, discussed the same with the dictator, and agree with the dictators assessment and plan as written, documented as a scribe. Based on total visit time, I have performed more than 50% of this visit. Objective - Vital Signs Vital signs: Vital Signs Temp 98.2 F 05/15/23 07:38 Pulse 72 05/15/23 13:06 Resp 20 05/15/23 11:03 BP 87/55 05/15/23 11:03 Pulse Ox 98 05/15/23 11:03 FiO2 Intake & Output 05/14/23 05/15/23 05/15/23 18:59 06:59 18:59 Intake Total 411.583 358 Output Total 1949 1999 2384 Balance -2876.010 -1999 -1277 Weight 100 kg Intake: Intake, IV Titration 71.583 Amount Diltiazem 125 mg In 71.583 Sodium Chloride 0.9% 100 ml @ 5 MG/HR 5 mls/hr IV .Q24H [facility] Rx#:[id number] Oral 340 358 Output: Urine 1949 1999 177 Other: Voiding Method External Catheter External Catheter External Catheter # Voids 2 # Bowel Movements 0 - Labs CBC & Chem 7: 05/15/23 06:08 05/15/23 06:08 Labs: Abnormal Lab Results - Last 24 Hours (Table) 05/14/23 05/15/23 05/15/23 Range/Units 11:04 06:08 06:08 WBC 11.4 H (3.8-10.6) k/uL MCV 101.5 H (80.0-100.0) fL Sodium 136 L (137-145) mmol/L Chloride 97 L (98-107) mmol/L Carbon Dioxide 34 H (22-30) mmol/L BUN 27 H (7-17) mg/dL Creatinine 1.12 H (0.52-1.04) mg/dL Glucose 108 H (74-99) mg/dL Calcium 8.0 L (8.4-10.2) mg/dL Procalcitonin 1.05 H (0.02-0.09) ng/mL Microbiology - Last 24 Hours (Table) 05/13/23 14:45 Blood Culture - Preliminary Blood 05/13/23 14:50 Blood Culture - Preliminary Blood Assessment and Plan Time with Patient: Less than 30
[2023-05-16] MEDS: DAPAGLIFLOZIN PROPANEDIOL 10 MG TABLET PO SCH (09:10)
[2023-05-16 09:54] LABS: African American GFR (CKD) 61 (>60 ml/min/1.73 sqM); Anion Gap 10 mmol/L; Blood Urea Nitrogen 29 mg/dL (7-17); Calcium 8.5 mg/dL (8.4-10.2); Carbon Dioxide 32 mmol/L (22-30); Chloride 94 mmol/L (98-107); Glucose 166 mg/dL (74-99); Non-African American GFR(CKD) 53 (>60 ml/min/1.73 sqM); Potassium 3.7 mmol/L (3.5-5.1); Sodium 136 mmol/L (137-145)
[2023-05-16] MEDS: FUROSEMIDE 10 MG/ML 4 ML VIAL IV SCH (12:31)
--- NOTE | 2023-05-16 14:17 | P.PN ---
Subjective Progress Note Date: 05/16/23 HISTORY OF PRESENT ILLNESS: This is a 83-year-old female with a past medical history significant for atrial fibrillation, coronary artery disease with previous stenting, peripheral vascular disease, hypertension, and hyperlipidemia. Patient follows in the office with Dr. Coates. We have been asked to see the patient in consultation for congestive heart failure. Patient examined at the bedside. Patient presented to the hospital with a chief complaint of shortness of breath. Patient also reports having GI symptoms at home. Patient was found to be positive for COVID. Patient was found to be in A-fib with RVR. She was started on IV Cardizem. Heart rates are controlled this morning. Patient was also found to be in congestive heart failure and was started on IV diuretics. She reports improvement in her shortness of breath this morning. She currently denies any chest pain or pressure. Blood pressure is on the lower end with a systolic around 90 DIAGNOSTICS: - EKG reveals A-fib with RVR. - Chest xray cardiomegaly with scattered infiltrates and small effusions compatible with mild CHF.. - Laboratory data: WBC 16.5. Hemoglobin 14.0. Platelet count 261. Sodium 134. Potassium 4.9. BUN 17. Creatinine 1.0. Magnesium 1.1. Troponin negative x 1. proBNP 2380. - Current home cardiac medications include Aldactone 50 mg daily, Lipitor 80 mg at night, metoprolol tartrate 100 mg twice a day, aspirin 81 mg daily, and Eliquis 5 mg twice a day. - Most recent echocardiogram obtained in August 2021 reveals ejection fraction 50% with mild MR. - Cardiac catheterization history: February 2017 with stenting of the mid RCA 05/15/2023 Patient examined this morning. She is sitting up in the chair. Patient denies chest pain or pressure. She reports mild shortness of breath. Telemetry re veals atrial fibrillation with a heart rate in the 80s. She states that she does not feel quite back to her baseline yet. Echocardiogram completed revealing ejection fraction 40%, mild TR 05/15 Patient has been continued on IV Lasix 40 mg every 12 hours. Farxiga was added yesterday. Weight is down 5 and half kilos. She has a negative fluid balance. Repeat blood work reveals sodium 136, potassium 3.7, BUN 29 and creatinine 1. Blood pressures have been on the soft side 100/60, heart rate 88, pulse ox 100% on 2 L nasal cannula. No documented fevers. She remains in isolation for C OVID-19. PHYSICAL EXAM: VITAL SIGNS: Reviewed. GENERAL: Well-developed in no acute distress. HEENT: Head is normocephalic. Pupils are equal, round. Sclerae anicteric. Mucous membranes of the mouth are moist. Neck supple. No JVD or thyromegaly LUNGS: Respirations even and unlabored. Lungs essentially clear to auscultation bilaterally, diminished. HEART: Irregular rate and rhythm. S1 and S2 heard. Systolic murmur noted ABDOMEN: Soft. Nondistended. Nontender. EXTREMITIES: No clubbing or cyanosis. Peripheral pulses intact. 1+ bilateral lower extremity edema NEUROLOGIC: Awake and alert. Oriented x 3. ASSESSMENT: Nausea Diarrhea COVID-19 Permanent atrial fibrillation with RVR, currently rate controlled Acute heart failure with reduced EF, 40% New onset cardiomyopathy, 40%, ischemic versus nonischemic, previous echocardiogram in August 2021 revealed ejection fraction 50% Coronary artery disease with stenting of the mid RCA Peripheral vascular disease Hypertension Hyperlipidemia Morbid obesity: BMI 43.7 PLAN: Continue current cardiac medications Continue IV lasix 40mg IVP and decrease frequency to daily Daily weights, accurate I&O, and monitoring of kidney function Continue patient states that she has no shortness of breath today. She is feeling much better and that regard. Christa Will need further evaluation of new cardiomyopathy when recovered from Covid Further recommendations pending patient course Nurse practitioner note has been reviewed by physician. Signing provider agrees with the documented findings, assessment, and plan of care documented by GRINDER MACHINE SETTER as a scribe. Objective - Vital Signs Vital signs: Vital Signs Temp 98.0 F 05/15/23 20:08 Pulse 61 05/16/23 03:22 Resp 16 05/16/23 03:22 BP 104/72 05/16/23 03:22 Pulse Ox 99 05/16/23 03:22 FiO2 Intake & Output 05/15/23 05/16/23 05/16/23 18:59 06:59 18:59 Intake Total 1558 110 Output Total 2325 1900 Balance -767 1900 110 Weight 99.4 kg Intake: Oral 1558 110 Output: Urine 2325 1900 Other: Voiding Method External Catheter External Catheter - Labs CBC & Chem 7: 05/15/23 06:08 05/16/23 08:49 Labs: Abnormal Lab Results - Last 24 Hours (Table) 05/14/23 Range/Units 11:04 Procalcitonin 1.05 H (0.02-0.09) ng/mL Microbiology - Last 24 Hours (Table) 05/13/23 14:45 Blood Culture - Preliminary Blood 05/13/23 14:50 Blood Culture - Preliminary Blood
--- NOTE | 2023-05-16 17:42 | P.PN ---
Subjective Progress Note Date: 05/16/23 83-year-old pleasant female with known history of congestive heart failure with preserved ejection fraction came with complaints of shortness of breath and orthopnea, admitted for CHF exacerbation found to have pulm edema on the chest x-ray with elevated BNP of around 2380 no significant pedal edema on exam. Patient is also found to have COVID-19. Patient does not have any fevers does have leukocytosis I do not have any procalcitonin available patient is complaining of cough without any significant sputum production does not use any oxygen at home presently on 2 L of oxygen. Heart rate went up today morning patient does have history of atrial fibrillation presently in A-fib with rapid ventricular rate. Patient lives by herself and not dependent on ADLs and IADLs. Patient has nausea and diarrhea which resolved at this time. 05/15/2023 Patient is evaluated in follow-up today on the medical floor. She is reporting improvement in her shortness of breath. She is been maintained on IV Lasix she does have continued lower extremity edema. Patient remains on oxygen 2 L nasal cannula. Procalcitonin level is mildly elevated at 1.05. White blood cell count improving down to 11.4. Echocardiogram comes back showing moderate LV systolic dysfunction with an ejection fraction of 40% with moderate left atrial enlargement. Anticoagulated with Eliquis. 05/16/2023 Patient is seen and evaluated in follow-up today with cardiology following maintained on IV Lasix twice daily and will be decreased to once daily and likely transition to oral in the a.m. Patient also continues with COVID feeling generalized weakness and bodyaches and does report improvements in shortness of breath. Patient on a couple of liters of oxygen for comfort and reports does not wear this outpatient. Patient reports diet is somewhat improved with no reports of diarrhea noted. Patient reports improvement in lower extremity swelling as well. Review of Systems Constitutional: Reports of fatigue denied any fever. Cardio vascular: denied any chest pain, palpitations Gastrointestinal: denied any nausea, vomiting. Reports diarrhea is improving. Pulmonary: Denied any worsening shortness of breath cough Neurologic denied any new focal deficits, reports to feeling generalized weakness All inpatient medications were reviewed and appropriate changes in these medications as dictated in the interval history and assessment and plan. PHYSICAL EXAMINATION: GENERAL: The patient is alert and oriented x3, not in any acute distress. Well developed, well nourished. Morbidly obese HEENT: Pupils are round and equally reacting to light. EOMI. No scleral icterus. No conjunctival pallor. Normocephalic, atraumatic. No pharyngeal erythema. No thyromegaly. CARDIOVASCULAR: S1 and S2 muffled PULMONARY: Diminished breath sounds bilaterally otherwise chest is clear to auscultation, no wheezing or crackles. ABDOMEN: Soft, obese. Nontender, nondistended, normoactive bowel sounds. No palpable organomegaly. MUSCULOSKELETAL: No joint swelling or deformity. EXTREMITIES: No cyanosis, clubbing, or pedal edema. Mild lower extremity peripheral edema that is improved since yesterday. NEUROLOGICAL: Gross neurological examination did not reveal any focal deficits. SKIN: No rashes. Assessment and plan -Congestive heart failure chronic diastolic dysfunction with acute exacerbation patient is on Lasix 40 mg twice a day which will be titrated to once daily and likely oral antibiotics starting tomorrow. Cardiology following and will need further outpatient workup once recovered from COVID -Nausea vomiting diarrhea: Secondary to COVID-19, although patient does report the diarrhea and liquid stools has been ongoing for the last year. She feels like she is due for a colonoscopy and is asking for something to help bulk her stools up. We continue Questran, C. difficile likely negative -Acute hypoxemia secondary to congestive heart failure continues into liters nasal cannula with an oxygen saturation of 98% we can probably wean the oxygen at this point. -Permanent atrial fibrillation with rapid ventricular rate currently atrial rate controlled, Cardizem was discontinued and patient was started on metoprolol -New onset cardiomyopathy, EF 40% -Coronary disease with stenting to RCA -Peripheral vascular disease -Hypertension -Hyperlipidemia -Obesity patient will benefit from sleep study as an outpatient -Concerns for age-related muscle atrophy and patient lives by herself, PT/OT therapy to evaluate. Patient reports would like to go home on discharge -Low possibility of pneumonia antibiotics were discontinued, procalcitonin is mildly elevated at 1.05. -Morbid obesity with a BMI of 41.4 -GI prophylaxis -DVT prophylaxis: On anticoagulation for atrial fibrillation with Eliquis Plan: Patient will continue on IV Lasix although once daily and transition to oral Lasix likely tomorrow Follow-up on repeat labs and monitor kidney functions and electrolytes. Replace electrolytes per protocol Continue with supportive care for COVID-19 along with diarrhea and nausea and vomiting symptoms Recommend PT/OT therapy evaluation and will discuss with patient and case management about possible home care. Patient is refusing to go to rehab Encouraged oral intake Elevate lower extremities while at rest and may use compression stockings and/or Deondre wraps with lower extremity swelling Wean FiO2 as tolerated. Patient is 98% on 2 L. Patient does not wear oxygen outpatient. Due to multiple complex medical issues, prognosis is guarded Possible discharge in the next 24 hours The impression and plan of care has been dictated by Lydia Li, Nurse Practitioner as directed. Dr. Mukund MD I have performed a history and physical examination and medical decision making of this patient, discussed the same with the dictator, and agree with the dictators assessment and plan as written, documented as a scribe. Based on total visit time, I have performed more than 50% of this visit. Objective - Vital Signs Vital signs: Vital Signs Temp 97.6 F 05/16/23 08:00 Pulse 108 H 05/16/23 08:00 Resp 14 05/16/23 08:00 BP 106/56 05/16/23 08:00 Pulse Ox 92 L 05/16/23 08:00 FiO2 Intake & Output 05/15/23 05/16/23 05/16/23 18:59 06:59 18:59 Intake Total 1558 110 Output Total 2325 1900 1100 Balance -767 -1900 -990 Weight 99.4 kg Intake: Oral 1558 110 Output: Urine 2325 1900 1100 Other: Voiding Method External Catheter External Catheter - Labs CBC & Chem 7: 05/15/23 06:08 05/16/23 08:49 Labs: Abnormal Lab Results - Last 24 Hours (Table) 05/16/23 Range/Units 08:49 Sodium 136 L (137-145) mmol/L Chloride 94 L (98-107) mmol/L Carbon Dioxide 32 H (22-30) mmol/L BUN 29 H (7-17) mg/dL Glucose 166 H (74-99) mg/dL Microbiology - Last 24 Hours (Table) 05/13/23 14:45 Blood Culture - Preliminary Blood 05/13/23 14:50 Blood Culture - Preliminary Blood
[2023-05-17 11:43] LABS: African American GFR (CKD) 59 (>60 ml/min/1.73 sqM); Anion Gap 10 mmol/L; Blood Urea Nitrogen 30 mg/dL (7-17); Calcium 8.8 mg/dL (8.4-10.2); Carbon Dioxide 32 mmol/L (22-30); Chloride 94 mmol/L (98-107); Glucose 125 mg/dL (74-99); Non-African American GFR(CKD) 51 (>60 ml/min/1.73 sqM); Potassium 3.8 mmol/L (3.5-5.1); Sodium 136 mmol/L (137-145)
[2023-05-17] MEDS: PANTOPRAZOLE 40 MG TABLET PO STA (14:09)
[2023-05-17] MEDS: SENNOSIDES 8.6 MG TAB PO SCH (14:09)
--- NOTE | 2023-05-17 14:11 | P.PN ---
Subjective Progress Note Date: 05/17/23 HISTORY OF PRESENT ILLNESS: This is a 83-year-old female with a past medical history significant for atrial fibrillation, coronary artery disease with previous stenting, peripheral vascular disease, hypertension, and hyperlipidemia. Patient follows in the office with Dr. Coates. We have been asked to see the patient in consultation for congestive heart failure. Patient examined at the bedside. Patient presented to the hospital with a chief complaint of shortness of breath. Patient also reports having GI symptoms at home. Patient was found to be positive for COVID. Patient was found to be in A-fib with RVR. She was started on IV Cardizem. Heart rates are controlled this morning. Patient was also found to be in congestive heart failure and was started on IV diuretics. She reports improvement in her shortness of breath this morning. She currently denies any chest pain or pressure. Blood pressure is on the lower end with a systolic around 90 DIAGNOSTICS: - EKG reveals A-fib with RVR. - Chest xray cardiomegaly with scattered infiltrates and small effusions compatible with mild CHF.. - Laboratory data: WBC 16.5. Hemoglobin 14.0. Platelet count 261. Sodium 134. Potassium 4.9. BUN 17. Creatinine 1.0. Magnesium 1.1. Troponin negative x 1. proBNP 2380. - Current home cardiac medications include Aldactone 50 mg daily, Lipitor 80 mg at night, metoprolol tartrate 100 mg twice a day, aspirin 81 mg daily, and Eliquis 5 mg twice a day. - Most recent echocardiogram obtained in August 2021 reveals ejection fraction 50% with mild MR. - Cardiac catheterization history: February 2017 with stenting of the mid RCA 05/15/2023 Patient examined this morning. She is sitting up in the chair. Patient denies chest pain or pressure. She reports mild shortness of breath. Telemetry re veals atrial fibrillation with a heart rate in the 80s. She states that she does not feel quite back to her baseline yet. Echocardiogram completed revealing ejection fraction 40%, mild TR 05/15 Patient has been continued on IV Lasix 40 mg every 12 hours. Farxiga was added yesterday. Weight is down 5 and half kilos. She has a negative fluid balance. Repeat blood work reveals sodium 136, potassium 3.7, BUN 29 and creatinine 1. Blood pressures have been on the soft side 100/60, heart rate 88, pulse ox 100% on 2 L nasal cannula. No documented fevers. She remains in isolation for C OVID-19. 05/16 Blood pressure has been soft with systolic blood pressure 90-100. Patient is fairly comfortable while at rest but she states she developed shortness of breath with exertion. She has been on IV Lasix which we decreased to daily yesterday, as well as, Farxiga was added. She continues to have a negative fluid balance with documented weight loss. Repeat blood work reveals sodium 136, potassium 3.8, BUN 30 creatinine 1.02. Telemetry is atrial fibrillation. PHYSICAL EXAM: VITAL SIGNS: Reviewed. GENERAL: Well-developed in no acute distress. HEENT: Head is normocephalic. Pupils are equal, round. Sclerae anicteric. Mucous membranes of the mouth are moist. Neck supple. No JVD or thyromegaly LUNGS: Respirations even and unlabored. Lungs essentially clear to auscultation bilaterally, diminished. HEART: Irregular rate and rhythm. S1 and S2 heard. Systolic murmur noted ABDOMEN: Soft. Nondistended. Nontender. EXTREMITIES: No clubbing or cyanosis. Peripheral pulses intact. 1+ bilateral lower extremity edema NEUROLOGIC: Awake and alert. Oriented x 3. ASSESSMENT: Nausea Diarrhea COVID-19 Permanent atrial fibrillation with RVR, currently rate controlled Acute heart failure with reduced EF, 40% New onset cardiomyopathy, 40%, ischemic versus nonischemic, previous echocardiogram in August 2021 revealed ejection fraction 50% Coronary artery disease with stenting of the mid RCA Peripheral vascular disease Hypertension Hyperlipidemia Morbid obesity: BMI 43.7 PLAN: Continue current cardiac medications Transition IV Lasix to oral 40 mg daily Daily weights, accurate I&O, and monitoring of kidney function Continue Christa Will need further evaluation of new cardiomyopathy when recovered from Covid Further recommendations pending patient course Nurse practitioner note has been reviewed by physician. Signing provider agrees with the documented findings, assessment, and plan of care documented by OBSERVATORY DIRECTOR as a scribe. Objective - Vital Signs Vital signs: Vital Signs Temp 97.6 F 05/17/23 08:15 Pulse 98 05/17/23 08:15 Resp 18 05/17/23 08:15 BP 91/54 05/17/23 08:15 Pulse Ox 99 05/17/23 08:15 FiO2 Intake & Output 05/16/23 05/17/23 05/17/23 18:59 06:59 18:59 Intake Total 330 Output Total 2400 700 Balance -2069 Weight 98.7 kg Intake: Oral 330 Output: Urine 2400 700 Other: Voiding Method External Catheter External Catheter - Labs CBC & Chem 7: 05/15/23 06:08 05/17/23 09:30 Labs: Microbiology - Last 24 Hours (Table) 05/13/23 14:45 Blood Culture - Preliminary Blood 05/13/23 14:50 Blood Culture - Preliminary Blood
--- NOTE | 2023-05-17 15:21 | P.PN ---
Subjective Progress Note Date: 05/17/23 83-year-old pleasant female with known history of congestive heart failure with preserved ejection fraction came with complaints of shortness of breath and orthopnea, admitted for CHF exacerbation found to have pulm edema on the chest x-ray with elevated BNP of around 2380 no significant pedal edema on exam. Patient is also found to have COVID-19. Patient does not have any fevers does have leukocytosis I do not have any procalcitonin available patient is complaining of cough without any significant sputum production does not use any oxygen at home presently on 2 L of oxygen. Heart rate went up today morning patient does have history of atrial fibrillation presently in A-fib with rapid ventricular rate. Patient lives by herself and not dependent on ADLs and IADLs. Patient has nausea and diarrhea which resolved at this time. 05/15/2023 Patient is evaluated in follow-up today on the medical floor. She is reporting improvement in her shortness of breath. She is been maintained on IV Lasix she does have continued lower extremity edema. Patient remains on oxygen 2 L nasal cannula. Procalcitonin level is mildly elevated at 1.05. White blood cell count improving down to 11.4. Echocardiogram comes back showing moderate LV systolic dysfunction with an ejection fraction of 40% with moderate left atrial enlargement. Anticoagulated with Eliquis. 05/16/2023 Patient is seen and evaluated in follow-up today with cardiology following maintained on IV Lasix twice daily and will be decreased to once daily and likely transition to oral in the a.m. Patient also continues with COVID feeling generalized weakness and bodyaches and does report improvements in shortness of breath. Patient on a couple of liters of oxygen for comfort and reports does not wear this outpatient. Patient reports diet is somewhat improved with no reports of diarrhea noted. Patient reports improvement in lower extremity swelling as well. 05/17/2023 Patient seen and evaluated in follow-up with cardiology following continued on IV Lasix daily and diuresing well. Patient will transition to oral Lasix sta rting tomorrow. Patient continues on 2 L although is 98% discussed with nursing staff about weaning as tolerated. Patient does report shortness of breath with exertion. Instructed the patient to get up more frequently and walk at least 3 times per day. Patient is afebrile with no reported chest pain or palpitations. Patient reports to feeling about the same as yesterday. Continue supportive care regarding COVID. Patient will likely discharge home tomorrow. Patient continues to have some lower extremity edema noted although improved and reports tenderness on palpation. Skin is intact with no wound or open skin noted. No weeping noted. Discussed with the patient about possible Deondre wrap's and/or compression stockings to lower extremities and patient reports she will think about it. Encouraged elevating while at rest. Review of Systems Constitutional: Reports of fatigue denied any fever. Cardio vascular: denied any chest pain, palpitations Gastrointestinal: denied any nausea, vomiting. Reports diarrhea is improved and has not had a bowel movement in a few days. Pulmonary: Denied any worsening shortness of breath cough Neurologic denied any new focal deficits, reports to feeling generalized weakness All inpatient medications were reviewed and appropriate changes in these medications as dictated in the interval history and assessment and plan. PHYSICAL EXAMINATION: GENERAL: The patient is alert and oriented x3, not in any acute distress. Well developed, well nourished. Morbidly obese HEENT: Pupils are round and equally reacting to light. EOMI. No scleral icterus. No conjunctival pallor. Normocephalic, atraumatic. No pharyngeal erythema. No thyromegaly. CARDIOVASCULAR: S1 and S2 muffled PULMONARY: Diminished breath sounds bilaterally otherwise chest is clear to auscultation, no wheezing or crackles. ABDOMEN: Soft, obese. Nontender, nondistended, normoactive bowel sounds. No palpable organomegaly. MUSCULOSKELETAL: No joint swelling or deformity. EXTREMITIES: No cyanosis, clubbing, or pedal edema. Mild lower extremity peripheral edema that is improved since yesterday. Tender on palpation NEUROLOGICAL: Gross neurological examination did not reveal any focal deficits. SKIN: No rashes. Assessment: -Congestive heart failure chronic diastolic dysfunction with acute exacerbation -Nausea vomiting diarrhea: Secondary to COVID-19, although patient does report the diarrhea and liquid stools has been ongoing for the last year. She feels like she is due for a colonoscopy and is asking for something to help bulk her stools up. We continue Questran, C. difficile likely negative -Acute hypoxemia secondary to congestive heart failure continues on 2 liters nasal cannula with an oxygen saturation of 98% we can probably wean the oxygen at this point. -Permanent atrial fibrillation with rapid ventricular rate currently atrial rate controlled, Cardizem was discontinued and patient was started on metoprolol -New onset cardiomyopathy, EF 40% -Coronary disease with stenting to RCA -Peripheral vascular disease -Hypertension -Hyperlipidemia -Obesity patient will benefit from sleep study as an outpatient -Concerns for age-related muscle atrophy and patient lives by herself, PT/OT therapy to evaluate. Patient reports would like to go home on discharge -Low possibility of pneumonia antibiotics were discontinued, procalcitonin is mildly elevated at 1.05. -Morbid obesity with a BMI of 41.4 -GI prophylaxis -DVT prophylaxis: On anticoagulation for atrial fibrillation with Eliquis Plan: Patient was continued on IV Lasix daily and will transition to oral Lasix per cardiology. Patient will need outpatient follow-up with cardiology for further workup regarding cardiomyopathy once recovered from COVID Follow-up labs reveal stable kidney functions and electrolytes. Continue with supportive care for COVID-19 along with diarrhea and nausea and vomiting symptoms Recommend PT/OT therapy evaluation and will discuss with patient and case marvin pitts about possible home care. Patient is refusing to go to rehab. Encouraged increase activity as tolerated with walking more often and sitting up out of the bed at least 3 times a day and with meals Encouraged oral intake Elevate lower extremities while at rest and may use compression stockings and/or Deondre wraps with lower extremity swelling. Patient reports she does not want to use Deondre wraps or compression stockings at this time. Wean FiO2 as tolerated. Patient is 98% on 2 L. Patient does not wear oxygen outpatient. Evaluate for home O2 although patient will likely not qualify Due to multiple complex medical issues, prognosis is guarded Possible discharge in the next 24 hours The impression and plan of care has been dictated by Lydia Li, Nurse Practitioner as directed. Dr. Mukund MD I have performed a history and physical examination and medical decision making of this patient, discussed the same with the dictator, and agree with the dictators assessment and plan as written, documented as a scribe. Based on total visit time, I have performed more than 50% of this visit. Objective - Vital Signs Vital signs: Vital Signs Temp 97.6 F 05/17/23 08:15 Pulse 98 05/17/23 08:15 Resp 18 05/17/23 08:15 BP 91/54 05/17/23 08:15 Pulse Ox 99 05/17/23 08:15 FiO2 Intake & Output 05/16/23 05/17/23 05/17/23 18:59 06:59 18:59 Intake Total 330 Output Total 2400 700 Balance -2069 Weight 98.7 kg Intake: Oral 330 Output: Urine 2400 700 Other: Voiding Method External Catheter External Catheter - Labs CBC & Chem 7: 05/15/23 06:08 05/17/23 09:30 Labs: Abnormal Lab Results - Last 24 Hours (Table) 05/16/23 Range/Units 08:49 Sodium 136 L (137-145) mmol/L Chloride 94 L (98-107) mmol/L Carbon Dioxide 32 H (22-30) mmol/L BUN 29 H (7-17) mg/dL Glucose 166 H (74-99) mg/dL Microbiology - Last 24 Hours (Table) 05/13/23 14:45 Blood Culture - Preliminary Blood 05/13/23 14:50 Blood Culture - Preliminary Blood
[2023-05-18] MEDS: PANTOPRAZOLE 40 MG TABLET PO SCH (05:53)
[2023-05-18] MEDS: FUROSEMIDE 40 MG TAB PO SCH (07:30)
--- NOTE | 2023-05-18 14:43 | P.PN ---
Subjective Progress Note Date: 05/18/23 83-year-old pleasant female with known history of congestive heart failure with preserved ejection fraction came with complaints of shortness of breath and orthopnea, admitted for CHF exacerbation found to have pulm edema on the chest x-ray with elevated BNP of around 2380 no significant pedal edema on exam. Patient is also found to have COVID-19. Patient does not have any fevers does have leukocytosis I do not have any procalcitonin available patient is complaining of cough without any significant sputum production does not use any oxygen at home presently on 2 L of oxygen. Heart rate went up today morning patient does have history of atrial fibrillation presently in A-fib with rapid ventricular rate. Patient lives by herself and not dependent on ADLs and IADLs. Patient has nausea and diarrhea which resolved at this time. 05/15/2023 Patient is evaluated in follow-up today on the medical floor. She is reporting improvement in her shortness of breath. She is been maintained on IV Lasix she does have continued lower extremity edema. Patient remains on oxygen 2 L nasal cannula. Procalcitonin level is mildly elevated at 1.05. White blood cell count improving down to 11.4. Echocardiogram comes back showing moderate LV systolic dysfunction with an ejection fraction of 40% with moderate left atrial enlargement. Anticoagulated with Eliquis. 05/16/2023 Patient is seen and evaluated in follow-up today with cardiology following maintained on IV Lasix twice daily and will be decreased to once daily and likely transition to oral in the a.m. Patient also continues with COVID feeling generalized weakness and bodyaches and does report improvements in shortness of breath. Patient on a couple of liters of oxygen for comfort and reports does not wear this outpatient. Patient reports diet is somewhat improved with no reports of diarrhea noted. Patient reports improvement in lower extremity swelling as well. 05/17/2023 Patient seen and evaluated in follow-up with cardiology following continued on IV Lasix daily and diuresing well. Patient will transition to oral Lasix sta rting tomorrow. Patient continues on 2 L although is 98% discussed with nursing staff about weaning as tolerated. Patient does report shortness of breath with exertion. Instructed the patient to get up more frequently and walk at least 3 times per day. Patient is afebrile with no reported chest pain or palpitations. Patient reports to feeling about the same as yesterday. Continue supportive care regarding COVID. Patient will likely discharge home tomorrow. Patient continues to have some lower extremity edema noted although improved and reports tenderness on palpation. Skin is intact with no wound or open skin noted. No weeping noted. Discussed with the patient about possible Deondre wrap's and/or compression stockings to lower extremities and patient reports she will think about it. Encouraged elevating while at rest. 05/18/2023 Patient is seen in follow-up today transferred out of the stepdown unit currently on room air maintained on oral Lasix continuing with COVID precaution s. Patient is maintained on Farxiga and he has been instructed to follow-up with cardiology outpatient once recovered from COVID. Patient does follow with Dr. Coates in the outpatient setting. Patient is afebrile with no reported chest pain or shortness of breath. Patient has been up and walking and worked with physical therapy feels slightly weak although doing well and recommend continuing to use a walker. Patient reports in the outpatient setting she does have a walker although normally uses a cane but is using a walker here. Patient refusing to go to rehab or home care. Plan was for discharge today although daughter is out of state in [place] and patient planned on going to stay with her daughter. Will arrange for discharge planning in 24 hours. Review of Systems Constitutional: Reports of fatigue, denied any fever. Cardio vascular: denied any chest pain, palpitations Gastrointestinal: denied any nausea, vomiting. Reports diarrhea is improved and had a normal formed bowel movement Pulmonary: Denied any worsening shortness of breath cough Neurologic denied any new focal deficits, reports to feeling generalized weakness All inpatient medications were reviewed and appropriate changes in these medications as dictated in the interval history and assessment and plan. PHYSICAL EXAMINATION: GENERAL: The patient is alert and oriented x3, not in any acute distress. Well developed, well nourished. Morbidly obese HEENT: Pupils are round and equally reacting to light. EOMI. No scleral icterus. No conjunctival pallor. Normocephalic, atraumatic. No pharyngeal erythema. No thyromegaly. CARDIOVASCULAR: S1 and S2 muffled PULMONARY: Diminished breath sounds bilaterally otherwise chest is clear to auscultation, no wheezing or crackles. ABDOMEN: Soft, obese. Nontender, nondistended, normoactive bowel sounds. No palpable organomegaly. MUSCULOSKELETAL: No joint swelling or deformity. EXTREMITIES: No cyanosis, clubbing, or pedal edema. Mild lower extremity periph eral edema that is improved since yesterday. Tender on palpation NEUROLOGICAL: Gross neurological examination did not reveal any focal deficits. SKIN: No rashes. Assessment: -Congestive heart failure chronic diastolic dysfunction with acute exacerbation -Nausea vomiting diarrhea: Secondary to COVID-19, although patient does report the diarrhea and liquid stools has been ongoing for the last year. She feels like she is due for a colonoscopy and is asking for something to help bulk her stools up. We continue Questran, C. difficile likely negative -Acute hypoxemia secondary to congestive heart failure continues on 2 liters nasal cannula with an oxygen saturation of 98% we can probably wean the oxygen at this point. -Permanent atrial fibrillation with rapid ventricular rate currently atrial rate controlled, Cardizem was discontinued and patient was started on metoprolol -New onset cardiomyopathy, EF 40% -Coronary disease with stenting to RCA -Peripheral vascular disease -Hypertension -Hyperlipidemia -Obesity patient will benefit from sleep study as an outpatient -Concerns for age-related muscle atrophy and patient lives by herself, PT/OT therapy to evaluate. Patient reports would like to go home on discharge -Low possibility of pneumonia antibiotics were discontinued, procalcitonin is mildly elevated at 1.05. -Morbid obesity with a BMI of 41.4 -GI prophylaxis -DVT prophylaxis: On anticoagulation for atrial fibrillation with Eliquis Plan: Patient was continued on IV Lasix daily and is now transition to oral Lasix recommending outpatient follow-up with her [employer] management consultant Dr. Coates for further cardiomyopathy workup once recovered from COVID. Continue taking medications as prescribed. Continue with supportive care for COVID-19 along with diarrhea and nausea and vo miting symptoms PT/OT therapy has evaluated the patient and work with her recommending home with possible home care if needed. Patient refusing rehab or home care and reports is going to stay home with her daughter for a few days. Apparently her daughter is out of town in [place] until tomorrow and feels unsafe going home alone. Will plan for discharge in the next 24 hours. Patient reports she does have a cane and a walker in the outpatient setting. Instructed the patient to continue with the walker for the next week until more mobile. Encouraged increase activity as tolerated with walking more often and sitting up out of the bed at least 3 times a day and with meals Encouraged oral intake Elevate lower extremities while at rest and may use compression stockings and/or Deondre wraps with lower extremity swelling. Patient reports she does not want to use Deondre wraps or compression stockings at this time. Patient has been weaned off oxygen currently maintaining oxygen saturations abov e 95% on room air. Patient does not wear oxygen outpatient. Due to multiple complex medical issues, prognosis is guarded Patient will discharge in the next 24 hours The impression and plan of care has been dictated by Lydia Li, Nurse Practitioner as directed. Dr. Mukund MD I have performed a history and physical examination and medical decision making of this patient, discussed the same with the dictator, and agree with the dictators assessment and plan as written, documented as a scribe. Based on total visit time, I have performed more than 50% of this visit. Objective - Vital Signs Vital signs: Vital Signs Temp 97.5 F L 05/18/23 07:25 Pulse 80 05/18/23 08:27 Resp 17 05/18/23 08:27 BP 115/73 05/18/23 07:25 Pulse Ox 95 05/18/23 08:01 FiO2 Intake & Output 05/17/23 05/18/23 05/18/23 18:59 06:59 18:59 Intake Total 236 100 Output Total 2300 Balance -2063 100 Weight 97.2 kg Intake: Oral 236 100 Output: Urine 2300 Other: Voiding Method External Catheter Bedside Commode Bedside Commode # Voids 3 # Bowel Movements 1 - Labs CBC & Chem 7: 05/15/23 06:08 05/17/23 09:30
[2023-05-18] MEDS: MELATONIN 5 MG TABLET PO PRN (21:30)
[2023-05-19 08:05] VITALS: RESP 20
[2023-05-19 12:58] VITALS: BMI 41.5
[2023-05-19 13:40] VITALS: BP 95/59; PULSE 67; TEMP 97.9
== END 2023-05-19 18:16 | disposition home or self-care (01) | DRG 291 ==
LOC: EC 10:43 → 3SCARD 13:35 → 4SSUR 05-17 18:07
PROVIDERS: ADMIT Hospitalist; ATTEND Hospitalist
DX: I11.0 Hypertensive heart disease with heart failure (principal); I50.43 Acute on chronic combined systolic (congestive) and diastolic (congestive) heart failure; U07.1 COVID-19; Z68.41 Body mass index [BMI] 40.0-44.9, adult; I48.21 Permanent atrial fibrillation; Z79.01 Long term (current) use of anticoagulants; E66.01 Morbid (severe) obesity due to excess calories; E83.42 Hypomagnesemia; R09.02 Hypoxemia; E78.5 Hyperlipidemia, unspecified; E66.9 Obesity, unspecified; F41.9 Anxiety disorder, unspecified; I73.9 Peripheral vascular disease, unspecified; I42.8 Other cardiomyopathies; I25.5 Ischemic cardiomyopathy; I25.10 Atherosclerotic heart disease of native coronary artery without angina pectoris; Z79.899 Other long term (current) drug therapy; Z79.82 Long term (current) use of aspirin; Z86.16 Personal history of COVID-19; Z90.710 Acquired absence of both cervix and uterus; Z87.440 Personal history of urinary (tract) infections; Z95.5 Presence of coronary angioplasty implant and graft; Z90.49 Acquired absence of other specified parts of digestive tract
CPT/HCPCS: 36415; 51702; 71045; 71046; 80048; 80053; 81003; 82607; 83605; 83690; 83735; 83880; 84145; 84484; 85025; 85027; 85610; 85730; 87040; 87449; 87636; 93005; 93306; 94760; 96365; 96368; 96375; 99291

== ENCOUNTER 2023-08-25 20:04 | Inpatient (IN) | payer MEDICARE ==
[2023-08-25] MEDS: SODIUM CHLORIDE 0.9% 1,000 ML IV STA ×2 (20:40→22:28)
--- NOTE | 2023-08-25 20:55 | ED ---
General Adult HPI - General Chief complaint: Weakness Stated complaint: hypertension, AFIB, dizzy Time Seen by Provider: 08/25/23 20:22 Source: patient Mode of arrival: wheelchair Limitations: no limitations - History of Present Illness Initial comments: Dictation was produced using [employer] dictation software. please excuse any grammatical, word or spelling errors. Chief Complaint: 83-year-old female presents with weakness, hypotension dizziness History of Present Illness: Patient is an 83-year-old female states that she is here today for hypertension. Daughter and son are at the bedside. According to daughter 2 days ago recently she was started on valsartan. It was prescribed by manager distribution center. For the last 5 days she has been however feeling weak and lethargic. Patient lives at home with her daughter. She has been having difficulties with her activities of daily living. Denies any fever. Patient has chronic diarrhea. She takes diarrhea medications. The ROS documented in this emergency department record has been reviewed and con firmed by me. Those systems with pertinent positive or negative responses have been documented in the HPI. All other systems are other negative and/or noncontributory. - Related Data Home Medications Medication Instructions Recorded Confirmed Spironolactone 50 mg PO DAILY 02/25/17 05/13/23 Apixaban [Eliquis] 5 mg PO BID 08/04/18 05/13/23 Aspirin EC [Ecotrin Low Dose] 81 mg PO DAILY 01/15/20 05/13/23 Cholecalciferol (Vitamin D3) 50 mcg PO DAILY 05/13/23 05/13/23 [Vitamin D3 (50 Mcg = 2000 Iu)] Cranberry Fruit Extract [Cranberry] 500 mg PO DAILY 05/13/23 05/13/23 Tolterodine ER [Detrol LA] 4 mg PO DAILY 05/13/23 05/13/23 Previous Rx's Medication Instructions Recorded Atorvastatin [Lipitor] 80 mg PO HS #30 tab 02/23/17 Metoprolol Tartrate [Lopressor] 100 mg PO BID #60 tab 01/16/20 Acetaminophen Tab [Tylenol Tab] 1,000 mg PO Q6H PRN #60 tablet 05/19/23 Dapagliflozin Propanediol [Farxiga] 10 mg PO DAILY #30 tablet 05/19/23 Famotidine [Pepcid] 20 mg PO BID #60 tablet 05/19/23 Furosemide [Lasix] 40 mg PO DAILY #30 tablet 05/19/23 Allergies Allergy/AdvReac Type Severity Reaction Status Date / Time codeine Allergy Hallucinati Verified 08/25/23 20:12 ons Review of Systems ROS Statement: Those systems with pertinent positive or pertinent negative responses have been documented in the HPI. ROS Other: All systems not noted in ROS Statement are negative. Past Medical History Past Medical History: Atrial Fibrillation, Hyperlipidemia, Hypertension, Osteoarthritis (OA), Vascular Disorder Additional Past Medical History / Comment(s): -hx irregular heart rate, 2 ruptured disc back, bladder leakage, pancreatitis, edd. lower leg swelling, shortness of breath History of Any Multi-Drug Resistant Organisms: ESBL Date of last positivie culture/infection: 07/15/20 ESBL Klebsiella MDRO Source:: Urine Past Surgical History: Cholecystectomy, Heart Catheterization With Stent, Hysterectomy, Orthopedic Surgery Additional Past Surgical History / Comment(s): lt knee arthroscopy Past Anesthesia/Blood Transfusion Reactions: No Reported Reaction Date of Last Stent Placement:: FEB 2017 Past Psychological History: Anxiety Smoking Status: Never smoker Past Alcohol Use History: Occasional Past Drug Use History: None Reported - Past Family History Mother Family Medical History: No Reported History Additional Family Medical History / Comment(s): heart issues Father Family Medical History: Cancer Additional Family Medical History / Comment(s): . General Exam - General Exam Comments Initial Comments: PHYSICAL EXAM: General Impression: Alert and oriented x3, not in acute distress HEENT: Normocephalic atraumatic, extra-ocular movements intact, pupils equal and reactive to light bilaterally, mucous membranes moist. Cardiovascular: Heart regular rate and rhythm Chest: Able to complete full sentences, no retractions, no tachypnea Abdomen: abdomen soft, non-tender, non-distended, no organomegaly Musculoskeletal: Pulses present and equal in all extremities, no peripheral edema Motor: no focal deficits noted Neurological: CN II-XII grossly intact, no focal motor or sensory deficits noted Skin: Intact with no visualized rashes Psych: Normal affect and mood Limitations: no limitations Course Vital Signs 08/25/23 08/25/23 20:07 21:41 Temperature 97.7 F Pulse Rate 90 107 H Respiratory 14 18 Rate Blood Pressure 73/45 85/31 O2 Sat by Pulse 94 L 97 Oximetry - Reevaluation(s) Reevaluation #1: 08/25/23 22:05 UTI sepsis was diagnosed at 9:20 PM. Patient given Zosyn. Central line was placed for severe sepsis with associated hypotension. Patient given 30 cc/kg bolus based on ideal body weight. Patient started on pressors. EKG Findings - EKG Comments: EKG Findings:: My EKG interpretation: Ventricular rate 110, rhythm is difficult to interpret due to significant artifact. Suspicious for a flutter versus A-fib QRS 92, QTc 358. No QTC prolongation, no ST or T-wave changes noted. Overall, this EKG is unremarkable Procedures - Central Line Placement Left IJ Consent Obtained: verbal consent, emergent situation Patient Placed on Monitor/Pulse Ox: Yes MD Prep: mask, gown, gloves Central Line Prep: Chlorhexidine scrub Local Anesthesia Used: Lidocaine 1%, Lidocaine 2% Ultrasound Used for Placement: Yes Central Line Lumen Inserted: triple Bloods Obtained for Lab: Yes Central Line Position: good blood return, all ports aspirated, flushed, capped, sutured in place with 3-0 nylon Dressing Applied: Tegaderm Post Procedure X-Ray: tip of catheter in good position Patient Tolerated Procedure: well Complications: none - Sepsis Sepsis Focused Exam #1 Time Sepsis Criteria Met: 22:18 Sepsis Focused Exam Date: 08/25/23 Sepsis Focused Exam Time: 22:18 Sepsis Focused Exam Complete: Yes Vital Signs & RN Notes Reviewed: Yes Capillary Refill: < 2 Seconds: Fingers, Toes Peripheral Pulses: Weak: Radial (R), Radial (L), Posterior Tibialis (R), Posterior Tibialis (L), Dorsalis Pedis (R), Dorsalis Pedis (L) Skin Color: Normal for Patient Respiratory Exam: normal lung sounds Cardiovascular Exam: tachycardia Medical Decision Making - Medical Decision Making Was pt. sent in by a medical professional or institution (, PA, ORTHOPEDICS PEDIATRIC PHYSICIAN, urgent care, hospital, or alf...) When possible be specific @ -No Did you speak to anyone other than the patient for history (EMS, parent, family, police, friend...)? What history was obtained from this source @ -Some history obtained from daughter and son at the bedside states that she has been lethargic Did you review nursing and triage notes (agree or disagree)? Why? @ -I reviewed and agree with nursing and triage notes Were old charts reviewed (outside hosp., previous admission, EMS record, old EKG, old radiological studies, urgent care reports/EKG's, alf records)? Report findings @ -No old charts were reviewed Differential Diagnosis (chest pain, altered mental status, abdominal pain women, abdominal pain men, vaginal bleeding, musculoskeletal, weakness, fever, dyspnea, syncope, headache, dizziness, GI bleed, back pain, seizure, CVA, palpatations, mental health)? @ -Differential Weakness: Hypoglycemia, shock, sepsis, hyponatremia, anemia, infection, VT, ETOH, adverse medicine reaction, overdose, stroke, this is not meant to be an all-inclusive list. EKG interpreted by me (3pts min.). @ -See above X-rays interpreted by me (1pt min.). @ -Chest x-ray shows no acute processes. CT interpreted by me (1pt min.). @ -None done U/S interpreted by me (1pt. min.). @ -None done What testing was considered but not performed or refused? (CT, X-rays, U/S, labs)? Why? @ -None What meds were considered but not given or refused? Why? @ -None Was smoking cessation discussed for >3mins.? @ -No Were there social determinants of health that impacted care today? How? (Homelessness, low income, unemployed, alcoholism, drug addiction, transportation, low edu. Level, literacy, decrease access to med. care, correction, r ehab)? @ -No Was there de-escalation of care discussed even if they declined (Discuss DNR or withdrawal of care, Hospice)? DNR status @ -No What co-morbidities impacted this encounter? (DM, HTN, Smoking, COPD, CAD, Cancer, CVA, ARF, Chemo, Hep., AIDS, mental health diagnosis, sleep apnea, morbid obesity)? @ -None Was patient admitted / discharged? Hospital course, mention meds given and route, prescriptions, significant lab abnormalities, going to OR and other pertinent info. @ -83-year-old female presents to the emergency department for chief complaint of lethargy hypotension. Vital signs upon arrival shows Blood pressure of 73/45. Repeat vitals shows 85/31 with a heart rate of 107. Patient was taken away at the bedside 121 despite IV fluids. Decision was made for central venous catheter line to be placed. Patient's labs were evaluated. She has leukocytosis of 18.5. Metabolic panel shows sodium 129. Lactic acidosis 2.2 with elevated renal function with creatinine of 2.32. Troponin elevated 0.024 secondary to infectious process. Urinalysis positive for UTI. Patient started on Zosyn. Patient given 30 cc/kg bolus per sepsis protocol. Pressors initiated. CODE STATUS was discussed with daughter and son. They state that they would like her to be full code for the time being. They did not consider CODE STATUS on the patient until our initial discussion. Did you discuss the management of the patient with other professionals (professionals i.e. , PA, ORTHOPEDICS PEDIATRIC PHYSICIAN, lab, RT, psych nurse, social media coordinator, bag shop worker, teacher, dental officer, showcase maker)? Give summary @ -Case discussed with supervisor network control operators and hospitalist for admission. Was critical care preformed (if so, how long)? @ -Yes, 77 minutes Undiagnosed new problem with uncertain prognosis? @ -No Drug Therapy requiring intensive monitoring for toxicity (Heparin, Nitro, Insulin, Cardizem)? @ -No Were any procedures done? @ -See above Diagnosis/symptom? Acute, or Chronic, or Acute on Chronic? Uncomplicated (without systemic symptoms) or Complicated (systemic symptoms)? @ -Urosepsis, complicated by hypotension Side effects of treatment? @ -No Exacerbation, Progression, or Severe Exacerbation? @ -No Poses a threat to life or bodily function? How? (Chest pain, USA, VT, pneumonia, PE, COPD, DKA, ARF, appy, cholecystitis, CVA, Diverticulitis, Homicidal, Suicidal, threat to staff... and all critical care pts) @ -Yes - Lab Data Result diagrams: 08/25/23 20:32 08/25/23 20:32 Lab Results 08/25/23 08/25/23 08/25/23 Range/Units 20:32 20:32 20:32 WBC 18.5 H (3.8-10.6) k/uL RBC 4.16 (3.80-5.40) m/uL Hgb 13.7 (11.4-16.0) gm/dL Hct 41.9 (34.0-46.0) % MCV 100.7 H (80.0-100.0) fL MCH 32.8 (25.0-35.0) pg MCHC 32.6 (31.0-37.0) g/dL RDW 12.3 (11.5-15.5) % Plt Count 218 (150-450) k/uL MPV 7.5 Neutrophils % 83 % Lymphocytes % 7 % Monocytes % 9 % Eosinophils % 0 % Basophils % 0 % Neutrophils # 15.2 H (1.3-7.7) k/uL Lymphocytes # 1.2 (1.0-4.8) k/uL Monocytes # 1.6 H (0-1.0) k/uL Eosinophils # 0.0 (0-0.7) k/uL Basophils # 0.0 (0-0.2) k/uL PT 12.7 H (10.0-12.5) sec INR 1.2 H (<1.2) APTT 27.0 (22.0-30.0) sec Sodium 129 L (137-145) mmol/L Potassium 5.3 H (3.5-5.1) mmol/L Chloride 95 L (98-107) mmol/L Carbon Dioxide 26 (22-30) mmol/L Anion Gap 8 mmol/L BUN 65 H (7-17) mg/dL Creatinine 2.32 H (0.52-1.04) mg/dL Est GFR (CKD-EPI)AfAm 22 (>60 ml/min/1.73 sqM) Est GFR (CKD-EPI)NonAf 19 (>60 ml/min/1.73 sqM) Glucose 94 (74-99) mg/dL Plasma Lactic Acid Rony (0.7-2.0) mmol/L Calcium 8.9 (8.4-10.2) mg/dL Magnesium 2.0 (1.6-2.3) mg/dL Total Bilirubin 1.8 H (0.2-1.3) mg/dL AST 35 (14-36) U/L ALT 22 (4-34) U/L Alkaline Phosphatase 162 H (38-126) U/L Troponin I (0.000-0.034) ng/mL Total Protein 5.7 L (6.3-8.2) g/dL Albumin 3.3 L (3.5-5.0) g/dL Urine Color Urine Appearance (Clear) Urine pH (5.0-8.0) Ur Specific Juda (1.001-1.035) Urine Protein (Negative) Urine Glucose (UA) (Negative) Urine Ketones (Negative) Urine Blood (Negative) Urine Nitrite (Negative) Urine Bilirubin (Negative) Urine Urobilinogen (<2.0) mg/dL Ur Leukocyte Esterase (Negative) Urine RBC (0-5) /hpf Urine WBC (0-5) /hpf Urine WBC Clumps (None) /hpf Ur Squamous Epith Cells (0-4) /hpf Urine Bacteria (None) /hpf Urine Mucus (None) /hpf 08/25/23 08/25/23 08/25/23 Range/Units 20:32 20:32 21:16 WBC (3.8-10.6) k/uL RBC (3.80-5.40) m/uL Hgb (11.4-16.0) gm/dL Hct (34.0-46.0) % MCV (80.0-100.0) fL MCH (25.0-35.0) pg MCHC (31.0-37.0) g/dL RDW (11.5-15.5) % Plt Count (150-450) k/uL MPV Neutrophils % % Lymphocytes % % Monocytes % % Eosinophils % % Basophils % % Neutrophils # (1.3-7.7) k/uL Lymphocytes # (1.0-4.8) k/uL Monocytes # (0-1.0) k/uL Eosinophils # (0-0.7) k/uL Basophils # (0-0.2) k/uL PT (10.0-12.5) sec INR (<1.2) APTT (22.0-30.0) sec Sodium (137-145) mmol/L Potassium (3.5-5.1) mmol/L Chloride (98-107) mmol/L Carbon Dioxide (22-30) mmol/L Anion Gap mmol/L BUN (7-17) mg/dL Creatinine (0.52-1.04) mg/dL Est GFR (CKD-EPI)AfAm (>60 ml/min/1.73 sqM) Est GFR (CKD-EPI)NonAf (>60 ml/min/1.73 sqM) Glucose (74-99) mg/dL Plasma Lactic Acid Rony 2.2 H* (0.7-2.0) mmol/L Calcium (8.4-10.2) mg/dL Magnesium (1.6-2.3) mg/dL Total Bilirubin (0.2-1.3) mg/dL AST (14-36) U/L ALT (4-34) U/L Alkaline Phosphatase (38-126) U/L Troponin I 0.024 (0.000-0.034) ng/mL Total Protein (6.3-8.2) g/dL Albumin (3.5-5.0) g/dL Urine Color Yellow Urine Appearance Cloudy H (Clear) Urine pH 5.0 (5.0-8.0) Ur Specific Juda 1.015 (1.001-1.035) Urine Protein Trace H (Negative) Urine Glucose (UA) 1+ H (Negative) Urine Ketones Negative (Negative) Urine Blood Trace H (Negative) Urine Nitrite Negative (Negative) Urine Bilirubin Negative (Negative) Urine Urobilinogen <2.0 (<2.0) mg/dL Ur Leukocyte Esterase Large H (Negative) Urine RBC 3 (0-5) /hpf Urine WBC >182 H (0-5) /hpf Urine WBC Clumps Many H (None) /hpf Ur Squamous Epith Cells <1 (0-4) /hpf Urine Bacteria Many H (None) /hpf Urine Mucus Rare H (None) /hpf Disposition Clinical Impression: Sepsis secondary to UTI Disposition: ADMITTED IP TO THIS [facility] Condition: Critical Referrals: Joe Araya [Primary Care Provider] - 1-2 days Decision Time: 22:22
[2023-08-25 21:11] LABS: Basophils % (A) 0 %; Eosinophils % (A) 0 %; HCT 41.9 % (34.0-46.0); HGB 13.7 gm/dL (11.4-16.0); Lymphocytes # (A) 1.2 k/uL (1.0-4.8); Lymphocytes % (A) 7 %; MCH 32.8 pg (25.0-35.0); MCHC 32.6 g/dL (31.0-37.0); MCV 100.7 fL (80.0-100.0); Mean Platelet Volume 7.5; Monocytes # (A) 1.6 k/uL (0-1.0); Monocytes % (A) 9 %; Neutrophils # (A) 15.2 k/uL (1.3-7.7); Neutrophils % (A) 83 %; Platelet Count 218 k/uL (150-450); RBC 4.16 m/uL (3.80-5.40); RDW 12.3 % (11.5-15.5); WBC 18.5 k/uL (3.8-10.6)
[2023-08-25 21:19] LABS: INR 1.2 (<1.2); Prothrombin Time 12.7 sec (10.0-12.5)
[2023-08-25 21:34] LABS: Appearance,Urine Cloudy (Clear); Bacteria,Urine Many /hpf; Bilirubin,Urine Negative (Negative); Blood,Urine Trace (Negative); Color,Urine Yellow; Glucose,Urine (UA) 1+ (Negative); Ketones,Urine Negative (Negative); Leukocyte Esterase,Urine Large (Negative); Mucus,Urine Rare /hpf; Nitrite,Urine Negative (Negative); Protein,Urine Trace (Negative); RBC,Urine 3 /hpf (0-5); Specific Gravity,Urine 1.015 (1.001-1.035); Squamous Epithelial Cell,Urine <1 /hpf (0-4); Urobilinogen,Urine <2.0 mg/dL (<2.0); WBC,Urine >182 /hpf (0-5)
[2023-08-25 21:37] LABS: ALT 22 U/L (4-34); AST 35 U/L (14-36); African American GFR (CKD) 22 (>60 ml/min/1.73 sqM); Albumin 3.3 g/dL (3.5-5.0); Alkaline Phosphatase 162 U/L (38-126); Anion Gap 8 mmol/L; Blood Urea Nitrogen 65 mg/dL (7-17); Calcium 8.9 mg/dL (8.4-10.2); Carbon Dioxide 26 mmol/L (22-30); Chloride 95 mmol/L (98-107); Glucose 94 mg/dL (74-99); Non-African American GFR(CKD) 19 (>60 ml/min/1.73 sqM); Potassium 5.3 mmol/L (3.5-5.1); Sodium 129 mmol/L (137-145); Total Bilirubin 1.8 mg/dL (0.2-1.3); Total Protein 5.7 g/dL (6.3-8.2)
--- NOTE | 2023-08-25 21:57 | XR ---
EXAMINATION TYPE: XR chest 1V portable DATE OF EXAM: 08/25/2023 9:26 PM CLINICAL INDICATION:Female, 83 years old with history of hypotension, lethargy COMPARISON: Chest radiograph 05/13/2023 TECHNIQUE: XR chest 1V portable Frontal view of the chest. FINDINGS: Lungs/Pleura: There are scattered bilateral interstitial opacities. No evidence for pneumothorax. Pulmonary vascularity: Mild pulmonary vascular congestion. Heart/mediastinum: Cardiac silhouette is enlarged but stable. Musculoskeletal: No acute osseous pathology. Other findings: None IMPRESSION: Stable cardiomegaly with findings suggestive of mild pulmonary vascular congestion/edema. Correlate f or congestive heart process.
[2023-08-25] MEDS ORDERED: NALOXONE 0.4 MG/ML 1 ML VIAL IV PRN (22:11)
[2023-08-25] MEDS: MORPHINE SULFATE 4 MG/ML SYRINGE IVP PRN (22:24)
--- NOTE | 2023-08-25 22:24 | XR ---
EXAMINATION TYPE: XR chest 1V portable DATE OF EXAM: 08/25/2023 COMPARISON: Chest x-ray earlier today HISTORY: Left IJ placement TECHNIQUE: Single frontal view of the chest is obtained. FINDINGS: There is new left internal jugular central venous catheter terminating in right atrium . N o pneumothorax seen after catheter placement though limitation by supine technique noted. Persistent cardiomegaly with central vascular congestion and left basilar opacity. The osseous structures are intact. IMPRESSION: As above.
[2023-08-25] MEDS: NOREPINEPHRINE 32 MG in SODIUM CHLORIDE 0.9% 218 ML IV ONE (22:49)
[2023-08-25] MEDS: SODIUM CHLORIDE 0.9% 1,000 ML IV SCH (22:52)
[2023-08-25] MEDS: MORPHINE SULFATE 4 MG/ML SYRINGE IVP STA (23:55)
[2023-08-26 00:23] LABS: Glucose,Whole Blood 75 mg/dL (70-110)
[2023-08-26] MEDS: PIPERACILLIN-TAZOBACTAM 3.375 GM in SODIUM CHLORIDE 0.9% 100 ML IVPB SCH (01:00)
[2023-08-26 06:01] LABS: Basophils % (A) 0 %; Eosinophils % (A) 0 %; HCT 41.6 % (34.0-46.0); Lymphocytes # (A) 1.1 k/uL (1.0-4.8); Lymphocytes % (A) 5 %; MCH 32.3 pg (25.0-35.0); MCHC 31.3 g/dL (31.0-37.0); Macrocytosis Slight; Mean Platelet Volume 7.2; Monocytes # (A) 1.9 k/uL (0-1.0); Monocytes % (A) 9 %; Neutrophils # (A) 17.4 k/uL (1.3-7.7); Neutrophils % (A) 83 %; Platelet Count 240 k/uL (150-450); RBC 4.04 m/uL (3.80-5.40); RDW 12.4 % (11.5-15.5); WBC 20.9 k/uL (3.8-10.6)
[2023-08-26 06:09] LABS: African American GFR (CKD) 28 (>60 ml/min/1.73 sqM); Anion Gap 11 mmol/L; Blood Urea Nitrogen 57 mg/dL (7-17); Calcium 7.7 mg/dL (8.4-10.2); Carbon Dioxide 18 mmol/L (22-30); Chloride 98 mmol/L (98-107); Glucose 107 mg/dL (74-99); Non-African American GFR(CKD) 25 (>60 ml/min/1.73 sqM); Sodium 127 mmol/L (137-145)
[2023-08-26 06:28] LABS: Potassium 5.2 mmol/L (3.5-5.1)
[2023-08-26] MEDS ORDERED: APIXABAN 5 MG TAB PO SCH (09:00)
[2023-08-26] MEDS: ACETAMINOPHEN TAB 325 MG TAB PO PRN (09:14)
[2023-08-26] MEDS: APIXABAN 2.5 MG TABLET PO SCH (09:15)
--- NOTE | 2023-08-26 13:43 | P.CNPUL ---
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 She presented to the ED yesterday as she was feeling weak and lethargic and was hypotensive. She was given 2litres of saline. Her labs showed WBC 20.9, Hb 13,MCV 103, Plt 240, Na 127, K 5.2, BUN 57, and Creatinine 1.8. She was in urospesis with labs showing elevated urine leukocyte esterase, many WBC clumps, WBC >182 and many bacteria in the urine. Her chest x-ray shows cardiomegaly and mild pulmonary vascular congestion. She was started on Zosyn 25ml/hr. Today she was seen in the ICU and was stable on room air. She is currently on Norepinephrine 7 mcg/min and 0.9 at 130 ml/hr. Denies shortness of breath, cough, chest pain,fever, chills, and weakness. A procalcitonin level is ordered. She lives with her daughter and has difficulties with activities of daily living. ID has been consulted. Will continue to monitor. Review of Systems REVIEW OF SYSTEMS: CONSTITUTIONAL: Denies any recent significant weight loss or weight gain. EYES: Denies change in vision. EARS, NOSE, MOUTH, THROAT: Denies headaches, denies sore throat. CARDIOVASCULAR: Denies chest pain, palpitations or syncopal episodes. RESPIRATORY: Denies shortness of breath, cough, congestion or hemoptysis. GASTROINTESTINAL: Denies pain, nausea, vomitting, diarrhea GENITOURINARY: Denies hematuria, denies infections. MUSKULOSKELETAL: Denies pain, denies swelling. INTEGUMENTARY: Denies rash, denies eczema. NEUROLOGICAL: Denies recent memory loss, no recent seizure activity. PSYCHIATRIC: Denies anxiety, denies depression. HEMATOLOGIC/LYMPHATIC: Denies anemia, denies enlarged lymph node Past Medical History Past Medical History: Atrial Fibrillation, Hyperlipidemia, Hypertension, Osteoarthritis (OA), Vascular Disorder Additional Past Medical History / Comment(s): -hx irregular heart rate, 2 ruptured disc back, bladder leakage, pancreatitis, edd. lower leg swelling, shortness of breath History of Any Multi-Drug Resistant Organisms: ESBL Date of last positivie culture/infection: 07/15/20 ESBL Klebsiella MDRO Source:: Urine Past Surgical History: Cholecystectomy, Heart Catheterization With Stent, Hysterectomy, Orthopedic Surgery Additional Past Surgical History / Comment(s): lt knee arthroscopy Past Anesthesia/Blood Transfusion Reactions: No Reported Reaction Date of Last Stent Placement:: MAY 2017 Past Psychological History: Anxiety Smoking Status: Never smoker Past Alcohol Use History: Occasional Past Drug Use History: None Reported - Past Family History Mother Family Medical History: No Reported History Additional Family Medical History / Comment(s): heart issues Father Family Medical History: Cancer Additional Family Medical History / Comment(s): . Medications and Allergies Home Medications Medication Instructions Recorded Confirmed Type Atorvastatin [Lipitor] 80 mg PO HS #30 tab 02/23/17 08/26/23 Rx Spironolactone 50 mg PO DAILY 02/25/17 08/26/23 History Apixaban [Eliquis] 5 mg PO BID 08/04/18 08/26/23 History Metoprolol Tartrate [Lopressor] 100 mg PO BID #60 tab 01/16/20 08/26/23 Rx Tolterodine ER [Detrol LA] 4 mg PO DAILY 05/13/23 08/26/23 History Acetaminophen Tab [Tylenol Tab] 1,000 mg PO Q6H PRN #60 tablet 05/19/23 08/26/23 Rx Dapagliflozin Propanediol [Farxiga] 10 mg PO DAILY #30 tablet 05/19/23 08/26/23 Rx Furosemide [Lasix] 40 mg PO DAILY #30 tablet 05/19/23 08/26/23 Rx Valsartan 80 mg PO DAILY 08/26/23 08/26/23 History traZODone HCL [Desyrel] 50 mg PO HS PRN 08/26/23 08/26/23 History Allergies Allergy/AdvReac Type Severity Reaction Status Date / Time Sulfa (Sulfonamide Allergy Unknown Verified 08/26/23 10:01 Antibiotics) codeine AdvReac Hallucinati Verified 08/26/23 10:01 ons Physical Exam Vitals: Vital Signs Temp Pulse Pulse Resp BP BP Pulse Ox 08/26/23 10:00 105 H 12 103/41 100 08/26/23 09:45 101 H 15 106/55 98 08/26/23 09:30 100 17 92/79 98 08/26/23 09:15 87 10 L 113/55 96 08/26/23 09:00 102 H 17 109/59 96 08/26/23 08:45 117 H 24 112/46 94 L 08/26/23 08:30 113 H 17 109/63 93 L 08/26/23 08:15 100 15 113/74 95 08/26/23 08:00 98.1 F 105 H 19 116/56 93 L 08/26/23 07:45 123 H 15 116/54 95 08/26/23 07:30 106 H 20 108/56 96 08/26/23 07:20 104 H 16 108/56 94 L 08/26/23 07:10 116 H 18 112/61 95 08/26/23 07:00 96 20 100/55 94 L 08/26/23 06:50 93 23 100/55 96 08/26/23 06:40 120 H 20 103/56 95 08/26/23 06:30 101 H 18 105/51 96 08/26/23 06:20 99 17 105/51 97 08/26/23 06:10 111 H 20 105/52 97 08/26/23 06:00 114 H 20 99/50 95 08/26/23 05:50 108 H 17 99/50 98 08/26/23 05:40 113 H 20 101/45 97 08/26/23 05:30 98 18 100/46 96 08/26/23 05:20 102 H 18 89/54 97 08/26/23 05:10 101 H 18 108/51 96 08/26/23 05:00 103 H 21 102/50 98 08/26/23 04:50 112 H 17 102/50 97 08/26/23 04:40 112 H 20 110/55 98 08/26/23 04:30 125 H 21 100/57 97 08/26/23 04:20 122 H 16 100/57 98 08/26/23 04:10 118 H 15 139/66 96 08/26/23 04:00 98.5 F 114 H 16 137/87 95 08/26/23 03:50 109 H 16 137/87 97 08/26/23 03:40 112 H 20 95/48 95 08/26/23 03:30 112 H 19 81/57 96 08/26/23 03:20 118 H 22 96/55 95 08/26/23 03:10 112 H 18 109/62 98 08/26/23 03:00 112 H 17 103/81 96 08/26/23 02:50 112 H 19 101/60 96 08/26/23 02:40 115 H 20 93/47 95 08/26/23 02:30 117 H 17 103/48 96 08/26/23 02:20 131 H 19 103/48 97 08/26/23 02:10 129 H 25 H 98/51 96 08/26/23 02:00 112 H 18 98/50 96 08/26/23 01:50 111 H 21 98/50 95 08/26/23 01:40 137 H 13 90/68 08/26/23 01:30 110 H 15 94/41 08/26/23 01:20 121 H 19 94/41 08/26/23 01:10 103 H 19 99/67 08/26/23 01:00 118/65 08/26/23 00:50 118/65 08/26/23 00:40 115 H 20 113/58 08/26/23 00:30 117 H 21 95/58 95 08/26/23 00:20 118/65 08/26/23 00:10 97.5 F L 119 H 16 118/65 98 08/26/23 00:00 128 H 23 120/71 98 08/25/23 23:50 29 H 125/74 91 L 08/25/23 23:40 124 H 21 118/77 72 L 08/25/23 23:30 117 H 21 101/61 97 08/25/23 23:20 142 H 20 89/59 08/25/23 23:15 115 H 18 121/65 97 08/25/23 23:10 124 H 24 98/59 08/25/23 23:05 118 H 18 101/65 98 08/25/23 23:00 110 H 18 97/55 08/25/23 22:56 102.9 F H 101 H 112 H 19 97/55 98/50 98 08/25/23 22:50 124 H 14 97/55 96 08/25/23 22:40 105 H 18 97/55 08/25/23 22:30 110 H 19 85/31 96 08/25/23 22:20 20 85/31 99 08/25/23 22:10 125 H 17 94 L 08/25/23 22:00 116 H 21 94 L 08/25/23 21:50 114 H 19 100 08/25/23 21:41 107 H 18 97 08/25/23 21:40 101 H 15 / 46 L 08/25/23 21:30 112 H 16 95/57 64 L 08/25/23 21:20 118 H 23 95/57 76 L 08/25/23 21:10 105 H 11 L 92/58 08/25/23 21:00 123 H 29 H 92/58 08/25/23 20:50 112 H 24 08/25/23 20:40 92 37 H 73 L 08/25/23 20:30 105 H 32 H 92/58 95 08/25/23 20:28 98 14 63/39 95 08/25/23 20:07 97.7 F 90 14 73/45 94 L Intake and Output 08/25/23 08/26/23 08/26/23 22:59 06:59 14:59 Intake Total 1017.079 520 Output Total 320 250 Balance 697.079 270 Intake: IV 390 Sodium Chloride 0.9% 1, 390 000 ml @ 130 mls/hr IV . Q7H42M [facility] Rx#:[id number] Intake, IV Titration 1017.079 130 Amount Norepinephrine 32 mg In 7.079 Sodium Chloride 0.9% 218 ml @ 0.03 MCG/KG/MIN 1. 403 mls/hr IV .Q24H ONE Rx#:[id number] Piperacillin-Tazobactam 3 100 .375 gm In Sodium Chloride 0.9% 100 ml @ 25 mls/hr IVPB Q8HR [facility] Rx# :[id number] Sodium Chloride 0.9% 1, 910 130 000 ml @ 130 mls/hr IV . Q7H42M [facility] Rx#:[id number] Output: Urine 320 250 Other: Weight 99.79 kg 109.3 kg GENERAL EXAM: 83-year-old obese female, in no acute distress. HEAD: Normocephalic and atraumatic EYES: Normal reaction of pupils, equal size. NOSE: Clear with pink turbinates. THROAT: No erythema or exudates. NECK: No masses, no JVD. CHEST: No chest wall deformity. LUNGS: Equal air entry with no crackles, wheeze, rhonchi or dullness. CVS: S1 and S2 normal with no audible murmur, regular rhythm. No extra heart sounds ABDOMEN: No masses or tenderness SPINE: No scoliosis or deformity SKIN: No rashes CENTRAL NERVOUS SYSTEM: Alert and technically oriented x 3. No focal deficits, tone is normal in all 4 extremities. EXTREMITIES: Bilateral lower extremity edema,No clubbing, or cyanosis. Results - Laboratory Findings CBC and BMP: 08/26/23 05:39 08/26/23 05:39 PT/INR, D-dimer PT 12.7 sec (10.0-12.5) H 08/25/23 20:32 INR 1.2 (<1.2) H 08/25/23 20:32 Abnormal lab findings: Abnormal Labs 08/25/23 08/25/23 08/25/23 20:32 20:32 20:32 WBC 18.5 H MCV 100.7 H Neutrophils # 15.2 H Monocytes # 1.6 H PT 12.7 H INR 1.2 H Sodium 129 L Potassium 5.3 H Chloride 95 L Carbon Dioxide BUN 65 H Creatinine 2.32 H Glucose Plasma Lactic Acid Rony Calcium Total Bilirubin 1.8 H Alkaline Phosphatase 162 H Total Protein 5.7 L Albumin 3.3 L Urine Appearance Urine Protein Urine Glucose (UA) Urine Blood Ur Leukocyte Esterase Urine WBC Urine WBC Clumps Urine Bacteria Urine Mucus 08/25/23 08/25/23 08/26/23 20:32 21:16 05:39 WBC 20.9 H MCV 103.0 H Neutrophils # 17.4 H Monocytes # 1.9 H PT INR Sodium Potassium Chloride Carbon Dioxide BUN Creatinine Glucose Plasma Lactic Acid Rony 2.2 H* Calcium Total Bilirubin Alkaline Phosphatase Total Protein Albumin Urine Appearance Cloudy H Urine Protein Trace H Urine Glucose (UA) 1+ H Urine Blood Trace H Ur Leukocyte Esterase Large H Urine WBC >182 H Urine WBC Clumps Many H Urine Bacteria Many H Urine Mucus Rare H 08/26/23 05:39 WBC MCV Neutrophils # Monocytes # PT INR Sodium 127 L Potassium 5.2 H Chloride Carbon Dioxide 18 L BUN 57 H Creatinine 1.87 H Glucose 107 H Plasma Lactic Acid Rony Calcium 7.7 L Total Bilirubin Alkaline Phosphatase Total Protein Albumin Urine Appearance Urine Protein Urine Glucose (UA) Urine Blood Ur Leukocyte Esterase Urine WBC Urine WBC Clumps Urine Bacteria Urine Mucus Assessment and Plan Assessment: Sepsis secondary to Urinary Tract infection Bilateral Lower extremity edema Atrial fibrillation Plan: Patients medications, labs and chest xray reviewed. Continue Zosyn 25ml/hr Continue Norepinephrine 7 mcg/min Continue 0.9 saline at 130 ml/hr Apixaban 2.5mg Prolactin level has been ordered. Will continue to follow, and additional recommendations forthcoming. Critical care time is 35 minutes. Time with Patient: Greater than 30
[2023-08-26] MEDS: METOPROLOL TARTRATE 50 MG TAB PO SCH ×2 (14:56→22:30)
--- NOTE | 2023-08-26 15:59 | P.HPIM ---
History of Present Illness H&P Date: 08/26/23 abs showed WBC 20.9, Hb 13,MCV 103, Plt 240, Na 127, K 5.2, BUN 57, and Creatinine 1.8. She was in urospesis with labs showing elevated urine leukocyte esterase, many WBC clumps, WBC >182 and many bacteria in the urine. Her chest x- ray shows cardiomegaly and mild pulmonary vascular congestion. Review of Systems CONSTITUTIONAL: Denies any recent significant weight loss or weight gain. EYES: Denies change in vision. EARS, NOSE, MOUTH, THROAT: Denies headaches, denies sore throat. CARDIOVASCULAR: Denies chest pain, palpitations or syncopal episodes. RESPIRATORY: Denies shortness of breath, cough, congestion or hemoptysis. GASTROINTESTINAL: Denies pain, nausea, vomitting, diarrhea GENITOURINARY: Denies hematuria, denies infections. MUSKULOSKELETAL: Denies pain, denies swelling. INTEGUMENTARY: Denies rash, denies eczema. NEUROLOGICAL: Denies recent memory loss, no recent seizure activity. PSYCHIATRIC: Denies anxiety, denies depression. HEMATOLOGIC/LYMPHATIC: Denies anemia, denies enlarged lymph node Past Medical History Past Medical History: Atrial Fibrillation, Hyperlipidemia, Hypertension, Osteoarthritis (OA), Vascular Disorder Additional Past Medical History / Comment(s): -hx irregular heart rate, 2 ruptured disc back, bladder leakage, pancreatitis, edd. lower leg swelling, shortness of breath History of Any Multi-Drug Resistant Organisms: ESBL Date of last positivie culture/infection: 07/15/20 ESBL Klebsiella MDRO Source:: Urine Past Surgical History: Cholecystectomy, Heart Catheterization With Stent, Hysterectomy, Orthopedic Surgery Additional Past Surgical History / Comment(s): lt knee arthroscopy Past Anesthesia/Blood Transfusion Reactions: No Reported Reaction Date of Last Stent Placement:: MAY 2017 Past Psychological History: Anxiety Smoking Status: Never smoker Past Alcohol Use History: Occasional Past Drug Use History: None Reported - Past Family History Mother Family Medical History: No Reported History Additional Family Medical History / Comment(s): heart issues Father Family Medical History: Cancer Additional Family Medical History / Comment(s): . Medications and Allergies Home Medications Medication Instructions Recorded Confirmed Type Atorvastatin [Lipitor] 80 mg PO HS #30 tab 02/23/17 08/26/23 Rx Spironolactone 50 mg PO DAILY 02/25/17 08/26/23 History Apixaban [Eliquis] 5 mg PO BID 08/04/18 08/26/23 History Metoprolol Tartrate [Lopressor] 100 mg PO BID #60 tab 01/16/20 08/26/23 Rx Tolterodine ER [Detrol LA] 4 mg PO DAILY 05/13/23 08/26/23 History Acetaminophen Tab [Tylenol Tab] 1,000 mg PO Q6H PRN #60 tablet 05/19/23 08/26/23 Rx Dapagliflozin Propanediol [Farxiga] 10 mg PO DAILY #30 tablet 05/19/23 08/26/23 Rx Furosemide [Lasix] 40 mg PO DAILY #30 tablet 05/19/23 08/26/23 Rx Valsartan 80 mg PO DAILY 08/26/23 08/26/23 History traZODone HCL [Desyrel] 50 mg PO HS PRN 08/26/23 08/26/23 History Allergies Allergy/AdvReac Type Severity Reaction Status Date / Time Sulfa (Sulfonamide Allergy Unknown Verified 08/26/23 10:01 Antibiotics) codeine AdvReac Hallucinati Verified 08/26/23 10:01 ons Physical Exam Vitals: Vital Signs Temp Pulse Pulse Resp BP BP Pulse Ox 08/26/23 10:00 105 H 12 103/41 100 08/26/23 09:45 101 H 15 106/55 98 08/26/23 09:30 100 17 92/79 98 08/26/23 09:15 87 10 L 113/55 96 08/26/23 09:00 102 H 17 109/59 96 08/26/23 08:45 117 H 24 112/46 94 L 08/26/23 08:30 113 H 17 109/63 93 L 08/26/23 08:15 100 15 113/74 95 08/26/23 08:00 98.1 F 105 H 19 116/56 93 L 08/26/23 07:45 123 H 15 116/54 95 08/26/23 07:30 106 H 20 108/56 96 08/26/23 07:20 104 H 16 108/56 94 L 08/26/23 07:10 116 H 18 112/61 95 08/26/23 07:00 96 20 100/55 94 L 08/26/23 06:50 93 23 100/55 96 08/26/23 06:40 120 H 20 103/56 95 08/26/23 06:30 101 H 18 105/51 96 08/26/23 06:20 99 17 105/51 97 08/26/23 06:10 111 H 20 105/52 97 08/26/23 06:00 114 H 20 99/50 95 08/26/23 05:50 108 H 17 99/50 98 08/26/23 05:40 113 H 20 101/45 97 08/26/23 05:30 98 18 100/46 96 08/26/23 05:20 102 H 18 89/54 97 08/26/23 05:10 101 H 18 108/51 96 08/26/23 05:00 103 H 21 102/50 98 08/26/23 04:50 112 H 17 102/50 97 08/26/23 04:40 112 H 20 110/55 98 08/26/23 04:30 125 H 21 100/57 97 08/26/23 04:20 122 H 16 100/57 98 08/26/23 04:10 118 H 15 139/66 96 08/26/23 04:00 98.5 F 114 H 16 137/87 95 08/26/23 03:50 109 H 16 137/87 97 08/26/23 03:40 112 H 20 95/48 95 08/26/23 03:30 112 H 19 81/57 96 08/26/23 03:20 118 H 22 96/55 95 08/26/23 03:10 112 H 18 109/62 98 08/26/23 03:00 112 H 17 103/81 96 08/26/23 02:50 112 H 19 101/60 96 08/26/23 02:40 115 H 20 93/47 95 08/26/23 02:30 117 H 17 103/48 96 08/26/23 02:20 131 H 19 103/48 97 08/26/23 02:10 129 H 25 H 98/51 96 08/26/23 02:00 112 H 18 98/50 96 08/26/23 01:50 111 H 21 98/50 95 08/26/23 01:40 137 H 13 90/68 08/26/23 01:30 110 H 15 94/41 08/26/23 01:20 121 H 19 94/41 08/26/23 01:10 103 H 19 99/67 08/26/23 01:00 118/65 08/26/23 00:50 118/65 08/26/23 00:40 115 H 20 113/58 08/26/23 00:30 117 H 21 95/58 95 24 00:20 118/65 08/26/23 00:10 97.5 F L 119 H 16 118/65 98 08/26/23 00:00 128 H 23 120/71 98 08/25/23 23:50 29 H 125/74 91 L 08/25/23 23:40 124 H 21 118/77 72 L 08/25/23 23:30 117 H 21 101/61 97 08/25/23 23:20 142 H 20 89/59 08/25/23 23:15 115 H 18 121/65 97 08/25/23 23:10 124 H 24 98/59 08/25/23 23:05 118 H 18 101/65 98 08/25/23 23:00 110 H 18 97/55 08/25/23 22:56 102.9 F H 101 H 112 H 19 97/55 98/50 98 08/25/23 22:50 124 H 14 97/55 96 08/25/23 22:40 105 H 18 97/55 08/25/23 22:30 110 H 19 85/31 96 24 22:20 20 85/31 99 08/25/23 22:10 125 H 17 85/31 94 L 24 22:00 116 H 21 85/31 94 L 08/25/23 21:50 114 H 19 85/31 100 08/25/23 21:41 107 H 18 85/31 97 24 21:40 101 H 15 85/31 46 L 24 21:30 112 H 16 95/57 64 L 08/25/23 21:20 118 H 23 95/57 76 L 08/25/23 21:10 105 H 11 L 92/58 24 21:00 123 H 29 H 92/58 24 20:50 112 H 24 24 20:40 92 37 H 73 L 08/25/23 20:30 105 H 32 H 92/58 95 24 20:28 98 14 63/39 95 07/18/24 20:07 97.7 F 90 14 73/45 94 L Intake and Output 08/25/23 08/26/23 08/26/23 22:59 06:59 14:59 Intake Total 1017.079 520 Output Total 320 250 Balance 697.079 270 Intake: IV 390 Sodium Chloride 0.9% 1, 390 000 ml @ 130 mls/hr IV . Q7H42M [facility] Rx#:[id number] Intake, IV Titration 1017.079 130 Amount Norepinephrine 32 mg In 7.079 Sodium Chloride 0.9% 218 ml @ 0.03 MCG/KG/MIN 1. 403 mls/hr IV .Q24H ONE Rx#:[id number] Piperacillin-Tazobactam 3 100 .375 gm In Sodium Chloride 0.9% 100 ml @ 25 mls/hr IVPB Q8HR [facility] Rx# :[id number] Sodium Chloride 0.9% 1, 910 130 000 ml @ 130 mls/hr IV . Q7H42M [facility] Rx#:[id number] Output: Urine 320 250 Other: Weight 99.79 kg 109.3 kg GENERAL EXAM: 83-year-old obese female, in no acute distress. HEAD: Normocephalic and atraumatic EYES: Normal reaction of pupils, equal size. NOSE: Clear with pink turbinates. THROAT: No erythema or exudates. NECK: No masses, no JVD. CHEST: No chest wall deformity. LUNGS: Equal air entry with no crackles, wheeze, rhonchi or dullness. CVS: S1 and S2 normal with no audible murmur, regular rhythm. No extra heart sounds ABDOMEN: No masses or tenderness SPINE: No scoliosis or deformity SKIN: No rashes CENTRAL NERVOUS SYSTEM: Alert and technically oriented x 3. No focal deficits, tone is normal in all 4 extremities. EXTREMITIES: Bilateral lower extremity edema,No clubbing, or cyanosis. Results CBC & Chem 7: 08/26/23 05:39 08/26/23 05:39 Labs: Abnormal Lab Results - Last 24 Hours (Table) 08/25/23 08/25/23 08/25/23 Range/Units 20:32 20:32 20:32 WBC 18.5 H (3.8-10.6) k/uL MCV 100.7 H (80.0-100.0) fL Neutrophils # 15.2 H (1.3-7.7) k/uL Monocytes # 1.6 H (0-1.0) k/uL PT 12.7 H (10.0-12.5) sec INR 1.2 H (<1.2) Sodium 129 L (137-145) mmol/L Potassium 5.3 H (3.5-5.1) mmol/L Chloride 95 L (98-107) mmol/L Carbon Dioxide (22-30) mmol/L BUN 65 H (7-17) mg/dL Creatinine 2.32 H (0.52-1.04) mg/dL Glucose (74-99) mg/dL Plasma Lactic Acid Rony (0.7-2.0) mmol/L Calcium (8.4-10.2) mg/dL Total Bilirubin 1.8 H (0.2-1.3) mg/dL Alkaline Phosphatase 162 H (38-126) U/L Total Protein 5.7 L (6.3-8.2) g/dL Albumin 3.3 L (3.5-5.0) g/dL Urine Appearance (Clear) Urine Protein (Negative) Urine Glucose (UA) (Negative) Urine Blood (Negative) Ur Leukocyte Esterase (Negative) Urine WBC (0-5) /hpf Urine WBC Clumps (None) /hpf Urine Bacteria (None) /hpf Urine Mucus (None) /hpf 08/25/23 08/25/23 08/26/23 Range/Units 20:32 21:16 05:39 WBC 20.9 H (3.8-10.6) k/uL MCV 103.0 H (80.0-100.0) fL Neutrophils # 17.4 H (1.3-7.7) k/uL Monocytes # 1.9 H (0-1.0) k/uL PT (10.0-12.5) sec INR (<1.2) Sodium (137-145) mmol/L Potassium (3.5-5.1) mmol/L Chloride (98-107) mmol/L Carbon Dioxide (22-30) mmol/L BUN (7-17) mg/dL Creatinine (0.52-1.04) mg/dL Glucose (74-99) mg/dL Plasma Lactic Acid Rony 2.2 H* (0.7-2.0) mmol/L Calcium (8.4-10.2) mg/dL Total Bilirubin (0.2-1.3) mg/dL Alkaline Phosphatase (38-126) U/L Total Protein (6.3-8.2) g/dL Albumin (3.5-5.0) g/dL Urine Appearance Cloudy H (Clear) Urine Protein Trace H (Negative) Urine Glucose (UA) 1+ H (Negative) Urine Blood Trace H (Negative) Ur Leukocyte Esterase Large H (Negative) Urine WBC >182 H (0-5) /hpf Urine WBC Clumps Many H (None) /hpf Urine Bacteria Many H (None) /hpf Urine Mucus Rare H (None) /hpf 08/26/23 Range/Units 05:39 WBC (3.8-10.6) k/uL MCV (80.0-100.0) fL Neutrophils # (1.3-7.7) k/uL Monocytes # (0-1.0) k/uL PT (10.0-12.5) sec INR (<1.2) Sodium 127 L (137-145) mmol/L Potassium 5.2 H (3.5-5.1) mmol/L Chloride (98-107) mmol/L Carbon Dioxide 18 L (22-30) mmol/L BUN 57 H (7-17) mg/dL Creatinine 1.87 H (0.52-1.04) mg/dL Glucose 107 H (74-99) mg/dL Plasma Lactic Acid Rony (0.7-2.0) mmol/L Calcium 7.7 L (8.4-10.2) mg/dL Total Bilirubin (0.2-1.3) mg/dL Alkaline Phosphatase (38-126) U/L Total Protein (6.3-8.2) g/dL Albumin (3.5-5.0) g/dL Urine Appearance (Clear) Urine Protein (Negative) Urine Glucose (UA) (Negative) Urine Blood (Negative) Ur Leukocyte Esterase (Negative) Urine WBC (0-5) /hpf Urine WBC Clumps (None) /hpf Urine Bacteria (None) /hpf Urine Mucus (None) /hpf Assessment and Plan Assessment: 1. Sepsis -As indicated by elevated white blood count, lactic acid level and hypotension -Patient has been admitted to ICU; remains on pressor agents 2. UTI; patient remains on IV Zosyn; will monitor CBC, CRP and procalcitonin -Further recommendations once urine culture is available 3. Hyponatremia/hyperkalemia; patient has been placed on IV fluids; will monitor strict ALISON's; potassium level is down to 5.2 from 5.3 yesterday -Sodium level trended down to 127 from 129 yesterday -Will continue with IV fluid hydration and monitor electrolytes closely 4. Acute renal injury; likely related to sepsis and poor oral intake -Continue with IV fluid hydration and monitor strict ALISON's, daily weights, renal function electrolytes 5. Atrial fibrillation; patient remains rate controlled on metoprolol 100 mg twice daily which is currently on hold given hypotension; heart rate in 80s to 90s currently; we will plan to start Lopressor on a low-dose if needed -Continue with current dose of Eliquis 6. Leukocytosis; likely related to sepsis; white blood count trended up slightly to 20,000 this morning; patient remains on IV Zosyn; blood cultures and urine cultures obtained and pending 7. Hypertension; patient takes Aldactone, metoprolol and valsartan along with Lasix which are all placed on hold given hypotension 8. Hyperlipidemia; Lipitor 80 mg p.o. nightly DVT prophylaxis; SCDs/heparin CODE STATUS; full code
[2023-08-26] MEDS ORDERED: PIPERACILLIN-TAZOBACTAM 3.375 GM in SODIUM CHLORIDE 0.9% 100 ML IVPB SCH (21:00)
[2023-08-26] MEDS: NOREPINEPHRINE 32 MG in SODIUM CHLORIDE 0.9% 218 ML IV SCH (22:15)
[2023-08-27 06:01] LABS: Basophils % (A) 0 %; Eosinophils # (A) 0.1 k/uL (0-0.7); Eosinophils % (A) 0 %; HCT 41.1 % (34.0-46.0); HGB 12.9 gm/dL (11.4-16.0); Hypochromasia Marked; Lymphocytes # (A) 1.3 k/uL (1.0-4.8); Lymphocytes % (A) 8 %; MCH 32.9 pg (25.0-35.0); MCHC 31.4 g/dL (31.0-37.0); MCV 104.7 fL (80.0-100.0); Macrocytosis Slight; Mean Platelet Volume 7.3; Monocytes # (A) 1.5 k/uL (0-1.0); Monocytes % (A) 9 %; Neutrophils # (A) 13.3 k/uL (1.3-7.7); Neutrophils % (A) 80 %; Platelet Count 204 k/uL (150-450); RBC 3.93 m/uL (3.80-5.40); RDW 12.4 % (11.5-15.5); WBC 16.7 k/uL (3.8-10.6)
[2023-08-27 06:09] LABS: African American GFR (CKD) 45 (>60 ml/min/1.73 sqM); Anion Gap 5 mmol/L; Blood Urea Nitrogen 36 mg/dL (7-17); Calcium 7.7 mg/dL (8.4-10.2); Carbon Dioxide 19 mmol/L (22-30); Chloride 107 mmol/L (98-107); Glucose 115 mg/dL (74-99); Non-African American GFR(CKD) 39 (>60 ml/min/1.73 sqM); Sodium 131 mmol/L (137-145)
--- NOTE | 2023-08-27 08:57 | P.CONS ---
History of Present Illness - Reason for Consult Consult date: 08/26/23 Urosepsis Requesting physician: Jose Sahu - Chief Complaint Weakness burning of urine x few days - History of Present Illness Patient is a 83-year-old female with a past medical history significant for hypertension hyperlipidemia osteoarthritis atrial fibrillation patient presenting to the ER for evaluation of generalized weakness and hypotension apparently the patient did have adjustment of her blood pressure medication by her human performance professor and the patient been feeling weak and lethargic and have difficulty with activities of daily living, patient also have some diarrhea and did have a urinary symptoms of burning denies significant suprapubic or flank pain some nausea but no vomiting with the symptoms the patient has been brought into the hospital on arrival to the ER patient did have a temperature of 102.9 F patient was tachycardic, hypotensive requiring admission to the ICU not hypoxic patient did have a white count of 18 point 5 repeat is up to 20.9. Creatinine has been mildly elevated lactic acid was elevated 2.2 urine has been positive patient was started on Zosyn admitted to ICU infectious disease was consulted for further management of antibiotic therapy Review of Systems Positive point and negatives has been mentioned in the HPI, complete review of systems was performed and all other systems are negative Past Medical History Past Medical History: Atrial Fibrillation, Hyperlipidemia, Hypertension, Osteoarthritis (OA), Vascular Disorder Additional Past Medical History / Comment(s): -hx irregular heart rate, 2 ruptured disc back, bladder leakage, pancreatitis, edd. 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 MDRO Source:: Urine Past Surgical History: Cholecystectomy, Heart Catheterization With Stent, Hysterectomy, Orthopedic Surgery Additional Past Surgical History / Comment(s): lt knee arthroscopy Past Anesthesia/Blood Transfusion Reactions: No Reported Reaction Date of Last Stent Placement:: MAY 2017 Past Psychological History: Anxiety Smoking Status: Never smoker Past Alcohol Use History: Occasional Past Drug Use History: None Reported - Past Family History Mother Family Medical History: No Reported History Additional Family Medical History / Comment(s): heart issues Father Family Medical History: Cancer Additional Family Medical History / Comment(s): . Medications and Allergies Home Medications Medication Instructions Recorded Confirmed Type Atorvastatin [Lipitor] 80 mg PO HS #30 tab 02/23/17 08/26/23 Rx Spironolactone 50 mg PO DAILY 02/25/17 08/26/23 History Apixaban [Eliquis] 5 mg PO BID 08/04/18 08/26/23 History Metoprolol Tartrate [Lopressor] 100 mg PO BID #60 tab 01/16/20 08/26/23 Rx Tolterodine ER [Detrol LA] 4 mg PO DAILY 05/13/23 08/26/23 History Acetaminophen Tab [Tylenol Tab] 1,000 mg PO Q6H PRN #60 tablet 05/19/23 08/26/23 Rx Dapagliflozin Propanediol [Farxiga] 10 mg PO DAILY #30 tablet 05/19/23 08/26/23 Rx Furosemide [Lasix] 40 mg PO DAILY #30 tablet 05/19/23 08/26/23 Rx Valsartan 80 mg PO DAILY 08/26/23 08/26/23 History traZODone HCL [Desyrel] 50 mg PO HS PRN 08/26/23 08/26/23 History Allergies Allergy/AdvReac Type Severity Reaction Status Date / Time Sulfa (Sulfonamide Allergy Unknown Verified 08/26/23 10:01 Antibiotics) codeine AdvReac Hallucinati Verified 08/26/23 10:01 ons Physical Exam Vitals: Vital Signs Temp Pulse Pulse Resp BP BP Pulse Ox 08/26/23 10:00 105 H 12 103/41 100 08/26/23 09:45 101 H 15 106/55 98 08/26/23 09:30 100 17 92/79 98 08/26/23 09:15 87 10 L 113/55 96 08/26/23 09:00 102 H 17 109/59 96 08/26/23 08:45 117 H 24 112/46 94 L 08/26/23 08:30 113 H 17 109/63 93 L 08/26/23 08:15 100 15 113/74 95 08/26/23 08:00 98.1 F 105 H 19 116/56 93 L 08/26/23 07:45 123 H 15 116/54 95 08/26/23 07:30 106 H 20 108/56 96 08/26/23 07:20 104 H 16 108/56 94 L 08/26/23 07:10 116 H 18 112/61 95 08/26/23 07:00 96 20 100/55 94 L 08/26/23 06:50 93 23 100/55 96 08/26/23 06:40 120 H 20 103/56 95 08/26/23 06:30 101 H 18 105/51 96 08/26/23 06:20 99 17 105/51 97 08/26/23 06:10 111 H 20 105/52 97 08/26/23 06:00 114 H 20 99/50 95 08/26/23 05:50 108 H 17 99/50 98 08/26/23 05:40 113 H 20 101/45 97 08/26/23 05:30 98 18 100/46 96 08/26/23 05:20 102 H 18 89/54 97 08/26/23 05:10 101 H 18 108/51 96 08/26/23 05:00 103 H 21 102/50 98 08/26/23 04:50 112 H 17 102/50 97 08/26/23 04:40 112 H 20 110/55 98 08/26/23 04:30 125 H 21 100/57 97 08/26/23 04:20 122 H 16 100/57 98 08/26/23 04:10 118 H 15 139/66 96 08/26/23 04:00 98.5 F 114 H 16 137/87 95 08/26/23 03:50 109 H 16 137/87 97 08/26/23 03:40 112 H 20 95/48 95 08/26/23 03:30 112 H 19 81/57 96 08/26/23 03:20 118 H 22 96/55 95 08/26/23 03:10 112 H 18 109/62 98 08/26/23 03:00 112 H 17 103/81 96 08/26/23 02:50 112 H 19 101/60 96 08/26/23 02:40 115 H 20 93/47 95 08/26/23 02:30 117 H 17 103/48 96 08/26/23 02:20 131 H 19 103/48 97 08/26/23 02:10 129 H 25 H 98/51 96 08/26/23 02:00 112 H 18 98/50 96 08/26/23 01:50 111 H 21 98/50 95 08/26/23 01:40 137 H 13 90/68 08/26/23 01:30 110 H 15 94/41 07/19/24 01:20 121 H 19 94/41 08/26/23 01:10 103 H 19 99/67 08/26/23 01:00 118/65 08/26/23 00:50 118/65 08/26/23 00:40 115 H 20 113/58 08/26/23 00:30 117 H 21 95/58 95 08/26/23 00:20 118/65 08/26/23 00:10 97.5 F L 119 H 16 118/65 98 08/26/23 00:00 128 H 23 120/71 98 08/25/23 23:50 29 H 125/74 91 L 08/25/23 23:40 124 H 21 118/77 72 L 08/25/23 23:30 117 H 21 101/61 97 08/25/23 23:20 142 H 20 89/59 08/25/23 23:15 115 H 18 121/65 97 08/25/23 23:10 124 H 24 98/59 08/25/23 23:05 118 H 18 101/65 98 08/25/23 23:00 110 H 18 97/55 08/25/23 22:56 102.9 F H 101 H 112 H 19 97/55 98/50 98 08/25/23 22:50 124 H 14 97/55 96 08/25/23 22:40 105 H 18 97/55 08/25/23 22:30 110 H 19 85/31 96 24 22:20 20 85/31 99 08/25/23 22:10 125 H 17 85/31 94 L 08/25/23 22:00 116 H 21 85/31 94 L 08/25/23 21:50 114 H 19 85/31 100 24 21:41 107 H 18 85/31 97 24 21:40 101 H 15 85/31 46 L 24 21:30 112 H 16 95/57 64 L 08/25/23 21:20 118 H 23 95/57 76 L 08/25/23 21:10 105 H 11 L 92/58 24 21:00 123 H 29 H 92/58 24 20:50 112 H 24 08/25/23 20:40 92 37 H 73 L 24 20:30 105 H 32 H 92/58 95 07/18/24 20:28 98 14 63/39 95 08/25/23 20:07 97.7 F 90 14 73/45 94 L Intake and Output 08/25/23 08/26/23 08/26/23 22:59 06:59 14:59 Intake Total 1017.079 520 Output Total 320 250 Balance 697.079 270 Intake: IV 390 Sodium Chloride 0.9% 1, 390 000 ml @ 130 mls/hr IV . Q7H42M [facility] Rx#:[id number] Intake, IV Titration 1017.079 130 Amount Norepinephrine 32 mg In 7.079 Sodium Chloride 0.9% 218 ml @ 0.03 MCG/KG/MIN 1. 403 mls/hr IV .Q24H [facility] Rx#:[id number] Piperacillin-Tazobactam 3 100 .375 gm In Sodium Chloride 0.9% 100 ml @ 25 mls/hr IVPB Q8HR [facility] Rx# :[id number] Sodium Chloride 0.9% 1, 910 130 000 ml @ 130 mls/hr IV . Q7H42M [facility] Rx#:[id number] Output: Urine 320 250 Other: Weight 99.79 kg 109.3 kg GENERAL DESCRIPTION: Elderly female lying in bed, no distress. No tachypnea or accessory muscle of respiration use. HEENT: Shows Pallor , no scleral icterus. Oral mucous membrane is dry. No pharyngeal erythema or thrush NECK: Trachea central, no thyromegaly. LUNGS: Unlabored breathing. Clear to auscultation anteriorly. No wheeze or crackle. HEART: S1, S2, regular rate and rhythm. No loud murmur ABDOMEN: Soft, no tenderness , guarding or rigidity, no organomegaly EXTREMITIES: No edema of feet. SKIN: No rash, no masses palpable. NEUROLOGICAL: The patient is awake, alert, oriented x3, mood and affect normal. Results CBC & Chem 7: 08/27/23 05:31 08/27/23 05:31 Labs: Abnormal Lab Results - Last 24 Hours (Table) 08/25/23 08/25/23 08/25/23 Range/Units 20:32 20:32 20:32 WBC 18.5 H (3.8-10.6) k/uL MCV 100.7 H (80.0-100.0) fL Neutrophils # 15.2 H (1.3-7.7) k/uL Monocytes # 1.6 H (0-1.0) k/uL PT 12.7 H (10.0-12.5) sec INR 1.2 H (<1.2) Sodium 129 L (137-145) mmol/L Potassium 5.3 H (3.5-5.1) mmol/L Chloride 95 L (98-107) mmol/L Carbon Dioxide (22-30) mmol/L BUN 65 H (7-17) mg/dL Creatinine 2.32 H (0.52-1.04) mg/dL Glucose (74-99) mg/dL Plasma Lactic Acid Rony (0.7-2.0) mmol/L Calcium (8.4-10.2) mg/dL Total Bilirubin 1.8 H (0.2-1.3) mg/dL Alkaline Phosphatase 162 H (38-126) U/L Total Protein 5.7 L (6.3-8.2) g/dL Albumin 3.3 L (3.5-5.0) g/dL Urine Appearance (Clear) Urine Protein (Negative) Urine Glucose (UA) (Negative) Urine Blood (Negative) Ur Leukocyte Esterase (Negative) Urine WBC (0-5) /hpf Urine WBC Clumps (None) /hpf Urine Bacteria (None) /hpf Urine Mucus (None) /hpf 08/25/23 08/25/23/ Range/Units 20:32 21:16 05:39 WBC 20.9 H (3.8-10.6) k/uL MCV 103.0 H (80.0-100.0) fL Neutrophils # 17.4 H (1.3-7.7) k/uL Monocytes # 1.9 H (0-1.0) k/uL PT (10.0-12.5) sec INR (<1.2) Sodium (137-145) mmol/L Potassium (3.5-5.1) mmol/L Chloride (98-107) mmol/L Carbon Dioxide (22-30) mmol/L BUN (7-17) mg/dL Creatinine (0.52-1.04) mg/dL Glucose (74-99) mg/dL Plasma Lactic Acid Rony 2.2 H* (0.7-2.0) mmol/L Calcium (8.4-10.2) mg/dL Total Bilirubin (0.2-1.3) mg/dL Alkaline Phosphatase (38-126) U/L Total Protein (6.3-8.2) g/dL Albumin (3.5-5.0) g/dL Urine Appearance Cloudy H (Clear) Urine Protein Trace H (Negative) Urine Glucose (UA) 1+ H (Negative) Urine Blood Trace H (Negative) Ur Leukocyte Esterase Large H (Negative) Urine WBC >182 H (0-5) /hpf Urine WBC Clumps Many H (None) /hpf Urine Bacteria Many H (None) /hpf Urine Mucus Rare H (None) /hpf 08/26/23 Range/Units 05:39 WBC (3.8-10.6) k/uL MCV (80.0-100.0) fL Neutrophils # (1.3-7.7) k/uL Monocytes # (0-1.0) k/uL PT (10.0-12.5) sec INR (<1.2) Sodium 127 L (137-145) mmol/L Potassium 5.2 H (3.5-5.1) mmol/L Chloride (98-107) mmol/L Carbon Dioxide 18 L (22-30) mmol/L BUN 57 H (7-17) mg/dL Creatinine 1.87 H (0.52-1.04) mg/dL Glucose 107 H (74-99) mg/dL Plasma Lactic Acid Rony (0.7-2.0) mmol/L Calcium 7.7 L (8.4-10.2) mg/dL Total Bilirubin (0.2-1.3) mg/dL Alkaline Phosphatase (38-126) U/L Total Protein (6.3-8.2) g/dL Albumin (3.5-5.0) g/dL Urine Appearance (Clear) Urine Protein (Negative) Urine Glucose (UA) (Negative) Urine Blood (Negative) Ur Leukocyte Esterase (Negative) Urine WBC (0-5) /hpf Urine WBC Clumps (None) /hpf Urine Bacteria (None) /hpf Urine Mucus (None) /hpf Assessment and Plan (1) UTI (urinary tract infection) Current Visit: Yes Status: Acute Code(s): N39.0 - URINARY TRACT INFECTION, SITE NOT SPECIFIED SNOMED Code(s): 74529907 (2) Sepsis Current Visit: Yes Status: Acute Code(s): A41.9 - SEPSIS, UNSPECIFIED ORGANISM SNOMED Code(s): 70628557 (3) Allergy to sulfa drugs Current Visit: Yes Status: Acute Code(s): Z88.2 - ALLERGY STATUS TO SULFONAMIDES SNOMED Code(s): 91711926 Plan: 1patient presented hospital with sepsis in this patient who did have fever tachycardia hypotension urinary symptoms positive UA source is likely urinary tract infection likely from enteric gram-negative pathogen. 2sulfa allergy. 3patient to continue with Zosyn while waiting for the culture to finalize. 4check ultrasound of the kidney bladder to make no evidence of any structural abnormality We will follow on clinical condition and cultures to further adjust medication if needed Thank you for this consultation we will follow the patient along with you Dictation was produced using [employer] dictation software. please excuse any grammatical, word or spelling errors. Time with Patient: Greater than 30
[2023-08-27] MEDS: SODIUM CHLORIDE 0.9% 1,000 ML IV ONE (09:16)
--- NOTE | 2023-08-27 11:21 | US ---
EXAMINATION TYPE: US kidneys/renal and bladder DATE OF EXAM: 08/27/2023 COMPARISON: NONE CLINICAL INDICATION: Female, 83 years old with history of uti and bacteremia; Portable ICU patient Patient scanned in chair, limited EXAM MEASUREMENTS: Right Kidney: 10.1 x 6.2 x 6.1 cm Left Kidney: 10.6 x 4.7 x 5.9 cm Right Kidney: Cortical lobularity seen Left Kidney: No prominent hydronephrosis or masses seen Bladder: rosa seen Bilateral jets not seen due to rosa There is no evidence for hydronephrosis at this point in time. No nephrolithiasis is seen. No andrés s are identified. The urinary bladder is anechoic. Bilateral ureteral jets are seen. IMPRESSION: No evidence for obstructive uropathy.
--- NOTE | 2023-08-27 11:52 | P.PN ---
Subjective Progress Note Date: 08/27/23 Principal diagnosis: This is an 83 years old female patient with PMH of AFib, Hyperlipidemia, osteoarthritis and hypertension with valsartan started 2 days ago by her electrical manufacturing engineer. She presented to the ED yesterday as she was feeling weak and lethargic and was hypotensive. She was given 2litres of saline. Her labs showed WBC 20.9, Hb 13,MCV 103, Plt 240, Na 127, K 5.2, BUN 57, and Creatinine 1.8. She was in urospesis with labs showing elevated urine leukocyte esterase, many WBC clumps, WBC >182 and many bacteria in the urine. Her chest x-ray shows cardiomegaly and mild pulmonary vascular congestion. She was started on Zosyn 25ml/hr. Today she was seen in the ICU and was stable on room air. She is currently on Norepinephrine 7 mcg/min and 0.9 at 130 ml/hr. Denies shortness of breath, cough, chest pain,fever, chills, and weakness. A procalcitonin level is ordered. She lives with her daughter and has difficulties with activities of daily living. ID has been consulted. Will continue to monitor. Progress note dated August 27 2023. Patient was evaluated in the ICU today. Overnight she was hypotensive and was started on norepinephrine 3 mcg/Kg/ minute. Blood culture came back positive for Klebsiella she was started on Rocephin 100 mm/h. She feels a better today a nd is on room air. Although she does complain of diarrhea, she had 3 episodes since morning. She is receiving 0.9% normal saline at 130 ml/hr. Pro-Leonel level is 0.68 which is consistent with infection. Labs show WBC 16.7, hemoglobin 12.9, platelets 204, sodium 131, potassium 5, BUN 36, creatinine 1.27. EKG shows atrial fibrillation with rapid ventricular response and is on Apixaban 5 mg twice daily. Abdomen/bladder ultrasound done today was normal. Denies shortness of breath, cough, chest pain, fever, chills and weakness. Will continue to monitor. Objective - Vital Signs Vital signs: Vital Signs Temp 98.5 F 08/27/23 08:00 Pulse 118 H 08/27/23 11:00 Resp 17 08/27/23 11:00 BP 102/58 08/27/23 11:00 Pulse Ox 98 08/27/23 11:00 FiO2 Intake & Output 08/26/23 08/27/23 08/27/23 18:59 06:59 18:59 Intake Total 4254.704 2473.137 1651.947 Output Total 1450 875 350 Balance 474.581 7027.137 1301.947 Weight 104.8 kg Intake: IV 1430 1690 1650 Sodium Chloride 0.9% 1, 1430 1690 650 000 ml @ 130 mls/hr IV . Q7H42M [facility] Rx#:[id number] Sodium Chloride 0.9% 1, 1000 000 ml @ 999 mls/hr IV . Q1H1M [facility] Rx#:[id number] Intake, IV Titration 180.747 71.137 1.947 Amount Norepinephrine 32 mg In 50.747 Sodium Chloride 0.9% 218 ml @ 0.03 MCG/KG/MIN 1. 403 mls/hr IV .Q24H [facility] Rx#:[id number] Norepinephrine 32 mg In 21.137 1.947 Sodium Chloride 0.9% 218 ml @ 0.03 MCG/KG/MIN 1. 537 mls/hr IV .Q24H [facility] Rx#:[id number] Sodium Chloride 0.9% 1, 130 000 ml @ 130 mls/hr IV . Q7H42M [facility] Rx#:[id number] cefTRIAXone 2 gm In 50 Sodium Chloride 0.9% 50 ml @ 100 mls/hr IVPB HS [facility] Rx#:[id number] Oral 770 Output: Urine 1450 875 350 Other: # Bowel Movements 2 - Exam GENERAL EXAM: 83-year-old obese female, in no acute distress. HEAD: Normocephalic and atraumatic EYES: Normal reaction of pupils, equal size. NOSE: Clear with pink turbinates. THROAT: No erythema or exudates. NECK: No masses, no JVD. CHEST: No chest wall deformity. LUNGS: Equal air entry with no crackles, wheeze, rhonchi or dullness. CVS: S1 and S2 normal with no audible murmur, regular rhythm. No extra heart sounds ABDOMEN: No masses or tenderness SPINE: No scoliosis or deformity SKIN: No rashes CENTRAL NERVOUS SYSTEM: Alert and technically oriented x 3. No focal deficits, tone is normal in all 4 extremities. EXTREMITIES: Bilateral lower extremity edema,No clubbing, or cyanosis. - Labs CBC & Chem 7: 08/27/23 05:31 08/27/23 05:31 Labs: Abnormal Lab Results - Last 24 Hours (Table) 08/26/23 08/27/23 08/27/23 Range/Units 05:39 05:31 05:31 WBC 16.7 H (3.8-10.6) k/uL MCV 104.7 H (80.0-100.0) fL Neutrophils # 13.3 H (1.3-7.7) k/uL Monocytes # 1.5 H (0-1.0) k/uL Sodium 131 L (137-145) mmol/L Carbon Dioxide 19 L (22-30) mmol/L BUN 36 H (7-17) mg/dL Creatinine 1.27 H (0.52-1.04) mg/dL Glucose 115 H (74-99) mg/dL Calcium 7.7 L (8.4-10.2) mg/dL Procalcitonin 0.68 H (0.02-0.09) ng/mL Microbiology - Last 24 Hours (Table) 08/25/23 23:30 Blood Culture Gram Stain - Preliminary Blood Blood Culture - Preliminary Klebsiella pneumoniae Molecular ID Assessment and Plan Assessment: 1.Sepsis secondary to Urinary Tract infection 2.Weakness secondary to hypotension 2.Bilateral Lower extremity edema 3.Atrial fibrillation with rapid ventricular rate 4.Chronic diarrhea Plan: Patients medications, labs and chest xray reviewed. Continue Rocephin 100 ml/hr Continue Norepinephrine 3 mcg/min Continue 0.9 saline at 130 ml/hr Apixaban 2.5mg twice a day High prolactin level is consistent with her infection. Will continue to follow. Critical care time is 35 minutes. Time with Patient: Greater than 30
[2023-08-27] MEDS: SODIUM CHLORIDE 0.9% 500 ML 500 ML IV ONE (11:57)
[2023-08-27] MEDS: NOREPINEPHRINE 4 MG in SODIUM CHLORIDE 0.9% 250 ML IV SCH (13:15)
--- NOTE | 2023-08-27 14:16 | P.PN ---
Subjective Progress Note Date: 08/27/23 Principal diagnosis: Reason for follow-up sepsis UTI and bacteremia Patient is a 83-year-old female with a past medical history significant for hypertension hyperlipidemia osteoarthritis atrial fibrillation patient presenting to the ER for evaluation of generalized weakness and hypotension, patient be diagnosed with sepsis secondary to urinary tract infection subsequently blood cultures came back positive with Klebsiella. On today's evaluation that is 08/27/2023, Patient is afebrile this morning patient denies having any chest pain shortness of breath or cough, the patient is breathing comfortably and currently on room air, patient denies any abdominal pain no diarrhea no nausea no vomiting, no new symptoms still complaining of weakness. Patient white count is down to 16.7, creatinine is 1.27 blood culture with Klebsiella urine cultures pending Objective - Vital Signs Vital signs: Vital Signs Temp 98.5 F 08/27/23 08:00 Pulse 118 H 08/27/23 11:00 Resp 17 08/27/23 11:00 BP 102/58 08/27/23 11:00 Pulse Ox 98 08/27/23 11:00 FiO2 Intake & Output 08/26/23 08/27/23 08/27/23 18:59 06:59 18:59 Intake Total 0439.516 2677.137 1658.582 Output Total 1450 875 350 Balance 662.218 4797.137 1308.582 Weight 104.8 kg Intake: IV 1430 1690 1650 Sodium Chloride 0.9% 1, 1430 1690 650 000 ml @ 130 mls/hr IV . Q7H42M [facility] Rx#:[id number] Sodium Chloride 0.9% 1, 1000 000 ml @ 999 mls/hr IV . Q1H1M [facility] Rx#:[id number] Intake, IV Titration 180.747 71.137 8.582 Amount Norepinephrine 32 mg In 50.747 Sodium Chloride 0.9% 218 ml @ 0.03 MCG/KG/MIN 1. 403 mls/hr IV .Q24H [facility] Rx#:[id number] Norepinephrine 32 mg In 21.137 8.582 Sodium Chloride 0.9% 218 ml @ 0.03 MCG/KG/MIN 1. 537 mls/hr IV .Q24H [facility] Rx#:[id number] Sodium Chloride 0.9% 1, 130 000 ml @ 130 mls/hr IV . Q7H42M [facility] Rx#:[id number] cefTRIAXone 2 gm In 50 Sodium Chloride 0.9% 50 ml @ 100 mls/hr IVPB HS [facility] Rx#:[id number] Oral 770 Output: Urine 1450 875 350 Other: # Bowel Movements 2 - Exam GENERAL DESCRIPTION: An elderly female up in the chair in no distress RESPIRATORY SYSTEM: Unlabored breathing , decreased breath sounds at bases HEART: S1 S2 regular rate and rhythm , ABDOMEN: Soft , no tenderness EXTREMITIES: No edema feet - Labs CBC & Chem 7: 08/27/23 05:31 08/27/23 05:31 Labs: Abnormal Lab Results - Last 24 Hours (Table) 08/26/23 08/27/23 08/27/23 Range/Units 05:39 05:31 05:31 WBC 16.7 H (3.8-10.6) k/uL MCV 104.7 H (80.0-100.0) fL Neutrophils # 13.3 H (1.3-7.7) k/uL Monocytes # 1.5 H (0-1.0) k/uL Sodium 131 L (137-145) mmol/L Carbon Dioxide 19 L (22-30) mmol/L BUN 36 H (7-17) mg/dL Creatinine 1.27 H (0.52-1.04) mg/dL Glucose 115 H (74-99) mg/dL Calcium 7.7 L (8.4-10.2) mg/dL Procalcitonin 0.68 H (0.02-0.09) ng/mL Microbiology - Last 24 Hours (Table) 08/25/23 23:30 Blood Culture Gram Stain - Preliminary Blood Blood Culture - Preliminary Klebsiella pneumoniae Molecular ID Assessment and Plan (1) UTI (urinary tract infection) Current Visit: Yes Status: Acute Code(s): N39.0 - URINARY TRACT INFECTION, SITE NOT SPECIFIED SNOMED Code(s): 34698119 (2) Sepsis Current Visit: Yes Status: Acute Code(s): A41.9 - SEPSIS, UNSPECIFIED ORGANISM SNOMED Code(s): 55308431 (3) Allergy to sulfa drugs Current Visit: Yes Status: Acute Code(s): Z88.2 - ALLERGY STATUS TO SULFONA MIDES SNOMED Code(s): 72364232 (4) Bacteremia Current Visit: Yes Status: Acute Code(s): R78.81 - BACTEREMIA SNOMED Code(s): 0098717 Plan: 1patient presented hospital with sepsis in this patient who did have fever tach ycardia hypotension urinary symptoms positive UA source is likely urinary tract infection likely from enteric gram-negative pathogen. 2patient blood culture came positive with Klebsiella with no resistant gene 3 ultrasound of the kidney bladder with no evidence of any structural abnormality 4patient antibiotic adjusted to Rocephin 2 g daily to continue while waiting for sensitivity finalize Dictation was produced using [employer] dictation software. please excuse any grammatical, word or spelling errors.
--- NOTE | 2023-08-27 18:56 | P.PN ---
Subjective Progress Note Date: 08/27/23 83-year-old female with a past medical history significant for hypertension hyperlipidemia osteoarthritis atrial fibrillation patient presenting to the ER for evaluation of generalized weakness and hypotension apparently the patient did have adjustment of her blood pressure medication by her business process architect and the patient been feeling weak and lethargic and have difficulty with activities of daily living, patient also have some diarrhea and did have a urinary symptoms of burning denies significant suprapubic or flank pain some nausea but no vomiting with the symptoms the patient has been brought into the hospital on arrival to the ER patient did have a temperature of 102.9 F patient was tachycardic, hypotensive requiring admission to the ICU not hypoxic patient did have a white count of 18 point 5 repeat is up to 20.9. Creatinine has been mildly elevated lactic acid was elevated 2.2 urine has been positive patient was started on Zosyn admitted to ICU Objective - Vital Signs Vital signs: Vital Signs Temp 98.5 F 08/27/23 08:00 Pulse 95 08/27/23 09:00 Resp 17 08/27/23 09:00 BP 114/85 08/27/23 09:00 Pulse Ox 96 08/27/23 09:00 FiO2 Intake & Output 08/26/23 08/27/23 08/27/23 18:59 06:59 18:59 Intake Total 9842.574 4109.137 391.947 Output Total 1450 875 175 Balance 087.607 2827.137 216.947 Weight 104.8 kg Intake: IV 1430 1690 390 Sodium Chloride 0.9% 1, 1430 1690 390 000 ml @ 130 mls/hr IV . Q7H42M [facility] Rx#:[id number] Intake, IV Titration 180.747 71.137 1.947 Amount Norepinephrine 32 mg In 50.747 Sodium Chloride 0.9% 218 ml @ 0.03 MCG/KG/MIN 1. 403 mls/hr IV .Q24H [facility] Rx#:[id number] Norepinephrine 32 mg In 21.137 1.947 Sodium Chloride 0.9% 218 ml @ 0.03 MCG/KG/MIN 1. 537 mls/hr IV .Q24H [facility] Rx#:[id number] Sodium Chloride 0.9% 1, 130 000 ml @ 130 mls/hr IV . Q7H42M [facility] Rx#:[id number] cefTRIAXone 2 gm In 50 Sodium Chloride 0.9% 50 ml @ 100 mls/hr IVPB HS [facility] Rx#:[id number] Oral 770 Output: Urine 1450 875 175 Other: # Bowel Movements 2 - Exam GENERAL DESCRIPTION: Elderly female lying in bed, no distress. No tachypnea or a ccessory muscle of respiration use. HEENT: Shows Pallor , no scleral icterus. Oral mucous membrane is dry. No pharyngeal erythema or thrush NECK: Trachea central, no thyromegaly. LUNGS: Unlabored breathing. Clear to auscultation anteriorly. No wheeze or crackle. HEART: S1, S2, regular rate and rhythm. No loud murmur ABDOMEN: Soft, no tenderness , guarding or rigidity, no organomegaly EXTREMITIES: No edema of feet. SKIN: No rash, no masses palpable. NEUROLOGICAL: The patient is awake, alert, oriented x3, mood and affect normal. - Labs CBC & Chem 7: 08/27/23 05:31 08/27/23 05:31 Labs: Abnormal Lab Results - Last 24 Hours (Table) 08/26/23 08/27/23 08/27/23 Range/Units 05:39 05:31 05:31 WBC 16.7 H (3.8-10.6) k/uL MCV 104.7 H (80.0-100.0) fL Neutrophils # 13.3 H (1.3-7.7) k/uL Monocytes # 1.5 H (0-1.0) k/uL Sodium 131 L (137-145) mmol/L Carbon Dioxide 19 L (22-30) mmol/L BUN 36 H (7-17) mg/dL Creatinine 1.27 H (0.52-1.04) mg/dL Glucose 115 H (74-99) mg/dL Calcium 7.7 L (8.4-10.2) mg/dL Procalcitonin 0.68 H (0.02-0.09) ng/mL Microbiology - Last 24 Hours (Table) 08/25/23 23:30 Blood Culture Gram Stain - Preliminary Blood Blood Culture - Preliminary Klebsiella pneumoniae Molecular ID Assessment and Plan Assessment: 1. Sepsis -As indicated by elevated white blood count, lactic acid level and hypotension -Patient has been admitted to ICU; remains on pressor agents 2. UTI; patient remains on IV Zosyn; will monitor CBC, CRP and procalcitonin -Further recommendations once urine culture is available 3. Hyponatremia/hyperkalemia; patient has been placed on IV fluids; will monitor strict ALISON's; potassium level is down to 5.2 from 5.3 yesterday -Sodium level trended down to 127 from 129 yesterday -Will continue with IV fluid hydration and monitor electrolytes closely 4. Acute renal injury; likely related to sepsis and poor oral intake -Continue with IV fluid hydration and monitor strict ALISON's, daily weights, renal function electrolytes 5. Atrial fibrillation; patient remains rate controlled on metoprolol 100 mg twice daily which is currently on hold given hypotension; heart rate in 80s to 90s currently; we will plan to start Lopressor on a low-dose if needed -Continue with current dose of Eliquis 6. Leukocytosis; likely related to sepsis; white blood count trended up slightly to 20,000 this morning; patient remains on IV Zosyn; blood cultures and urine cultures obtained and pending 7. Hypertension; patient takes Aldactone, metoprolol and valsartan along with Lasix which are all placed on hold given hypotension 8. Hyperlipidemia; Lipitor 80 mg p.o. nightly DVT prophylaxis; SCDs/heparin CODE STATUS; full code
[2023-08-28 06:32] LABS: Basophils % (A) 0 %; Eosinophils # (A) 0.3 k/uL (0-0.7); Eosinophils % (A) 3 %; HCT 40.5 % (34.0-46.0); HGB 12.7 gm/dL (11.4-16.0); Hypochromasia Marked; Lymphocytes # (A) 1.5 k/uL (1.0-4.8); Lymphocytes % (A) 13 %; MCH 32.9 pg (25.0-35.0); MCHC 31.4 g/dL (31.0-37.0); MCV 104.8 fL (80.0-100.0); Macrocytosis Slight; Mean Platelet Volume 7.6; Monocytes # (A) 1.1 k/uL (0-1.0); Monocytes % (A) 9 %; Neutrophils # (A) 8.4 k/uL (1.3-7.7); Neutrophils % (A) 72 %; Platelet Count 224 k/uL (150-450); RBC 3.86 m/uL (3.80-5.40); RDW 12.5 % (11.5-15.5); WBC 11.7 k/uL (3.8-10.6)
[2023-08-28 06:46] LABS: African American GFR (CKD) 60 (>60 ml/min/1.73 sqM); Anion Gap 3 mmol/L; Blood Urea Nitrogen 26 mg/dL (7-17); Calcium 7.9 mg/dL (8.4-10.2); Carbon Dioxide 21 mmol/L (22-30); Chloride 110 mmol/L (98-107); Glucose 92 mg/dL (74-99); Non-African American GFR(CKD) 52 (>60 ml/min/1.73 sqM); Potassium 4.4 mmol/L (3.5-5.1); Sodium 134 mmol/L (137-145)
[2023-08-28] MEDS: LACTATED RINGERS 1,000 ML IV SCH (09:43)
--- NOTE | 2023-08-28 09:59 | P.PN ---
Subjective Progress Note Date: 08/28/23 Principal diagnosis: Sepsis. This is an 83 years old female patient with PMH of AFib, Hyperlipidemia, osteoarthritis and hypertension with valsartan started 2 days ago by her card iologist. She presented to the ED yesterday as she was feeling weak and lethargic and was hypotensive. She was given 2litres of saline. Her labs showed WBC 20.9, Hb 13,MCV 103, Plt 240, Na 127, K 5.2, BUN 57, and Creatinine 1.8. She was in urospesis with labs showing elevated urine leukocyte esterase, many WBC clumps, WBC >182 and many bacteria in the urine. Her chest x-ray shows cardiomegaly and mild pulmonary vascular congestion. She was started on Zosyn 25ml/hr. Today she was seen in the ICU and was stable on room air. She is currently on Norepinephrine 7 mcg/min and 0.9 at 130 ml/hr. Denies shortness of breath, cough, chest pain,fever, chills, and weakness. A procalcitonin level is ordered. She lives with her daughter and has difficulties with activities of daily living. ID has been consulted. Will continue to monitor. Progress note dated August 27 2023. Patient was evaluated in the ICU today. Overnight she was hypotensive and was started on norepinephrine 3 mcg/Kg/ minute. Blood culture came back positive for Klebsiella she was started on Rocephin 100 mm/h. She feels a better today and is on room air. Although she does complain of diarrhea, she had 3 episodes since morning. She is receiving 0.9% normal saline at 130 ml/hr. Pro-Leonel level is 0.68 which is consistent with infection. Labs show WBC 16.7, hemoglobin 12.9, platelets 204, sodium 131, potassium 5, BUN 36, creatinine 1.27. EKG shows atrial fibrillation with rapid ventricular response and is on Apixaban 5 m g twice daily. Abdomen/bladder ultrasound done today was normal. Denies shortness of breath, cough, chest pain, fever, chills and weakness. Will continue to monitor. Progress note dated August 28, 2023. 83-year-old female seen today in room 259. She continues to improve. She is on room air. She is getting saline at 130 cc an hour. In addition, she is on norepinephrine at 1 mcg/min. She is getting Rocephin, for Klebsiella in the bloodstream. Sensitivities are pending. She continues with diarrhea. The saline will be converted to LR, at the same rate. For a period of time, the norepinephrine, will shut off. Labs include a white count 11.7, hemoglobin 12.7, hematocrit 40.5, platelet count 3 24,000. Sodium 134, potassium 4.4, chlorides 110, CO2 21, BUN 26, creatinine 1.01. Calcium is 7.9. C. difficile test was negative. Procalcitonin level was 0.68. Objective - Vital Signs Vital signs: Vital Signs Temp 98.3 F 08/28/23 08:00 Pulse 108 H 08/28/23 09:00 Resp 20 08/28/23 09:00 BP 109/56 08/28/23 09:00 Pulse Ox 99 08/28/23 09:00 FiO2 Intake & Output 08/27/23 08/28/23 08/28/23 18:59 06:59 18:59 Intake Total 3198.804 1906.638 411.962 Output Total 905 870 285 Balance 2293.804 1036.638 126.962 Weight 112.6 kg Intake: IV 2690 1430 390 Sodium Chloride 0.9% 1, 1690 1430 390 000 ml @ 130 mls/hr IV . Q7H42M [facility] Rx#:[id number] Sodium Chloride 0.9% 1, 1000 000 ml @ 999 mls/hr IV . Q1H1M [facility] Rx#:[id number] Intake, IV Titration 8.804 256.638 21.962 Amount Norepinephrine 32 mg In 8.804 Sodium Chloride 0.9% 218 ml @ 0.03 MCG/KG/MIN 1. 537 mls/hr IV .Q24H [facility] Rx#:[id number] Norepinephrine 4 mg In 206.638 21.962 Sodium Chloride 0.9% 250 ml @ 0.03 MCG/KG/MIN 11. 979 mls/hr IV .[id number] [facility] Rx#:[id number] cefTRIAXone 2 gm In 50 Sodium Chloride 0.9% 50 ml @ 100 mls/hr IVPB HS [facility] Rx#:[id number] Oral 500 220 Output: Urine 905 870 285 Other: # Bowel Movements 2 1 - Exam No acute distress, oriented 3. HEENT examination is grossly unremarkable. Mucous membranes are moist. No oral lesions. Neck supple. Full range of motion. No adenopathy thyromegaly or neck vein distention. Cardiovascular examination reveals regular rhythm rate. S1-S2 normal. No S3 or S4. No discernible murmur noted. Lungs reveal clear breath sounds. Breath sounds are equal bilaterally. No adventitious lung sounds including wheezes rhonchi or crackles. Abdomen soft bowel sounds are heard. No masses or tenderness. Extremities are intact. No cyanosis clubbing or edema. Skin is without rash or lesion. Neurologic examination is brief but nonfocal. - Labs CBC & Chem 7: 08/28/23 05:22 08/28/23 05:22 Labs: Abnormal Lab Results - Last 24 Hours (Table) 08/28/23 08/28/23 Range/Units 05:22 05:22 WBC 11.7 H (3.8-10.6) k/uL MCV 104.8 H (80.0-100.0) fL Neutrophils # 8.4 H (1.3-7.7) k/uL Monocytes # 1.1 H (0-1.0) k/uL Sodium 134 L (137-145) mmol/L Chloride 110 H (98-107) mmol/L Carbon Dioxide 21 L (22-30) mmol/L BUN 26 H (7-17) mg/dL Calcium 7.9 L (8.4-10.2) mg/dL Microbiology - Last 24 Hours (Table) 08/25/23 23:30 Blood Culture Gram Stain - Preliminary Blood Blood Culture - Preliminary Klebsiella pneumoniae Molecular ID Assessment and Plan Assessment: Urinary tract infection/urosepsis/septic shock secondary to Klebsiella bacteremia. Weakness, secondary to hypotension. Bilateral lower extremity edema. History of atrial fibrillation with RVR. Chronic diarrhea with dehydration and hypotension. Plan: Plan dated August 28, 2023. The patient is improving. She is on room air. She is getting lactated Ringer's at 130 cc an hour. She is on a small dose of norepinephrine at 1 mcg/min. Klebsiella was discovered in the bloodstream. Sensitivities are pending. She is currently on IV Rocephin. She has chronic diarrhea. We will continue to fo llow make recommendations along the way. Prognosis is guarded. She continues on her factor Xa inhibitor for her atrial fibrillation. Time with Patient: Greater than 30
[2023-08-28] MEDS: PHENAZOPYRIDINE 100 MG TAB PO SCH (11:03)
[2023-08-28] MEDS: OXYBUTYNIN 10 MG TAB.ER.24 PO SCH (11:03)
[2023-08-28] MEDS: LACTOBACILLUS ACIDOPHILUS/PECT 1 EACH CAPSULE PO SCH (11:18)
--- NOTE | 2023-08-28 14:27 | P.PN ---
Subjective Progress Note Date: 08/28/23 83-year-old female with a past medical history significant for hypertension hyperlipidemia osteoarthritis atrial fibrillation patient presenting to the ER for evaluation of generalized weakness and hypotension apparently the patient did have adjustment of her blood pressure medication by her microbiological laboratory technician and the patient been feeling weak and lethargic and have difficulty with activities of daily living, patient also have some diarrhea and did have a urinary symptoms of burning denies significant suprapubic or flank pain some nausea but no vomiting with the symptoms the patient has been brought into the hospital on arrival to the ER patient did have a temperature of 102.9 F patient was tachycardic, hypotensive requiring admission to the ICU not hypoxic patient did have a white count of 18 point 5 repeat is up to 20.9. Creatinine has been mildly elevated lactic acid was elevated 2.2 urine has been positive patient was started on Zosyn admitted to ICU 24-hour interval change 08/28/2023 Patient seen and evaluated sitting up in the bedside chair; remains in ICU; successfully trending down on IV Levophed --Patient reports persistent diarrhea and complaining of bladder spasms -Recently started on Detrol LA which helps with diarrhea and urinary symptoms; resume home medication; probiotic 3 times daily statin -- Labs include a white count 11.7, hemoglobin 12.7, hematocrit 40.5, platelet count 3 24,000. Sodium 134, potassium 4.4, chlorides 110, CO2 21, BUN 26, creatinine 1.01. Calcium is 7.9. C. difficile test was negative. Procalcitonin level was 0.68. -Plan is for transfer to general medical floor once completely off of Levophed -Urine culture is growing Klebsiella; patient remains on IV Rocephin; ID on board Objective - Vital Signs Vital signs: Vital Signs Temp 98.3 F 08/28/23 08:00 Pulse 98 08/28/23 10:00 Resp 16 08/28/23 10:00 BP 96/55 08/28/23 10:00 Pulse Ox 99 08/28/23 10:00 FiO2 Intake & Output 08/27/23 08/28/23 08/28/23 18:59 06:59 18:59 Intake Total 3198.804 1906.638 745.223 Output Total 905 870 335 Balance 2293.804 1036.638 410.223 Weight 112.6 kg Intake: IV 2690 1430 520 Lactated Ringers 1,000 ml 130 @ 130 mls/hr IV .Q7H42M [facility] Rx#:[id number] Sodium Chloride 0.9% 1, 1690 1430 390 000 ml @ 130 mls/hr IV . Q7H42M [facility] Rx#:[id number] Sodium Chloride 0.9% 1, 1000 000 ml @ 999 mls/hr IV . Q1H1M [facility] Rx#:[id number] Intake, IV Titration 8.804 256.638 25.223 Amount Norepinephrine 32 mg In 8.804 Sodium Chloride 0.9% 218 ml @ 0.03 MCG/KG/MIN 1. 537 mls/hr IV .Q24H [facility] Rx#:[id number] Norepinephrine 4 mg In 206.638 25.223 Sodium Chloride 0.9% 250 ml @ 0.03 MCG/KG/MIN 11. 979 mls/hr IV .[id number] [facility] Rx#:[id number] cefTRIAXone 2 gm In 50 Sodium Chloride 0.9% 50 ml @ 100 mls/hr IVPB HS [facility] Rx#:[id number] Oral 500 220 200 Output: Urine 905 870 335 Other: # Bowel Movements 2 1 - Exam GENERAL DESCRIPTION: Elderly female lying in bed, no distress. No tachypnea or accessory muscle of respiration use. HEENT: Shows Pallor , no scleral icterus. Oral mucous membrane is dry. No pharyngeal erythema or thrush NECK: Trachea central, no thyromegaly. LUNGS: Unlabored breathing. Clear to auscultation anteriorly. No wheeze or crackle. HEART: S1, S2, regular rate and rhythm. No loud murmur ABDOMEN: Soft, no tenderness , guarding or rigidity, no organomegaly EXTREMITIES: No edema of feet. SKIN: No rash, no masses palpable. NEUROLOGICAL: The patient is awake, alert, oriented x3, mood and affect normal. - Labs CBC & Chem 7: 08/28/23 05:22 08/28/23 05:22 Labs: Abnormal Lab Results - Last 24 Hours (Table) 08/28/23 08/28/23 Range/Units 05:22 05:22 WBC 11.7 H (3.8-10.6) k/uL MCV 104.8 H (80.0-100.0) fL Neutrophils # 8.4 H (1.3-7.7) k/uL Monocytes # 1.1 H (0-1.0) k/uL Sodium 134 L (137-145) mmol/L Chloride 110 H (98-107) mmol/L Carbon Dioxide 21 L (22-30) mmol/L BUN 26 H (7-17) mg/dL Calcium 7.9 L (8.4-10.2) mg/dL Microbiology - Last 24 Hours (Table) 08/25/23 23:30 Blood Culture Gram Stain - Preliminary Blood Blood Culture - Preliminary Klebsiella pneumoniae Molecular ID Assessment and Plan Assessment: 1. Sepsis -As indicated by elevated white blood count, lactic acid level and hypotension -Patient has been admitted to ICU; remains on pressor agents 2. UTI; patient remains on IV Zosyn; will monitor CBC, CRP and procalcitonin -Further recommendations once urine culture is available 3. Hyponatremia/hyperkalemia; patient has been placed on IV fluids; will monitor strict ALISON's; potassium level is down to 5.2 from 5.3 yesterday -Sodium level trended down to 127 from 129 yesterday -Will continue with IV fluid hydration and monitor electrolytes closely 4. Acute renal injury; likely related to sepsis and poor oral intake -Continue with IV fluid hydration and monitor strict ALISON's, daily weights, renal function electrolytes 5. Atrial fibrillation; patient remains rate controlled on metoprolol 100 mg twice daily which is currently on hold given hypotension; heart rate in 80s to 90s currently; we will plan to start Lopressor on a low-dose if needed -Continue with current dose of Eliquis 6. Leukocytosis; likely related to sepsis; white blood count trended up slightly to 20,000 this morning; patient remains on IV Zosyn; blood cultures and urine cultures obtained and pending 7. Hypertension; patient takes Aldactone, metoprolol and valsartan along with Lasix which are all placed on hold given hypotension 8. Hyperlipidemia; Lipitor 80 mg p.o. nightly DVT prophylaxis; SCDs/heparin CODE STATUS; full code
[2023-08-28] MEDS: PHENAZOPYRIDINE 200 MG TAB PO SCH (16:03)
--- NOTE | 2023-08-28 19:39 | P.PN ---
Subjective Progress Note Date: 08/28/23 Principal diagnosis: Reason for follow-up sepsis UTI and bacteremia Patient is a 83-year-old female with a past medical history significant for hypertension hyperlipidemia osteoarthritis atrial fibrillation patient presenting to the ER for evaluation of generalized weakness and hypotension, patient be diagnosed with sepsis secondary to urinary tract infection subsequently blood cultures came back positive with Klebsiella. On today's evaluation that is 08/28/2023,the patient denies any fever or any chills, patient is breathing comfortably on room air, the patient denies chest pain however and has been complaining of shortness of breath and swelling no nausea vomiting no abdominal pain no diarrhea. The patient white count is down to 11.7 creatinine 1.01 blood culture with Klebsiella sensitive pathogen Objective - Vital Signs Vital signs: Vital Signs Temp 98.3 F 08/28/23 08:00 Pulse 108 H 08/28/23 09:00 Resp 20 08/28/23 09:00 BP 109/56 08/28/23 09:00 Pulse Ox 99 08/28/23 09:00 FiO2 Intake & Output 08/27/23 08/28/23 08/28/23 18:59 06:59 18:59 Intake Total 3198.804 1906.638 390 Output Total 905 870 285 Balance 2293.804 1036.638 105 Weight 112.6 kg Intake: IV 2690 1430 390 Sodium Chloride 0.9% 1, 1690 1430 390 000 ml @ 130 mls/hr IV . Q7H42M [facility] Rx#:[id number] Sodium Chloride 0.9% 1, 1000 000 ml @ 999 mls/hr IV . Q1H1M [facility] Rx#:[id number] Intake, IV Titration 8.804 256.638 Amount Norepinephrine 32 mg In 8.804 Sodium Chloride 0.9% 218 ml @ 0.03 MCG/KG/MIN 1. 537 mls/hr IV .Q24H [facility] Rx#:[id number] Norepinephrine 4 mg In 206.638 Sodium Chloride 0.9% 250 ml @ 0.03 MCG/KG/MIN 11. 979 mls/hr IV .[id number] [facility] Rx#:[id number] cefTRIAXone 2 gm In 50 Sodium Chloride 0.9% 50 ml @ 100 mls/hr IVPB HS [facility] Rx#:[id number] Oral 500 220 Output: Urine 905 870 285 Other: # Bowel Movements 2 1 - Exam GENERAL DESCRIPTION: An elderly female up in the chair in no distress RESPIRATORY SYSTEM: Unlabored breathing , decreased breath sounds at bases HEART: S1 S2 regular rate and rhythm , ABDOMEN: Soft , no tenderness EXTREMITIES: No edema feet - Labs CBC & Chem 7: 08/28/23 05:22 08/28/23 05:22 Labs: Abnormal Lab Results - Last 24 Hours (Table) 08/28/23 08/28/23 Range/Units 05:22 05:22 WBC 11.7 H (3.8-10.6) k/uL MCV 104.8 H (80.0-100.0) fL Neutrophils # 8.4 H (1.3-7.7) k/uL Monocytes # 1.1 H (0-1.0) k/uL Sodium 134 L (137-145) mmol/L Chloride 110 H (98-107) mmol/L Carbon Dioxide 21 L (22-30) mmol/L BUN 26 H (7-17) mg/dL Calcium 7.9 L (8.4-10.2) mg/dL Microbiology - Last 24 Hours (Table) 08/25/23 23:30 Blood Culture Gram Stain - Preliminary Blood Blood Culture - Preliminary Klebsiella pneumoniae Molecular ID Assessment and Plan (1) UTI (urinary tract infection) Current Visit: Yes Status: Acute Code(s): N39.0 - URINARY TRACT INFECTION, SITE NOT SPECIFIED SNOMED Code(s): 40093623 (2) Sepsis Current Visit: Yes Status: Acute Code(s): A41.9 - SEPSIS, UNSPECIFIED ORGANISM SNOMED Code(s): 79335111 (3) Allergy to sulfa drugs Current Visit: Yes Status: Acute Code(s): Z88.2 - ALLERGY STATUS TO SULFONAMIDES SNOMED Code(s): 29075409 (4) Bacteremia Current Visit: Yes Status: Acute Code(s): R78.81 - BACTEREMIA SNOMED Code(s): 2032237 Plan: 1patient presented hospital with sepsis in this patient who did have fever tachycardia hypotension urinary symptoms positive UA source is likely urinary t ract infection likely from enteric gram-negative pathogen. 2patient blood culture came positive with Klebsiella with no resistant gene 3 ultrasound of the kidney bladder with no evidence of any structural abnormality 4patient blood culture finalized with Klebsiella that is a sensitive pathogen patient to continue Rocephin 2 g daily and monitor clinical course closely Dictation was produced using [employer] dictation software. please excuse any grammatical, word or spelling errors. Time with Patient: Less than 30
[2023-08-29 06:25] LABS: Basophils % (A) 0 %; Eosinophils # (A) 0.3 k/uL (0-0.7); Eosinophils % (A) 4 %; HCT 38.8 % (34.0-46.0); HGB 12.4 gm/dL (11.4-16.0); Hypochromasia Moderate; Lymphocytes # (A) 1.4 k/uL (1.0-4.8); Lymphocytes % (A) 18 %; MCHC 31.9 g/dL (31.0-37.0); MCV 103.3 fL (80.0-100.0); Macrocytosis Slight; Mean Platelet Volume 7.1; Monocytes # (A) 0.7 k/uL (0-1.0); Monocytes % (A) 8 %; Neutrophils # (A) 5.5 k/uL (1.3-7.7); Neutrophils % (A) 68 %; Platelet Count 175 k/uL (150-450); RBC 3.75 m/uL (3.80-5.40); RDW 12.5 % (11.5-15.5); WBC 8.1 k/uL (3.8-10.6)
[2023-08-29 06:47] LABS: African American GFR (CKD) 88 (>60 ml/min/1.73 sqM); Anion Gap 4 mmol/L; Blood Urea Nitrogen 19 mg/dL (7-17); Calcium 8.1 mg/dL (8.4-10.2); Carbon Dioxide 19 mmol/L (22-30); Chloride 114 mmol/L (98-107); Glucose 73 mg/dL (74-99); Non-African American GFR(CKD) 77 (>60 ml/min/1.73 sqM); Potassium 4.1 mmol/L (3.5-5.1); Sodium 137 mmol/L (137-145)
--- NOTE | 2023-08-29 10:40 | P.PN ---
Subjective Progress Note Date: 08/29/23 Principal diagnosis: Sepsis. This is an 83 years old female patient with PMH of AFib, Hyperlipidemia, osteoarthritis and hypertension with valsartan started 2 days ago by her card iologist. She presented to the ED yesterday as she was feeling weak and lethargic and was hypotensive. She was given 2litres of saline. Her labs showed WBC 20.9, Hb 13,MCV 103, Plt 240, Na 127, K 5.2, BUN 57, and Creatinine 1.8. She was in urospesis with labs showing elevated urine leukocyte esterase, many WBC clumps, WBC >182 and many bacteria in the urine. Her chest x-ray shows cardiomegaly and mild pulmonary vascular congestion. She was started on Zosyn 25ml/hr. Today she was seen in the ICU and was stable on room air. She is currently on Norepinephrine 7 mcg/min and 0.9 at 130 ml/hr. Denies shortness of breath, cough, chest pain,fever, chills, and weakness. A procalcitonin level is ordered. She lives with her daughter and has difficulties with activities of daily living. ID has been consulted. Will continue to monitor. Progress note dated August 27 2023. Patient was evaluated in the ICU today. Overnight she was hypotensive and was started on norepinephrine 3 mcg/Kg/ minute. Blood culture came back positive for Klebsiella she was started on Rocephin 100 mm/h. She feels a better today and is on room air. Although she does complain of diarrhea, she had 3 episodes since morning. She is receiving 0.9% normal saline at 130 ml/hr. Pro-Leonel level is 0.68 which is consistent with infection. Labs show WBC 16.7, hemoglobin 12.9, platelets 204, sodium 131, potassium 5, BUN 36, creatinine 1.27. EKG shows atrial fibrillation with rapid ventricular response and is on Apixaban 5 m g twice daily. Abdomen/bladder ultrasound done today was normal. Denies shortness of breath, cough, chest pain, fever, chills and weakness. Will continue to monitor. Progress note dated August 28, 2023. 83-year-old female seen today in room 259. She continues to improve. She is on room air. She is getting saline at 130 cc an hour. In addition, she is on norepinephrine at 1 mcg/min. She is getting Rocephin, for Klebsiella in the bloodstream. Sensitivities are pending. She continues with diarrhea. The saline will be converted to LR, at the same rate. For a period of time, the norepinephrine, will shut off. Labs include a white count 11.7, hemoglobin 12.7, hematocrit 40.5, platelet count 3 24,000. Sodium 134, potassium 4.4, chlorides 110, CO2 21, BUN 26, creatinine 1.01. Calcium is 7.9. C. difficile test was negative. Procalcitonin level was 0.68. Progress note dated August 29, 2023. Patient is an 83-year-old female seen today in the ICU sitting in the chair beside the bed. She continues to improve and is on room air. She is getting Ringer lactate at 130 cc an hour. In addition to that she is on Rocephin for Klebsiella pneumonia on blood culture. And it is sensitive to ceftriaxone. She has been off norepinephrine since yesterday. She continues to have diarrhea. Labs showed WBC 8.1, hemoglobin 12.4, platelets 175, sodium 137, potassium 4.1, chloride 114, BUN 19, creatinine 0.73. C. difficile was negative. She has spasms while peeing, hence she was put on oxybutynin and phenazopyridine. Denies shortness of breath, cough, chest pain, dizziness or lightheadedness. She seems to be doing well and will be moved to the general medical floor today. Objective - Vital Signs Vital signs: Vital Signs Temp 97.7 F 08/29/23 08:00 Pulse 116 H 08/29/23 08:00 Resp 19 08/29/23 08:00 BP 122/55 08/29/23 08:00 Pulse Ox 97 08/29/23 08:00 FiO2 Intake & Output 08/28/23 08/29/23 08/29/23 18:59 06:59 18:59 Intake Total 2785.223 1740 130 Output Total 1075 1115 75 Balance 1710.223 625 55 Weight 112.2 kg Intake: IV 1560 1690 130 Lactated Ringers 1,000 ml 1170 1690 130 @ 130 mls/hr IV .Q7H42M [facility] Rx#:[id number] Sodium Chloride 0.9% 1, 390 000 ml @ 130 mls/hr IV . Q7H42M [facility] Rx#:[id number] Intake, IV Titration 25.223 50 Amount Norepinephrine 4 mg In 25.223 Sodium Chloride 0.9% 250 ml @ 0.03 MCG/KG/MIN 11. 979 mls/hr IV .[id number] [facility] Rx#:[id number] cefTRIAXone 2 gm In 50 Sodium Chloride 0.9% 50 ml @ 100 mls/hr IVPB HS [facility] Rx#:[id number] Oral 1200 Output: Urine 1075 1115 75 Other: # Bowel Movements 1 - Exam No acute distress, oriented 3. HEENT examination is grossly unremarkable. Mucous membranes are moist. No oral lesions. Neck supple. Full range of motion. No adenopathy thyromegaly or neck vein di stention. Cardiovascular examination reveals regular rhythm rate. S1-S2 normal. No S3 or S4. No discernible murmur noted. Lungs reveal clear breath sounds. Breath sounds are equal bilaterally. No adventitious lung sounds including wheezes rhonchi or crackles. Abdomen soft bowel sounds are heard. No masses or tenderness. Extremities are intact. No cyanosis clubbing or edema. Skin is without rash or lesion. Neurologic examination is brief but nonfocal. - Labs CBC & Chem 7: 08/29/23 06:01 08/29/23 06:01 Labs: Abnormal Lab Results - Last 24 Hours (Table) 08/29/23 08/29/23 Range/Units 06:01 06:01 RBC 3.75 L (3.80-5.40) m/uL MCV 103.3 H (80.0-100.0) fL Chloride 114 H (98-107) mmol/L Carbon Dioxide 19 L (22-30) mmol/L BUN 19 H (7-17) mg/dL Glucose 73 L (74-99) mg/dL Calcium 8.1 L (8.4-10.2) mg/dL Microbiology - Last 24 Hours (Table) 08/25/23 23:30 Blood Culture Gram Stain - Final Blood Blood Culture - Final Klebsiella pneumoniae Molecular ID Assessment and Plan Assessment: Urinary tract infection/urosepsis/septic shock secondary to Klebsiella bacteremia. Weakness, secondary to hypotension. Bilateral lower extremity edema. History of atrial fibrillation with RVR. Chronic diarrhea with dehydration and hypotension. Plan: Oxybutynin and phenazopyridine for spasms while peeing Lactated Ringer's at 130 cc an hour Klebsiella discovered in the bloodstream, patient is on IV Rocephin Apixaban for atrial fibrillation with RVR Critical care time is 35 minutes. Time with Patient: Greater than 30
--- NOTE | 2023-08-29 13:18 | P.PN ---
Subjective Progress Note Date: 08/29/23 83-year-old female with a past medical history significant for hypertension hyperlipidemia osteoarthritis atrial fibrillation patient presenting to the ER for evaluation of generalized weakness and hypotension apparently the patient did have adjustment of her blood pressure medication by her home energy consultant supervisor and the patient been feeling weak and lethargic and have difficulty with activities of daily living, patient also have some diarrhea and did have a urinary symptoms of burning denies significant suprapubic or flank pain some nausea but no vomiting with the symptoms the patient has been brought into the hospital on arrival to the ER patient did have a temperature of 102.9 F patient was tachycardic, hypotensive requiring admission to the ICU not hypoxic patient did have a white count of 18 point 5 repeat is up to 20.9. Creatinine has been mildly elevated lactic acid was elevated 2.2 urine has been positive patient was started on Zosyn admitted to ICU 24-hour interval change 08/28/2023 Patient seen and evaluated sitting up in the bedside chair; remains in ICU; successfully trending down on IV Levophed --Patient reports persistent diarrhea and complaining of bladder spasms -Recently started on Detrol LA which helps with diarrhea and urinary symptoms; resume home medication; probiotic 3 times daily statin -- Labs include a white count 11.7, hemoglobin 12.7, hematocrit 40.5, platelet count 3 24,000. Sodium 134, potassium 4.4, chlorides 110, CO2 21, BUN 26, creatinine 1.01. Calcium is 7.9. C. difficile test was negative. Procalcitonin level was 0.68. -Plan is for transfer to general medical floor once completely off of Levophed -Urine culture is growing Klebsiella; patient remains on IV Rocephin; ID on board 08/28. Patient seen and examined. Complaining of diarrhea. Patient was sitting upright in the chair, has been weaned off the pressors REVIEW OF SYSTEMS: CONSTITUTIONAL: No fever, no malaise,. CARDIOVASCULAR: No chest pain, no palpitations, no syncope. PULMONARY: No shortness of breath, no cough, GASTROINTESTINAL: As mentioned above NEUROLOGICAL: No headaches, no weakness, PHYSICAL EXAMINATION: GENERAL: The patient is alert and oriented x3, not in any acute distress. Well developed, well nourished. HEENT: Pupils are round and equally reacting to light. EOMI. No scleral icterus. No conjunctival pallor. Normocephalic, atraumatic. No pharyngeal erythema. No thyromegaly. CARDIOVASCULAR: S1 and S2 present. No murmurs, rubs, or gallops. PULMONARY: Chest is clear to auscultation, no wheezing or crackles. ABDOMEN: Soft, nontender, nondistended, normoactive bowel sounds. No palpable organomegaly. MUSCULOSKELETAL: No joint swelling or deformity. EXTREMITIES: No cyanosis, clubbing, or pedal edema. NEUROLOGICAL: Gross neurological examination did not reveal any focal deficits. SKIN: No rashes. Assessment and plan Sepsis UTI Monitor vital sign Monitor CBC Monitor CMP Follow-up on blood cultures follow-up on urine cultures IV Rocephin Continue IV fluids Continue Pyridium ID following Critical care following Hyponatremia hyperkalemia; Acute renal injury; likely related to sepsis and poor oral intake -Continue with IV fluid hydration and monitor strict ALISON's, daily weights, renal function electrolytes Atrial fibrillation Lopressor and Eliquis Leukocytosis; likely related to sepsis; white blood count trended up slightly to 20,000 this morning; patient remains on IV Zosyn; blood cultures and urine cultures obtained and pending Hypertension; patient takes Aldactone, metoprolol and valsartan along with Lasix which are all placed on hold given hypotension Hyperlipidemia; Lipitor 80 mg p.o. nightly Labs and medication were reviewed.. Continue same treatment. Continue with symptomatic treatment. Resume home medication. Monitor labs and vitals. DVT and GI prophylaxis. Further recommendations as per clinical course of the p atient Dictation was produced using [employer] dictation software. please excuse any grammatical, word or spelling errors. Objective - Vital Signs Vital signs: Vital Signs Temp 97.7 F 08/29/23 08:00 Pulse 116 H 08/29/23 08:00 Resp 19 08/29/23 08:00 BP 122/55 08/29/23 08:00 Pulse Ox 97 08/29/23 08:00 FiO2 Intake & Output 08/28/23 08/29/23 08/29/23 18:59 06:59 18:59 Intake Total 2785.223 1740 130 Output Total 1075 1115 75 Balance 1710.223 625 55 Weight 112.2 kg Intake: IV 1560 1690 130 Lactated Ringers 1,000 ml 1170 1690 130 @ 130 mls/hr IV .Q7H42M [facility] Rx#:[id number] Sodium Chloride 0.9% 1, 390 000 ml @ 130 mls/hr IV . Q7H42M [facility] Rx#:[id number] Intake, IV Titration 25.223 50 Amount Norepinephrine 4 mg In 25.223 Sodium Chloride 0.9% 250 ml @ 0.03 MCG/KG/MIN 11. 979 mls/hr IV .[id number] [facility] Rx#:[id number] cefTRIAXone 2 gm In 50 Sodium Chloride 0.9% 50 ml @ 100 mls/hr IVPB HS [facility] Rx#:[id number] Oral 1200 Output: Urine 1075 1115 75 Other: # Bowel Movements 1 - Labs CBC & Chem 7: 08/29/23 06:01 08/29/23 06:01 Labs: Abnormal Lab Results - Last 24 Hours (Table) 08/29/23 08/29/23 Range/Units 06:01 06:01 RBC 3.75 L (3.80-5.40) m/uL MCV 103.3 H (80.0-100.0) fL Chloride 114 H (98-107) mmol/L Carbon Dioxide 19 L (22-30) mmol/L BUN 19 H (7-17) mg/dL Glucose 73 L (74-99) mg/dL Calcium 8.1 L (8.4-10.2) mg/dL Microbiology - Last 24 Hours (Table) 08/25/23 23:30 Blood Culture Gram Stain - Final Blood Blood Culture - Final Klebsiella pneumoniae Molecular ID
[2023-08-29] MEDS: KETOROLAC 15 MG/ML 1 ML VIAL IVP PRN (23:36)
[2023-08-30] MEDS: FUROSEMIDE 10 MG/ML 10 ML VIAL IV STA (09:13)
[2023-08-30] MEDS ORDERED: ZINC OXIDE PASTE (Z-GUARD) 1 APPLIC TOPICAL PRN (09:43)
--- NOTE | 2023-08-30 10:21 | P.PN ---
Subjective Progress Note Date: 08/30/23 Principal diagnosis: Sepsis. This is an 83 years old female patient with PMH of AFib, Hyperlipidemia, osteoarthritis and hypertension with valsartan started 2 days ago by her card iologist. She presented to the ED yesterday as she was feeling weak and lethargic and was hypotensive. She was given 2litres of saline. Her labs showed WBC 20.9, Hb 13,MCV 103, Plt 240, Na 127, K 5.2, BUN 57, and Creatinine 1.8. She was in urospesis with labs showing elevated urine leukocyte esterase, many WBC clumps, WBC >182 and many bacteria in the urine. Her chest x-ray shows cardiomegaly and mild pulmonary vascular congestion. She was started on Zosyn 25ml/hr. Today she was seen in the ICU and was stable on room air. She is currently on Norepinephrine 7 mcg/min and 0.9 at 130 ml/hr. Denies shortness of breath, cough, chest pain,fever, chills, and weakness. A procalcitonin level is ordered. She lives with her daughter and has difficulties with activities of daily living. ID has been consulted. Will continue to monitor. Progress note dated August 27 2023. Patient was evaluated in the ICU today. Overnight she was hypotensive and was started on norepinephrine 3 mcg/Kg/ minute. Blood culture came back positive for Klebsiella she was started on Rocephin 100 mm/h. She feels a better today and is on room air. Although she does complain of diarrhea, she had 3 episodes since morning. She is receiving 0.9% normal saline at 130 ml/hr. Pro-Leonel level is 0.68 which is consistent with infection. Labs show WBC 16.7, hemoglobin 12.9, platelets 204, sodium 131, potassium 5, BUN 36, creatinine 1.27. EKG shows atrial fibrillation with rapid ventricular response and is on Apixaban 5 m g twice daily. Abdomen/bladder ultrasound done today was normal. Denies shortness of breath, cough, chest pain, fever, chills and weakness. Will continue to monitor. Progress note dated August 28, 2023. 83-year-old female seen today in room 259. She continues to improve. She is on room air. She is getting saline at 130 cc an hour. In addition, she is on norepinephrine at 1 mcg/min. She is getting Rocephin, for Klebsiella in the bloodstream. Sensitivities are pending. She continues with diarrhea. The saline will be converted to LR, at the same rate. For a period of time, the norepinephrine, will shut off. Labs include a white count 11.7, hemoglobin 12.7, hematocrit 40.5, platelet count 3 24,000. Sodium 134, potassium 4.4, chlorides 110, CO2 21, BUN 26, creatinine 1.01. Calcium is 7.9. C. difficile test was negative. Procalcitonin level was 0.68. Progress note dated August 29, 2023. Patient is an 83-year-old female seen today in the ICU sitting in the chair beside the bed. She continues to improve and is on room air. She is getting Ringer lactate at 130 cc an hour. In addition to that she is on Rocephin for Klebsiella pneumonia on blood culture. And it is sensitive to ceftriaxone. She has been off norepinephrine since yesterday. She continues to have diarrhea. Labs showed WBC 8.1, hemoglobin 12.4, platelets 175, sodium 137, potassium 4.1, chloride 114, BUN 19, creatinine 0.73. C. difficile was negative. She has spasms while peeing, hence she was put on oxybutynin and phenazopyridine. Denies shortness of breath, cough, chest pain, dizziness or lightheadedness. She seems to be doing well and will be moved to the general medical floor today. Progress note dated August 30, 2023. Patient is an 83 female seen today in room 527. She continues to improve and is saturating at 96% on room air. She is getting Lactated Ringer at 50 mill per hr. She continues to be on Rocephin for Klebsiella found in the blood culture causing urinary tract infection/sepsis. The Klebsiella is sensitive to Rocephin. She is on oxybutynin but still complains of spasms while peeing. She was given a short of Lasix 60 mg because she had leg edema. Patient continues to have diarrhea and feels weak. Labs show WBC 8.1, hemoglobin 12.4, platelets 175, sodium 137, potassium 4.1, BUN 19 and creatinine 0.73. She continues to be on apixaban 2.5 mg for A-fib. Will continue to follow and make recommendations. Objective - Vital Signs Vital signs: Vital Signs Temp 98.2 F 08/30/23 07:33 Pulse 92 08/30/23 07:33 Resp 17 08/30/23 07:33 BP 113/69 08/30/23 07:33 Pulse Ox 96 08/30/23 07:33 FiO2 Intake & Output 08/29/23 08/30/23 08/30/23 18:59 06:59 18:59 Intake Total 630 1190 120 Output Total 750 500 Balance -120 690 120 Weight 116.7 kg Intake: IV 390 600 Lactated Ringers 1,000 ml 390 600 @ 50 mls/hr IV .Q20H [facility] Rx#:[id number] Intake, IV Titration 50 Amount cefTRIAXone 2 gm In 50 Sodium Chloride 0.9% 50 ml @ 100 mls/hr IVPB HS [facility] Rx#:[id number] Oral 240 540 120 Output: Urine 750 500 Other: # Bowel Movements 1 - Exam No acute distress, oriented 3. HEENT examination is grossly unremarkable. Mucous membranes are moist. No oral lesions. Neck supple. Full range of motion. No adenopathy thyromegaly or neck vein distention. Cardiovascular examination reveals regular rhythm rate. S1-S2 normal. No S3 or S4. No discernible murmur noted. Lungs reveal clear breath sounds. Breath sounds are equal bilaterally. No adventitious lung sounds including wheezes rhonchi or crackles. Abdomen soft bowel sounds are heard. No masses or tenderness. Cotinues to have diarrhea. Extremities are intact. Lower extremity edema. No cyanosis clubbing. Skin is without rash or lesion. Neurologic examination is brief but nonfocal. - Labs CBC & Chem 7: 08/29/23 06:01 08/29/23 06:01 Assessment and Plan Assessment: Urinary tract infection/urosepsis/septic shock secondary to Klebsiella bacte remia. Weakness, secondary to hypotension. Bilateral lower extremity edema. History of atrial fibrillation with RVR. Chronic diarrhea with dehydration and hypotension. Plan: Lasix 60 mg for leg edema Oxybutynin and phenazopyridine for spasms while peeing Lactated Ringer's at 50 cc an hour Klebsiella discovered in the bloodstream, patient is on IV Rocephin Apixaban for atrial fibrillation with RVR Time spent with the patient: 20 minutes. Time with Patient: Less than 30
[2023-08-30] MEDS: NYSTATIN 100,000 UNIT/GM POWD 15 GM TOPICAL SCH (12:09)
--- NOTE | 2023-08-30 13:57 | P.PN ---
Subjective Progress Note Date: 08/30/23 83-year-old female with a past medical history significant for hypertension hyperlipidemia osteoarthritis atrial fibrillation patient presenting to the ER for evaluation of generalized weakness and hypotension apparently the patient did have adjustment of her blood pressure medication by her collective bargaining specialist and the patient been feeling weak and lethargic and have difficulty with activities of daily living, patient also have some diarrhea and did have a urinary symptoms of burning denies significant suprapubic or flank pain some nausea but no vomiting with the symptoms the patient has been brought into the hospital on arrival to the ER patient did have a temperature of 102.9 F patient was tachycardic, hypotensive requiring admission to the ICU not hypoxic patient did have a white count of 18 point 5 repeat is up to 20.9. Creatinine has been mildly elevated lactic acid was elevated 2.2 urine has been positive patient was started on Zosyn admitted to ICU 24-hour interval change 08/28/2023 Patient seen and evaluated sitting up in the bedside chair; remains in ICU; successfully trending down on IV Levophed --Patient reports persistent diarrhea and complaining of bladder spasms -Recently started on Detrol LA which helps with diarrhea and urinary symptoms; resume home medication; probiotic 3 times daily statin -- Labs include a white count 11.7, hemoglobin 12.7, hematocrit 40.5, platelet count 3 24,000. Sodium 134, potassium 4.4, chlorides 110, CO2 21, BUN 26, creatinine 1.01. Calcium is 7.9. C. difficile test was negative. Procalcitonin level was 0.68. -Plan is for transfer to general medical floor once completely off of Levophed -Urine culture is growing Klebsiella; patient remains on IV Rocephin; ID on board 08/28. Patient seen and examined. Complaining of diarrhea. Patient was sitting upright in the chair, has been weaned off the pressors 08/29. Patient seen and examined. Complaining of swelling of lower extremities. Gets short of breath on exertion REVIEW OF SYSTEMS: CONSTITUTIONAL: No fever, no malaise,. CARDIOVASCULAR: No chest pain, no palpitations, no syncope. PULMONARY: No shortness of breath, no cough, GASTROINTESTINAL: As mentioned above NEUROLOGICAL: No headaches, no weakness, PHYSICAL EXAMINATION: GENERAL: The patient is alert and oriented x3, not in any acute distress. Well developed, well nourished. HEENT: Pupils are round and equally reacting to light. EOMI. No scleral icterus. No conjunctival pallor. Normocephalic, atraumatic. No pharyngeal erythema. No thyromegaly. CARDIOVASCULAR: S1 and S2 present. No murmurs, rubs, or gallops. PULMONARY: Chest is clear to auscultation, no wheezing or crackles. ABDOMEN: Soft, nontender, nondistended, normoactive bowel sounds. No palpable organomegaly. MUSCULOSKELETAL: No joint swelling or deformity. EXTREMITIES: 1+ pitting edema of lower extremities bilaterally NEUROLOGICAL: Gross neurological examination did not reveal any focal deficits. SKIN: No rashes. Assessment and plan Sepsis UTI Monitor vital sign Monitor CBC Monitor CMP Follow-up on blood cultures follow-up on urine cultures IV Rocephin DC fluids Will give 1 dose of IV Lasix Continue Pyridium ID following Critical care following Hyponatremia hyperkalemia; Acute renal injury; likely related to sepsis and poor oral intake Resolved Atrial fibrillation Lopressor and Eliquis Leukocytosis; likely related to sepsis; white blood count trended up slightly to 20,000 this morning; patient remains on IV Zosyn; blood cultures and urine cultures obtained and pending Hypertension; patient takes Aldactone, metoprolol and valsartan along with Lasix which are all placed on hold given hypotension Hyperlipidemia; Lipitor 80 mg p.o. nightly Labs and medication were reviewed.. Continue same treatment. Continue with symptomatic treatment. Resume home medication. Monitor labs and vitals. DVT and GI prophylaxis. Further recommendations as per clinical course of the patient Dictation was produced using [employer] dictation software. please excuse any grammatical, word or spelling errors. Objective - Vital Signs Vital signs: Vital Signs Temp 98.2 F 08/30/23 07:33 Pulse 92 08/30/23 07:33 Resp 17 08/30/23 07:33 BP 113/69 08/30/23 07:33 Pulse Ox 96 08/30/23 07:33 FiO2 Intake & Output 08/29/23 08/30/23 08/30/23 18:59 06:59 18:59 Intake Total 630 1190 120 Output Total 750 500 Balance -120 690 120 Weight 116.7 kg Intake: IV 390 600 Lactated Ringers 1,000 ml 390 600 @ 50 mls/hr IV .Q20H [facility] Rx#:[id number] Intake, IV Titration 50 Amount cefTRIAXone 2 gm In 50 Sodium Chloride 0.9% 50 ml @ 100 mls/hr IVPB HS [facility] Rx#:[id number] Oral 240 540 120 Output: Urine 750 500 Other: # Bowel Movements 1 - Labs CBC & Chem 7: 08/29/23 06:01 08/29/23 06:01
--- NOTE | 2023-08-30 16:32 | P.PN ---
Subjective Progress Note Date: 08/30/23 Principal diagnosis: Reason for follow-up sepsis UTI and bacteremia Patient is a 83-year-old female with a past medical history significant for hypertension hyperlipidemia osteoarthritis atrial fibrillation patient presenting to the ER for evaluation of generalized weakness and hypotension, patient be diagnosed with sepsis secondary to urinary tract infection subsequently blood cultures came back positive with Klebsiella. On today's evaluation that is 08/30/2023, the patient continues to be afebrile, the patient is on room air and breathing comfortably, the Pt denies having any chest pain or cough, the patient denies having any abdominal pain no vomiting or any diarrhea has been reported by the nursing staff patient mention feeling slightly better still concerned about swelling and weight gain. No new labs were drawn today Objective - Vital Signs Vital signs: Vital Signs Temp 98.2 F 08/30/23 07:33 Pulse 92 08/30/23 07:33 Resp 17 08/30/23 07:33 BP 113/69 08/30/23 07:33 Pulse Ox 96 08/30/23 07:33 FiO2 Intake & Output 08/29/23 08/30/23 08/30/23 18:59 06:59 18:59 Intake Total 630 1190 120 Output Total 697 575 8239 Balance -120 690 -1080 Weight 116.7 kg Intake: IV 390 600 Lactated Ringers 1,000 ml 390 600 @ 50 mls/hr IV .Q20H DEONTE Rx#:[id number] Intake, IV Titration 50 Amount cefTRIAXone 2 gm In 50 Sodium Chloride 0.9% 50 ml @ 100 mls/hr IVPB HS DEONTE Rx#:[id number] Oral 240 540 120 Output: Urine 181 565 2713 Other: # Bowel Movements 1 1 - Exam GENERAL DESCRIPTION: An elderly female up in the chair in no distress RESPIRATORY SYSTEM: Unlabored breathing , decreased breath sounds at bases HEART: S1 S2 regular rate and rhythm , ABDOMEN: Soft , no tenderness EXTREMITIES: No edema feet - Labs CBC & Chem 7: 08/29/23 06:01 08/29/23 06:01 Assessment and Plan (1) UTI (urinary tract infection) Current Visit: Yes Status: Acute Code(s): N39.0 - URINARY TRACT INFECTION, SITE NOT SPECIFIED SNOMED Code(s): 69227887 (2) Sepsis Current Visit: Yes Status: Acute Code(s): A41.9 - SEPSIS, UNSPECIFIED ORGANISM SNOMED Code(s): 19054086 (3) Allergy to sulfa drugs Current Visit: Yes Status: Acute Code(s): Z88.2 - ALLERGY STATUS TO SULFONAMIDES SNOMED Code(s): 72218477 (4) Bacteremia Current Visit: Yes Status: Acute Code(s): R78.81 - BACTEREMIA SNOMED Code(s): 8945517 Plan: 1patient presented hospital with sepsis in this patient who did have fever tachycardia hypotension urinary symptoms positive UA source is likely urinary tract infection likely from enteric gram-negative pathogen. 2patient blood culture came positive with Klebsiella with no resistant gene 3 ultrasound of the kidney bladder with no evidence of any structural abnormality 4patient blood culture finalized with Klebsiella that is a sensitive pathogen 5-patient to continue Rocephin 2 g daily while inpatient will transition to oral Cipro if no drug interaction versus Ceftin on discharge Dictation was produced using [employer] dictation software. please excuse any grammatical, word or spelling errors. Time with Patient: Less than 30
--- NOTE | 2023-08-30 16:32 | P.PN ---
Subjective Progress Note Date: 08/29/23 Principal diagnosis: Reason for follow-up sepsis UTI and bacteremia Patient is a 83-year-old female with a past medical history significant for hypertension hyperlipidemia osteoarthritis atrial fibrillation patient presenting to the ER for evaluation of generalized weakness and hypotension, patient be diagnosed with sepsis secondary to urinary tract infection subsequently blood cultures came back positive with Klebsiella. On today's evaluation that is 08/29/2023,the patient remains to be afebrile, patient is on room air not requiring supplemental oxygen and denies any shortness of breath no chest pain or cough.Patient denies having any nausea or vomiting, no abdominal pain and no diarrhea has been reported has been complaining of mostly swelling to her body and weight gain. The patient white count normalized to 8.1, creatinine 0.73 Objective - Vital Signs Vital signs: Vital Signs Temp 98.2 F 08/30/23 07:33 Pulse 92 08/30/23 07:33 Resp 17 08/30/23 07:33 BP 113/69 08/30/23 07:33 Pulse Ox 96 08/30/23 07:33 FiO2 Intake & Output 08/29/23 08/30/23 08/30/23 18:59 06:59 18:59 Intake Total 630 1190 120 Output Total 609 754 6330 Balance -120 690 -1080 Weight 116.7 kg Intake: IV 390 600 Lactated Ringers 1,000 ml 390 600 @ 50 mls/hr IV .Q20H DEONTE Rx#:[id number] Intake, IV Titration 50 Amount cefTRIAXone 2 gm In 50 Sodium Chloride 0.9% 50 ml @ 100 mls/hr IVPB HS DEONTE Rx#:[id number] Oral 240 540 120 Output: Urine 181 409 1892 Other: # Bowel Movements 1 1 - Exam GENERAL DESCRIPTION: An elderly female up in the chair in no distress RESPIRATORY SYSTEM: Unlabored breathing , decreased breath sounds at bases HEART: S1 S2 regular rate and rhythm , ABDOMEN: Soft , no tenderness EXTREMITIES: No edema feet - Labs CBC & Chem 7: 08/29/23 06:01 08/29/23 06:01 Assessment and Plan (1) UTI (urinary tract infection) Current Visit: Yes Status: Acute Code(s): N39.0 - URINARY TRACT INFECTION, SITE NOT SPECIFIED SNOMED Code(s): 95161561 (2) Sepsis Current Visit: Yes Status: Acute Code(s): A41.9 - SEPSIS, UNSPECIFIED ORGANISM SNOMED Code(s): 21945226 (3) Allergy to sulfa drugs Current Visit: Yes Status: Acute Code(s): Z88.2 - ALLERGY STATUS TO SULFONAMIDES SNOMED Code(s): 08581116 (4) Bacteremia Current Visit: Yes Status: Acute Code(s): R78.81 - BACTEREMIA SNOMED Code(s): 1566927 Plan: 1patient presented hospital with sepsis in this patient who did have fever tachycardia hypotension urinary symptoms positive UA source is likely urinary tract infection likely from enteric gram-negative pathogen. 2patient blood culture came positive with Klebsiella with no resistant gene 3 ultrasound of the kidney bladder with no evidence of any structural abnormality 4patient blood culture finalized with Klebsiella that is a sensitive pathogen 5-patient to continue Rocephin 2 g daily and monitor clinical course closely Dictation was produced using [employer] dictation software. please excuse any grammatical, word or spelling errors. Time with Patient: Less than 30
[2023-08-31 08:32] LABS: Basophils # (A) 0.07 X 10*3/uL (0.00-0.10); Basophils % (A) 0.7 %; Eosinophils # (A) 0.43 X 10*3/uL (0.04-0.35); Eosinophils % (A) 4.1 %; HCT 38.5 % (37.2-46.3); HGB 12.2 g/dL (12.0-15.0); Lymphocytes # (A) 1.74 X 10*3/uL (0.90-5.00); Lymphocytes % (A) 16.6 %; MCH 32.8 pg (27.0-32.0); MCHC 31.7 g/dL (32.0-37.0); MCV 103.5 FL (80.0-97.0); Mean Platelet Volume 9.5 FL (9.5-12.2); Monocytes % (A) 9.6 %; NRBC Per 100 WBC 0 X 10*3/uL (0.00-0.01); Platelet Count 217 X 10*3/uL (140-440); RBC 3.72 X 10*6/uL (4.10-5.20); RDW 12.9 % (11.5-14.5); WBC 10.46 X 10*3/uL (4.50-10.00)
[2023-08-31] MEDS: FUROSEMIDE 10 MG/ML 4 ML VIAL IV SCH (09:10)
[2023-08-31 09:34] LABS: ALT 81 U/L (8-44); AST 90 U/L (13-35); Albumin 2.7 g/dL (3.8-4.9); Albumin/Globulin Ratio 1.29 Ratio (1.60-3.17); Alkaline Phosphatase 286 U/L (41-126); Blood Urea Nitrogen 23.1 mg/dL (9.0-27.0); Calcium 8.2 mg/dL (8.7-10.3); Chloride 104 mmol/L (96-109); Globulin 2.1 g/dL (1.6-3.3); Glucose 96 mg/dL (70-110); Potassium 4.5 mmol/L (3.5-5.5); Sodium 134 mmol/L (135-145); Total Bilirubin 0.4 mg/dL (0.3-1.2); Total Protein 4.8 g/dL (6.2-8.2)
--- NOTE | 2023-08-31 10:45 | P.PN ---
Subjective Progress Note Date: 08/31/23 Principal diagnosis: Sepsis. This is an 83 years old female patient with PMH of AFib, Hyperlipidemia, osteoarthritis and hypertension with valsartan started 2 days ago by her card iologist. She presented to the ED yesterday as she was feeling weak and lethargic and was hypotensive. She was given 2litres of saline. Her labs showed WBC 20.9, Hb 13,MCV 103, Plt 240, Na 127, K 5.2, BUN 57, and Creatinine 1.8. She was in urospesis with labs showing elevated urine leukocyte esterase, many WBC clumps, WBC >182 and many bacteria in the urine. Her chest x-ray shows cardiomegaly and mild pulmonary vascular congestion. She was started on Zosyn 25ml/hr. Today she was seen in the ICU and was stable on room air. She is currently on Norepinephrine 7 mcg/min and 0.9 at 130 ml/hr. Denies shortness of breath, cough, chest pain,fever, chills, and weakness. A procalcitonin level is ordered. She lives with her daughter and has difficulties with activities of daily living. ID has been consulted. Will continue to monitor. Progress note dated August 27 2023. Patient was evaluated in the ICU today. Overnight she was hypotensive and was started on norepinephrine 3 mcg/Kg/ minute. Blood culture came back positive for Klebsiella she was started on Rocephin 100 mm/h. She feels a better today and is on room air. Although she does complain of diarrhea, she had 3 episodes since morning. She is receiving 0.9% normal saline at 130 ml/hr. Pro-Leonel level is 0.68 which is consistent with infection. Labs show WBC 16.7, hemoglobin 12.9, platelets 204, sodium 131, potassium 5, BUN 36, creatinine 1.27. EKG shows atrial fibrillation with rapid ventricular response and is on Apixaban 5 m g twice daily. Abdomen/bladder ultrasound done today was normal. Denies shortness of breath, cough, chest pain, fever, chills and weakness. Will continue to monitor. Progress note dated August 28, 2023. 83-year-old female seen today in room 259. She continues to improve. She is on room air. She is getting saline at 130 cc an hour. In addition, she is on norepinephrine at 1 mcg/min. She is getting Rocephin, for Klebsiella in the bloodstream. Sensitivities are pending. She continues with diarrhea. The saline will be converted to LR, at the same rate. For a period of time, the norepinephrine, will shut off. Labs include a white count 11.7, hemoglobin 12.7, hematocrit 40.5, platelet count 3 24,000. Sodium 134, potassium 4.4, chlorides 110, CO2 21, BUN 26, creatinine 1.01. Calcium is 7.9. C. difficile test was negative. Procalcitonin level was 0.68. Progress note dated August 29, 2023. Patient is an 83-year-old female seen today in the ICU sitting in the chair beside the bed. She continues to improve and is on room air. She is getting Ringer lactate at 130 cc an hour. In addition to that she is on Rocephin for Klebsiella pneumonia on blood culture. And it is sensitive to ceftriaxone. She has been off norepinephrine since yesterday. She continues to have diarrhea. Labs showed WBC 8.1, hemoglobin 12.4, platelets 175, sodium 137, potassium 4.1, chloride 114, BUN 19, creatinine 0.73. C. difficile was negative. She has spasms while peeing, hence she was put on oxybutynin and phenazopyridine. Denies shortness of breath, cough, chest pain, dizziness or lightheadedness. She seems to be doing well and will be moved to the general medical floor today. Progress note dated August 30, 2023. Patient is an 83 female seen today in room 527. She continues to improve and is saturating at 96% on room air. She is getting Lactated Ringer at 50 mill per hr. She continues to be on Rocephin for Klebsiella found in the blood culture causing urinary tract infection/sepsis. The Klebsiella is sensitive to Rocephin. She is on oxybutynin but still complains of spasms while peeing. She was given a short of Lasix 60 mg because she had leg edema. Patient continues to have diarrhea and feels weak. Labs show WBC 8.1, hemoglobin 12.4, platelets 175, sodium 137, potassium 4.1, BUN 19 and creatinine 0.73. She continues to be on apixaban 2.5 mg for A-fib. Will continue to follow and make recommendations. Progress note dated August 31 2023 83-year-old female seen today in her room on the chair beside the bed. She c ontinues to improve and is saturating at 94% on room air. She has been off lactated Ringer. She is getting furosemide for bilateral leg edema in addition to the Rocephin for Klebsiella pneumonia on blood culture. Labs today show WBC 10.46, hemoglobin 12.2, platelet 217, sodium 134, potassium 4.5, chloride 104, BUN 23.1 creatinine 1.1, AST 90, ALT 81, alkaline phosphatase 286, albumin 2.7, albumin/globulin ratio 1.9. She contnues on 2.5 mg for A-fib. Hold Aldactone, metoprolol, valsartan. She does complain of bladder spasms which kept her up all night. Plan is urinary catheter will be removed today. Denies shortness of breath, cough, chest pain. Will continue to follow and make recommendations Objective - Vital Signs Vital signs: Vital Signs Temp 97.6 F 08/31/23 07:00 Pulse 81 08/31/23 07:00 Resp 16 08/31/23 07:00 BP 132/75 08/31/23 07:00 Pulse Ox 97 08/31/23 07:00 FiO2 Intake & Output 08/30/23 08/31/23 08/31/23 18:59 06:59 18:59 Intake Total 1200 Output Total 3200 1000 Balance -2000 -1000 Weight 116.8 kg Intake: Oral 1200 Output: Urine 3200 1000 Other: Voiding Method Indwelling Catheter # Bowel Movements 1 1 - Exam No acute distress, oriented 3. HEENT examination is grossly unremarkable. Mucous membranes are moist. No oral lesions. Neck supple. Full range of motion. No adenopathy thyromegaly or neck vein distention. Cardiovascular examination reveals regular rhythm rate. S1-S2 normal. No S3 or S4. No discernible murmur noted. Lungs reveal clear breath sounds. Breath sounds are equal bilaterally. No adventitious lung sounds including wheezes rhonchi or crackles. Abdomen soft bowel sounds are heard. No masses or tenderness. Extremities are intact. Lower extremity edema. No cyanosis clubbing. Skin is without rash or lesion. Neurologic examination is brief but nonfocal. - Labs CBC & Chem 7: 08/31/23 06:21 08/31/23 06:21 Labs: Abnormal Lab Results - Last 24 Hours (Table) 08/31/23 08/31/23 Range/Units 06:21 06:21 WBC 10.46 H (4.50-10.00) X 10*3/uL RBC 3.72 L (4.10-5.20) X 10*6/uL MCV 103.5 H (80.0-97.0) FL MCH 32.8 H (27.0-32.0) pg MCHC 31.7 L (32.0-37.0) g/dL Immature Gran # 0.42 H (0.00-0.04) X 10*3/uL Eosinophils # 0.43 H (0.04-0.35) X 10*3/uL Sodium 134 L (135-145) mmol/L Carbon Dioxide 20.0 L (21.6-31.8) mmol/L Est GFR (CKD-EPI) 50 L (>=60) BUN/Creatinine Ratio 21.00 H (12.00-20.00) Ratio Calcium 8.2 L (8.7-10.3) mg/dL AST 90 H (13-35) U/L ALT 81 H (8-44) U/L Alkaline Phosphatase 286 H (41-126) U/L Total Protein 4.8 L (6.2-8.2) g/dL Albumin 2.7 L (3.8-4.9) g/dL Albumin/Globulin Ratio 1.29 L (1.60-3.17) Ratio Assessment and Plan Assessment: Urinary tract infection/urosepsis/septic shock secondary to Klebsiella bacteremia. Bladder spasms Bilateral lower extremity edema. History of atrial fibrillation with RVR. Chronic diarrhea with dehydration and hypotension. Plan: Lasix 60 mg for leg edema Oxybutynin and phenazopyridine for spasms while peeing Urine catheter removal for bladder spasms Klebsiella discovered in the bloodstream, patient is on IV Rocephin Apixaban for atrial fibrillation with RVR Time spent with the patient: 20 minutes. Time with Patient: Less than 30
--- NOTE | 2023-08-31 12:27 | P.PN ---
Subjective Progress Note Date: 08/31/23 83-year-old female with a past medical history significant for hypertension hyperlipidemia osteoarthritis atrial fibrillation patient presenting to the ER for evaluation of generalized weakness and hypotension apparently the patient did have adjustment of her blood pressure medication by her global consumer sector vice president and the patient been feeling weak and lethargic and have difficulty with activities of daily living, patient also have some diarrhea and did have a urinary symptoms of burning denies significant suprapubic or flank pain some nausea but no vomiting with the symptoms the patient has been brought into the hospital on arrival to the ER patient did have a temperature of 102.9 F patient was tachycardic, hypotensive requiring admission to the ICU not hypoxic patient did have a white count of 18 point 5 repeat is up to 20.9. Creatinine has been mildly elevated lactic acid was elevated 2.2 urine has been positive patient was started on Zosyn admitted to ICU 24-hour interval change 08/28/2023 Patient seen and evaluated sitting up in the bedside chair; remains in ICU; successfully trending down on IV Levophed --Patient reports persistent diarrhea and complaining of bladder spasms -Recently started on Detrol LA which helps with diarrhea and urinary symptoms; resume home medication; probiotic 3 times daily statin -- Labs include a white count 11.7, hemoglobin 12.7, hematocrit 40.5, platelet count 3 24,000. Sodium 134, potassium 4.4, chlorides 110, CO2 21, BUN 26, creatinine 1.01. Calcium is 7.9. C. difficile test was negative. Procalcitonin level was 0.68. -Plan is for transfer to general medical floor once completely off of Levophed -Urine culture is growing Klebsiella; patient remains on IV Rocephin; ID on board 08/28. Patient seen and examined. Complaining of diarrhea. Patient was sitting upright in the chair, has been weaned off the pressors 08/29. Patient seen and examined. Complaining of swelling of lower extremities. Gets short of breath on exertion 08/30. Patient seen and examined. Still complaining of swelling of lower extrem ities. REVIEW OF SYSTEMS: CONSTITUTIONAL: No fever, no malaise,. CARDIOVASCULAR: No chest pain, no palpitations, no syncope. PULMONARY: No shortness of breath, no cough, GASTROINTESTINAL: As mentioned above NEUROLOGICAL: No headaches, no weakness, PHYSICAL EXAMINATION: GENERAL: The patient is alert and oriented x3, not in any acute distress. Well developed, well nourished. HEENT: Pupils are round and equally reacting to light. EOMI. No scleral icterus. No conjunctival pallor. Normocephalic, atraumatic. No pharyngeal erythema. No thyromegaly. CARDIOVASCULAR: S1 and S2 present. No murmurs, rubs, or gallops. PULMONARY: Chest is clear to auscultation, no wheezing or crackles. ABDOMEN: Soft, nontender, nondistended, normoactive bowel sounds. No palpable organomegaly. MUSCULOSKELETAL: No joint swelling or deformity. EXTREMITIES: 1+ pitting edema of lower extremities bilaterally NEUROLOGICAL: Gross neurological examination did not reveal any focal deficits. SKIN: No rashes. Assessment and plan Sepsis UTI Monitor vital sign Monitor CBC Monitor CMP Follow-up on blood cultures follow-up on urine cultures IV Rocephin Continue daily IV Lasix DC [place] Continue Pyridium ID following Critical care following Hyponatremia hyperkalemia; Acute renal injury; likely related to sepsis and poor oral intake Resolved Atrial fibrillation Lopressor and Eliquis Leukocytosis; likely related to sepsis; white blood count trended up slightly to 20,000 this morning; patient remains on IV Zosyn; blood cultures and urine cultures obtained and pending Hypertension; patient takes Aldactone, metoprolol and valsartan along with Lasix. Currently on Lopressor and IV Lasix Hyperlipidemia; Lipitor 80 mg p.o. nightly Labs and medication were reviewed.. Continue same treatment. Continue with symptomatic treatment. Resume home medication. Monitor labs and vitals. DVT and GI prophylaxis. Further recommendations as per clinical course of the patient Dictation was produced using [employer] dictation software. please excuse any grammatical, word or spelling errors. Objective - Vital Signs Vital signs: Vital Signs Temp 97.6 F 08/31/23 07:00 Pulse 81 08/31/23 08:40 Resp 16 08/31/23 08:40 BP 132/75 08/31/23 07:00 Pulse Ox 97 08/31/23 07:00 FiO2 Intake & Output 08/30/23 08/31/23 08/31/23 18:59 06:59 18:59 Intake Total 1200 Output Total 3200 1000 1100 Balance -1999 -1000 -1100 Weight 116.8 kg Intake: Oral 1200 Output: Urine 3200 1000 1100 Other: Voiding Method Indwelling Catheter Indwelling Catheter # Bowel Movements 1 1 - Labs CBC & Chem 7: 08/31/23 06:21 08/31/23 06:21 Labs: Abnormal Lab Results - Last 24 Hours (Table) 08/31/23 08/31/23 Range/Units 06:21 06:21 WBC 10.46 H (4.50-10.00) X 10*3/uL RBC 3.72 L (4.10-5.20) X 10*6/uL MCV 103.5 H (80.0-97.0) FL MCH 32.8 H (27.0-32.0) pg MCHC 31.7 L (32.0-37.0) g/dL Immature Gran # 0.42 H (0.00-0.04) X 10*3/uL Eosinophils # 0.43 H (0.04-0.35) X 10*3/uL Sodium 134 L (135-145) mmol/L Carbon Dioxide 20.0 L (21.6-31.8) mmol/L Est GFR (CKD-EPI) 50 L (>=60) BUN/Creatinine Ratio 21.00 H (12.00-20.00) Ratio Calcium 8.2 L (8.7-10.3) mg/dL AST 90 H (13-35) U/L ALT 81 H (8-44) U/L Alkaline Phosphatase 286 H (41-126) U/L Total Protein 4.8 L (6.2-8.2) g/dL Albumin 2.7 L (3.8-4.9) g/dL Albumin/Globulin Ratio 1.29 L (1.60-3.17) Ratio
[2023-09-01 04:45] LABS: Basophils % (A) 1 %; Eosinophils # (A) 0.3 k/uL (0-0.7); Eosinophils % (A) 5 %; HCT 38.9 % (34.0-46.0); HGB 12.3 gm/dL (11.4-16.0); Hypochromasia Slight; Lymphocytes # (A) 1.2 k/uL (1.0-4.8); Lymphocytes % (A) 17 %; MCH 32.1 pg (25.0-35.0); MCHC 31.6 g/dL (31.0-37.0); MCV 101.6 fL (80.0-100.0); Mean Platelet Volume 7.6; Monocytes # (A) 0.5 k/uL (0-1.0); Monocytes % (A) 7 %; Neutrophils # (A) 4.9 k/uL (1.3-7.7); Neutrophils % (A) 69 %; Platelet Count 282 k/uL (150-450); RBC 3.83 m/uL (3.80-5.40); RDW 12.5 % (11.5-15.5); WBC 7.1 k/uL (3.8-10.6)
[2023-09-01 07:11] VITALS: BMI 47.0
[2023-09-01] MEDS: SPIRONOLACTONE 25 MG TAB PO SCH (10:25)
[2023-09-01 11:10] LABS: ALT 72 U/L (8-44); AST 66 U/L (13-35); Albumin 2.6 g/dL (3.8-4.9); Alkaline Phosphatase 263 U/L (41-126); Blood Urea Nitrogen 17.1 mg/dL (9.0-27.0); Calcium 8.3 mg/dL (8.7-10.3); Carbon Dioxide 21.4 mmol/L (21.6-31.8); Chloride 106 mmol/L (96-109); Glucose 79 mg/dL (70-110); Sodium 137 mmol/L (135-145); Total Bilirubin 0.4 mg/dL (0.3-1.2); Total Protein 4.6 g/dL (6.2-8.2)
--- NOTE | 2023-09-01 11:34 | P.PN ---
Subjective Progress Note Date: 09/01/23 Principal diagnosis: Sepsis. This is an 83 years old female patient with PMH of AFib, Hyperlipidemia, osteoarthritis and hypertension with valsartan started 2 days ago by her card iologist. She presented to the ED yesterday as she was feeling weak and lethargic and was hypotensive. She was given 2litres of saline. Her labs showed WBC 20.9, Hb 13,MCV 103, Plt 240, Na 127, K 5.2, BUN 57, and Creatinine 1.8. She was in urospesis with labs showing elevated urine leukocyte esterase, many WBC clumps, WBC >182 and many bacteria in the urine. Her chest x-ray shows cardiomegaly and mild pulmonary vascular congestion. She was started on Zosyn 25ml/hr. Today she was seen in the ICU and was stable on room air. She is currently on Norepinephrine 7 mcg/min and 0.9 at 130 ml/hr. Denies shortness of breath, cough, chest pain,fever, chills, and weakness. A procalcitonin level is ordered. She lives with her daughter and has difficulties with activities of daily living. ID has been consulted. Will continue to monitor. Progress note dated August 27 2023. Patient was evaluated in the ICU today. Overnight she was hypotensive and was started on norepinephrine 3 mcg/Kg/ minute. Blood culture came back positive for Klebsiella she was started on Rocephin 100 mm/h. She feels a better today and is on room air. Although she does complain of diarrhea, she had 3 episodes since morning. She is receiving 0.9% normal saline at 130 ml/hr. Pro-Leonel level is 0.68 which is consistent with infection. Labs show WBC 16.7, hemoglobin 12.9, platelets 204, sodium 131, potassium 5, BUN 36, creatinine 1.27. EKG shows atrial fibrillation with rapid ventricular response and is on Apixaban 5 m g twice daily. Abdomen/bladder ultrasound done today was normal. Denies shortness of breath, cough, chest pain, fever, chills and weakness. Will continue to monitor. Progress note dated August 28, 2023. 83-year-old female seen today in room 259. She continues to improve. She is on room air. She is getting saline at 130 cc an hour. In addition, she is on norepinephrine at 1 mcg/min. She is getting Rocephin, for Klebsiella in the bloodstream. Sensitivities are pending. She continues with diarrhea. The saline will be converted to LR, at the same rate. For a period of time, the norepinephrine, will shut off. Labs include a white count 11.7, hemoglobin 12.7, hematocrit 40.5, platelet count 3 24,000. Sodium 134, potassium 4.4, chlorides 110, CO2 21, BUN 26, creatinine 1.01. Calcium is 7.9. C. difficile test was negative. Procalcitonin level was 0.68. Progress note dated August 29, 2023. Patient is an 83-year-old female seen today in the ICU sitting in the chair beside the bed. She continues to improve and is on room air. She is getting Ringer lactate at 130 cc an hour. In addition to that she is on Rocephin for Klebsiella pneumonia on blood culture. And it is sensitive to ceftriaxone. She has been off norepinephrine since yesterday. She continues to have diarrhea. Labs showed WBC 8.1, hemoglobin 12.4, platelets 175, sodium 137, potassium 4.1, chloride 114, BUN 19, creatinine 0.73. C. difficile was negative. She has spasms while peeing, hence she was put on oxybutynin and phenazopyridine. Denies shortness of breath, cough, chest pain, dizziness or lightheadedness. She seems to be doing well and will be moved to the general medical floor today. Progress note dated August 30, 2023. Patient is an 83 female seen today in room 527. She continues to improve and is saturating at 96% on room air. She is getting Lactated Ringer at 50 mill per hr. She continues to be on Rocephin for Klebsiella found in the blood culture causing urinary tract infection/sepsis. The Klebsiella is sensitive to Rocephin. She is on oxybutynin but still complains of spasms while peeing. She was given a short of Lasix 60 mg because she had leg edema. Patient continues to have diarrhea and feels weak. Labs show WBC 8.1, hemoglobin 12.4, platelets 175, sodium 137, potassium 4.1, BUN 19 and creatinine 0.73. She continues to be on apixaban 2.5 mg for A-fib. Will continue to follow and make recommendations. Progress note dated August 31 2023 83-year-old female seen today in her room on the chair beside the bed. She c ontinues to improve and is saturating at 94% on room air. She has been off lactated Ringer. She is getting furosemide for bilateral leg edema in addition to the Rocephin for Klebsiella pneumonia on blood culture. Labs today show WBC 10.46, hemoglobin 12.2, platelet 217, sodium 134, potassium 4.5, chloride 104, BUN 23.1 creatinine 1.1, AST 90, ALT 81, alkaline phosphatase 286, albumin 2.7, albumin/globulin ratio 1.9. She contnues on 2.5 mg for A-fib. Hold Aldactone, metoprolol, valsartan. She does complain of bladder spasms which kept her up all night. Plan is urinary catheter will be removed today. Denies shortness of breath, cough, chest pain. Will continue to follow and make recommendations. Progress note dated September 01, 2023. Patient is an 83-year-old female seen today in her room on the chair beside the bed. She is doing a lot better today and is saturating at 97% on room air. She is getting furosemide 40 mg for bilateral leg edema in addition to Rocephin for Klebsiella pneumonia blood culture. Urinary Ferrara catheter was removed yesterday and she has a pure wick. She reports significant improvement in bladder spasms. She also mentions improvement in lower extremity edema as well as diarrhea. Her labs from today show WBC 7.1, hemoglobin 12.3, platelets 282, sodium 137, potassium 5, chloride 106 BUN 17.1 and creatinine 0.9 with glucose 79, AST 66, ALT 72, ALP 263, total protein 4.6, albumin 2.6, albumin/globulin ratio 1.3. Denies shortness of breath, cough and chest pain. Will continue to follow and make recommendations. Objective - Vital Signs Vital signs: Vital Signs Temp 98.8 F 09/01/23 06:57 Pulse 74 09/01/23 11:11 Resp 17 09/01/23 11:11 BP 114/73 09/01/23 11:11 Pulse Ox 97 09/01/23 11:11 FiO2 Intake & Output 08/31/23 09/01/23 09/01/23 18:59 06:59 18:59 Intake Total 590 Output Total 4000 1300 1000 Balance -4000 710 -1000 Weight 116.1 kg Intake: Oral 590 Output: Urine 4000 1300 1000 Other: Voiding Method Indwelling Catheter External Catheter External Catheter # Voids 2 # Bowel Movements 1 - Exam No acute distress, oriented 3. HEENT examination is grossly unremarkable. Mucous membranes are moist. No oral lesions. Neck supple. Full range of motion. No adenopathy thyromegaly or neck vein distention. Cardiovascular examination reveals regular rhythm rate. S1-S2 normal. No S3 or S4. No discernible murmur noted. Lungs reveal clear breath sounds. Breath sounds are equal bilaterally. No adventitious lung sounds including wheezes rhonchi or crackles. Abdomen soft bowel sounds are heard. No masses or tenderness. Extremities are intact. Lower extremity edema. No cyanosis clubbing. Skin is without rash or lesion. Neurologic examination is brief but nonfocal. - Labs CBC & Chem 7: 09/01/23 03:58 09/01/23 07:15 Labs: Abnormal Lab Results - Last 24 Hours (Table) 09/01/23 09/01/23 Range/Units 03:58 07:15 MCV 101.6 H (80.0-100.0) fL Carbon Dioxide 21.4 L (21.6-31.8) mmol/L Calcium 8.3 L (8.7-10.3) mg/dL AST 66 H (13-35) U/L ALT 72 H (8-44) U/L Alkaline Phosphatase 263 H (41-126) U/L Total Protein 4.6 L (6.2-8.2) g/dL Albumin 2.6 L (3.8-4.9) g/dL Albumin/Globulin Ratio 1.30 L (1.60-3.17) Ratio Assessment and Plan Assessment: Urinary tract infection/urosepsis/septic shock secondary to Klebsiella bacteremia. Bladder spasms resolved Bilateral lower extremity edema. History of atrial fibrillation with RVR. Chronic diarrhea with dehydration and hypotension- improved Plan: Lasix 40 mg IV for leg edema Oxybutynin and phenazopyridine for spasms while peeing Urine catheter removed and she has purewick Klebsiella discovered in the bloodstream, patient was on IV Rocephin Apixaban for atrial fibrillation with RVR Time spent with the patient: 20 minutes. Time with Patient: Less than 30
--- NOTE | 2023-09-01 12:11 | P.PN ---
Subjective Progress Note Date: 09/01/23 83-year-old female with a past medical history significant for hypertension hyperlipidemia osteoarthritis atrial fibrillation patient presenting to the ER for evaluation of generalized weakness and hypotension apparently the patient did have adjustment of her blood pressure medication by her health support specialist and the patient been feeling weak and lethargic and have difficulty with activities of daily living, patient also have some diarrhea and did have a urinary symptoms of burning denies significant suprapubic or flank pain some nausea but no vomiting with the symptoms the patient has been brought into the hospital on arrival to the ER patient did have a temperature of 102.9 F patient was tachycardic, hypotensive requiring admission to the ICU not hypoxic patient did have a white count of 18 point 5 repeat is up to 20.9. Creatinine has been mildly elevated lactic acid was elevated 2.2 urine has been positive patient was started on Zosyn admitted to ICU 24-hour interval change 08/28/2023 Patient seen and evaluated sitting up in the bedside chair; remains in ICU; successfully trending down on IV Levophed --Patient reports persistent diarrhea and complaining of bladder spasms -Recently started on Detrol LA which helps with diarrhea and urinary symptoms; resume home medication; probiotic 3 times daily statin -- Labs include a white count 11.7, hemoglobin 12.7, hematocrit 40.5, platelet count 3 24,000. Sodium 134, potassium 4.4, chlorides 110, CO2 21, BUN 26, creatinine 1.01. Calcium is 7.9. C. difficile test was negative. Procalcitonin level was 0.68. -Plan is for transfer to general medical floor once completely off of Levophed -Urine culture is growing Klebsiella; patient remains on IV Rocephin; ID on board 08/28. Patient seen and examined. Complaining of diarrhea. Patient was sitting upright in the chair, has been weaned off the pressors 08/29. Patient seen and examined. Complaining of swelling of lower extremities. Gets short of breath on exertion 08/30. Patient seen and examined. Still complaining of swelling of lower extrem ities. 08/31. Patient seen and examined. Swelling of lower extremities has improved compared to yesterday. PT and OT recommend rehab REVIEW OF SYSTEMS: CONSTITUTIONAL: No fever, no malaise,. CARDIOVASCULAR: No chest pain, no palpitations, no syncope. PULMONARY: No shortness of breath, no cough, GASTROINTESTINAL: As mentioned above NEUROLOGICAL: No headaches, no weakness, PHYSICAL EXAMINATION: GENERAL: The patient is alert and oriented x3, not in any acute distress. Well developed, well nourished. HEENT: Pupils are round and equally reacting to light. EOMI. No scleral icterus. No conjunctival pallor. Normocephalic, atraumatic. No pharyngeal erythema. No thyromegaly. CARDIOVASCULAR: S1 and S2 present. No murmurs, rubs, or gallops. PULMONARY: Chest is clear to auscultation, no wheezing or crackles. ABDOMEN: Soft, nontender, nondistended, normoactive bowel sounds. No palpable organomegaly. MUSCULOSKELETAL: No joint swelling or deformity. EXTREMITIES: 1+ pitting edema of lower extremities bilaterally NEUROLOGICAL: Gross neurological examination did not reveal any focal deficits. SKIN: No rashes. Assessment and plan Sepsis UTI Monitor vital sign Monitor CBC Monitor CMP Follow-up on blood cultures follow-up on urine cultures IV Rocephin Continue IV Lasix Continue Pyridium ID following Critical care following Hyponatremia hyperkalemia; Acute renal injury; likely related to sepsis and poor oral intake Resolved Atrial fibrillation Lopressor and Eliquis Leukocytosis; likely related to sepsis Hypertension; patient takes Aldactone, metoprolol and valsartan along with Lasix. Currently on Lopressor and IV Lasix Hyperlipidemia; Lipitor 80 mg p.o. nightly Labs and medication were reviewed.. Continue same treatment. Continue with symptomatic treatment. Resume home medication. Monitor labs and vitals. DVT and GI prophylaxis. Further recommendations as per clinical course of the patient Dictation was produced using [employer] dictation software. please excuse any grammatical, word or spelling errors. Objective - Vital Signs Vital signs: Vital Signs Temp 98.8 F 09/01/23 06:57 Pulse 74 09/01/23 11:11 Resp 17 09/01/23 11:11 BP 114/73 09/01/23 11:11 Pulse Ox 97 09/01/23 11:11 FiO2 Intake & Output 08/31/23 09/01/23 09/01/23 18:59 06:59 18:59 Intake Total 590 Output Total 4000 1300 1000 Balance -4000 -710 -1000 Weight 116.1 kg Intake: Oral 590 Output: Urine 4000 1300 1000 Other: Voiding Method Indwelling Catheter External Catheter External Catheter # Voids 2 # Bowel Movements 1 - Labs CBC & Chem 7: 09/01/23 03:58 09/01/23 07:15 Labs: Abnormal Lab Results - Last 24 Hours (Table) 09/01/23 09/01/23 Range/Units 03:58 07:15 MCV 101.6 H (80.0-100.0) fL Carbon Dioxide 21.4 L (21.6-31.8) mmol/L Calcium 8.3 L (8.7-10.3) mg/dL AST 66 H (13-35) U/L ALT 72 H (8-44) U/L Alkaline Phosphatase 263 H (41-126) U/L Total Protein 4.6 L (6.2-8.2) g/dL Albumin 2.6 L (3.8-4.9) g/dL Albumin/Globulin Ratio 1.30 L (1.60-3.17) Ratio
[2023-09-01 12:27] VITALS: RESP 16
--- NOTE | 2023-09-01 13:38 | P.PN ---
Subjective Progress Note Date: 08/31/23 Principal diagnosis: Reason for follow-up sepsis UTI and bacteremia Patient is a 83-year-old female with a past medical history significant for hypertension hyperlipidemia osteoarthritis atrial fibrillation patient presenting to the ER for evaluation of generalized weakness and hypotension, patient be diagnosed with sepsis secondary to urinary tract infection subsequently blood cultures came back positive with Klebsiella. On today's evaluation that is 08/31/2023, Patient is afebrile patient is currently on room air and denies having any shortness of breath, the patient denies any chest pain or cough, the patient denies any nausea vomiting did not have any abdominal pain and no diarrhea Patient white count is 10.46, creatinine is 1.1 Objective - Vital Signs Vital signs: Vital Signs Temp 97.8 F 08/31/23 11:56 Pulse 75 08/31/23 11:56 Resp 16 08/31/23 11:56 BP 134/77 08/31/23 11:56 Pulse Ox 96 08/31/23 11:56 FiO2 Intake & Output 08/30/23 08/31/23 08/31/23 18:59 06:59 18:59 Intake Total 1200 Output Total 3200 1000 1100 Balance -1999 -1000 -1100 Weight 116.8 kg Intake: Oral 1200 Output: Urine 3200 1000 1100 Other: Voiding Method Indwelling Catheter Indwelling Catheter # Bowel Movements 1 1 - Exam GENERAL DESCRIPTION: An elderly female up in the chair in no distress RESPIRATORY SYSTEM: Unlabored breathing , decreased breath sounds at bases HEART: S1 S2 regular rate and rhythm , ABDOMEN: Soft , no tenderness EXTREMITIES: No edema feet - Labs CBC & Chem 7: 09/01/23 03:58 09/01/23 07:15 Labs: Abnormal Lab Results - Last 24 Hours (Table) 08/31/23 08/31/23 Range/Units 06:21 06:21 WBC 10.46 H (4.50-10.00) X 10*3/uL RBC 3.72 L (4.10-5.20) X 10*6/uL MCV 103.5 H (80.0-97.0) FL MCH 32.8 H (27.0-32.0) pg MCHC 31.7 L (32.0-37.0) g/dL Immature Gran # 0.42 H (0.00-0.04) X 10*3/uL Eosinophils # 0.43 H (0.04-0.35) X 10*3/uL Sodium 134 L (135-145) mmol/L Carbon Dioxide 20.0 L (21.6-31.8) mmol/L Est GFR (CKD-EPI) 50 L (>=60) BUN/Creatinine Ratio 21.00 H (12.00-20.00) Ratio Calcium 8.2 L (8.7-10.3) mg/dL AST 90 H (13-35) U/L ALT 81 H (8-44) U/L Alkaline Phosphatase 286 H (41-126) U/L Total Protein 4.8 L (6.2-8.2) g/dL Albumin 2.7 L (3.8-4.9) g/dL Albumin/Globulin Ratio 1.29 L (1.60-3.17) Ratio Assessment and Plan (1) UTI (urinary tract infection) Current Visit: Yes Status: Acute Code(s): N39.0 - URINARY TRACT INFECTION, SITE NOT SPECIFIED SNOMED Code(s): 53963275 (2) Sepsis Current Visit: Yes Status: Acute Code(s): A41.9 - SEPSIS, UNSPECIFIED ORGANISM SNOMED Code(s): 61402079 (3) Allergy to sulfa drugs Current Visit: Yes Status: Acute Code(s): Z88.2 - ALLERGY STATUS TO SULFONAMIDES SNOMED Code(s): 35587322 (4) Bacteremia Current Visit: Yes Status: Acute Code(s): R78.81 - BACTEREMIA SNOMED Code(s): 7896203 Plan: 1patient presented hospital with sepsis in this patient who did have fever tachycardia hypotension urinary symptoms positive UA source is likely urinary tract infection likely from enteric gram-negative pathogen. 2patient blood culture came positive with Klebsiella with no resistant gene 3 ultrasound of the kidney bladder with no evidence of any structural abnormality 4patient blood culture finalized with Klebsiella that is a sensitive pathogen 5-patient is slowly clinical improving and will continue Rocephin 2 g daily while inpatient Dictation was produced using [employer] software. please excuse any grammatical, word or spelling errors. Time with Patient: Less than 30
--- NOTE | 2023-09-01 13:39 | P.PN ---
Subjective Progress Note Date: 09/01/23 Principal diagnosis: Reason for follow-up sepsis UTI and bacteremia Patient is a 83-year-old female with a past medical history significant for hypertension hyperlipidemia osteoarthritis atrial fibrillation patient presenting to the ER for evaluation of generalized weakness and hypotension, patient be diagnosed with sepsis secondary to urinary tract infection subsequently blood cultures came back positive with Klebsiella. On today's evaluation that is 09/01/2023, patient has been afebrile, patient is breathing comfortably and is currently on room air, patient denies having any significant cough no chest pain shortness of breath, patient denies nausea vomiting or diarrhea and no abdominal pain Patient white count 7.1 creatinine 0.9 Objective - Vital Signs Vital signs: Vital Signs Temp 98.8 F 09/01/23 06:57 Pulse 74 09/01/23 11:11 Resp 17 09/01/23 11:11 BP 114/73 09/01/23 11:11 Pulse Ox 97 09/01/23 11:11 FiO2 Intake & Output 08/31/23 09/01/23 09/01/23 18:59 06:59 18:59 Intake Total 590 Output Total 4000 1300 1000 Balance -4000 -710 -1000 Weight 116.1 kg Intake: Oral 590 Output: Urine 4000 1300 1000 Other: Voiding Method Indwelling Catheter External Catheter External Catheter # Voids 2 # Bowel Movements 1 - Exam GENERAL DESCRIPTION: An elderly female up in the chair in no distress RESPIRATORY SYSTEM: Unlabored breathing , decreased breath sounds at bases HEART: S1 S2 regular rate and rhythm , ABDOMEN: Soft , no tenderness EXTREMITIES: No edema feet - Labs CBC & Chem 7: 09/01/23 03:58 09/01/23 07:15 Labs: Abnormal Lab Results - Last 24 Hours (Table) 09/01/23 09/01/23 Range/Units 03:58 07:15 MCV 101.6 H (80.0-100.0) fL Carbon Dioxide 21.4 L (21.6-31.8) mmol/L Calcium 8.3 L (8.7-10.3) mg/dL AST 66 H (13-35) U/L ALT 72 H (8-44) U/L Alkaline Phosphatase 263 H (41-126) U/L Total Protein 4.6 L (6.2-8.2) g/dL Albumin 2.6 L (3.8-4.9) g/dL Albumin/Globulin Ratio 1.30 L (1.60-3.17) Ratio Assessment and Plan (1) UTI (urinary tract infection) Current Visit: Yes Status: Acute Code(s): N39.0 - URINARY TRACT INFECTION, SITE NOT SPECIFIED SNOMED Code(s): 07729363 (2) Sepsis Current Visit: Yes Status: Acute Code(s): A41.9 - SEPSIS, UNSPECIFIED ORGANISM SNOMED Code(s): 33128374 (3) Allergy to sulfa drugs Current Visit: Yes Status: Acute Code(s): Z88.2 - ALLERGY STATUS TO SULFONAMIDES SNOMED Code(s): 34045785 (4) Bacteremia Current Visit: Yes Status: Acute Code(s): R78.81 - BACTEREMIA SNOMED Code(s): 5940189 Plan: 1patient presented hospital with sepsis in this patient who did have fever tachycardia hypotension urinary symptoms positive UA source is likely urinary tract infection likely from enteric gram-negative pathogen. 2patient blood culture came positive with Klebsiella with no resistant gene 3 ultrasound of the kidney bladder with no evidence of any structural a bnormality 4patient blood culture finalized with Klebsiella that is a sensitive pathogen 5-patient has shown clinical improvement will continue Rocephin 2 g daily while inpatient and plan to finish therapy with oral antibiotics Dictation was produced using [employer] dictation software. please excuse any grammatical, word or spelling errors. Time with Patient: Less than 30
--- NOTE | 2023-09-02 09:58 | P.DS ---
Providers Date of admission: 08/25/23 22:16 Attending physician: Juana Norman Consults: 08/25/23 22:06 Consult Physician Routine Consulting Provider: Lakhwinder Evangelista Consult Reason/Comments: icu patient Do you want consulting provider notified?: Already Contacted 08/25/23 22:12 Consult Physician Stat Consulting Provider: Mary Sloan Consult Reason/Comments: urosepsis Do you want consulting provider notified?: Yes Primary care physician: Joe Araya Hospital Course: Sepsis UTI Klebsiella bacteremia A-fib on blood thinner Hypertension Hyperlipidemia Bilateral leg swelling Obesity with BMI of 46.8 Hospital course: 83-year-old female with a past medical history significant for hypertension hyperlipidemia osteoarthritis atrial fibrillation patient presenting to the ER for evaluation of generalized weakness and hypotension apparently the patient did have adjustment of her blood pressure medication by her community relations rep and the patient been feeling weak and lethargic and have difficulty with activities of daily living, patient also have some diarrhea and did have a urinary symptoms of burning denies significant suprapubic or flank pain some nausea but no vomiting with the symptoms the patient has been brought into the hospital on arrival to the ER patient did have a temperature of 102.9 Patient was diagnosed with acute urinary tract infection and bacteremia and she was treated with antibiotics ceftriaxone. ID team are following closely. Also patient was placed on IV Lasix 40 mg once daily for her fluid overload and significant bilateral leg swelling. Pulmonary/critical care team are following closely as well. Patient remains clinically stable and today she is awake alert, no urinary symptoms, no abdominal pain and tolerates diet well. No chest pain or dyspnea She agrees to go to rehab today Patient was cleared for discharge by ID team and pulmonary service. Patient will be discharged on oral antibiotics per ID team Problems and management plan were discussed with the patient and he verbalized understanding and acceptance Patient was found stable and can be discharged home in guarded prognosis however he needs follow-up as an outpatient. Patient was instructed to follow up with PCP Dr. Araya within one week and patient agrees Patient can follow-up with pulmonary in 2 to 3 weeks and ID team in 2 to 3 weeks after discharge Physical exam Gen: patient is a AAOx3, no distress CVS: S1-S2, RRR, no murmur Lungs: B/L CTA, no wheezing Abdomen: soft, no distention, no tenderness, positive bowel sounds Extremity: no leg edema or induration Time spent more than 35 minutes Patient Condition at Discharge: Critical Plan - Discharge Summary New Discharge Prescriptions: New Metoprolol Tartrate [Lopressor] 50 mg PO BID tab Continue Atorvastatin [Lipitor] 80 mg PO HS #30 tab Spironolactone 50 mg PO DAILY Apixaban [Eliquis] 5 mg PO BID Furosemide [Lasix] 40 mg PO DAILY #30 tablet traZODone HCL [Desyrel] 50 mg PO HS PRN PRN Reason: Insomnia Tolterodine ER [Detrol LA] 4 mg PO DAILY Acetaminophen Tab [Tylenol] 1,000 mg PO Q6H PRN #60 tablet PRN Reason: Pain Dapagliflozin Propanediol [Farxiga] 10 mg PO DAILY #30 tablet Discontinued Metoprolol Tartrate [Lopressor] 100 mg PO BID #60 tab Valsartan 80 mg PO DAILY Discharge Medication List Atorvastatin [Lipitor] 80 mg PO HS #30 tab 02/23/17 [Rx] Spironolactone 50 mg PO DAILY 02/25/17 [History] Apixaban [Eliquis] 5 mg PO BID 08/04/18 [History] Tolterodine ER [Detrol LA] 4 mg PO DAILY 05/13/23 [History] Acetaminophen Tab [Tylenol] 1,000 mg PO Q6H PRN #60 tablet 05/19/23 [Rx] Dapagliflozin Propanediol [Farxiga] 10 mg PO DAILY #30 tablet 05/19/23 [Rx] Furosemide [Lasix] 40 mg PO DAILY #30 tablet 05/19/23 [Rx] traZODone HCL [Desyrel] 50 mg PO HS PRN 08/26/23 [History] Metoprolol Tartrate [Lopressor] 50 mg PO BID tab 09/02/23 [Rx] Follow up Appointment(s)/Referral(s): Joe Araya [Primary Care Provider] - 1-2 days Activity/Diet/Wound Care/Special Instructions: heart healthy diet activity is as tolerated
--- NOTE | 2023-09-02 11:05 | P.PN ---
Subjective Progress Note Date: 09/02/23 Principal diagnosis: Sepsis. This is an 83 years old female patient with PMH of AFib, Hyperlipidemia, osteoarthritis and hypertension with valsartan started 2 days ago by her card iologist. She presented to the ED yesterday as she was feeling weak and lethargic and was hypotensive. She was given 2litres of saline. Her labs showed WBC 20.9, Hb 13,MCV 103, Plt 240, Na 127, K 5.2, BUN 57, and Creatinine 1.8. She was in urospesis with labs showing elevated urine leukocyte esterase, many WBC clumps, WBC >182 and many bacteria in the urine. Her chest x-ray shows cardiomegaly and mild pulmonary vascular congestion. She was started on Zosyn 25ml/hr. Today she was seen in the ICU and was stable on room air. She is currently on Norepinephrine 7 mcg/min and 0.9 at 130 ml/hr. Denies shortness of breath, cough, chest pain,fever, chills, and weakness. A procalcitonin level is ordered. She lives with her daughter and has difficulties with activities of daily living. ID has been consulted. Will continue to monitor. Progress note dated August 27 2023. Patient was evaluated in the ICU today. Overnight she was hypotensive and was started on norepinephrine 3 mcg/Kg/ minute. Blood culture came back positive for Klebsiella she was started on Rocephin 100 mm/h. She feels a better today and is on room air. Although she does complain of diarrhea, she had 3 episodes since morning. She is receiving 0.9% normal saline at 130 ml/hr. Pro-Leonel level is 0.68 which is consistent with infection. Labs show WBC 16.7, hemoglobin 12.9, platelets 204, sodium 131, potassium 5, BUN 36, creatinine 1.27. EKG shows atrial fibrillation with rapid ventricular response and is on Apixaban 5 m g twice daily. Abdomen/bladder ultrasound done today was normal. Denies shortness of breath, cough, chest pain, fever, chills and weakness. Will continue to monitor. Progress note dated August 28, 2023. 83-year-old female seen today in room 259. She continues to improve. She is on room air. She is getting saline at 130 cc an hour. In addition, she is on norepinephrine at 1 mcg/min. She is getting Rocephin, for Klebsiella in the bloodstream. Sensitivities are pending. She continues with diarrhea. The saline will be converted to LR, at the same rate. For a period of time, the norepinephrine, will shut off. Labs include a white count 11.7, hemoglobin 12.7, hematocrit 40.5, platelet count 3 24,000. Sodium 134, potassium 4.4, chlorides 110, CO2 21, BUN 26, creatinine 1.01. Calcium is 7.9. C. difficile test was negative. Procalcitonin level was 0.68. Progress note dated August 29, 2023. Patient is an 83-year-old female seen today in the ICU sitting in the chair beside the bed. She continues to improve and is on room air. She is getting Ringer lactate at 130 cc an hour. In addition to that she is on Rocephin for Klebsiella pneumonia on blood culture. And it is sensitive to ceftriaxone. She has been off norepinephrine since yesterday. She continues to have diarrhea. Labs showed WBC 8.1, hemoglobin 12.4, platelets 175, sodium 137, potassium 4.1, chloride 114, BUN 19, creatinine 0.73. C. difficile was negative. She has spasms while peeing, hence she was put on oxybutynin and phenazopyridine. Denies shortness of breath, cough, chest pain, dizziness or lightheadedness. She seems to be doing well and will be moved to the general medical floor today. Progress note dated August 30, 2023. Patient is an 83 female seen today in room 527. She continues to improve and is saturating at 96% on room air. She is getting Lactated Ringer at 50 mill per hr. She continues to be on Rocephin for Klebsiella found in the blood culture causing urinary tract infection/sepsis. The Klebsiella is sensitive to Rocephin. She is on oxybutynin but still complains of spasms while peeing. She was given a short of Lasix 60 mg because she had leg edema. Patient continues to have diarrhea and feels weak. Labs show WBC 8.1, hemoglobin 12.4, platelets 175, sodium 137, potassium 4.1, BUN 19 and creatinine 0.73. She continues to be on apixaban 2.5 mg for A-fib. Will continue to follow and make recommendations. Progress note dated August 31 2023 83-year-old female seen today in her room on the chair beside the bed. She c ontinues to improve and is saturating at 94% on room air. She has been off lactated Ringer. She is getting furosemide for bilateral leg edema in addition to the Rocephin for Klebsiella pneumonia on blood culture. Labs today show WBC 10.46, hemoglobin 12.2, platelet 217, sodium 134, potassium 4.5, chloride 104, BUN 23.1 creatinine 1.1, AST 90, ALT 81, alkaline phosphatase 286, albumin 2.7, albumin/globulin ratio 1.9. She contnues on 2.5 mg for A-fib. Hold Aldactone, metoprolol, valsartan. She does complain of bladder spasms which kept her up all night. Plan is urinary catheter will be removed today. Denies shortness of breath, cough, chest pain. Will continue to follow and make recommendations. Progress note dated September 01, 2023. Patient is an 83-year-old female seen today in her room on the chair beside the bed. She is doing a lot better today and is saturating at 97% on room air. She is getting furosemide 40 mg for bilateral leg edema in addition to Rocephin for Klebsiella pneumonia blood culture. Urinary Ferrara catheter was removed yesterday and she has a pure wick. She reports significant improvement in bladder spasms. She also mentions improvement in lower extremity edema as well as diarrhea. Her labs from today show WBC 7.1, hemoglobin 12.3, platelets 282, sodium 137, potassium 5, chloride 106 BUN 17.1 and creatinine 0.9 with glucose 79, AST 66, ALT 72, ALP 263, total protein 4.6, albumin 2.6, albumin/globulin ratio 1.3. Denies shortness of breath, cough and chest pain. Will continue to follow and make recommendations. Progress note dated September 02, 2023. 83-year-old female seen today in the room in the chair beside the bed. She is doing a lot better today and is saturating at 97% on room air. She was getting furosemide 40 mg for bilateral leg edema which has improved significantly in addition to Rocephin for Klebsiella pneumonia in blood culture. Denies shortness of breath, cough, chest pain, bladder spasms. She is stable to be discharged from the pulmonary standpoint. Objective - Vital Signs Vital signs: Vital Signs Temp 98.2 F 09/02/23 08:06 Pulse 85 09/02/23 08:06 Resp 16 09/02/23 08:06 BP 112/67 09/02/23 08:06 Pulse Ox 97 09/02/23 08:06 FiO2 Intake & Output 09/01/23 09/02/23 09/02/23 18:59 06:59 18:59 Intake Total 590 240 Output Total 3560 1300 1 Balance -3560 -710 239 Weight 116.1 kg 110.9 kg Intake: Oral 590 240 Output: Urine 3560 1300 1 Other: Voiding Method External Catheter External Catheter External Catheter # Bowel Movements 1 1 - Exam No acute distress, oriented 3. HEENT examination is grossly unremarkable. Mucous membranes are moist. No oral lesions. Neck supple. Full range of motion. No adenopathy thyromegaly or neck vein distention. Cardiovascular examination reveals regular rhythm rate. S1-S2 normal. No S3 or S4. No discernible murmur noted. Lungs reveal clear breath sounds. Breath sounds are equal bilaterally. No adventitious lung sounds including wheezes rhonchi or crackles. Abdomen soft bowel sounds are heard. No masses or tenderness. Extremities are intact. Lower extremity edema. No cyanosis clubbing. Skin is without rash or lesion. Neurologic examination is brief but nonfocal. - Labs CBC & Chem 7: 09/01/23 03:58 09/01/23 07:15 Labs: Abnormal Lab Results - Last 24 Hours (Table) 09/01/23 Range/Units 07:15 Carbon Dioxide 21.4 L (21.6-31.8) mmol/L Calcium 8.3 L (8.7-10.3) mg/dL AST 66 H (13-35) U/L ALT 72 H (8-44) U/L Alkaline Phosphatase 263 H (41-126) U/L Total Protein 4.6 L (6.2-8.2) g/dL Albumin 2.6 L (3.8-4.9) g/dL Albumin/Globulin Ratio 1.30 L (1.60-3.17) Ratio Assessment and Plan Assessment: Urinary tract infection/urosepsis/septic shock secondary to Klebsiella bacteremia. Bladder spasms resolved Bilateral lower extremity edema improved History of atrial fibrillation with RVR. Chronic diarrhea with dehydration and hypotension- improved Plan: Patient is stable to be discharged from the pulmonary standpoint. Lasix 40 mg IV for leg edema Oxybutynin and phenazopyridine for spasms while peeing Urine catheter removed and she has purewick Klebsiella discovered in the bloodstream, patient was on IV Rocephin Apixaban for atrial fibrillation with RVR Time spent with the patient: 20 minutes. Time with Patient: Less than 30
[2023-09-02 12:28] VITALS: BP 106/64; PULSE 86; TEMP 98.6
--- NOTE | 2023-09-02 16:03 | P.PN ---
Subjective Progress Note Date: 09/02/23 Principal diagnosis: Reason for follow-up sepsis UTI and bacteremia Patient is a 83-year-old female with a past medical history significant for hypertension hyperlipidemia osteoarthritis atrial fibrillation patient presenting to the ER for evaluation of generalized weakness and hypotension, patient be diagnosed with sepsis secondary to urinary tract infection subsequently blood cultures came back positive with Klebsiella. On today's evaluation that is 09/02/2023, Patient is afebrile this morning patient denies having any chest pain shortness of breath or cough, the patient is breathing comfortably and currently on room air, patient denies any abdominal pain no diarrhea no nausea no vomiting mention feeling better. No new labs were obtained today Objective - Vital Signs Vital signs: Vital Signs Temp 98.2 F 09/02/23 08:06 Pulse 85 09/02/23 08:06 Resp 16 09/02/23 08:06 BP 112/67 09/02/23 08:06 Pulse Ox 97 09/02/23 08:06 FiO2 Intake & Output 09/01/23 09/02/23 09/02/23 18:59 06:59 18:59 Intake Total 590 240 Output Total 3560 1300 51 Balance -3560 -710 189 Weight 116.1 kg 110.9 kg Intake: Oral 590 240 Output: Urine 3560 1300 51 Other: Voiding Method External Catheter External Catheter External Catheter # Voids 1 # Bowel Movements 1 1 - Exam GENERAL DESCRIPTION: An elderly female up in the chair in no distress RESPIRATORY SYSTEM: Unlabored breathing , decreased breath sounds at bases HEART: S1 S2 regular rate and rhythm , ABDOMEN: Soft , no tenderness EXTREMITIES: No edema feet - Labs CBC & Chem 7: 09/01/23 03:58 09/01/23 07:15 Assessment and Plan (1) UTI (urinary tract infection) Current Visit: Yes Status: Acute Code(s): N39.0 - URINARY TRACT INFECTION, SITE NOT SPECIFIED SNOMED Code(s): 81352014 (2) Sepsis Current Visit: Yes Status: Acute Code(s): A41.9 - SEPSIS, UNSPECIFIED ORGANISM SNOMED Code(s): 14339870 (3) Allergy to sulfa drugs Current Visit: Yes Status: Acute Code(s): Z88.2 - ALLERGY STATUS TO SULFONAMIDES SNOMED Code(s): 82510535 (4) Bacteremia Current Visit: Yes Status: Acute Code(s): R78.81 - BACTEREMIA SNOMED Code(s): 2382793 Plan: 1patient presented hospital with sepsis in this patient who did have fever tachycardia hypotension urinary symptoms positive UA source is likely urinary tract infection likely from enteric gram-negative pathogen. 2patient blood culture came positive with Klebsiella with no resistant gene 3 ultrasound of the kidney bladder with no evidence of any structural abnormality 4patient blood culture finalized with Klebsiella that is a sensitive pathogen 5-patient has shown clinical improvement she will finish therapy with a 7-day course of oral Ceftin and a close outpatient follow-up Dictation was produced using [employer] dictation software. please excuse any grammatical, word or spelling errors. Time with Patient: Less than 30
== END 2023-09-02 16:45 | DRG 871 ==
LOC: EC 20:04 → 2SICU 22:16 → 5NMEDONC 08-29 18:13
PROVIDERS: ADMIT Hospitalist; ATTEND Hospitalist
PROC: 02HV33Z Insertion of Infusion Device into Superior Vena Cava, Percutaneous Approach (ICD-10-PCS; principal; 2023-08-25)
DX: A41.59 Other Gram-negative sepsis (principal); R65.21 Severe sepsis with septic shock; N39.0 Urinary tract infection, site not specified; E87.1 Hypo-osmolality and hyponatremia; N17.9 Acute kidney failure, unspecified; Z68.42 Body mass index [BMI] 45.0-49.9, adult; E87.20 Acidosis, unspecified; Z66 Do not resuscitate; R42 Dizziness and giddiness; I48.0 Paroxysmal atrial fibrillation; E87.5 Hyperkalemia; I48.91 Unspecified atrial fibrillation; Z79.899 Other long term (current) drug therapy; I10 Essential (primary) hypertension; Z88.2 Allergy status to sulfonamides; R60.0 Localized edema; B96.1 Klebsiella pneumoniae [K. pneumoniae] as the cause of diseases classified elsewhere; R00.0 Tachycardia, unspecified; E86.0 Dehydration; K52.9 Noninfective gastroenteritis and colitis, unspecified; Z79.01 Long term (current) use of anticoagulants; E66.9 Obesity, unspecified; E78.5 Hyperlipidemia, unspecified; F41.9 Anxiety disorder, unspecified; E87.70 Fluid overload, unspecified; N32.89 Other specified disorders of bladder; Z79.82 Long term (current) use of aspirin; Z79.84 Long term (current) use of oral hypoglycemic drugs; Z90.710 Acquired absence of both cervix and uterus; Z88.5 Allergy status to narcotic agent
CPT/HCPCS: 36415; 36556; 51702; 71045; 76770; 80048; 80053; 81001; 83605; 83735; 84145; 84484; 85025; 85610; 85730; 87040; 87077; 87186; 87324; 93005; 96361; 96365; 96375; 96376; 99291

== ENCOUNTER 2023-10-11 22:44 | Inpatient (IN) | payer MEDICARE ==
[2023-10-11] MEDS: ACETAMINOPHEN TAB 500 MG TAB PO STA (23:31)
[2023-10-11] MEDS: ASPIRIN 81 MG PO STA (23:31)
[2023-10-11] MEDS: SODIUM CHLORIDE 0.9% 1,000 ML IV STA ×3 (23:34)
--- NOTE | 2023-10-11 23:49 | ED ---
General Adult HPI - General Chief complaint: Chest Pain Stated complaint: weakness Time Seen by Provider: 10/11/23 23:08 Source: patient, family, RN notes reviewed, old records reviewed Mode of arrival: wheelchair Limitations: no limitations - History of Present Illness Initial comments: Patient is an 83-year-old female with past medical history remarkable for atrial fibrillation on blood thinners, CAD, hypertension, recent visit for urosepsis presents emergency department complaining of intermittent chest pain for few days that she currently does not have but also feeling headache, lightheaded. Blood pressure was low at home. Presents for further evaluation. Similar presentation as last time when she presented with UTI and sepsis. Did require stay in the ICU on pressors at that time for septic shock. She endorses having diarrhea for a few days as well. No blood in it. No nausea or vomiting. No significant abdominal pain. No chest pain currently. No shortness of breath currently. No cough. No sore throat. No fevers. Presents for further evaluation at this time. - Related Data Home Medications Medication Instructions Recorded Confirmed Spironolactone 50 mg PO DAILY 02/25/17 08/26/23 Apixaban [Eliquis] 5 mg PO BID 08/04/18 08/26/23 Tolterodine ER [Detrol LA] 4 mg PO DAILY 05/13/23 08/26/23 traZODone HCL [Desyrel] 50 mg PO HS PRN 08/26/23 08/26/23 Previous Rx's Medication Instructions Recorded Atorvastatin [Lipitor] 80 mg PO HS #30 tab 02/23/17 Acetaminophen Tab [Tylenol] 1,000 mg PO Q6H PRN #60 tablet 05/19/23 Dapagliflozin Propanediol [Farxiga] 10 mg PO DAILY #30 tablet 05/19/23 Furosemide [Lasix] 40 mg PO DAILY #30 tablet 05/19/23 Metoprolol Tartrate [Lopressor] 50 mg PO BID tab 09/02/23 cefUROXime axetiL [Ceftin] 500 mg PO BID 7 Days #14 tab 09/02/23 Allergies Allergy/AdvReac Type Severity Reaction Status Date / Time Sulfa (Sulfonamide Allergy Unknown Verified 08/26/23 10:01 Antibiotics) codeine AdvReac Hallucinati Verified 08/26/23 10:01 ons Review of Systems ROS Statement: Those systems with pertinent positive or pertinent negative responses have been documented in the HPI. Review of Systems: CONST: Denies fever EYES: Denies blurry vision ENT: Denies nasal congestion C/V: Denies Chest pain RESP: Denies shortness of breath GI: Denies abdominal pain : Denies dysuria SKIN: Denies rash. MSK: Denies joint pain. NEURO: Endorses headache ROS Other: All systems not noted in ROS Statement are negative. Past Medical History Past Medical History: Atrial Fibrillation, Hyperlipidemia, Hypertension, Osteoarthritis (OA), Vascular Disorder Additional Past Medical History / Comment(s): -hx irregular heart rate, 2 ruptured disc back, bladder leakage, pancreatitis, edd. lower leg swelling, shortness of breath History of Any Multi-Drug Resistant Organisms: ESBL Date of last positivie culture/infection: 07/15/20 ESBL Klebsiella MDRO Source:: Urine Past Surgical History: Cholecystectomy, Heart Catheterization With Stent, Hysterectomy, Orthopedic Surgery Additional Past Surgical History / Comment(s): lt knee arthroscopy Past Anesthesia/Blood Transfusion Reactions: No Reported Reaction Date of Last Stent Placement:: MAY 2017 Past Psychological History: Anxiety Smoking Status: Never smoker Past Alcohol Use History: Occasional Past Drug Use History: None Reported - Past Family History Mother Family Medical History: No Reported History Additional Family Medical History / Comment(s): heart issues Father Family Medical History: Cancer Additional Family Medical History / Comment(s): . General Exam - General Exam Comments Initial Comments: General: Appears in no acute distress. HEAD: Normal with no signs of head trauma. EYES: PERRLA, EOMI, conjunctiva normal, no discharge. ENT: Hearing grossly intact, normal oropharynx. Dry mucous membranes. RESPIRATORY: Clear breath sounds bilaterally. No wheezes, rales, or rhonchi. No hypoxia or increased work of breathing. C/V: Tachycardic with irregular rhythm. S1 and S2 auscultated, no edema, peripheral pulses 2+ and intact throughout ABD: Abd is soft, nontender, nondistended EXT: Normal range of motion, no obvious deformity SKIN: No rashes or lesions observed on exposed skin. NEURO: Alert and oriented x 4. Limitations: no limitations Course Vital Signs 10/11/23 10/11/23 10/12/23 22:56 23:35 00:19 Temperature 97.9 F Pulse Rate 71 120 H 116 H Respiratory 18 18 16 Rate Blood Pressure 60/42 81/47 94/74 O2 Sat by Pulse 99 96 Oximetry 10/12/23 10/12/23 10/12/23 00:59 01:00 01:15 Temperature Pulse Rate 130 H 129 H 130 H Respiratory 18 11 L 11 L Rate Blood Pressure 81/47 81/47 73/40 O2 Sat by Pulse 99 99 99 Oximetry 10/12/23 10/12/23 10/12/23 01:30 01:45 02:00 Temperature Pulse Rate 101 H 107 H 125 H Respiratory 14 16 18 Rate Blood Pressure 89/66 88/53 75/45 O2 Sat by Pulse 99 98 99 Oximetry 10/12/23 10/12/23 10/12/23 02:15 02:35 02:40 Temperature Pulse Rate 118 H 97 117 H Respiratory 13 12 13 Rate Blood Pressure 95/52 98/74 93/69 O2 Sat by Pulse 100 100 98 Oximetry 10/12/23 10/12/23 10/12/23 02:45 02:50 02:55 Temperature Pulse Rate 109 H 128 H 121 H Respiratory 14 13 16 Rate Blood Pressure 98/54 87/59 85/66 O2 Sat by Pulse 99 99 99 Oximetry 10/12/23 10/12/23 10/12/23 03:00 03:05 03:10 Temperature Pulse Rate 107 H 100 113 H Respiratory 18 14 12 Rate Blood Pressure 100/59 110/77 103/57 O2 Sat by Pulse 98 100 99 Oximetry 10/12/23 10/12/23 10/12/23 03:15 03:20 03:25 Temperature 98.2 F Pulse Rate 92 105 H 105 H Respiratory 18 15 14 Rate Blood Pressure 92/51 90/66 102/52 O2 Sat by Pulse 100 98 99 Oximetry 10/12/23 10/12/23 10/12/23 03:30 03:35 03:40 Temperature Pulse Rate 117 H 100 116 H Respiratory 16 18 12 Rate Blood Pressure 96/42 105/59 101/83 O2 Sat by Pulse 99 99 98 Oximetry 10/12/23 10/12/23 10/12/23 03:45 03:50 03:55 Temperature Pulse Rate 107 H 106 H 98 Respiratory 12 18 16 Rate Blood Pressure 101/70 100/60 99/71 O2 Sat by Pulse 99 99 99 Oximetry 10/12/23 10/12/23 10/12/23 04:00 04:05 04:10 Temperature 98.2 F Pulse Rate 128 H 126 H 105 H Respiratory 12 12 18 Rate Blood Pressure 104/59 108/78 114/64 O2 Sat by Pulse 99 98 98 Oximetry 10/12/23 04:15 Temperature Pulse Rate 100 Respiratory 16 Rate Blood Pressure 112/66 O2 Sat by Pulse 99 Oximetry Procedures - Sepsis Sepsis Focused Exam #1 Time Sepsis Criteria Met: 01:15 Sepsis Focused Exam Date: 10/12/23 Sepsis Focused Exam Time: 03:00 Sepsis Focused Exam Complete: Yes Vital Signs & RN Notes Reviewed: Yes Capillary Refill: > 2 Seconds: Fingers, Toes Peripheral Pulses: Normal: Radial (R), Radial (L) Skin Color: Normal for Patient Respiratory Exam: normal lung sounds, respiratory distress Cardiovascular Exam: regular rate, irregular rhythm Medical Decision Making - Medical Decision Making Was pt. sent in by a medical professional or institution (, PA, INTELLIGENT SYSTEMS ENGINEER, urgent care, hospital, or skilled nursing...) When possible be specific @ -No Did you speak to anyone other than the patient for history (EMS, parent, family, police, friend...)? What history was obtained from this source @ -No Did you review nursing and triage notes (agree or disagree)? Why? @ --Reviewed recent hospital stay which included ICU admission for uti, septic shock in August 2023. Were old charts reviewed (outside hosp., previous admission, EMS record, old EKG, old radiological studies, urgent care reports/EKG's, skilled nursing records)? Report findings @ -No old charts were reviewed Differential Diagnosis (chest pain, altered mental status, abdominal pain women, abdominal pain men, vaginal bleeding, weakness, fever, dyspnea, syncope, headache, dizziness, GI bleed, back pain, seizure, CVA, palpatations, mental health, musculoskeletal)? @ -Differential Weakness: Hypoglycemia, shock, sepsis, hyponatremia, anemia, infection, AL, ETOH, adverse medicine reaction, overdose, stroke, this is not meant to be an all-inclusive list. Differential Chest Pain: Stable Angina, Unstable Angina, STEMI, NSTEMI Aortic Dissection, Pneumothorax, Musculoskeletal, Esophageal Spasm GERD, Cholecystitis, Pancreatitis, Zoster, this is not meant to be an all-inclusive list. EKG interpreted by me (3pts min.). @ -As above X-rays interpreted by me (1pt min.). @ -Chest x-ray shows a left lower lobe pulmonary nodule. CT interpreted by me (1pt min.). @ -CT brain reveals no obvious acute intracranial process. CT chest abdomen pelvis without contrast remarkable for findings consistent with UTI but no other obvious findings to explain the patient's current symptoms. U/S interpreted by me (1pt. min.). @ -None done What testing was considered but not performed or refused? (CT, X-rays, U/S, labs)? Why? @ -None What meds were considered but not given or refused? Why? @ -None Did you discuss the management of the patient with other professionals (professionals i.e. , PA, INTELLIGENT SYSTEMS ENGINEER, lab, RT, psych nurse, criminal justice social worker, sales and marketing administrator, teacher, financial administration officer, case manager specialist)? Give summary @ -I spoke with Mac of ICU who accepted the admission to the ICU. Was in agreement the plan for Levophed and central line. I discussed at length with Mac from ICU regarding the patient. I updated him on the unsuccessful central line attempt due to the body habitus of the patient's left femoral region. We did discuss obtaining central line access in the neck however patient is hesitant and would like to avoid it if possible as she did not like it last time. I believe this is reasonable as she is tolerating peripheral Levophed well with no significant increase in her heart rate above what it was previously and blood pressures above MAP of 65 without having to uptitrate the dose. Mac was also in agreement with peripheral levophed at this time and deferring the central line. Patient was admitted to the ICU. I spoke with the admitting team,CAMELIA GARCIA who accepted the admission. Was smoking cessation discussed for >3mins.? @ -No Was critical care preformed (if so, how long)? @ -Yes, 48 minutes. Were there social determinants of health that impacted care today? How? (Homelessness, low income, unemployed, alcoholism, drug addiction, transportation, low edu. Level, literacy, decrease access to med. care, intermediate, rehab)? @ -No Was there de-escalation of care discussed even if they declined (Discuss DNR or withdrawal of care, Hospice)? DNR status @ -No What co-morbidities impacted this encounter? (DM, HTN, Smoking, COPD, CAD, Cancer, CVA, ARF, Chemo, Hep., AIDS, mental health diagnosis, sleep apnea, morbid obesity)? @ -Atrial fibrillation Was patient admitted / discharged? Hospital course, mention meds given and route, prescriptions, significant lab abnormalities, going to OR and other perti nent info. @ -Based on the patient's presentation and physical exam, to the emergency department hypotensive, with complaint of intermittent chest pain which she currently does not have as well as diarrhea and weakness. The symptoms have been ongoing for a few days. Worse over the last 1 day. She is in A-fib with RVR intermittently. Appears clinically dehydrated. She will be given 2 L fluid bolus and placed on maintenance fluids. We will obtain broad workup including cardiac workup. Patient in agreement this plan. EKG shows A-fib with RVR however when I evaluate the patient, patient's heart rate is within acceptable limits. Patient is hypotensive.Patient's labs remarkable for normal white blood cell count of 10.5. Patient is hyponatremic and hypochloremic at 130 and 96 likely secondary to dehydration. Patient has an KD with a BUN of 41 creatinine 2.14. Lactic acid within normal limits. Troponin indeterminate. Urinalysis remarkable for UTI. Viral swabs negative. Imaging returned showing signs concerning for UTI. At this time, patient shock appears to be secondary to septic shock. Likely from urosepsis. Patient remains hypotensive but has no other SIRS criteria at this time however patient does have a UTI. Patient's heart rate intermittently will be going to RVR but is persistently closer to 90-1 15. Patient met sepsis criteria at 0115. Patient is already received 30 cc/kg fluid bolus and remains hypotensive. She is on maintenance fluids and patient will be started on peripheral Levophed. Patient will be started on broad-spectrum antibiotics vancomycin and cefepime. Patient was in agreement this plan. Urine culture and blood culture sent. I spoke with Mac of ICU who accepted the admission to the ICU. Was in agreement the plan for Levophed and central line. I spoke with the patient and decision was made to place a central line. We spoke at length over possible locations, and patient had a central line previously in her neck. Discussed that this was uncomfortable and she will prefer 1 in her thigh. I will attempt a left femoral central line. Central line attempt was unsuccessful, as I was unable to successfully advance the dilator sufficiently due to patient's body habitus of her leg. Which caused the wire to kink. Small amount of bleeding following the attempt. Patient was on peripheral Levophed at this point and heart rates continued to range from 98 to 115 bpm which has been present since arrival. Blood pressures have improved with maps consistently above 65 on low-dose peripheral Levophed at 0.04, which is what it was started at. I discussed at length with Mac from ICU regarding the patient. I updated him on the unsuccessful central line attempt due to the body habitus of the patient's left femoral region. We did discuss obtaining central line access in the neck however patient is hesitant and would like to avoid it if possible as she did not like it last time. I believe this is reasonable as she is tolerating peripheral Levophed well with no significant increase in her heart rate above what it was previously and blood pressures above MAP of 65 without having to uptitrate the dose. Mac was also in agreement with peripheral levophed at this time and deferring the central line.. Patient was admitted to the ICU. Cardiology consulted for the patient's chest pain. We will trend the troponin as well. Patient feeling improved at this time. I spoke with the admitting team,CAMELIA GARCIA who accepted the admission. Undiagnosed new problem with uncertain prognosis? @ -No Drug Therapy requiring intensive monitoring for toxicity (Heparin, Nitro, Insulin, Cardizem)? @ -No Were any procedures done? @ -No Diagnosis/symptom? @ -UTI resulting in septic shock, chest pain, acute kidney injury, dehydration Acute, or Chronic, or Acute on Chronic? @ -Acute Uncomplicated (without systemic symptoms) or Complicated (systemic symptoms)? @ -Complicated Side effects of treatment? @ -None Exacerbation, Progression, or Severe Exacerbation] @ -No Poses a threat to life or bodily function? @ -Yes Diagnosis/symptom? @ -Atrial fibrillation with RVR, intermittent Acute, or Chronic, or Acute on Chronic? @ -Chronic Uncomplicated (without systemic symptoms) or Complicated (systemic symptoms)? @ -Uncomplicated Side effects of treatment? @ -None Exacerbation, Progression, or Severe Exacerbation] @ -No Poses a threat to life or bodily function? @ -Potentially, yes - Lab Data Result diagrams: 10/11/23 23:15 10/11/23 23:15 Lab Results 10/11/23 10/11/23 10/11/23 Range/Units 23:15 23:15 23:15 WBC 10.5 (3.8-10.6) k/uL RBC 4.31 (3.80-5.40) m/uL Hgb 13.8 (11.4-16.0) gm/dL Hct 43.4 (34.0-46.0) % MCV 100.8 H (80.0-100.0) fL MCH 32.1 (25.0-35.0) pg MCHC 31.8 (31.0-37.0) g/dL RDW 12.5 (11.5-15.5) % Plt Count 246 (150-450) k/uL MPV 7.5 Neutrophils % 67 % Lymphocytes % 21 % Monocytes % 8 % Eosinophils % 2 % Basophils % 0 % Neutrophils # 7.0 (1.3-7.7) k/uL Lymphocytes # 2.2 (1.0-4.8) k/uL Monocytes # 0.9 (0-1.0) k/uL Eosinophils # 0.2 (0-0.7) k/uL Basophils # 0.0 (0-0.2) k/uL Hypochromasia Slight PT 13.1 H (10.0-12.5) sec INR 1.2 H (<1.2) APTT 25.6 (22.0-30.0) sec Sodium 130 L (137-145) mmol/L Potassium 4.2 (3.5-5.1) mmol/L Chloride 96 L (98-107) mmol/L Carbon Dioxide 27 (22-30) mmol/L Anion Gap 7 mmol/L BUN 41 H (7-17) mg/dL Creatinine 2.14 H (0.52-1.04) mg/dL Est GFR (CKD-EPI)AfAm 24 (>60 ml/min/1.73 sqM) Est GFR (CKD-EPI)NonAf 21 (>60 ml/min/1.73 sqM) Glucose 108 H (74-99) mg/dL Plasma Lactic Acid Rony (0.7-2.0) mmol/L Calcium 9.0 (8.4-10.2) mg/dL Magnesium 1.6 (1.6-2.3) mg/dL Total Bilirubin 1.0 (0.2-1.3) mg/dL AST 29 (14-36) U/L ALT 19 (4-34) U/L Alkaline Phosphatase 168 H (38-126) U/L Troponin I (0.000-0.034) ng/mL NT-Pro-B Natriuret Pep 1880 pg/mL Total Protein 6.2 L (6.3-8.2) g/dL Albumin 3.7 (3.5-5.0) g/dL Lipase 116 (23-300) U/L Urine Color Urine Appearance (Clear) Urine pH (5.0-8.0) Ur Specific Goehner (1.001-1.035) Urine Protein (Negative) Urine Glucose (UA) (Negative) Urine Ketones (Negative) Urine Blood (Negative) Urine Nitrite (Negative) Urine Bilirubin (Negative) Urine Urobilinogen (<2.0) mg/dL Ur Leukocyte Esterase (Negative) Urine RBC (0-5) /hpf Urine WBC (0-5) /hpf Urine WBC Clumps (None) /hpf Ur Squamous Epith Cells (0-4) /hpf Urine Bacteria (None) /hpf Hyaline Casts (0-2) /lpf Urine Mucus (None) /hpf Influenza Type A (PCR) (Not Detectd) Influenza Type B (PCR) (Not Detectd) RSV (PCR) (Not Detectd) SARS-CoV-2 (PCR) (Not Detectd) 10/11/23 10/11/23 10/11/23 Range/Units 23:15 23:15 23:58 WBC (3.8-10.6) k/uL RBC (3.80-5.40) m/uL Hgb (11.4-16.0) gm/dL Hct (34.0-46.0) % MCV (80.0-100.0) fL MCH (25.0-35.0) pg MCHC (31.0-37.0) g/dL RDW (11.5-15.5) % Plt Count (150-450) k/uL MPV Neutrophils % % Lymphocytes % % Monocytes % % Eosinophils % % Basophils % % Neutrophils # (1.3-7.7) k/uL Lymphocytes # (1.0-4.8) k/uL Monocytes # (0-1.0) k/uL Eosinophils # (0-0.7) k/uL Basophils # (0-0.2) k/uL Hypochromasia PT (10.0-12.5) sec INR (<1.2) APTT (22.0-30.0) sec Sodium (137-145) mmol/L Potassium (3.5-5.1) mmol/L Chloride (98-107) mmol/L Carbon Dioxide (22-30) mmol/L Anion Gap mmol/L BUN (7-17) mg/dL Creatinine (0.52-1.04) mg/dL Est GFR (CKD-EPI)AfAm (>60 ml/min/1.73 sqM) Est GFR (CKD-EPI)NonAf (>60 ml/min/1.73 sqM) Glucose (74-99) mg/dL Plasma Lactic Acid Rony 2.0 (0.7-2.0) mmol/L Calcium (8.4-10.2) mg/dL Magnesium (1.6-2.3) mg/dL Total Bilirubin (0.2-1.3) mg/dL AST (14-36) U/L ALT (4-34) U/L Alkaline Phosphatase (38-126) U/L Troponin I 0.013 (0.000-0.034) ng/mL NT-Pro-B Natriuret Pep pg/mL Total Protein (6.3-8.2) g/dL Albumin (3.5-5.0) g/dL Lipase (23-300) U/L Urine Color Urine Appearance (Clear) Urine pH (5.0-8.0) Ur Specific Goehner (1.001-1.035) Urine Protein (Negative) Urine Glucose (UA) (Negative) Urine Ketones (Negative) Urine Blood (Negative) Urine Nitrite (Negative) Urine Bilirubin (Negative) Urine Urobilinogen (<2.0) mg/dL Ur Leukocyte Esterase (Negative) Urine RBC (0-5) /hpf Urine WBC (0-5) /hpf Urine WBC Clumps (None) /hpf Ur Squamous Epith Cells (0-4) /hpf Urine Bacteria (None) /hpf Hyaline Casts (0-2) /lpf Urine Mucus (None) /hpf Influenza Type A (PCR) Not Detected (Not Detectd) Influenza Type B (PCR) Not Detected (Not Detectd) RSV (PCR) Not Detected (Not Detectd) SARS-CoV-2 (PCR) Not Detected (Not Detectd) 10/12/23 Range/Units 00:14 WBC (3.8-10.6) k/uL RBC (3.80-5.40) m/uL Hgb (11.4-16.0) gm/dL Hct (34.0-46.0) % MCV (80.0-100.0) fL MCH (25.0-35.0) pg MCHC (31.0-37.0) g/dL RDW (11.5-15.5) % Plt Count (150-450) k/uL MPV Neutrophils % % Lymphocytes % % Monocytes % % Eosinophils % % Basophils % % Neutrophils # (1.3-7.7) k/uL Lymphocytes # (1.0-4.8) k/uL Monocytes # (0-1.0) k/uL Eosinophils # (0-0.7) k/uL Basophils # (0-0.2) k/uL Hypochromasia PT (10.0-12.5) sec INR (<1.2) APTT (22.0-30.0) sec Sodium (137-145) mmol/L Potassium (3.5-5.1) mmol/L Chloride (98-107) mmol/L Carbon Dioxide (22-30) mmol/L Anion Gap mmol/L BUN (7-17) mg/dL Creatinine (0.52-1.04) mg/dL Est GFR (CKD-EPI)AfAm (>60 ml/min/1.73 sqM) Est GFR (CKD-EPI)NonAf (>60 ml/min/1.73 sqM) Glucose (74-99) mg/dL Plasma Lactic Acid Rony (0.7-2.0) mmol/L Calcium (8.4-10.2) mg/dL Magnesium (1.6-2.3) mg/dL Total Bilirubin (0.2-1.3) mg/dL AST (14-36) U/L ALT (4-34) U/L Alkaline Phosphatase (38-126) U/L Troponin I (0.000-0.034) ng/mL NT-Pro-B Natriuret Pep pg/mL Total Protein (6.3-8.2) g/dL Albumin (3.5-5.0) g/dL Lipase (23-300) U/L Urine Color Yellow Urine Appearance Turbid H (Clear) Urine pH 5.0 (5.0-8.0) Ur Specific Goehner 1.019 (1.001-1.035) Urine Protein 1+ H (Negative) Urine Glucose (UA) 2+ H (Negative) Urine Ketones Negative (Negative) Urine Blood Trace H (Negative) Urine Nitrite Negative (Negative) Urine Bilirubin Negative (Negative) Urine Urobilinogen <2.0 (<2.0) mg/dL Ur Leukocyte Esterase Large H (Negative) Urine RBC 5 (0-5) /hpf Urine WBC >182 H (0-5) /hpf Urine WBC Clumps Many H (None) /hpf Ur Squamous Epith Cells <1 (0-4) /hpf Urine Bacteria Many H (None) /hpf Hyaline Casts 144 H (0-2) /lpf Urine Mucus Few H (None) /hpf Influenza Type A (PCR) (Not Detectd) Influenza Type B (PCR) (Not Detectd) RSV (PCR) (Not Detectd) SARS-CoV-2 (PCR) (Not Detectd) - EKG Data -: EKG Interpreted by Me EKG Comments: 12-lead Electrocardiogram Interpretation Note EKG was reviewed and interpreted by myself. 12-lead ECG performed at 2309 is interpreted by me as revealing A-fib with RVR at a rate of 111 beats per minute. [place] is normal. QRS durations 106 ms, QTc is 384 ms.. There were no ST or T wave abnormalities to suggest myocardial ischemia or injury. R wave progression across the precordium was satisfactory. By my interpretation this EKG is non- diagnostic for acute ischemia. Critical Care Time Critical Care Time: Yes Total Critical Care Time: 48 Disposition Clinical Impression: UTI (urinary tract infection), Chest pain, KD (acute kidney injury), Septic shock, Dehydration, Atrial fibrillation Disposition: ADMITTED IP TO THIS HOSP Condition: Serious Time of Disposition: 03:00
[2023-10-11 23:55] LABS: Basophils % (A) 0 %; Eosinophils # (A) 0.2 k/uL (0-0.7); Eosinophils % (A) 2 %; HCT 43.4 % (34.0-46.0); HGB 13.8 gm/dL (11.4-16.0); Hypochromasia Slight; Lymphocytes # (A) 2.2 k/uL (1.0-4.8); Lymphocytes % (A) 21 %; MCH 32.1 pg (25.0-35.0); MCHC 31.8 g/dL (31.0-37.0); MCV 100.8 fL (80.0-100.0); Mean Platelet Volume 7.5; Monocytes # (A) 0.9 k/uL (0-1.0); Monocytes % (A) 8 %; Neutrophils % (A) 67 %; Platelet Count 246 k/uL (150-450); RBC 4.31 m/uL (3.80-5.40); RDW 12.5 % (11.5-15.5); WBC 10.5 k/uL (3.8-10.6)
[2023-10-12 00:03] LABS: INR 1.2 (<1.2); Partial Thromboplastin Time 25.6 sec (22.0-30.0); Prothrombin Time 13.1 sec (10.0-12.5)
[2023-10-12 00:17] LABS: ALT 19 U/L (4-34); AST 29 U/L (14-36); African American GFR (CKD) 24 (>60 ml/min/1.73 sqM); Albumin 3.7 g/dL (3.5-5.0); Alkaline Phosphatase 168 U/L (38-126); Anion Gap 7 mmol/L; Blood Urea Nitrogen 41 mg/dL (7-17); Carbon Dioxide 27 mmol/L (22-30); Chloride 96 mmol/L (98-107); Glucose 108 mg/dL (74-99); Lipase 116 U/L (23-300); Magnesium 1.6 mg/dL (1.6-2.3); Non-African American GFR(CKD) 21 (>60 ml/min/1.73 sqM); Potassium 4.2 mmol/L (3.5-5.1); Sodium 130 mmol/L (137-145); Total Protein 6.2 g/dL (6.3-8.2)
[2023-10-12 00:25] LABS: NT-Pro-B-Type Natriuretic Pept 1880 pg/mL
[2023-10-12] MEDS ORDERED: VANCOMYCIN IV PER PHARMACY 1 EACH MISC MISCELLANE PRN (01:16)
--- NOTE | 2023-10-12 01:20 | CT ---
ADDENDUM - Added by Dhruv Quintana MD on 10/12/2023 1:21 AM (-04:00) FINDINGS: Brain: No hemorrhage, herniation, or mass effect. Ventricles: No hydrocephalus. Age related cerebral volume loss. Bones/joints: Unremarkable. Soft tissues: Multiple foci of air in the soft tissues of the face this is likely introduced from the IV catheter. Sinuses: No air fluid levels. Mastoid air cells: Clear. IMPRESSION: No acute hemorrhage, hydrocephalus, or mass effect. Multiple foci of air in the soft tissues of the face this is likely introduced from the IV catheter. EXAM: CT Head Without Intravenous Contrast CLINICAL HISTORY: ITS.REASON CT Reason: headache TECHNIQUE: Axial computed tomography images of the head/brain without intravenous contrast. CTDI is 49.1 mGy and DLP is 1150 mGy-cm. This CT exam was performed using one or more of the following dose reduction techniques: automated exposure control, adjustment of the mA and/or kV according to patient size, and/or use of iterative reconstruction technique. COMPARISON: No relevant prior studies available. FINDINGS: Brain: No hemorrhage, herniation, or mass effect. Ventricles: No hydrocephalus. Age related cerebral volume loss. Bones/joints: Unremarkable. Soft tissues: Unremarkable. Sinuses: No air fluid levels. Mastoid air cells: Clear.
[2023-10-12 01:28] LABS: Appearance,Urine Turbid (Clear); Bacteria,Urine Many /hpf; Bilirubin,Urine Negative (Negative); Blood,Urine Trace (Negative); Color,Urine Yellow; Glucose,Urine (UA) 2+ (Negative); Hyaline Casts,Urine 144 /lpf (0-2); Ketones,Urine Negative (Negative); Leukocyte Esterase,Urine Large (Negative); Mucus,Urine Few /hpf; Nitrite,Urine Negative (Negative); Protein,Urine 1+ (Negative); RBC,Urine 5 /hpf (0-5); Specific Gravity,Urine 1.019 (1.001-1.035); Squamous Epithelial Cell,Urine <1 /hpf (0-4); Urobilinogen,Urine <2.0 mg/dL (<2.0); WBC,Urine >182 /hpf (0-5)
--- NOTE | 2023-10-12 01:59 | XR ---
EXAM: XR Chest, 2 Views CLINICAL HISTORY: ITS.REASON XR Reason: Chest Pain TECHNIQUE: Frontal and lateral views of the chest. COMPARISON: No relevant prior studies available. IMPRESSION: Cardiomegaly. 1.2 cm nodule left lower lobe
[2023-10-12] MEDS: NOREPINEPHRINE 4 MG in SODIUM CHLORIDE 0.9% 250 ML IV SCH (02:24)
--- NOTE | 2023-10-12 02:30 | CT ---
EXAM: CT Chest Without Intravenous Contrast CLINICAL HISTORY: ITS.REASON CT Reason: hypotension, diarrhea TECHNIQUE: Axial computed tomography images of the chest without intravenous contrast. CTDI is 22 mGy and DLP is 1493 mGy-cm. This CT exam was performed using one or more of the following dose reduction techniques: automated exposure control, adjustment of the mA and/or kV according to patient size, and/or use of iterative reconstruction technique. COMPARISON: No relevant prior studies available. FINDINGS: Lungs: RIGHT lower lobe nodule measures 2.1 x 1.7 cm. Follow-up as per Fleischner Society guidelines. No consolidation. Pleural space: Unremarkable. No pneumothorax. No significant effusion. Heart: Unremarkable. No cardiomegaly. No significant pericardial effusion. No significant coronary artery calcifications. Bones/joints: Degenerative changes of the spine. No acute fracture. No dislocation. Soft tissues: Unremarkable. Vasculature: Atherosclerotic changes of the aorta. No thoracic aortic aneurysm. Lymph nodes: Unremarkable. No enlarged lymph nodes. IMPRESSION: RIGHT lower lobe nodule measures 2.1 x 1.7 cm. Follow-up as per Fleischner Society guidelines. EXAM: CT Abdomen and Pelvis Without Intravenous Contrast CLINICAL HISTORY: ITS.REASON CT Reason: hypotension, diarrhea TECHNIQUE: Axial computed tomography images of the abdomen and pelvis without intravenous contrast. This CT exam was performed using one or more of the following dose reduction techniques: automated exposure control, adjustment of the mA and/or kV according to patient size, and/or use of iterative reconstruction technique. COMPARISON: No relevant prior studies available. FINDINGS: Lung bases: Unremarkable. No mass. No consolidation. ABDOMEN: Liver: Unremarkable. Gallbladder and bile ducts: Unremarkable. No calcified stones. No ductal dilation. Pancreas: Unremarkable. No ductal dilation. Spleen: Unremarkable. No splenomegaly. Adrenals: Unremarkable. No mass. Kidneys and ureters: Unremarkable. No hydronephrosis, nephrolithiasis, or obstructive uropathy. Stomach and bowel: Diverticulosis, without acute diverticulitis. No small bowel obstruction. No free intraperitoneal air. PELVIS: Appendix: No findings to suggest acute appendicitis. Bladder: Wall thickening of the urinary bladder, correlate for UTI. No stones. Reproductive: Unremarkable as visualized. ABDOMEN and PELVIS: Intraperitoneal space: Unremarkable. No free air. No significant fluid collection. Bones/joints: Degenerative changes of the spine. No acute fracture. No dislocation. Soft tissues: Unremarkable. Vasculature: Atherosclerotic changes of the aorta. No abdominal aortic aneurysm. Lymph nodes: Unremarkable. No enlarged lymph nodes. IMPRESSION: 1. No hydronephrosis, nephrolithiasis, or obstructive uropathy. 2. Wall thickening of the urinary bladder, correlate for UTI. 3. Diverticulosis, without acute diverticulitis. No small bowel obstruction. No free intraperitoneal air.
[2023-10-12] MEDS: CEFEPIME 2 GM in SODIUM CHLORIDE 0.9% 100 ML IVPB SCH (02:54)
[2023-10-12] MEDS ORDERED: NALOXONE 0.4 MG/ML 1 ML VIAL IV PRN ×2 (02:58→03:06)
[2023-10-12] MEDS: VANCOMYCIN 1,750 MG in SODIUM CHLORIDE 0.9% 500 ML 500 ML IVPB ONE (02:59)
[2023-10-12] MEDS: SODIUM CHLORIDE 0.9% 500 ML 500 ML IV STA (03:12)
[2023-10-12 04:22] LABS: Glucose,Whole Blood 94 mg/dL (70-110)
--- NOTE | 2023-10-12 05:09 | P.CNPUL ---
History of Present Illness Consult date: 10/12/23 Requesting physician: Ashvin Pike Reason for consult: other (Urosepsis; ICU management) Chief complaint: Dysuria, confusion, low blood pressure History of present illness: Patient is an 83-year-old white female with past medical history significant for atrial fibrillation, hyperlipidemia, hypertension, and frequent urinary tract infections. She was brought to the emergency department late last night accompanied by her daughter. While at home patient was having some dysuria. Also, noted to be confused by her daughter. Daughter took her mother's blood pressure, which was reading low. Went to the local fire department to confirm her blood pressure, who directed her to the emergency department. Of note, patient had a recent hospitalization and brief stay in the intensive care unit August, for urosepsis. Patient has frequent urinary tract infections, most recent isolated organism Klebsiella pneumoniae. Patient is currently being evaluated in the emergency department. She is awake and alert and able to answer my questions. HPI is being supplemented by daughter who is at bedside. Reports some dysuria and mild suprapubic discomfort. Denies any hematuria. Denies any flank pain. Denies history of kidney stones. Denies fevers/chills. Urinalysis was consistent with urine tract infection, pyuria and bacteriuria present. She was noted to be hypotensive in the emergency department. Fluid resuscitated with 2 L of normal saline bolus. Normal saline continues to infuse at 75 mL/h. ER provider did attempt to establish central line access, however, unsuccessful. Patient currently on peripheral Levophed, which is infusing at 0.04 mcg/kg/min. Heart rhythm is currently atrial fibrillation with rapid ventricular response around the 110 bpm. Blood pressure up to 103/57 mmHg. Not in any respiratory distress. On room air. She is reporting some nonradiating epigastric discomfort/dull ache. Denies any chest pain, heart palpitations, lightheadedness, syncopal events. EKG consistent with atrial fibrillation with rapid ventricular response, heart rate 111 bpm. No obvious acute ischemic changes. CBC: WBC count 10.5, hemoglobin 13.8, hematocrit 43.4, platelets 246. CMP: Sodium 130, potassium 4.2, chloride 96, serum bicarb 27, BUN 41, creatinine 2.14, glucose 108. AST 29, ALT 19, ALP 168. Lipase 116. There is a component of acute kidney injury. Lactic 2. Troponin 0.013. NT proBNP 1880. Chest x- ray showing cardiomegaly, and a possible 1.2 cm pulmonary nodule in the left lower lung. This was previously demonstrated on a chest CT back in September 2016, measuring 1.4 x 1.[address] of the chest/abdomen and pelvis did not show any evidence of hydronephrosis, nephrolithiasis, obstructive uropathy. Wall thickening of the urinary bladder. Incidentally, diverticulosis without diverticulitis, no small bowel obstruction or free intraperitoneal air. The 2.1 x 1.7 cm left lower lobe pulmonary nodule was again noted. She has been started empirically on a combination of cefepime and vancomycin in the emergency departm ent. Urine and blood cultures are pending. Patient will be admitted to the intensive care unit once bed available Review of Systems Constitutional: Reports fatigue, Reports weakness, Denies chills, Denies fever Ears, nose, mouth and throat: Reports post-nasal drip, Denies headache, Denies nasal congestion, Denies sinus pain, Denies sinus pressure, Denies sore throat Respiratory: Denies cough, Denies cough with sputum, Denies dyspnea, Denies pain on inspiration Gastrointestinal: Reports abdominal pain, Reports diarrhea, Denies constipation, Denies heartburn, Denies loss of appetite, Denies nausea, Denies vomiting Genitourinary: Reports dysuria, Denies hematuria, Denies incomplete emptying, Denies urinary frequency Musculoskeletal: Denies limitation of motion, Denies muscle weakness Integumentary: Denies rash Neurological: Reports change in mentation, Reports confusion, Denies change in speech, Denies head injury, Denies headaches, Denies lack of coordination, Denies numbness, Denies paralysis, Denies weakness, Denies visual changes Psychiatric: Denies anxiety, Denies depression Past Medical History Past Medical History: Atrial Fibrillation, Hyperlipidemia, Hypertension, Osteoarthritis (OA), Vascular Disorder Additional Past Medical History / Comment(s): -hx irregular heart rate, 2 ruptured disc back, bladder leakage, pancreatitis, edd. lower leg swelling, shor tness of breath History of Any Multi-Drug Resistant Organisms: ESBL Date of last positivie culture/infection: 07/15/20 ESBL Klebsiella MDRO Source:: Urine Past Surgical History: Cholecystectomy, Heart Catheterization With Stent, Hysterectomy, Orthopedic Surgery Additional Past Surgical History / Comment(s): lt knee arthroscopy Past Anesthesia/Blood Transfusion Reactions: No Reported Reaction Date of Last Stent Placement:: MAY 2017 Past Psychological History: Anxiety Smoking Status: Never smoker Past Alcohol Use History: Occasional Past Drug Use History: None Reported - Past Family History Mother Family Medical History: No Reported History Additional Family Medical History / Comment(s): heart issues Father Family Medical History: Cancer Additional Family Medical History / Comment(s): . Medications and Allergies Home Medications Medication Instructions Recorded Confirmed Type Atorvastatin [Lipitor] 80 mg PO HS #30 tab 02/23/17 10/12/23 Rx Spironolactone 50 mg PO DAILY 02/25/17 10/12/23 History Apixaban [Eliquis] 5 mg PO BID 08/04/18 10/12/23 History Tolterodine ER [Detrol LA] 4 mg PO DAILY 05/13/23 10/12/23 History Acetaminophen Tab [Tylenol] 1,000 mg PO Q6H PRN #60 tablet 05/19/23 10/12/23 Rx Dapagliflozin Propanediol [Farxiga] 10 mg PO DAILY #30 tablet 05/19/23 10/12/23 Rx Furosemide [Lasix] 40 mg PO DAILY #30 tablet 05/19/23 10/12/23 Rx traZODone HCL [Desyrel] 50 mg PO HS PRN 08/26/23 10/12/23 History Metoprolol Tartrate [Lopressor] 50 mg PO BID tab 09/02/23 10/12/23 Rx Allergies Allergy/AdvReac Type Severity Reaction Status Date / Time Sulfa (Sulfonamide Allergy Unknown Verified 10/12/23 08:35 Antibiotics) codeine AdvReac Hallucinati Verified 10/12/23 08:35 ons Physical Exam Vitals: Vital Signs Temp Pulse Resp BP Pulse Ox 10/12/23 03:10 113 H 12 103/57 99 10/12/23 03:05 100 14 110/77 100 10/12/23 03:00 107 H 18 100/59 98 10/12/23 02:55 121 H 16 85/66 99 10/12/23 02:50 128 H 13 87/59 99 10/12/23 02:45 109 H 14 98/54 99 10/12/23 02:40 117 H 13 93/69 98 10/12/23 02:35 97 12 98/74 100 10/12/23 02:15 118 H 13 95/52 100 10/12/23 02:00 125 H 18 75/45 99 10/12/23 01:45 107 H 16 88/53 98 10/12/23 01:30 101 H 14 89/66 99 10/12/23 01:15 130 H 11 L 73/40 99 10/12/23 01:00 129 H 11 L 81/47 99 10/12/23 00:59 130 H 18 81/47 99 10/12/23 00:19 116 H 16 94/74 10/11/23 23:35 120 H 18 81/47 96 10/11/23 22:56 97.9 F 71 18 60/42 99 Intake and Output 10/11/23 10/11/23 10/12/23 14:59 22:59 06:59 Intake Total 3.422 Balance 3.422 Intake: Intake, IV Titration 3.422 Amount Norepinephrine 4 mg In 3.422 Sodium Chloride 0.9% 250 ml @ 0.03 MCG/KG/MIN 11. 406 mls/hr IV .[id number] [facility] Rx#:[id number] Other: Weight 99.79 kg GENERAL EXAM: Alert, 83-year-old obese white female, comfortable in no apparent distress. Hypotensive, current blood pressure 85/53 mmHg. Norepinephrine is being started at 0.04 mcg/kg/min. HEAD: Normocephalic and atraumatic EYES: Normal reaction of pupils, equal size. NOSE: Clear with pink turbinates. THROAT: No erythema or exudates. NECK: No masses, no JVD. CHEST: No chest wall deformity. LUNGS: Equal air entry with no crackles, wheeze, rhonchi or dullness. On room air. No conversational dyspnea or accessory muscle use.. CVS: S1 and S2 normal with no audible murmur, irregular rhythm. No extra heart sounds ABDOMEN: No hepatosplenomegaly, active bowel sounds, no guarding or rigidity. SPINE: No scoliosis or deformity SKIN: No rashes CENTRAL NERVOUS SYSTEM: No focal deficits, tone is normal in all 4 extremities. EXTREMITIES: There is no peripheral edema, clubbing, or cyanosis. Peripheral pulses are intact. Results - Laboratory Findings CBC and BMP: 10/11/23 23:15 10/11/23 23:15 PT/INR, D-dimer PT 13.1 sec (10.0-12.5) H 10/11/23 23:15 INR 1.2 (<1.2) H 10/11/23 23:15 Abnormal lab findings: Abnormal Labs 10/11/23 10/11/23 10/11/23 23:15 23:15 23:15 MCV 100.8 H PT 13.1 H INR 1.2 H Sodium 130 L Chloride 96 L BUN 41 H Creatinine 2.14 H Glucose 108 H Alkaline Phosphatase 168 H Total Protein 6.2 L Urine Appearance Urine Protein Urine Glucose (UA) Urine Blood Ur Leukocyte Esterase Urine WBC Urine WBC Clumps Urine Bacteria Hyaline Casts Urine Mucus 10/12/23 00:14 MCV PT INR Sodium Chloride BUN Creatinine Glucose Alkaline Phosphatase Total Protein Urine Appearance Turbid H Urine Protein 1+ H Urine Glucose (UA) 2+ H Urine Blood Trace H Ur Leukocyte Esterase Large H Urine WBC >182 H Urine WBC Clumps Many H Urine Bacteria Many H Hyaline Casts 144 H Urine Mucus Few H - Diagnostic Findings Chest x-ray: image reviewed CT scan - chest: image reviewed Assessment and Plan Assessment: Acute urinary tract infection and urosepsis Hypotension refractory to fluid resuscitation, requiring norepinephrine Sepsis/septic shock Acute kidney injury, likely secondary to hypotension and ATN. CT of chest/abdomen/pelvis did not show any nephrolithiasis, hydronephrosis, or obstructive uropathy Altered mental status, suspect acute metabolic encephalopathy/septic encephalopathy Atrial fibrillation with rapid ventricular rate History of heart failure with reduced ejection fraction, most recent echocardiogram available from May, estimating a left ventricular ejection fraction of 40% History of coronary artery disease with previous PCI/stenting 2.1 x 1.7 cm left lower lobe pulmonary nodule, note that this was previously demonstrated on a chest CT dating back to September 2016, at this time measuring 1.4 x 1.6 cm. History of frequent urinary tract infections Morbid obesity, with a BMI of 40.2 kg/m Plan: Patient's medications, labs, imaging reviewed Patient will be admitted to the intensive care unit for your sepsis/septic shock Blood pressure remains hypotensive despite fluid resuscitation with a total of 2 L normal saline bolus. Will give an additional fluid bolus. Continue norepinephrine infusion, titrate to maintain MAP of 65 mmHg or greater Empiric antibiotics initiated in the emergency department Appropriate urine and blood cultures pending CT of the chest/abdomen/pelvis does not show any evidence of nephrolithiasis, hydronephrosis or obstructive uropathy There is a left lower pulmonary nodule as noted above. Case will be discussed with Dr. Piña. We will continue to follow the patient while in the intensive care unit I have personally seen and examined the patient, performed the documentation and the assessment and plan as written. Number of minutes spent on the visit:20 This is a joint evaluation that was done along with the nurse practitioner. The patient was seen and evaluated in the intensive care unit along with the nurse practitioner. This evaluation was done more than 30 minutes. In summary, the patient has history of frequent urinary tract infection the majority of those infections were gram-negative including E. coli and the most recent infection was secondary to Klebsiella. She has chronic stress urinary incontinence. Noted the patient was also septic due to his current infection. Blood cultures for now are showing positive for Klebsiella based on molecular identification and the patient remains on IV Rocephin 2 g every 24 hours. Vancomycin was discontinued. She remains on low-dose norepinephrine for blood pressure control. She is on IV fluid normal citrate of 75 cc an hour as maintenance. CAT scan of the chest abdomen and pelvis was also completed at the time of admission that showed evidence of wall thickening of the bladder consistent with UTI and diverticulosis without diverticulitis. The pulmonary nodule was also noted in the left lower lobe and this nodule has been present since 2017 measuring 2.1 x 1.7 cm in size. No consolidation or airspace disease. Neurologically stable. Oxygenation is stable and the patient is currently on room air oxygen with a pulse ox of 98 to 99%. She will be kept in the intensive care unit. Will manage her sepsis and will continue to follow. The goal is to resuscitate the patient with fluids and antibiotics and wean her off the pressors. Time with Patient: Greater than 30
[2023-10-12] MEDS: MAGNESIUM SULFATE-WATER PMX 4 GM in WATER FOR INJECTION 1 100ML.BAG IV ONE (07:00)
[2023-10-12] MEDS: APIXABAN 2.5 MG TABLET PO SCH (09:25)
--- NOTE | 2023-10-12 09:29 | P.CRDCN ---
History of Present Illness Consult date: 10/12/23 Consult reason: atrial fibrillation History of present illness: Patient is an 83-year-old female who follows in the office with Dr. Coates. She has a known history of atrial fibrillation. Cardiology has been consulted for management of A-fib and congestive heart failure in the setting of urosepsis. Echocardiogram performed in May 2023 showed moderate LV dysfunction at 40%. The patient states she believes she is in persistent atrial fibrillation as she has been monitoring her blood pressure at home and it has been informing her of an irregular heart rate. 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 DIAGNOSTICS: EKG shows A-fib with RVR CT scan of the chest shows a right lower lobe nodule. No acute process. Lab data: WBC 10.5, hemoglobin 13.8, hematocrit 43.4, platelet 246, sodium 130, potassium 4.2, BUN 41, creatinine 2.14, AST 29, ALT 19, troponin 0.01, less than 0.01, BNP 1880 REVIEW OF SYSTEMS: No fever or chills. No cough or expectoration. No diaphor esis. Patient denies headache, dizziness, blurred vision, double vision. Patient denies any stomach discomfort. No nausea, vomiting. No hematochezia. No hematemesis. Denies any black stools or blood in his stools. Denies dysuria or hematuria. No muscle weakness or numbness. PHYSICAL EXAMINATION: This is a 83-year-old female in no apparent distress at the time of my examination. HEENT: Head is atraumatic, normocephalic. Pupils are equal, round. There is no jugular venous distention. No carotid bruit is heard. CHEST EXAMINATION: Lungs are diminished to auscultation. No chest wall tenderness is noted on palpation or with deep breathing. HEART EXAMINATION: Irregular rate and rhythm. S1, S2 heard. No murmurs, gallops or rub. ABDOMEN: Soft, nontender. Bowel sounds are heard. No organomegaly noted. EXTREMITIES: 2+ peripheral pulses. Mild peripheral edema and no calf tenderness noted. NEUROLOGIC EXAMINATION: Patient is awake, alert and oriented x3. FINAL ASSESSMENT AND PLAN: Acute urinary tract infection and urosepsis Septic shock Atrial fibrillation with RVR History of heart failure with reduced ejection fraction, EF 40% History of coronary artery disease Morbid obesity PLAN: Check hemoglobin A1c, lipid profile, and TSH Resume low-dose metoprolol Cautious fluid administration with history of congestive heart failure Further recommendations to be based on clinical course I am dictating on behalf of Dr Daniel Negrete's history/physical and assessment/plan. Past Medical History Past Medical History: Atrial Fibrillation, Hyperlipidemia, Hypertension, Osteoarthritis (OA), Vascular Disorder Additional Past Medical History / Comment(s): -hx irregular heart rate, 2 ruptured disc back, bladder leakage, pancreatitis, edd. lower leg swelling, shortness of breath History of Any Multi-Drug Resistant Organisms: ESBL Date of last positivie culture/infection: 07/15/20 ESBL Klebsiella MDRO Source:: Urine Past Surgical History: Cholecystectomy, Heart Catheterization With Stent, Hysterectomy, Orthopedic Surgery Additional Past Surgical History / Comment(s): lt knee arthroscopy Past Anesthesia/Blood Transfusion Reactions: No Reported Reaction Date of Last Stent Placement:: MAY 2017 Past Psychological History: Anxiety Smoking Status: Never smoker Past Alcohol Use History: Occasional Past Drug Use History: None Reported - Past Family History Mother Family Medical History: No Reported History Additional Family Medical History / Comment(s): heart issues Father Family Medical History: Cancer Additional Family Medical History / Comment(s): . Medications and Allergies Home Medications Medication Instructions Recorded Confirmed Type Atorvastatin [Lipitor] 80 mg PO HS #30 tab 02/23/17 10/12/23 Rx Spironolactone 50 mg PO DAILY 02/25/17 10/12/23 History Apixaban [Eliquis] 5 mg PO BID 08/04/18 10/12/23 History Tolterodine ER [Detrol LA] 4 mg PO DAILY 05/13/23 10/12/23 History Acetaminophen Tab [Tylenol] 1,000 mg PO Q6H PRN #60 tablet 05/19/23 10/12/23 Rx Dapagliflozin Propanediol [Farxiga] 10 mg PO DAILY #30 tablet 05/19/23 10/12/23 Rx Furosemide [Lasix] 40 mg PO DAILY #30 tablet 05/19/23 10/12/23 Rx traZODone HCL [Desyrel] 50 mg PO HS PRN 08/26/23 10/12/23 History Metoprolol Tartrate [Lopressor] 50 mg PO BID tab 09/02/23 10/12/23 Rx Allergies Allergy/AdvReac Type Severity Reaction Status Date / Time Sulfa (Sulfonamide Allergy Unknown Verified 10/12/23 08:35 Antibiotics) codeine AdvReac Hallucinati Verified 10/12/23 08:35 ons Physical Exam Vitals: Vital Signs Temp Pulse Resp BP Pulse Ox 10/12/23 07:15 125 H 12 102/55 96 10/12/23 07:00 107 H 24 99/55 98 10/12/23 06:45 105 H 12 105/48 96 10/12/23 06:30 114 H 12 102/58 98 10/12/23 06:15 129 H 12 75/55 98 10/12/23 06:00 107 H 14 106/52 97 10/12/23 05:45 105 H 12 87/53 96 10/12/23 05:30 104 H 12 90/51 96 10/12/23 05:15 101 H 14 90/59 98 10/12/23 05:00 103 H 14 91/65 98 10/12/23 04:59 113 H 12 99 10/12/23 04:30 97.4 F L 118 H 14 112/66 99 10/12/23 04:15 100 16 112/66 99 10/12/23 04:10 98.2 F 105 H 18 114/64 98 10/12/23 04:05 126 H 12 108/78 98 10/12/23 04:00 128 H 12 104/59 99 10/12/23 03:55 98 16 99/71 99 10/12/23 03:50 106 H 18 100/60 99 10/12/23 03:45 107 H 12 101/70 99 10/12/23 03:40 116 H 12 101/83 98 10/12/23 03:35 100 18 105/59 99 10/12/23 03:30 117 H 16 96/42 99 10/12/23 03:25 98.2 F 105 H 14 102/52 99 10/12/23 03:20 105 H 15 90/66 98 10/12/23 03:15 92 18 92/51 100 10/12/23 03:10 113 H 12 103/57 99 10/12/23 03:05 100 14 110/77 100 10/12/23 03:00 107 H 18 100/59 98 10/12/23 02:55 121 H 16 85/66 99 10/12/23 02:50 128 H 13 87/59 99 10/12/23 02:45 109 H 14 98/54 99 10/12/23 02:40 117 H 13 93/69 98 10/12/23 02:35 97 12 98/74 100 10/12/23 02:15 118 H 13 95/52 100 10/12/23 02:00 125 H 18 75/45 99 10/12/23 01:45 107 H 16 88/53 98 10/12/23 01:30 101 H 14 89/66 99 10/12/23 01:15 130 H 11 L 73/40 99 10/12/23 01:00 129 H 11 L 81/47 99 10/12/23 00:59 130 H 18 81/47 99 10/12/23 00:19 116 H 16 94/74 10/11/23 23:35 120 H 18 81/47 96 10/11/23 22:56 97.9 F 71 18 60/42 99 Intake and Output 10/11/23 10/12/23 10/12/23 22:59 06:59 14:59 Intake Total 793.787 Output Total 0 Balance 793.787 Intake: Intake, IV Titration 793.787 Amount Cefepime 2 gm In Sodium 100 Chloride 0.9% 100 ml @ 25 mls/hr IVPB Q8HR [facility] Rx# :[id number] Norepinephrine 4 mg In 43.787 Sodium Chloride 0.9% 250 ml @ 0.03 MCG/KG/MIN 11. 406 mls/hr IV .[id number] [facility] Rx#:[id number] Sodium Chloride 0.9% 1, 150 000 ml @ 75 mls/hr IV . [id number] [facility] Rx#:[id number] Vancomycin 1,750 mg In 500 Sodium Chloride 0.9% 500 ml 500 ml @ 167 mls/hr IVPB ONCE ONE Rx#: [id number] Output: Urine 0 Other: Weight 99.79 kg 99.79 kg Results 10/11/23 23:15 10/11/23 23:15 Cardiac Enzymes 10/11/23 10/11/23 10/12/23 Range/Units 23:15 23:15 05:31 AST 29 (14-36) U/L Troponin I 0.013 <0.012 (0.000-0.034) ng/mL Coagulation 10/11/23 Range/Units 23:15 PT 13.1 H (10.0-12.5) sec APTT 25.6 (22.0-30.0) sec CBC 10/11/23 Range/Units 23:15 WBC 10.5 (3.8-10.6) k/uL RBC 4.31 (3.80-5.40) m/uL Hgb 13.8 (11.4-16.0) gm/dL Hct 43.4 (34.0-46.0) % Plt Count 246 (150-450) k/uL Comprehensive Metabolic Panel 10/11/23 Range/Units 23:15 Sodium 130 L (137-145) mmol/L Potassium 4.2 (3.5-5.1) mmol/L Chloride 96 L (98-107) mmol/L Carbon Dioxide 27 (22-30) mmol/L BUN 41 H (7-17) mg/dL Creatinine 2.14 H (0.52-1.04) mg/dL Glucose 108 H (74-99) mg/dL Calcium 9.0 (8.4-10.2) mg/dL AST 29 (14-36) U/L ALT 19 (4-34) U/L Alkaline Phosphatase 168 H (38-126) U/L Total Protein 6.2 L (6.3-8.2) g/dL Albumin 3.7 (3.5-5.0) g/dL Current Medications Generic Name Dose Route Start Last Admin Trade Name Freq PRN Reason Stop Dose Admin Acetaminophen 650 mg 10/12/23 03:03 Acetaminophen Tab 325 Mg Tab PO Q4HR PRN Fever and/or Mild Pain Apixaban 2.5 mg 10/12/23 09:00 Apixaban 2.5 Mg Tablet PO BID [facility] Protocol Sodium Chloride 1,000 mls @ 75 mls/hr 10/11/23 23:15 10/11/23 23:34 Saline 0.9% IV 10/12/23 12:34 75 mls/hr .[id number] [facility] Administration Norepinephrine Bitartrate 4 mg 254 mls @ 11.406 mls/hr 10/12/23 01:30 05:15 / Sodium Chloride IV 0.06 mcg/kg/min .[id number] [facility] 22.812 mls/hr Titration Protocol 0.03 MCG/KG/MIN Vancomycin HCl 1,500 mg/ 500 mls @ 167 mls/hr 10/13/23 05:00 Sodium Chloride IVPB 10/13/23 07:59 ONCE ONE Cefepime HCl 1 gm/ Sodium 50 mls @ 12.5 mls/hr 10/12/23 12:00 Chloride IVPB Q12H [facility] Miscellaneous Information 1 each 10/12/23 01:16 Vancomycin Iv Per Pharmacy 1 Each [facility] [place] Per Protocol Protocol Naloxone HCl 0.2 mg 10/12/23 02:58 Naloxone 0.4 Mg/Ml 1 Ml Vial IV Q2M PRN Opioid Reversal Intake and Output 10/11/23 10/12/23 10/12/23 22:59 06:59 14:59 Intake Total 793.787 Output Total 0 Balance 793.787 Intake: Intake, IV Titration 793.787 Amount Cefepime 2 gm In Sodium 100 Chloride 0.9% 100 ml @ 25 mls/hr IVPB Q8HR [facility] Rx# :[id number] Norepinephrine 4 mg In 43.787 Sodium Chloride 0.9% 250 ml @ 0.03 MCG/KG/MIN 11. 406 mls/hr IV .[id number] [facility] Rx#:[id number] Sodium Chloride 0.9% 1, 150 000 ml @ 75 mls/hr IV . [id number] [facility] Rx#:[id number] Vancomycin 1,750 mg In 500 Sodium Chloride 0.9% 500 ml 500 ml @ 167 mls/hr IVPB ONCE ONE Rx#: [id number] Output: Urine 0 Other: Weight 99.79 kg 99.79 kg 10/11/23 23:15 10/11/23 23:15
[2023-10-12] MEDS ORDERED: traZODone HCL 50 MG TAB PO PRN (10:38)
--- NOTE | 2023-10-12 10:48 | P.HPIM ---
History of Present Illness 82-year-old female came in with complaints of dysuria suprapubic pain found to be in sepsis and septic shock secondary to urinary tract infection.. Patient is also in atrial fibrillation with rapid unclear rate patient has a known atrial fibrillation. Patient does have history of congestive heart failure decreased ejection fraction of 40% patient is presently not in heart failure exacerbation. Patient had Klebsiella in the urine about a month ago which is pansensitive patient is presently receiving cefepime and vancomycin both of which will be discontinued and patient will be started on Rocephin 2 g daily patient kidney function is low with serum creatinine of 2.14, baseline within normal limits patient will be on sliding scale insulin patient is bit hyponatremic. Patient is also on pressor support at this time. Patient does not have any fever. Patient white blood cell count is high normal. REVIEW OF SYSTEMS: All other systems are negative except those mentioned in the HPI PHYSICAL EXAMINATION: GENERAL: The patient is alert and oriented x3, not in any acute distress. Well developed, well nourished. HEENT: Pupils are round and equally reacting to light. EOMI. No scleral icterus. No conjunctival pallor. Normocephalic, atraumatic. No pharyngeal erythema. No thyromegaly. CARDIOVASCULAR: S1 and S2 present. No murmurs, rubs, or gallops. PULMONARY: Chest is clear to auscultation, no wheezing or crackles. ABDOMEN: Soft, nontender, nondistended, normoactive bowel sounds. No palpable organomegaly. MUSCULOSKELETAL: No joint swelling or deformity. EXTREMITIES: No cyanosis, clubbing, or pedal edema. NEUROLOGICAL: Gross neurological examination did not reveal any focal deficits. SKIN: No rashes. Assessment and plan -Septic shock: Secondary to urinary tract infection considering her Klebsiella which was pansensitive patient will be switched to Rocephin 2 g continue with norepinephrine wean as tolerated. Patient is receiving normal saline at 100 cc/h at this time. -Hyponatremia hypovolemic hyponatremia IV fluids as mentioned above and can be secondary to Lasix and Aldactone -Congestive heart failure chronic systolic function without any acute exacerbation patient actually will require IV fluids will hold off on diuretics at this time. But need to be closely monitored for heart failure exacerbation -Atrial fibrillation with rapid ventricular rate: Patient received low-dose of metoprolol ordered by cardiology expected to improve with improvement of septic shock once blood pressure improves patient will be resumed on her regular dose 50 twice a day of metoprolol -Type 2 diabetes mellitus patient is on SGLT2 and is not a candidate for that because of frequent UTIs. -Acute renal failure: Secondary to septic shock possibly of acute tubular necrosis combined with diuretics hold of diuretics patient is on IV fluids -Hyperlipidemia -Hypertension -Elevated MCV will obtain B12 levels DVT prophylaxis: Patient on anticoagulation with Eliquis Past Medical History Past Medical History: Atrial Fibrillation, Hyperlipidemia, Hypertension, Osteoarthritis (OA), Vascular Disorder Additional Past Medical History / Comment(s): -hx irregular heart rate, 2 ruptured disc back, bladder leakage, pancreatitis, edd. lower leg swelling, shortness of breath History of Any Multi-Drug Resistant Organisms: ESBL Date of last positivie culture/infection: 07/15/20 ESBL Klebsiella MDRO Source:: Urine Past Surgical History: Cholecystectomy, Heart Catheterization With Stent, Hysterectomy, Orthopedic Surgery Additional Past Surgical History / Comment(s): lt knee arthroscopy Past Anesthesia/Blood Transfusion Reactions: No Reported Reaction Date of Last Stent Placement:: MAY 2017 Past Psychological History: Anxiety Smoking Status: Never smoker Past Alcohol Use History: Occasional Past Drug Use History: None Reported - Past Family History Mother Family Medical History: No Reported History Additional Family Medical History / Comment(s): heart issues Father Family Medical History: Cancer Additional Family Medical History / Comment(s): . Medications and Allergies Home Medications Medication Instructions Recorded Confirmed Type Atorvastatin [Lipitor] 80 mg PO HS #30 tab 02/23/17 10/12/23 Rx Spironolactone 50 mg PO DAILY 02/25/17 10/12/23 History Apixaban [Eliquis] 5 mg PO BID 08/04/18 10/12/23 History Tolterodine ER [Detrol LA] 4 mg PO DAILY 05/13/23 10/12/23 History Acetaminophen Tab [Tylenol] 1,000 mg PO Q6H PRN #60 tablet 05/19/23 10/12/23 Rx Dapagliflozin Propanediol [Farxiga] 10 mg PO DAILY #30 tablet 05/19/23 10/12/23 Rx Furosemide [Lasix] 40 mg PO DAILY #30 tablet 05/19/23 10/12/23 Rx traZODone HCL [Desyrel] 50 mg PO HS PRN 08/26/23 10/12/23 History Metoprolol Tartrate [Lopressor] 50 mg PO BID tab 09/02/23 10/12/23 Rx Allergies Allergy/AdvReac Type Severity Reaction Status Date / Time Sulfa (Sulfonamide Allergy Unknown Verified 10/12/23 08:35 Antibiotics) codeine AdvReac Hallucinati Verified 10/12/23 08:35 ons Physical Exam Vitals: Vital Signs Temp Pulse Resp BP Pulse Ox 10/12/23 07:15 125 H 12 102/55 96 10/12/23 07:00 107 H 24 99/55 98 10/12/23 06:45 105 H 12 105/48 96 10/12/23 06:30 114 H 12 102/58 98 10/12/23 06:15 129 H 12 75/55 98 10/12/23 06:00 107 H 14 106/52 97 10/12/23 05:45 105 H 12 87/53 96 10/12/23 05:30 104 H 12 90/51 96 10/12/23 05:15 101 H 14 90/59 98 10/12/23 05:00 103 H 14 91/65 98 10/12/23 04:59 113 H 12 99 10/12/23 04:30 97.4 F L 118 H 14 112/66 99 10/12/23 04:15 100 16 112/66 99 10/12/23 04:10 98.2 F 105 H 18 114/64 98 10/12/23 04:05 126 H 12 108/78 98 10/12/23 04:00 128 H 12 104/59 99 10/12/23 03:55 98 16 99/71 99 10/12/23 03:50 106 H 18 100/60 99 10/12/23 03:45 107 H 12 101/70 99 10/12/23 03:40 116 H 12 101/83 98 10/12/23 03:35 100 18 105/59 99 10/12/23 03:30 117 H 16 96/42 99 10/12/23 03:25 98.2 F 105 H 14 102/52 99 10/12/23 03:20 105 H 15 90/66 98 10/12/23 03:15 92 18 92/51 100 10/12/23 03:10 113 H 12 103/57 99 10/12/23 03:05 100 14 110/77 100 10/12/23 03:00 107 H 18 100/59 98 10/12/23 02:55 121 H 16 85/66 99 10/12/23 02:50 128 H 13 87/59 99 10/12/23 02:45 109 H 14 98/54 99 10/12/23 02:40 117 H 13 93/69 98 10/12/23 02:35 97 12 98/74 100 10/12/23 02:15 118 H 13 95/52 100 10/12/23 02:00 125 H 18 75/45 99 10/12/23 01:45 107 H 16 88/53 98 10/12/23 01:30 101 H 14 89/66 99 10/12/23 01:15 130 H 11 L 73/40 99 10/12/23 01:00 129 H 11 L 81/47 99 10/12/23 00:59 130 H 18 81/47 99 10/12/23 00:19 116 H 16 94/74 10/11/23 23:35 120 H 18 81/47 96 10/11/23 22:56 97.9 F 71 18 60/42 99 Intake and Output 10/11/23 10/12/23 10/12/23 22:59 06:59 14:59 Intake Total 793.787 93.466 Output Total 0 Balance 793.787 93.466 Intake: Intake, IV Titration 793.787 93.466 Amount Cefepime 2 gm In Sodium 100 Chloride 0.9% 100 ml @ 25 mls/hr IVPB Q8HR [facility] Rx# :[id number] Norepinephrine 4 mg In 43.787 93.466 Sodium Chloride 0.9% 250 ml @ 0.03 MCG/KG/MIN 11. 406 mls/hr IV .[id number] [facility] Rx#:[id number] Sodium Chloride 0.9% 1, 150 000 ml @ 75 mls/hr IV . [id number] [facility] Rx#:[id number] Vancomycin 1,750 mg In 500 Sodium Chloride 0.9% 500 ml 500 ml @ 167 mls/hr IVPB ONCE ONE Rx#: [id number] Output: Urine 0 Other: Weight 99.79 kg 99.79 kg Results CBC & Chem 7: 10/11/23 23:15 10/11/23 23:15 Labs: Abnormal Lab Results - Last 24 Hours (Table) 10/11/23 10/11/23 10/11/23 Range/Units 23:15 23:15 23:15 MCV 100.8 H (80.0-100.0) fL PT 13.1 H (10.0-12.5) sec INR 1.2 H (<1.2) Sodium 130 L (137-145) mmol/L Chloride 96 L (98-107) mmol/L BUN 41 H (7-17) mg/dL Creatinine 2.14 H (0.52-1.04) mg/dL Glucose 108 H (74-99) mg/dL Alkaline Phosphatase 168 H (38-126) U/L Total Protein 6.2 L (6.3-8.2) g/dL Urine Appearance (Clear) Urine Protein (Negative) Urine Glucose (UA) (Negative) Urine Blood (Negative) Ur Leukocyte Esterase (Negative) Urine WBC (0-5) /hpf Urine WBC Clumps (None) /hpf Urine Bacteria (None) /hpf Hyaline Casts (0-2) /lpf Urine Mucus (None) /hpf 10/12/23 Range/Units 00:14 MCV (80.0-100.0) fL PT (10.0-12.5) sec INR (<1.2) Sodium (137-145) mmol/L Chloride (98-107) mmol/L BUN (7-17) mg/dL Creatinine (0.52-1.04) mg/dL Glucose (74-99) mg/dL Alkaline Phosphatase (38-126) U/L Total Protein (6.3-8.2) g/dL Urine Appearance Turbid H (Clear) Urine Protein 1+ H (Negative) Urine Glucose (UA) 2+ H (Negative) Urine Blood Trace H (Negative) Ur Leukocyte Esterase Large H (Negative) Urine WBC >182 H (0-5) /hpf Urine WBC Clumps Many H (None) /hpf Urine Bacteria Many H (None) /hpf Hyaline Casts 144 H (0-2) /lpf Urine Mucus Few H (None) /hpf Thrombosis Risk Factor Assmnt - Choose All That Apply Each Factor Represents 1 point: Medical pt on bed rest, Obesity (BMI >25), Swollen legs (current) Each Risk Factor Represents 3 Points: Age 75 years or older Thrombosis Risk Factor Assessment Total Risk Factor Score: 6 Thrombosis Risk Factor Assessment Level: High Risk
[2023-10-12 11:32] LABS: Glucose,Whole Blood 168 mg/dL (70-110)
[2023-10-12] MEDS ORDERED: CEFEPIME 1 GM in SODIUM CHLORIDE 0.9% 50 ML IVPB SCH (12:00)
[2023-10-12] MEDS: INSULIN ASPART (NovoLOG) 100 UNIT/ML VIAL SQ SCH (12:23)
[2023-10-12] MEDS: SODIUM CHLORIDE 0.9% 1,000 ML IV ONE (12:26)
[2023-10-12] MEDS: SODIUM CHLORIDE 0.9% 1,000 ML IV SCH (13:50)
[2023-10-12 16:15] LABS: Glucose,Whole Blood 121 mg/dL (70-110)
[2023-10-12 17:22] LABS: LDL Cholesterol,Calculated 48.9 mg/dL (0.0-131.0); VLDL Calculation 16.08 mg/dL (5.00-40.00)
[2023-10-12] MEDS: ACETAMINOPHEN TAB 325 MG TAB PO PRN (18:47)
[2023-10-12] MEDS: ATORVASTATIN 80 MG TAB PO SCH (20:32)
[2023-10-12] MEDS: METOPROLOL TARTRATE 12.5 MG TAB PO SCH (20:32)
[2023-10-13] MEDS ORDERED: VANCOMYCIN 1,500 MG in SODIUM CHLORIDE 0.9% 500 ML 500 ML IVPB ONE (05:00)
[2023-10-13 06:33] LABS: Glucose,Whole Blood 112 mg/dL (70-110)
[2023-10-13 07:08] LABS: Basophils % (A) 0 %; Eosinophils # (A) 0.3 k/uL (0-0.7); Eosinophils % (A) 3 %; HCT 42.7 % (34.0-46.0); HGB 13.2 gm/dL (11.4-16.0); Hypochromasia Slight; Lymphocytes # (A) 1.5 k/uL (1.0-4.8); Lymphocytes % (A) 19 %; MCH 32.4 pg (25.0-35.0); MCHC 30.8 g/dL (31.0-37.0); MCV 105.3 fL (80.0-100.0); Macrocytosis Slight; Mean Platelet Volume 7.7; Monocytes # (A) 0.6 k/uL (0-1.0); Monocytes % (A) 8 %; Neutrophils # (A) 5.5 k/uL (1.3-7.7); Neutrophils % (A) 69 %; Platelet Count 245 k/uL (150-450); RBC 4.06 m/uL (3.80-5.40)
[2023-10-13 07:20] LABS: ALT 14 U/L (4-34); AST 24 U/L (14-36); African American GFR (CKD) 52 (>60 ml/min/1.73 sqM); Albumin 2.5 g/dL (3.5-5.0); Alkaline Phosphatase 124 U/L (38-126); Anion Gap 4 mmol/L; Blood Urea Nitrogen 21 mg/dL (7-17); Calcium 8.2 mg/dL (8.4-10.2); Carbon Dioxide 22 mmol/L (22-30); Chloride 112 mmol/L (98-107); Glucose 117 mg/dL (74-99); Non-African American GFR(CKD) 46 (>60 ml/min/1.73 sqM); Potassium 4.8 mmol/L (3.5-5.1); Sodium 138 mmol/L (137-145); Total Bilirubin 0.7 mg/dL (0.2-1.3); Total Protein 4.9 g/dL (6.3-8.2)
[2023-10-13] MEDS: OXYBUTYNIN 10 MG TAB.ER.24 PO SCH (09:33)
--- NOTE | 2023-10-13 09:52 | P.PN ---
Subjective Progress Note Date: 10/13/23 The patient is an 83-year-old female who follows in the office with Dr. Coates. She has a known history of atrial fibrillation. Cardiology has been consulted for management of A-fib and congestive heart failure in the setting of urosepsis. Echocardiogram performed in May 2023 showed moderate LV dysfun ction at 40%. the patient states she's been feeling well this morning. She denies any chest pain or shortness of breath. GENERAL: Well-appearing, well-nourished and in no acute distress. NECK: Supple without JVD or thyromegaly. LUNGS: Breath sounds clear to auscultation bilaterally. Respiration equal and unlabored. No wheezes, rales or rhonchi. HEART: Irregular rate and rhythm without murmurs, rubs or gallops. S1 and S2 heard. EXTREMITIES: Normal range of motion, mild generalized edema. No clubbing or cyanosis. Peripheral pulses intact and strong. TELEMETRY: persistent atrial fibrillation, heart rates in the 90s LABS: WBC 8.0, hemoglobin 13.2, hematocrit 42.7, platelet 245 IMPRESSION: Acute urinary tract infection and urosepsis Septic shock Atrial fibrillation with RVR History of heart failure with reduced ejection fraction, EF 40% History of coronary artery disease Morbid obesity PLAN: discontinue IV fluids Recommend oral hydration Wean off Levophed Further recommendations to his clinical course I am dictating on behalf of Dr Daniel Negrete's history/physical and assessm ent/plan. Objective - Vital Signs Vital signs: Vital Signs Temp 97.6 F 10/13/23 08:00 Pulse 94 10/13/23 08:00 Resp 13 10/13/23 08:00 BP 102/57 10/13/23 08:00 Pulse Ox 99 10/13/23 08:00 FiO2 Intake & Output 10/12/23 10/13/23 10/13/23 18:59 06:59 18:59 Intake Total 2095.803 1465.410 321.061 Output Total 2150 1150 300 Balance -54.197 315.410 21.061 Weight 99.79 kg 111 kg Intake: IV 1900 900 75 Sodium Chloride 0.9% 1, 900 900 75 000 ml @ 75 mls/hr IV . [id number] [facility] Rx#:[id number] Sodium Chloride 0.9% 1, 1000 000 ml @ 999 mls/hr IV . Q1H1M [facility] Rx#:[id number] Intake, IV Titration 195.803 565.410 146.061 Amount Norepinephrine 4 mg In 195.803 565.410 146.061 Sodium Chloride 0.9% 250 ml @ 0.03 MCG/KG/MIN 11. 406 mls/hr IV .[id number] [facility] Rx#:[id number] Oral 100 Output: Urine 2150 1150 300 Other: Voiding Method External Catheter External Catheter - Labs CBC & Chem 7: 10/13/23 06:25 10/13/23 06:25 Labs: Abnormal Lab Results - Last 24 Hours (Table) 10/11/23 10/12/23 10/12/23 Range/Units 23:15 11:30 16:14 MCV (80.0-100.0) fL MCHC (31.0-37.0) g/dL Chloride (98-107) mmol/L BUN (7-17) mg/dL Creatinine (0.52-1.04) mg/dL Glucose (74-99) mg/dL POC Glucose (mg/dL) 168 H 121 H (70-110) mg/dL Hemoglobin A1c 6.1 H (<=6.0) % Calcium (8.4-10.2) mg/dL Total Protein (6.3-8.2) g/dL Albumin (3.5-5.0) g/dL 10/13/23 10/13/23 10/13/23 Range/Units 06:25 06:25 06:31 MCV 105.3 H (80.0-100.0) fL MCHC 30.8 L (31.0-37.0) g/dL Chloride 112 H (98-107) mmol/L BUN 21 H (7-17) mg/dL Creatinine 1.12 H (0.52-1.04) mg/dL Glucose 117 H (74-99) mg/dL POC Glucose (mg/dL) 112 H (70-110) mg/dL Hemoglobin A1c (<=6.0) % Calcium 8.2 L (8.4-10.2) mg/dL Total Protein 4.9 L (6.3-8.2) g/dL Albumin 2.5 L (3.5-5.0) g/dL
[2023-10-13 12:04] LABS: Glucose,Whole Blood 91 mg/dL (70-110)
--- NOTE | 2023-10-13 13:12 | P.PN ---
Subjective Progress Note Date: 10/13/23 82-year-old female came in with complaints of dysuria suprapubic pain found to be in sepsis and septic shock secondary to urinary tract infection.. Patient is also in atrial fibrillation with rapid unclear rate patient has a known atrial fibrillation. Patient does have history of congestive heart failure decreased ejection fraction of 40% patient is presently not in heart failure exacerbation. Patient had Klebsiella in the urine about a month ago which is pansensitive patient is presently receiving cefepime and vancomycin both of which will be discontinued and patient will be started on Rocephin 2 g daily patient kidney function is low with serum creatinine of 2.14, baseline within normal limits patient will be on sliding scale insulin patient is bit hyponatremic. Patient is also on pressor support at this time. Patient does not have any fever. Patient white blood cell count is high normal. 10/13/2023 Was evaluated today in follow-up for urinary tract infection and found to have significant sepsis is currently in the intensive care unit. Patient is still requiring a small dose of Levophed however her blood pressure has improved and is maintaining in the 100s systolic. Patient is more complaining of dysuria or suprapubic pain. Urine culture currently pending her blood culture is negative so far. Continues on IV ceftriaxone. Does have history of heart failure is currently complaining of some swelling of her legs and IV fluids to be stopped at this time. Her creatinine has improved down to 1.12. Review of Systems Constitutional: Denied any fatigue denied any fever. Cardio vascular: denied any chest pain, palpitations Gastrointestinal: denied any nausea, vomiting, diarrhea Pulmonary: Denied any shortness of breath cough Neurologic denied any new focal deficits All inpatient medications were reviewed and appropriate changes in these medications as dictated in the interval history and assessment and plan. PHYSICAL EXAMINATION: GENERAL: The patient is alert and oriented x3, not in any acute distress. Well developed, well nourished. HEENT: Pupils are round and equally reacting to light. EOMI. No scleral icterus. No conjunctival pallor. Normocephalic, atraumatic. No pharyngeal erythema. No thyromegaly. CARDIOVASCULAR: S1 and S2 present. No murmurs, rubs, or gallops. PULMONARY: Chest is clear to auscultation, no wheezing or crackles. ABDOMEN: Soft, nontender, nondistended, normoactive bowel sounds. No palpable organomegaly. MUSCULOSKELETAL: No joint swelling or deformity. EXTREMITIES: No cyanosis, clubbing, or pedal edema. NEUROLOGICAL: Gross neurological examination did not reveal any focal deficits. SKIN: No rashes. Assessment and plan -Septic shock: Secondary to urinary tract infection considering her Klebsiella which was pansensitive patient will be switched to Rocephin 2 g continue with norepinephrine wean as tolerated. -Hyponatremia hypovolemic hyponatremia IV fluids as mentioned above and can be secondary to Lasix and Aldactone; sodium is normal today at 138 patient does continue off of her diuretics at this time. -Congestive heart failure chronic systolic function without any acute exacerbation, IV fluids have been stopped secondary to increased peripheral edema and will monitor closely -Atrial fibrillation with rapid ventricular rate: Patient received low-dose of metoprolol ordered by cardiology expected to improve with improvement of septic shock . Started back on metoprolol at a lower dose 12.5 mg BID by cardiology -Type 2 diabetes mellitus patient is on SGLT2 and is not a candidate for that because of frequent UTIs. Continue accuchecks ACHS and sliding scale insulin. -Acute renal failure: Secondary to septic shock possibly of acute tubular necrosis combined with diuretics. Improved down to 1.12 Repeat BMP in the AM. Off fluids and diuretics currently. -Hyperlipidemia -Hypertension -Elevated MCV; normal B12 level. DVT prophylaxis: Patient on anticoagulation with Eliquis GI prophylaxisl: Pepcid NO CODE The impression and plan of care has been dictated by Yesi Larios, Nurse Practitioner as directed. Dr. Ave MD I have performed a history and physical examination and medical decision making of this patient, discussed the same with the dictator, and agree with the dictators assessment and plan as written, documented as a scribe. Based on total visit time, I have performed more than 50% of this visit. Objective - Vital Signs Vital signs: Vital Signs Temp 97.6 F 10/13/23 08:00 Pulse 101 H 10/13/23 10:15 Resp 23 10/13/23 10:15 BP 123/62 10/13/23 10:15 Pulse Ox 99 10/13/23 10:15 FiO2 Intake & Output 10/12/23 10/13/23 10/13/23 18:59 06:59 18:59 Intake Total 2095.803 1465.410 344.025 Output Total 2150 1150 500 Balance -54.197 315.410 -155.975 Weight 99.79 kg 111 kg Intake: IV 1900 900 75 Sodium Chloride 0.9% 1, 900 900 75 000 ml @ 75 mls/hr IV . [id number] STA Rx#:[id number] Sodium Chloride 0.9% 1, 1000 000 ml @ 999 mls/hr IV . Q1H1M STA Rx#:[id number] Intake, IV Titration 195.803 565.410 169.025 Amount Norepinephrine 4 mg In 195.803 565.410 169.025 Sodium Chloride 0.9% 250 ml @ 0.03 MCG/KG/MIN 11. 406 mls/hr IV .[id number] DEONTE Rx#:[id number] Oral 100 Output: Urine 2150 1150 500 Other: Voiding Method External Catheter External Catheter External Catheter - Labs CBC & Chem 7: 10/13/23 06:25 10/13/23 06:25 Labs: Abnormal Lab Results - Last 24 Hours (Table) 10/11/23 10/12/23 10/13/23 Range/Units 23:15 16:14 06:25 MCV 105.3 H (80.0-100.0) fL MCHC 30.8 L (31.0-37.0) g/dL Chloride (98-107) mmol/L BUN (7-17) mg/dL Creatinine (0.52-1.04) mg/dL Glucose (74-99) mg/dL POC Glucose (mg/dL) 121 H (70-110) mg/dL Hemoglobin A1c 6.1 H (<=6.0) % Calcium (8.4-10.2) mg/dL Total Protein (6.3-8.2) g/dL Albumin (3.5-5.0) g/dL 10/13/23 10/13/23 Range/Units 06:25 06:31 MCV (80.0-100.0) fL MCHC (31.0-37.0) g/dL Chloride 112 H (98-107) mmol/L BUN 21 H (7-17) mg/dL Creatinine 1.12 H (0.52-1.04) mg/dL Glucose 117 H (74-99) mg/dL POC Glucose (mg/dL) 112 H (70-110) mg/dL Hemoglobin A1c (<=6.0) % Calcium 8.2 L (8.4-10.2) mg/dL Total Protein 4.9 L (6.3-8.2) g/dL Albumin 2.5 L (3.5-5.0) g/dL Microbiology - Last 24 Hours (Table) 10/12/23 02:50 Blood Culture - Preliminary Blood Assessment and Plan Time with Patient: Less than 30
[2023-10-13 14:17] VITALS: BMI 44.7
--- NOTE | 2023-10-13 14:30 | P.PN ---
Subjective Progress Note Date: 10/13/23 Patient is an 83-year-old white female with past medical history significant for atrial fibrillation, hyperlipidemia, hypertension, and frequent urinary tract infections. She was brought to the emergency department late last night accompanied by her daughter. While at home patient was having some dysuria. Also, noted to be confused by her daughter. Daughter took her mother's blood pressure, which was reading low. Went to the local fire department to confirm her blood pressure, who directed her to the emergency department. Of note, patient had a recent hospitalization and brief stay in the intensive care unit August, for urosepsis. Patient has frequent urinary tract infections, most recent isolated organism Klebsiella pneumoniae. Patient is currently being evaluated in the emergency department. She is awake and alert and able to answer my questions. HPI is being supplemented by daughter who is at bedside. Reports some dysuria and mild suprapubic discomfort. Denies any hematuria. Denies any flank pain. Denies history of kidney stones. Denies fevers/chills. Urinalysis was consistent with urine tract infection, pyuria and bacteriuria present. She was noted to be hypotensive in the emergency department. Fluid resuscitated with 2 L of normal saline bolus. Normal saline continues to infuse at 75 mL/h. ER provider did attempt to establish central line access, however, unsuccessful. Patient currently on peripheral Levophed, which is infusing at 0.04 mcg/kg/min. Heart rhythm is currently atrial fibrillation with rapid ventricular response around the 110 bpm. Blood pressure up to 103/57 mmHg. Not in any respiratory distress. On room air. She is reporting some nonradiating epigastric discomfort/dull ache. Denies any chest pain, heart palpitations, lightheadedness, syncopal events. EKG consistent with atrial fibrillation with rapid ventricular response, heart rate 111 bpm. No obvious acute ischemic changes. CBC: WBC count 10.5, hemoglobin 13.8, hematocrit 43.4, platelets 246. CMP: Sodium 130, potassium 4.2, chloride 96, serum bicarb 27, BUN 41, creatinine 2.14, glucose 108. AST 29, ALT 19, ALP 168. Lipase 116. There is a component of acute kidney injury. Lactic 2. Troponin 0.013. NT proBNP 1880. Chest x- ray showing cardiomegaly, and a possible 1.2 cm pulmonary nodule in the left lower lung. This was previously demonstrated on a chest CT back in September 2016, measuring 1.4 x 1.[address] CT of the chest/abdomen and pelvis did not show any evidence of hydronephrosis, nephrolithiasis, obstructive uropathy. Wall thickening of the urinary bladder. Incidentally, diverticulosis without diverticulitis, no small bowel obstruction or free intraperitoneal air. The 2.1 x 1.7 cm left lower lobe pulmonary nodule was again noted. She has been started empirically on a combination of cefepime and vancomycin in the emergency department. Urine and blood cultures are pending. Patient will be admitted to the intensive care unit once bed available 10/13/2023, the patient is being seen for a follow-up. Calm and comfortable. No encephalopathy. No altered mentation. Producing adequate amount of urine out put. Afebrile. Hemodynamically, she is still requiring low-dose norepinephrine which is running at 0.02 mcg/kg. Remains in normal sinus rate of 75 cc an hour. Close that is positive for 61 6 over the past 24 hours. On today's blood work, the white cell count is 8 with a hemoglobin of 13.2, creatinine is down to 1.1 with a BUN of 21 and a sodium levels at 138, chloride is 112. LFTs are essent ially within normal limits. Blood pressure is still pending. Urine culture is also pending. No flank pain. No dysuria. No other significant complaints otherwise for now. She remains in the intensive. As the patient is pressor dependent. Objective - Vital Signs Vital signs: Vital Signs Temp 97.6 F 10/13/23 08:00 Pulse 94 10/13/23 08:00 Resp 13 10/13/23 08:00 BP 102/57 10/13/23 08:00 Pulse Ox 99 10/13/23 08:00 FiO2 Intake & Output 10/12/23 10/13/23 10/13/23 18:59 06:59 18:59 Intake Total 2095.803 1465.410 307.754 Output Total 2150 1150 300 Balance -54.197 315.410 7.754 Weight 99.79 kg 111 kg Intake: IV 1900 900 75 Sodium Chloride 0.9% 1, 900 900 75 000 ml @ 75 mls/hr IV . [id number] STA Rx#:[id number] Sodium Chloride 0.9% 1, 1000 000 ml @ 999 mls/hr IV . Q1H1M STA Rx#:[id number] Intake, IV Titration 195.803 565.410 132.754 Amount Norepinephrine 4 mg In 195.803 565.410 132.754 Sodium Chloride 0.9% 250 ml @ 0.03 MCG/KG/MIN 11. 406 mls/hr IV .[id number] DEONTE Rx#:[id number] Oral 100 Output: Urine 2150 1150 300 Other: Voiding Method External Catheter External Catheter - Exam GENERAL EXAM: Alert, 83-year-old obese white female, comfortable in no apparent distress. Hypotensive, current blood pressure 85/53 mmHg. Norepinephrine is being started at 0.02 mcg/kg/min. HEAD: Normocephalic and atraumatic EYES: Normal reaction of pupils, equal size. NOSE: Clear with pink turbinates. THROAT: No erythema or exudates. NECK: No masses, no JVD. CHEST: No chest wall deformity. LUNGS: Equal air entry with no crackles, wheeze, rhonchi or dullness. On room air. No conversational dyspnea or accessory muscle use.. CVS: S1 and S2 normal with no audible murmur, irregular rhythm. No extra heart sounds ABDOMEN: No hepatosplenomegaly, active bowel sounds, no guarding or rigidity. SPINE: No scoliosis or deformity SKIN: No rashes CENTRAL NERVOUS SYSTEM: No focal deficits, tone is normal in all 4 extremities. EXTREMITIES: There is no peripheral edema, clubbing, or cyanosis. Peripheral pulses are intact. - Labs CBC & Chem 7: 10/13/23 06:25 10/13/23 06:25 Labs: Abnormal Lab Results - Last 24 Hours (Table) 10/11/23 10/12/23 10/12/23 Range/Units 23:15 11:30 16:14 MCV (80.0-100.0) fL MCHC (31.0-37.0) g/dL Chloride (98-107) mmol/L BUN (7-17) mg/dL Creatinine (0.52-1.04) mg/dL Glucose (74-99) mg/dL POC Glucose (mg/dL) 168 H 121 H (70-110) mg/dL Hemoglobin A1c 6.1 H (<=6.0) % Calcium (8.4-10.2) mg/dL Total Protein (6.3-8.2) g/dL Albumin (3.5-5.0) g/dL 10/13/23 10/13/23 10/13/23 Range/Units 06:25 06:25 06:31 MCV 105.3 H (80.0-100.0) fL MCHC 30.8 L (31.0-37.0) g/dL Chloride 112 H (98-107) mmol/L BUN 21 H (7-17) mg/dL Creatinine 1.12 H (0.52-1.04) mg/dL Glucose 117 H (74-99) mg/dL POC Glucose (mg/dL) 112 H (70-110) mg/dL Hemoglobin A1c (<=6.0) % Calcium 8.2 L (8.4-10.2) mg/dL Total Protein 4.9 L (6.3-8.2) g/dL Albumin 2.5 L (3.5-5.0) g/dL Assessment and Plan Assessment: Acute urinary tract infection and urosepsis, still on IV antibiotics with IV Rocephin. Still requiring pressors. Hypotension refractory to fluid resuscitation, requiring norepinephrine at a low dose and the patient has been adequately resuscitated IV fluids. Sepsis/septic shock Acute kidney injury, likely secondary to hypotension and ATN. CT of c hest/abdomen/pelvis did not show any nephrolithiasis, hydronephrosis, or obstructive uropathy, and the patient renal function is improving. Altered mental status, suspect acute metabolic encephalopathy/septic encephalopathy, recovered and the patient's mental status is normalized Atrial fibrillation with rapid ventricular rate, rate is controlled for now patient History of heart failure with reduced ejection fraction, most recent echocardiogram available from May, estimating a left ventricular ejection fraction of 40% History of coronary artery disease with previous PCI/stenting 2.1 x 1.7 cm left lower lobe pulmonary nodule, note that this was previously demonstrated on a chest CT dating back to September 2016, at this time measuring 1.4 x 1.6 cm. History of frequent urinary tract infections Morbid obesity, with a BMI of 40.2 kg/m Plan: Change IV fluids to 40 cc an hour normal saline With pressors and discontinue Continue IV Rocephin Renal function continues to improve Cultures are still pending Patient's medications, labs, imaging reviewed HistoryCT of the chest/abdomen/pelvis does not show any evidence of nephrolithiasis, hydronephrosis or obstructive uropathy CAT scan of the chest abdomen and pelvis was also completed at the time of admission that showed evidence of wall thickening of the bladder consistent with UTI and diverticulosis without diverticulitis. The pulmonary nodule was also noted in the left lower lobe and this nodule has been present since 2017 measuring 2.1 x 1.7 cm in size. No consolidation or airspace disease. Neurologically stable. Oxygenation is stable and the patient is currently on room air oxygen with a pulse ox of 98 to 99%. She will be kept in the intensive care unit. Will manage her sepsis and will continue to follow. The goal is to wean off the patient from pressors and will continue to follow.
[2023-10-13] MEDS ORDERED: ZINC OXIDE PASTE (Z-GUARD) 1 APPLIC TOPICAL PRN (16:11)
[2023-10-13 16:52] LABS: Glucose,Whole Blood 83 mg/dL (70-110)
[2023-10-13] MEDS: INSULIN ASPART (NovoLOG) 100 UNIT/ML VIAL SQ SCH (18:47)
[2023-10-13 20:36] LABS: Glucose,Whole Blood 128 mg/dL (70-110)
[2023-10-14 03:43] LABS: Basophils % (A) 0 %; Eosinophils # (A) 0.2 k/uL (0-0.7); Eosinophils % (A) 4 %; HCT 38.7 % (34.0-46.0); HGB 12.1 gm/dL (11.4-16.0); Hypochromasia Marked; Lymphocytes % (A) 29 %; MCH 32.3 pg (25.0-35.0); MCHC 31.3 g/dL (31.0-37.0); MCV 103.4 fL (80.0-100.0); Macrocytosis Slight; Mean Platelet Volume 7.3; Monocytes # (A) 0.6 k/uL (0-1.0); Monocytes % (A) 9 %; Neutrophils # (A) 3.9 k/uL (1.3-7.7); Neutrophils % (A) 56 %; Platelet Count 201 k/uL (150-450); RBC 3.74 m/uL (3.80-5.40); RDW 12.7 % (11.5-15.5)
[2023-10-14 03:52] LABS: African American GFR (CKD) 42 (>60 ml/min/1.73 sqM); Anion Gap 4 mmol/L; Blood Urea Nitrogen 20 mg/dL (7-17); Calcium 8.3 mg/dL (8.4-10.2); Carbon Dioxide 24 mmol/L (22-30); Chloride 107 mmol/L (98-107); Glucose 83 mg/dL (74-99); Non-African American GFR(CKD) 37 (>60 ml/min/1.73 sqM); Potassium 4.8 mmol/L (3.5-5.1); Sodium 135 mmol/L (137-145)
[2023-10-14 03:57] LABS: Vancomycin,Random 5.7 ug/mL
[2023-10-14] MEDS: FAMOTIDINE 20 MG TAB PO SCH (09:01)
--- NOTE | 2023-10-14 10:17 | P.PN ---
Subjective Progress Note Date: 10/14/23 The patient is an 83-year-old female who follows in the office with Dr. Coates. She has a known history of atrial fibrillation. Cardiology has been consulted for management of A-fib and congestive heart failure in the setting of urosepsis. Echocardiogram performed in May 2023 showed moderate LV dysfun ction at 40%. 10/14/23: The patient continued to do well overnight. Patient was weaned off of Levophed yesterday afternoon. She denies any shortness of breath or current chest pains. No dizziness or lightheadedness. Unfortunately she has yet to be up out of bed to ambulate. GENERAL: Well-appearing, well-nourished and in no acute distress. NECK: Supple without JVD or thyromegaly. LUNGS: Breath sounds clear to auscultation bilaterally. Respiration equal and unlabored. No wheezes, rales or rhonchi. HEART: Irregular rate and rhythm without murmurs, rubs or gallops. S1 and S2 heard. EXTREMITIES: Normal range of motion, mild generalized edema. No clubbing or cyanosis. Peripheral pulses intact and strong. TELEMETRY: persistent atrial fibrillation, heart rates in the 90s LABS: WBC 8.0, hemoglobin 13.2, hematocrit 42.7, platelet 245 IMPRESSION: Acute urinary tract infection and urosepsis Septic shock Atrial fibrillation with RVR History of heart failure with reduced ejection fraction, EF 40% History of coronary artery disease Morbid obesity PLAN: Increase metoprolol to 25 mg twice daily Continue oral hydration No further recommendations from a cardiac standpoint I am dictating on behalf of Dr Daniel Negrete's history/physical and assessment/plan. Objective - Vital Signs Vital signs: Vital Signs Temp 97.6 F 10/14/23 08:00 Pulse 80 10/14/23 09:00 Resp 16 10/14/23 09:00 BP 104/62 10/14/23 09:00 Pulse Ox 99 10/14/23 09:00 FiO2 Intake & Output 10/13/23 10/14/23 10/14/23 18:59 06:59 18:59 Intake Total 844.976 100 170 Output Total 1600 275 500 Balance -755.024 -175 -330 Weight 111 kg 111.8 kg Intake: IV 75 Sodium Chloride 0.9% 1, 75 000 ml @ 75 mls/hr IV . [id number] STA Rx#:[id number] Intake, IV Titration 169.976 50 Amount Norepinephrine 4 mg In 169.976 Sodium Chloride 0.9% 250 ml @ 0.03 MCG/KG/MIN 11. 406 mls/hr IV .[id number] DEONTE Rx#:[id number] cefTRIAXone 2 gm In 50 Sodium Chloride 0.9% 50 ml @ 100 mls/hr IVPB Q24HR DEONTE Rx#:[id number] Oral 600 100 120 Output: Urine 1200 275 500 Stool 400 Other: Voiding Method Toilet Toilet Incontinent Bedside Commode Bedside Commode External Catheter Incontinent Incontinent # Voids 1 - Labs CBC & Chem 7: 10/14/23 03:03 10/14/23 03:03 Labs: Abnormal Lab Results - Last 24 Hours (Table) 10/13/23 10/14/23 10/14/23 Range/Units 20:35 03:03 03:03 RBC 3.74 L (3.80-5.40) m/uL MCV 103.4 H (80.0-100.0) fL Sodium 135 L (137-145) mmol/L BUN 20 H (7-17) mg/dL Creatinine 1.34 H (0.52-1.04) mg/dL POC Glucose (mg/dL) 128 H (70-110) mg/dL Calcium 8.3 L (8.4-10.2) mg/dL Microbiology - Last 24 Hours (Table) 10/13/23 04:50 Urine Culture - Final Urine,Voided 10/12/23 02:50 Blood Culture - Preliminary Blood
[2023-10-14 11:45] LABS: Glucose,Whole Blood 100 mg/dL (70-110)
--- NOTE | 2023-10-14 13:55 | P.PN ---
Subjective Progress Note Date: 10/14/23 Patient is an 83-year-old white female with past medical history significant for atrial fibrillation, hyperlipidemia, hypertension, and frequent urinary tract infections. She was brought to the emergency department late last night accompanied by her daughter. While at home patient was having some dysuria. Also, noted to be confused by her daughter. Daughter took her mother's blood pressure, which was reading low. Went to the local fire department to confirm her blood pressure, who directed her to the emergency department. Of note, patient had a recent hospitalization and brief stay in the intensive care unit August, for urosepsis. Patient has frequent urinary tract infections, most recent isolated organism Klebsiella pneumoniae. Patient is currently being evaluated in the emergency department. She is awake and alert and able to answer my questions. HPI is being supplemented by daughter who is at bedside. Reports some dysuria and mild suprapubic discomfort. Denies any hematuria. Denies any flank pain. Denies history of kidney stones. Denies fevers/chills. Urinalysis was consistent with urine tract infection, pyuria and bacteriuria present. She was noted to be hypotensive in the emergency department. Fluid resuscitated with 2 L of normal saline bolus. Normal saline continues to infuse at 75 mL/h. ER provider did attempt to establish central line access, however, unsuccessful. Patient currently on peripheral Levophed, which is infusing at 0.04 mcg/kg/min. Heart rhythm is currently atrial fibrillation with rapid ventricular response around the 110 bpm. Blood pressure up to 103/57 mmHg. Not in any respiratory distress. On room air. She is reporting some nonradiating epigastric discomfort/dull ache. Denies any chest pain, heart palpitations, lightheadedness, syncopal events. EKG consistent with atrial fibrillation with rapid ventricular response, heart rate 111 bpm. No obvious acute ischemic changes. CBC: WBC count 10.5, hemoglobin 13.8, hematocrit 43.4, platelets 246. CMP: Sodium 130, potassium 4.2, chloride 96, serum bicarb 27, BUN 41, creatinine 2.14, glucose 108. AST 29, ALT 19, ALP 168. Lipase 116. There is a component of acute kidney injury. Lactic 2. Troponin 0.013. NT proBNP 1880. Chest x- ray showing cardiomegaly, and a possible 1.2 cm pulmonary nodule in the left lower lung. This was previously demonstrated on a chest CT back in September 2016, measuring 1.4 x 1.[address] of the chest/abdomen and pelvis did not show any evidence of hydronephrosis, nephrolithiasis, obstructive uropathy. Wall thickening of the urinary bladder. Incidentally, diverticulosis without diverticulitis, no small bowel obstruction or free intraperitoneal air. The 2.1 x 1.7 cm left lower lobe pulmonary nodule was again noted. She has been started empirically on a combination of cefepime and vancomycin in the emergency department. Urine and blood cultures are pending. Patient will be admitted to the intensive care unit once bed available 10/13/2023, the patient is being seen for a follow-up. Calm and comfortable. No encephalopathy. No altered mentation. Producing adequate amount of urine out put. Afebrile. Hemodynamically, she is still requiring low-dose norepinephrine which is running at 0.02 mcg/kg. Remains in normal sinus rate of 75 cc an hour. Close that is positive for 61 6 over the past 24 hours. On today's blood work, the white cell count is 8 with a hemoglobin of 13.2, creatinine is down to 1.1 with a BUN of 21 and a sodium levels at 138, chloride is 112. LFTs are essent ially within normal limits. Blood pressure is still pending. Urine culture is also pending. No flank pain. No dysuria. No other significant complaints otherwise for now. She remains in the intensive. As the patient is pressor dependent. On 10/14/2023, the patient is being seen for a follow-up. The patient has been off pressors since yesterday. Doing well. Hemodynamically stable. Producing adequate amount of urine output. Remains on IV Rocephin. Blood cultures been negative thus far. The white cell count is down to 7 with a hemoglobin 12.1 and a platelet count of 2 1. BUN is 20 with a creatinine of 1.34 and a sodium levels of 135. Awake and alert. No altered mentation. No other significant events overnight. She remains on IV Rocephin. She remains on room air oxygen. Her cardiac rhythm is atrial fibrillation at is well-controlled for now and the patient remains on anticoagulation with Eliquis. Metoprolol for rate control was restarted at dose of 25 mg p.o. twice a day. Objective - Vital Signs Vital signs: Vital Signs Temp 97.6 F 10/14/23 08:00 Pulse 80 10/14/23 09:00 Resp 16 10/14/23 09:00 BP 104/62 10/14/23 09:00 Pulse Ox 99 10/14/23 09:00 FiO2 Intake & Output 10/13/23 10/14/23 10/14/23 18:59 06:59 18:59 Intake Total 844.976 100 170 Output Total 1600 275 500 Balance -755.024 -175 -330 Weight 111 kg 111.8 kg Intake: IV 75 Sodium Chloride 0.9% 1, 75 000 ml @ 75 mls/hr IV . [id number] [facility] Rx#:[id number] Intake, IV Titration 169.976 50 Amount Norepinephrine 4 mg In 169.976 Sodium Chloride 0.9% 250 ml @ 0.03 MCG/KG/MIN 11. 406 mls/hr IV .[id number] [facility] Rx#:[id number] cefTRIAXone 2 gm In 50 Sodium Chloride 0.9% 50 ml @ 100 mls/hr IVPB Q24HR [facility] Rx#:[id number] Oral 600 100 120 Output: Urine 1200 275 500 Stool 400 Other: Voiding Method Toilet Toilet Bedside Commode Bedside Commode Incontinent Incontinent # Voids 1 - Exam GENERAL EXAM: Alert, 83-year-old obese white female, comfortable in no apparent distress. Hypotensive, current blood pressure 85/53 mmHg. Norepinephrine is being started at 0.02 mcg/kg/min. HEAD: Normocephalic and atraumatic EYES: Normal reaction of pupils, equal size. NOSE: Clear with pink turbinates. THROAT: No erythema or exudates. NECK: No masses, no JVD. CHEST: No chest wall deformity. LUNGS: Equal air entry with no crackles, wheeze, rhonchi or dullness. On room air. No conversational dyspnea or accessory muscle use.. CVS: S1 and S2 normal with no audible murmur, irregular rhythm. No extra heart sounds ABDOMEN: No hepatosplenomegaly, active bowel sounds, no guarding or rigidity. SPINE: No scoliosis or deformity SKIN: No rashes CENTRAL NERVOUS SYSTEM: No focal deficits, tone is normal in all 4 extremities. EXTREMITIES: There is no peripheral edema, clubbing, or cyanosis. Peripheral pulses are intact. - Labs CBC & Chem 7: 10/14/23 03:03 10/14/23 03:03 Labs: Abnormal Lab Results - Last 24 Hours (Table) 10/13/23 10/14/23 10/14/23 Range/Units 20:35 03:03 03:03 RBC 3.74 L (3.80-5.40) m/uL MCV 103.4 H (80.0-100.0) fL Sodium 135 L (137-145) mmol/L BUN 20 H (7-17) mg/dL Creatinine 1.34 H (0.52-1.04) mg/dL POC Glucose (mg/dL) 128 H (70-110) mg/dL Calcium 8.3 L (8.4-10.2) mg/dL Microbiology - Last 24 Hours (Table) 10/12/23 02:50 Blood Culture - Preliminary Blood Assessment and Plan Assessment: Acute urinary tract infection and urosepsis, hemodynamically stable off pressors since yesterday. Hypotension refractory to fluid resuscitation, currently off pressors Sepsis/septic shock Acute kidney injury, likely secondary to hypotension and ATN. CT of chest/abdomen/pelvis did not show any nephrolithiasis, hydronephrosis, or obstructive uropathy, and the patient renal function is improving. Altered mental status, suspect acute metabolic encephalopathy/septic encephalopathy, recovered and the patient's mental status is normalized Atrial fibrillation with rapid ventricular rate, rate is controlled for now patient History of heart failure with reduced ejection fraction, most recent echocardio gram available from May, estimating a left ventricular ejection fraction of 40% History of coronary artery disease with previous PCI/stenting 2.1 x 1.7 cm left lower lobe pulmonary nodule, note that this was previously demonstrated on a chest CT dating back to September 2016, at this time measuring 1.4 x 1.6 cm. History of frequent urinary tract infections Morbid obesity, with a BMI of 40.2 kg/m Plan: IV fluids to KVO and the patient is currently on no pressors Continue IV Rocephin Renal function continues to improve, will monitor the creatinine Cultures are still pending Patient's medications, labs, imaging reviewed CT of the chest/abdomen/pelvis does not show any evidence of nephrolithiasis, hydronephrosis or obstructive uropathy CAT scan of the chest abdomen and pelvis was also completed at the time of admission that showed evidence of wall thickening of the bladder consistent with UTI and diverticulosis without diverticulitis. The pulmonary nodule was also noted in the left lower lobe and this nodule has been present since 2017 measuring 2.1 x 1.7 cm in size. No consolidation or airspace disease. Neurologically stable. Oxygenation is stable and the patient is currently on room air oxygen with a pulse ox of 98 to 99%. Will move the patient to the medical floor with telemetry monitoring.
[2023-10-14 16:17] LABS: Glucose,Whole Blood 98 mg/dL (70-110)
[2023-10-14 20:41] LABS: Glucose,Whole Blood 121 mg/dL (70-110)
[2023-10-14] MEDS: METOPROLOL TARTRATE 25 MG TAB PO SCH (20:51)
[2023-10-15 05:43] LABS: Glucose,Whole Blood 73 mg/dL (70-110)
--- NOTE | 2023-10-15 07:51 | P.PN ---
Subjective Progress Note Date: 10/14/23 82-year-old female came in with complaints of dysuria suprapubic pain found to be in sepsis and septic shock secondary to urinary tract infection.. Patient is also in atrial fibrillation with rapid unclear rate patient has a known atrial fibrillation. Patient does have history of congestive heart failure decreased ejection fraction of 40% patient is presently not in heart failure exacerbation. Patient had Klebsiella in the urine about a month ago which is pansensitive patient is presently receiving cefepime and vancomycin both of which will be discontinued and patient will be started on Rocephin 2 g daily patient kidney function is low with serum creatinine of 2.14, baseline within normal limits patient will be on sliding scale insulin patient is bit hyponatremic. Patient is also on pressor support at this time. Patient does not have any fever. Patient white blood cell count is high normal. 10/13/2023 Was evaluated today in follow-up for urinary tract infection and found to have significant sepsis is currently in the intensive care unit. Patient is still requiring a small dose of Levophed however her blood pressure has improved and is maintaining in the 100s systolic. Patient is more complaining of dysuria or suprapubic pain. Urine culture currently pending her blood culture is negative so far. Continues on IV ceftriaxone. Does have history of heart failure is currently complaining of some swelling of her legs and IV fluids to be stopped at this time. Her creatinine has improved down to 1.12. 10/14/2023 Patient is seen in follow-up today in the ICU although is a downgrade once a medical surgical bed becomes available. Patient is maintained on antibiotics showing clinical improvement and urine cultures have been negative. Blood cultures are negative as well. Patient is off pressor support maintaining blood pressures and being followed by cardiology. Kidney functions improving and will follow-up with repeat labs. Patient is afebrile denies chest pain or shortness of breath. Patient reports to feeling weak although improving daily and was able to walk down the [place] and back with physical therapy. Patient is adamant she is returning home on discharge. Review of Systems Constitutional: Denied any fatigue denied any fever. Cardio vascular: denied any chest pain, palpitations Gastrointestinal: denied any nausea, vomiting, diarrhea Pulmonary: Denied any shortness of breath cough Neurologic denied any new focal deficits, reports of generalized weakness although improving All inpatient medications were reviewed and appropriate changes in these me dications as dictated in the interval history and assessment and plan. PHYSICAL EXAMINATION: GENERAL: The patient is alert and oriented x3, not in any acute distress. Well developed, well nourished. Morbidly obese HEENT: Pupils are round and equally reacting to light. EOMI. No scleral icterus. No conjunctival pallor. Normocephalic, atraumatic. No pharyngeal erythema. No thyromegaly. CARDIOVASCULAR: S1 and S2 present. No murmurs, rubs, or gallops. PULMONARY: Chest is clear to auscultation, no wheezing or crackles. ABDOMEN: Soft, obese, nontender, nondistended, normoactive bowel sounds. No palpable organomegaly. MUSCULOSKELETAL: No joint swelling or deformity. EXTREMITIES: No cyanosis, clubbing, or pedal edema. NEUROLOGICAL: Gross neurological examination did not reveal any focal deficits. SKIN: No rashes. Assessment and plan -Septic shock: Secondary to urinary tract infection considering her Klebsiella which was pansensitive patient will be switched to Rocephin 2 g. Urine cultures are negative. -Hyponatremia hypovolemic hyponatremia IV fluids as mentioned above and can be secondary to Lasix and Aldactone; sodium is normal today at 138 patient does continue off of her diuretics at this time. -Congestive heart failure chronic systolic function without any acute exacerba tion, IV fluids have been stopped secondary to increased peripheral edema and will monitor closely -Atrial fibrillation with rapid ventricular rate: Patient received low-dose of metoprolol ordered by cardiology expected to improve with improvement of septic shock . Started back on metoprolol at a lower dose 12.5 mg BID by cardiology -Type 2 diabetes mellitus patient is on SGLT2 and is not a candidate for that because of frequent UTIs. Continue accuchecks ACHS and sliding scale insulin. -Acute renal failure: Secondary to septic shock possibly of acute tubular necrosis combined with diuretics. Improving, currently maintained off IV fluids and diuretics -Hyperlipidemia history -Hypertension history -Elevated MCV; normal B12 level. DVT prophylaxis: Patient on anticoagulation with Eliquis GI prophylaxisl: Pepcid NO CODE Plan: Patient is in the ICU and being transferred out of the ICU once a bed is available. Recommend PT/OT therapy daily as patient did have weakness although is improving. Patient was able to walk down the [place] today. Patient is adamant she is returning home if she went to [facility] after last admission and did not have a good experience. Patient and family are agreeable she will return home with her daughter where she resides. Continue antibiotics and monitor clinical course. Follow-up on repeat labs to monitor kidney functions Consider possible discharge planning in the next 48 hours The impression and plan of care has been dictated by Lydia Li, Nurse Practitioner as directed. Dr. Ave MD I have performed a history and physical examination and medical decision making of this patient, discussed the same with the dictator, and agree with the dictators assessment and plan as written, documented as a scribe. Based on total visit time, I have performed more than 50% of this visit. Objective - Vital Signs Vital signs: Vital Signs Temp 98.1 F 10/14/23 04:00 Pulse 108 H 10/14/23 07:00 Resp 12 10/14/23 07:00 BP 92/47 10/14/23 07:00 Pulse Ox 98 10/14/23 07:00 FiO2 Intake & Output 10/13/23 10/14/23 10/14/23 18:59 06:59 18:59 Intake Total 844.976 100 Output Total 1600 275 Balance -755.024 -175 Weight 111 kg 111.8 kg Intake: IV 75 Sodium Chloride 0.9% 1, 75 000 ml @ 75 mls/hr IV . [id number] [facility] Rx#:[id number] Intake, IV Titration 169.976 Amount Norepinephrine 4 mg In 169.976 Sodium Chloride 0.9% 250 ml @ 0.03 MCG/KG/MIN 11. 406 mls/hr IV .[id number] [facility] Rx#:[id number] Oral 600 100 Output: Urine 1200 275 Stool 400 Other: Voiding Method Toilet Toilet Bedside Commode Bedside Commode Incontinent Incontinent # Voids 1 - Labs CBC & Chem 7: 10/14/23 03:03 10/14/23 03:03 Labs: Abnormal Lab Results - Last 24 Hours (Table) 10/13/23 10/14/23 10/14/23 Range/Units 20:35 03:03 03:03 RBC 3.74 L (3.80-5.40) m/uL MCV 103.4 H (80.0-100.0) fL Sodium 135 L (137-145) mmol/L BUN 20 H (7-17) mg/dL Creatinine 1.34 H (0.52-1.04) mg/dL POC Glucose (mg/dL) 128 H (70-110) mg/dL Calcium 8.3 L (8.4-10.2) mg/dL Microbiology - Last 24 Hours (Table) 10/12/23 02:50 Blood Culture - Preliminary Blood
[2023-10-15 10:06] LABS: Blood Urea Nitrogen 15.9 mg/dL (9.0-27.0); Calcium 8.6 mg/dL (8.7-10.3); Carbon Dioxide 23.9 mmol/L (21.6-31.8); Chloride 110 mmol/L (96-109); Glucose 108 mg/dL (70-110); Potassium 4.8 mmol/L (3.5-5.5); Sodium 141 mmol/L (135-145)
[2023-10-15 11:26] LABS: Glucose,Whole Blood 157 mg/dL (70-110)
--- NOTE | 2023-10-15 13:49 | P.PN ---
Subjective Progress Note Date: 10/15/23 Patient is an 83-year-old white female with past medical history significant for atrial fibrillation, hyperlipidemia, hypertension, and frequent urinary tract infections. She was brought to the emergency department late last night accompanied by her daughter. While at home patient was having some dysuria. Also, noted to be confused by her daughter. Daughter took her mother's blood pressure, which was reading low. Went to the local fire department to confirm her blood pressure, who directed her to the emergency department. Of note, patient had a recent hospitalization and brief stay in the intensive care unit August, for urosepsis. Patient has frequent urinary tract infections, most recent isolated organism Klebsiella pneumoniae. Patient is currently being evaluated in the emergency department. She is awake and alert and able to answer my questions. HPI is being supplemented by daughter who is at bedside. Reports some dysuria and mild suprapubic discomfort. Denies any hematuria. Denies any flank pain. Denies history of kidney stones. Denies fevers/chills. Urinalysis was consistent with urine tract infection, pyuria and bacteriuria present. She was noted to be hypotensive in the emergency department. Fluid resuscitated with 2 L of normal saline bolus. Normal saline continues to infuse at 75 mL/h. ER provider did attempt to establish central line access, however, unsuccessful. Patient currently on peripheral Levophed, which is infusing at 0.04 mcg/kg/min. Heart rhythm is currently atrial fibrillation with rapid ventricular response around the 110 bpm. Blood pressure up to 103/57 mmHg. Not in any respiratory distress. On room air. She is reporting some nonradiating epigastric discomfort/dull ache. Denies any chest pain, heart palpitations, lightheadedness, syncopal events. EKG consistent with atrial fibrillation with rapid ventricular response, heart rate 111 bpm. No obvious acute ischemic changes. CBC: WBC count 10.5, hemoglobin 13.8, hematocrit 43.4, platelets 246. CMP: Sodium 130, potassium 4.2, chloride 96, serum bicarb 27, BUN 41, creatinine 2.14, glucose 108. AST 29, ALT 19, ALP 168. Lipase 116. There is a component of acute kidney injury. Lactic 2. Troponin 0.013. NT proBNP 1880. Chest x- ray showing cardiomegaly, and a possible 1.2 cm pulmonary nodule in the left lower lung. This was previously demonstrated on a chest CT back in September 2016, measuring 1.4 x 1.[address] of the chest/abdomen and pelvis did not show any evidence of hydronephrosis, nephrolithiasis, obstructive uropathy. Wall thickening of the urinary bladder. Incidentally, diverticulosis without diverticulitis, no small bowel obstruction or free intraperitoneal air. The 2.1 x 1.7 cm left lower lobe pulmonary nodule was again noted. She has been started empirically on a combination of cefepime and vancomycin in the emergency department. Urine and blood cultures are pending. Patient will be admitted to the intensive care unit once bed available 10/13/2023, the patient is being seen for a follow-up. Calm and comfortable. No encephalopathy. No altered mentation. Producing adequate amount of urine out put. Afebrile. Hemodynamically, she is still requiring low-dose norepinephrine which is running at 0.02 mcg/kg. Remains in normal sinus rate of 75 cc an hour. Close that is positive for 61 6 over the past 24 hours. On today's blood work, the white cell count is 8 with a hemoglobin of 13.2, creatinine is down to 1.1 with a BUN of 21 and a sodium levels at 138, chloride is 112. LFTs are essent ially within normal limits. Blood pressure is still pending. Urine culture is also pending. No flank pain. No dysuria. No other significant complaints otherwise for now. She remains in the intensive. As the patient is pressor dependent. On 10/14/2023, the patient is being seen for a follow-up. The patient has been off pressors since yesterday. Doing well. Hemodynamically stable. Producing adequate amount of urine output. Remains on IV Rocephin. Blood cultures been negative thus far. The white cell count is down to 7 with a hemoglobin 12.1 and a platelet count of 2 1. BUN is 20 with a creatinine of 1.34 and a sodium levels of 135. Awake and alert. No altered mentation. No other significant events overnight. She remains on IV Rocephin. She remains on room air oxygen. Her cardiac rhythm is atrial fibrillation at is well-controlled for now and the patient remains on anticoagulation with Eliquis. Metoprolol for rate control was restarted at dose of 25 mg p.o. twice a day. 10/15/2023, patient is being seen for a follow-up. Doing well. No specific complaints. Transferred out of the intensive care unit yesterday. She has no respiratory difficulties for now. Feeling still weak. Remains on IV Rocephin. Electrolytes are all within normal limits. BUN is 15 with a creatinine of 1.01. He is currently on room air oxygen. Objective - Vital Signs Vital signs: Vital Signs Temp 97.9 F 10/15/23 07:10 Pulse 76 10/15/23 07:10 Resp 18 10/15/23 07:10 BP 114/70 10/15/23 07:10 Pulse Ox 98 10/15/23 08:47 FiO2 Intake & Output 10/14/23 10/15/23 10/15/23 18:59 06:59 18:59 Intake Total 410 100 Output Total 800 Balance -390 100 Intake: Intake, IV Titration 50 Amount cefTRIAXone 2 gm In 50 Sodium Chloride 0.9% 50 ml @ 100 mls/hr IVPB Q24HR [facility] Rx#:[id number] Oral 360 100 Output: Urine 800 Other: Voiding Method Incontinent Toilet Toilet External Catheter Diaper Diaper Incontinent Incontinent # Voids 1 2 1 # Bowel Movements 1 1 - Exam GENERAL EXAM: Alert, 83-year-old obese white female, comfortable in no apparent distress. Hypotensive, current blood pressure 85/53 mmHg. Norepinephrine is being started at 0.02 mcg/kg/min. HEAD: Normocephalic and atraumatic EYES: Normal reaction of pupils, equal size. NOSE: Clear with pink turbinates. THROAT: No erythema or exudates. NECK: No masses, no JVD. CHEST: No chest wall deformity. LUNGS: Equal air entry with no crackles, wheeze, rhonchi or dullness. On room air. No conversational dyspnea or accessory muscle use.. CVS: S1 and S2 normal with no audible murmur, irregular rhythm. No extra heart sounds ABDOMEN: No hepatosplenomegaly, active bowel sounds, no guarding or rigidity. SPINE: No scoliosis or deformity SKIN: No rashes CENTRAL NERVOUS SYSTEM: No focal deficits, tone is normal in all 4 extremities. EXTREMITIES: There is no peripheral edema, clubbing, or cyanosis. Peripheral pulses are intact. - Labs CBC & Chem 7: 10/14/23 03:03 10/15/23 06:06 Labs: Abnormal Lab Results - Last 24 Hours (Table) 10/14/23 10/15/23 Range/Units 20:39 06:06 Chloride 110 H (96-109) mmol/L Est GFR (CKD-EPI) 56 L (>=60) POC Glucose (mg/dL) 121 H (70-110) mg/dL Calcium 8.6 L (8.7-10.3) mg/dL Microbiology - Last 24 Hours (Table) 10/12/23 02:50 Blood Culture - Preliminary Blood 10/13/23 04:50 Urine Culture - Final Urine,Voided Assessment and Plan Assessment: Acute urinary tract infection and urosepsis, hemodynamically stable off pressors and the patient was transferred out of the intensive care unit Hypotension refractory to fluid resuscitation, currently off pressors, recovered Sepsis/septic shock, recovered Acute kidney injury, likely secondary to hypotension and ATN. CT of chest/abd omen/pelvis did not show any nephrolithiasis, hydronephrosis, or obstructive uropathy, and the patient renal function is normalized Altered mental status, suspect acute metabolic encephalopathy/septic encephalopathy, recovered and the patient's mental status is normalized Atrial fibrillation with rapid ventricular rate, rate is controlled for now patient History of heart failure with reduced ejection fraction, most recent echocardiogram available from May, estimating a left ventricular ejection fraction of 40% History of coronary artery disease with previous PCI/stenting 2.1 x 1.7 cm left lower lobe pulmonary nodule, note that this was previously demonstrated on a chest CT dating back to September 2016, at this time measuring 1.4 x 1.6 cm. History of frequent urinary tract infections Morbid obesity, with a BMI of 40.2 kg/m Plan: IV fluids to KVO Continue IV Rocephin Renal function normalized Cultures are still pending Patient's medications, labs, imaging reviewed CT of the chest/abdomen/pelvis does not show any evidence of nephrolithiasis, hydronephrosis or obstructive uropathy CAT scan of the chest abdomen and pelvis was also completed at the time of admission that showed evidence of wall thickening of the bladder consistent with UTI and diverticulosis without diverticulitis. The pulmonary nodule was also noted in the left lower lobe and this nodule has been present since 2017 measuring 2.1 x 1.7 cm in size. No consolidation or airspace disease. Neurologically stable. Oxygenation is stable and the patient is currently on room air oxygen with a pulse ox of 98 to 99%. Patient is currently on medical floor
[2023-10-15 16:30] LABS: Glucose,Whole Blood 88 mg/dL (70-110)
[2023-10-15 20:20] LABS: Glucose,Whole Blood 106 mg/dL (70-110)
[2023-10-16 05:55] LABS: Glucose,Whole Blood 76 mg/dL (70-110)
[2023-10-16 10:03] LABS: Blood Urea Nitrogen 13.9 mg/dL (9.0-27.0); Glucose 87 mg/dL (70-110)
[2023-10-16 10:04] LABS: Calcium 8.7 mg/dL (8.7-10.3); Carbon Dioxide 27.6 mmol/L (21.6-31.8); Chloride 107 mmol/L (96-109); Sodium 140 mmol/L (135-145)
[2023-10-16 10:19] LABS: Basophils # (A) 0.04 X 10*3/uL (0.00-0.10); Basophils % (A) 0.5 %; Eosinophils # (A) 0.36 X 10*3/uL (0.04-0.35); Eosinophils % (A) 4.7 %; HCT 41.8 % (37.2-46.3); Lymphocytes # (A) 2.63 X 10*3/uL (0.90-5.00); Lymphocytes % (A) 34.6 %; MCH 32.6 pg (27.0-32.0); MCHC 31.1 g/dL (32.0-37.0); MCV 104.8 FL (80.0-97.0); Mean Platelet Volume 9.5 FL (9.5-12.2); Monocytes # (A) 0.76 X 10*3/uL (0.20-1.00); NRBC Per 100 WBC 0 X 10*3/uL (0.00-0.01); Neutrophils # (A) 3.79 X 10*3/uL (1.80-7.70); Neutrophils % (A) 49.8 %; Platelet Count 205 X 10*3/uL (140-440); RBC 3.99 X 10*6/uL (4.10-5.20); WBC 7.61 X 10*3/uL (4.50-10.00)
[2023-10-16 11:25] LABS: Glucose,Whole Blood 106 mg/dL (70-110)
--- NOTE | 2023-10-16 12:17 | P.PN ---
Subjective Progress Note Date: 10/16/23 Patient is an 83-year-old white female with past medical history significant for atrial fibrillation, hyperlipidemia, hypertension, and frequent urinary tract infections. She was brought to the emergency department late last night accompanied by her daughter. While at home patient was having some dysuria. Also, noted to be confused by her daughter. Daughter took her mother's blood pressure, which was reading low. Went to the local fire department to confirm her blood pressure, who directed her to the emergency department. Of note, patient had a recent hospitalization and brief stay in the intensive care unit August, for urosepsis. Patient has frequent urinary tract infections, most recent isolated organism Klebsiella pneumoniae. Patient is currently being evaluated in the emergency department. She is awake and alert and able to answer my questions. HPI is being supplemented by daughter who is at bedside. Reports some dysuria and mild suprapubic discomfort. Denies any hematuria. Denies any flank pain. Denies history of kidney stones. Denies fevers/chills. Urinalysis was consistent with urine tract infection, pyuria and bacteriuria present. She was noted to be hypotensive in the emergency department. Fluid resuscitated with 2 L of normal saline bolus. Normal saline continues to infuse at 75 mL/h. ER provider did attempt to establish central line access, however, unsuccessful. Patient currently on peripheral Levophed, which is infusing at 0.04 mcg/kg/min. Heart rhythm is currently atrial fibrillation with rapid ventricular response around the 110 bpm. Blood pressure up to 103/57 mmHg. Not in any respiratory distress. On room air. She is reporting some nonradiating epigastric discomfort/dull ache. Denies any chest pain, heart palpitations, lightheadedness, syncopal events. EKG consistent with atrial fibrillation with rapid ventricular response, heart rate 111 bpm. No obvious acute ischemic changes. CBC: WBC count 10.5, hemoglobin 13.8, hematocrit 43.4, platelets 246. CMP: Sodium 130, potassium 4.2, chloride 96, serum bicarb 27, BUN 41, creatinine 2.14, glucose 108. AST 29, ALT 19, ALP 168. Lipase 116. There is a component of acute kidney injury. Lactic 2. Troponin 0.013. NT proBNP 1880. Chest x- ray showing cardiomegaly, and a possible 1.2 cm pulmonary nodule in the left lower lung. This was previously demonstrated on a chest CT back in September 2016, measuring 1.4 x 1.[address] of the chest/abdomen and pelvis did not show any evidence of hydronephrosis, nephrolithiasis, obstructive uropathy. Wall thickening of the urinary bladder. Incidentally, diverticulosis without diverticulitis, no small bowel obstruction or free intraperitoneal air. The 2.1 x 1.7 cm left lower lobe pulmonary nodule was again noted. She has been started empirically on a combination of cefepime and vancomycin in the emergency department. Urine and blood cultures are pending. Patient will be admitted to the intensive care unit once bed available 10/13/2023, the patient is being seen for a follow-up. Calm and comfortable. No encephalopathy. No altered mentation. Producing adequate amount of urine out put. Afebrile. Hemodynamically, she is still requiring low-dose norepinephrine which is running at 0.02 mcg/kg. Remains in normal sinus rate of 75 cc an hour. Close that is positive for 61 6 over the past 24 hours. On today's blood work, the white cell count is 8 with a hemoglobin of 13.2, creatinine is down to 1.1 with a BUN of 21 and a sodium levels at 138, chloride is 112. LFTs are essent ially within normal limits. Blood pressure is still pending. Urine culture is also pending. No flank pain. No dysuria. No other significant complaints otherwise for now. She remains in the intensive. As the patient is pressor dependent. On 10/14/2023, the patient is being seen for a follow-up. The patient has been off pressors since yesterday. Doing well. Hemodynamically stable. Producing adequate amount of urine output. Remains on IV Rocephin. Blood cultures been negative thus far. The white cell count is down to 7 with a hemoglobin 12.1 and a platelet count of 2 1. BUN is 20 with a creatinine of 1.34 and a sodium levels of 135. Awake and alert. No altered mentation. No other significant events overnight. She remains on IV Rocephin. She remains on room air oxygen. Her cardiac rhythm is atrial fibrillation at is well-controlled for now and the patient remains on anticoagulation with Eliquis. Metoprolol for rate control was restarted at dose of 25 mg p.o. twice a day. 10/15/2023, patient is being seen for a follow-up. Doing well. No specific complaints. Transferred out of the intensive care unit yesterday. She has no respiratory difficulties for now. Feeling still weak. Remains on IV Rocephin. Electrolytes are all within normal limits. BUN is 15 with a creatinine of 1.01. He is currently on room air oxygen. On 10/16/2023, patient is being seen for a follow-up. Doing well with no specific complaints. Resting comfortably in bed. Hemodynamically stable. No hypotension. White cell count 7.6 with a hemoglobin 13. Electrolytes are all within normal limits. Complaining of generalized weakness. No respiratory difficulties and the patient remains on room air oxygen. Objective - Vital Signs Vital signs: Vital Signs Temp 97.7 F 10/16/23 06:50 Pulse 62 10/16/23 06:50 Resp 16 10/16/23 06:50 BP 111/69 10/16/23 06:50 Pulse Ox 100 10/16/23 06:50 FiO2 Intake & Output 10/15/23 10/16/23 10/16/23 18:59 06:59 18:59 Intake Total 460 Balance 460 Intake: Oral 460 Other: Voiding Method Toilet Toilet Diaper Diaper Incontinent Incontinent # Voids 2 3 # Bowel Movements 1 2 - Exam GENERAL EXAM: Alert, 83-year-old obese white female, comfortable in no apparent distress. Hypotensive, current blood pressure 85/53 mmHg. Norepinephrine is being started at 0.02 mcg/kg/min. HEAD: Normocephalic and atraumatic EYES: Normal reaction of pupils, equal size. NOSE: Clear with pink turbinates. THROAT: No erythema or exudates. NECK: No masses, no JVD. CHEST: No chest wall deformity. LUNGS: Equal air entry with no crackles, wheeze, rhonchi or dullness. On room air. No conversational dyspnea or accessory muscle use.. CVS: S1 and S2 normal with no audible murmur, irregular rhythm. No extra heart sounds ABDOMEN: No hepatosplenomegaly, active bowel sounds, no guarding or rigidity. SPINE: No scoliosis or deformity SKIN: No rashes CENTRAL NERVOUS SYSTEM: No focal deficits, tone is normal in all 4 extremities. EXTREMITIES: There is no peripheral edema, clubbing, or cyanosis. Peripheral pulses are intact. - Labs CBC & Chem 7: 10/16/23 05:47 10/16/23 05:47 Labs: Abnormal Lab Results - Last 24 Hours (Table) 10/15/23 10/15/23 Range/Units 06:06 11:25 Chloride 110 H (96-109) mmol/L Est GFR (CKD-EPI) 56 L (>=60) POC Glucose (mg/dL) 157 H (70-110) mg/dL Calcium 8.6 L (8.7-10.3) mg/dL Microbiology - Last 24 Hours (Table) 10/12/23 02:50 Blood Culture - Preliminary Blood Assessment and Plan Assessment: Acute urinary tract infection and urosepsis, hemodynamically stable off pressors and the patient was transferred out of the intensive care unit, Hemodynamically stable, cultures have been negative. Hypotension refractory to fluid resuscitation, currently off pressors, recovered Sepsis/septic shock, recovered Acute kidney injury, likely secondary to hypotension and ATN. CT of ch est/abdomen/pelvis did not show any nephrolithiasis, hydronephrosis, or obstructive uropathy, and the patient renal function is normalized Altered mental status, suspect acute metabolic encephalopathy/septic encephalopathy, recovered and the patient's mental status is normalized Atrial fibrillation with rapid ventricular rate, rate is controlled for now patient History of heart failure with reduced ejection fraction, most recent echocardiogram available from May, estimating a left ventricular ejection fraction of 40% History of coronary artery disease with previous PCI/stenting 2.1 x 1.7 cm left lower lobe pulmonary nodule, note that this was previously demonstrated on a chest CT dating back to September 2016, at this time measuring 1.4 x 1.6 cm. History of frequent urinary tract infections Morbid obesity, with a BMI of 40.2 kg/m Plan: IV fluids to KVO Continue IV Rocephin Renal function normalized Cultures are still pending Patient's medications, labs, imaging reviewed CT of the chest/abdomen/pelvis does not show any evidence of nephrolithiasis, hydronephrosis or obstructive uropathy CAT scan of the chest abdomen and pelvis was also completed at the time of admission that showed evidence of wall thickening of the bladder consistent with UTI and diverticulosis without diverticulitis. The pulmonary nodule was also noted in the left lower lobe and this nodule has been present since 2017 measuring 2.1 x 1.7 cm in size. No consolidation or airspace disease. Neur ologically stable. Oxygenation is stable and the patient is currently on room air oxygen with a pulse ox of 98 to 99%. Patient is currently on medical floor, will need further rehabilitation and [facility].
[2023-10-16 16:56] LABS: Glucose,Whole Blood 86 mg/dL (70-110)
[2023-10-16 20:39] LABS: Glucose,Whole Blood 100 mg/dL (70-110)
--- NOTE | 2023-10-16 20:55 | P.PN ---
Subjective Progress Note Date: 10/15/23 82-year-old female came in with complaints of dysuria suprapubic pain found to be in sepsis and septic shock secondary to urinary tract infection.. Patient is also in atrial fibrillation with rapid unclear rate patient has a known atrial fibrillation. Patient does have history of congestive heart failure decreased ejection fraction of 40% patient is presently not in heart failure exacerbation. Patient had Klebsiella in the urine about a month ago which is pansensitive patient is presently receiving cefepime and vancomycin both of which will be discontinued and patient will be started on Rocephin 2 g daily patient kidney function is low with serum creatinine of 2.14, baseline within normal limits patient will be on sliding scale insulin patient is bit hyponatremic. Patient is also on pressor support at this time. Patient does not have any fever. Patient white blood cell count is high normal. 10/13/2023 Was evaluated today in follow-up for urinary tract infection and found to have significant sepsis is currently in the intensive care unit. Patient is still requiring a small dose of Levophed however her blood pressure has improved and is maintaining in the 100s systolic. Patient is more complaining of dysuria or suprapubic pain. Urine culture currently pending her blood culture is negative so far. Continues on IV ceftriaxone. Does have history of heart failure is currently complaining of some swelling of her legs and IV fluids to be stopped at this time. Her creatinine has improved down to 1.12. 10/14/2023 Patient is seen in follow-up today in the ICU although is a downgrade once a medical surgical bed becomes available. Patient is maintained on antibiotics showing clinical improvement and urine cultures have been negative. Blood cultures are negative as well. Patient is off pressor support maintaining blood pressures and being followed by cardiology. Kidney functions improving and will follow-up with repeat labs. Patient is afebrile denies chest pain or shortness of breath. Patient reports to feeling weak although improving daily and was able to walk down the [place] and back with physical therapy. Patient is adamant she is returning home on discharge. 10/15/2023 Patient is sitting in the chair. Awake alert and oriented x 3. No complaints of chest pain or shortness of breath. No abdominal pain. No nausea or vomiting. Patient did have a small bowel movement. No cough or sputum production. Laboratory data showed sodium 141 potassium 4.8 chloride 110 bicarb is 23.9 BUN 15.9 and creatinine 1.0 and blood sugar 56. Patient is being current on antibiotics ceftriaxone 2 g every 24 hours. Patient is also on anticoagulation with Eliquis. Review of Systems Constitutional: Denied any fatigue denied any fever. Cardio vascular: denied any chest pain, palpitations Gastrointestinal: denied any nausea, vomiting, diarrhea Pulmonary: Denied any shortness of breath cough Neurologic denied any new focal deficits, reports of generalized weakness altho ugh improving All inpatient medications were reviewed and appropriate changes in these medications as dictated in the interval history and assessment and plan. PHYSICAL EXAMINATION: GENERAL: The patient is alert and oriented x3, not in any acute distress. Well developed, well nourished. Morbidly obese HEENT: Pupils are round and equally reacting to light. EOMI. No scleral icterus. No conjunctival pallor. Normocephalic, atraumatic. No pharyngeal erythema. No thyromegaly. CARDIOVASCULAR: S1 and S2 present. No murmurs, rubs, or gallops. PULMONARY: Chest is clear to auscultation, no wheezing or crackles. ABDOMEN: Soft, obese, nontender, nondistended, normoactive bowel sounds. No palpable organomegaly. MUSCULOSKELETAL: No joint swelling or deformity. EXTREMITIES: No cyanosis, clubbing, or pedal edema. NEUROLOGICAL: Gross neurological examination did not reveal any focal deficits. SKIN: No rashes. Assessment and plan -Septic shock: Secondary to urinary tract infection considering her Klebsiella which was pansensitive patient will be switched to Rocephin 2 g. Urine cultures are negative. Blood cultures negative pulmonary report. -Hyponatremia hypovolemic hyponatremia IV fluids as mentioned above and can be secondary to Lasix and Aldactone; sodium level normalized.. -Congestive heart failure chronic systolic function without any acute exacerbation, IV fluids have been stopped secondary to increased peripheral edema and will monitor closely -Atrial fibrillation with rapid ventricular rate: Patient received low-dose of metoprolol ordered by cardiology expected to improve with improvement of septic shock . Started back on metoprolol at a lower dose 12.5 mg BID by cardiology -Type 2 diabetes mellitus patient is on SGLT2 and is not a candidate for that because of frequent UTIs. Continue accuchecks ACHS and sliding scale insulin. -Acute renal failure: Secondary to septic shock possibly of acute tubular necrosis combined with diuretics. Improving, currently maintained off IV fluids and diuretics -Hyperlipidemia history -Hypertension history -Elevated MCV; normal B12 level. DVT prophylaxis: Patient on anticoagulation with Eliquis GI prophylaxisl: Pepcid NO CODE Plan: Patient is transferred to medical floor. Recommend PT/OT therapy daily as patient did have weakness although is improving. Patient was able to walk down the [place] today. Patient is adamant she is returning home if she went to [facility] after last admission and did not have a good experience. Patient and family are agreeable she will return home with her daughter where she resides. Continue antibiotics and monitor clinical course. Follow-up on repeat labs to monitor kidney functions Consider possible discharge planning in the next 24-48 hours Objective - Vital Signs Vital signs: Vital Signs Temp 97.9 F 10/15/23 07:10 Pulse 76 10/15/23 07:10 Resp 18 10/15/23 07:10 BP 114/70 10/15/23 07:10 Pulse Ox 98 10/15/23 08:47 FiO2 Intake & Output 10/14/23 10/15/23 10/15/23 18:59 06:59 18:59 Intake Total 410 100 Output Total 800 Balance -390 100 Intake: Intake, IV Titration 50 Amount cefTRIAXone 2 gm In 50 Sodium Chloride 0.9% 50 ml @ 100 mls/hr IVPB Q24HR [facility] Rx#:[id number] Oral 360 100 Output: Urine 800 Other: Voiding Method Incontinent Toilet Toilet External Catheter Diaper Diaper Incontinent Incontinent # Voids 1 2 1 # Bowel Movements 1 1 - Labs CBC & Chem 7: 10/16/23 05:47 10/16/23 05:47 Labs: Abnormal Lab Results - Last 24 Hours (Table) 10/14/23 10/15/23 10/15/23 Range/Units 20:39 06:06 11:25 Chloride 110 H (96-109) mmol/L Est GFR (CKD-EPI) 56 L (>=60) POC Glucose (mg/dL) 121 H 157 H (70-110) mg/dL Calcium 8.6 L (8.7-10.3) mg/dL Microbiology - Last 24 Hours (Table) 10/12/23 02:50 Blood Culture - Preliminary Blood 10/13/23 04:50 Urine Culture - Final Urine,Voided
[2023-10-17 05:43] LABS: Glucose,Whole Blood 95 mg/dL (70-110)
[2023-10-17] MEDS: CYANOCOBALAMIN 1,000 MCG/ML 1 ML VIAL IM SCH (08:20)
[2023-10-17 11:43] LABS: Glucose,Whole Blood 104 mg/dL (70-110)
--- NOTE | 2023-10-17 12:39 | P.PN ---
Subjective Progress Note Date: 10/17/23 The patient is seen today October 17, 2023 in follow-up on the regular medical floor. She is currently sitting up in bed. Awake and alert in no acute distress. She is maintaining O2 saturations in the 90s on room air. She was initially admitted on 10/11/2023 for an acute urinary tract infection and sepsis quiring pressor support. She subsequently recovered and was transferred out of the ICU. Continued on ceftriaxone. Glucose 104. Anticoagulated with Eliquis. Objective - Vital Signs Vital signs: Vital Signs Temp 97.6 F 10/17/23 07:19 Pulse 86 10/17/23 07:19 Resp 17 10/17/23 07:19 BP 108/72 10/17/23 07:19 Pulse Ox 99 10/17/23 07:19 FiO2 Intake & Output 10/16/23 10/17/23 10/17/23 18:59 06:59 18:59 Intake Total 620 180 Output Total 400 Balance 620 -220 Intake: Oral 620 180 Output: Stool 400 Other: Voiding Method Toilet Toilet # Voids 3 2 # Bowel Movements 1 - Exam GENERAL EXAM: Alert, obese, 83-year-old female, on room air, comfortable in no apparent distress. HEAD: Normocephalic. EYES: Normal reaction of pupils, equal size. NOSE: Clear with pink turbinates. THROAT: No erythema or exudates. NECK: No masses, no JVD. CHEST: No chest wall deformity. LUNGS: Equal air entry with no crackles, wheeze, rhonchi or dullness. CVS: S1 and S2 normal with no audible murmur, regular rhythm. ABDOMEN: No hepatosplenomegaly, normal bowel sounds, no guarding or rigidity. SPINE: No scoliosis or deformity SKIN: No rashes CENTRAL NERVOUS SYSTEM: No focal deficits, tone is normal in all 4 extremities. EXTREMITIES: There is no peripheral edema. No clubbing, no cyanosis. Peripheral pulses are intact. - Labs CBC & Chem 7: 10/16/23 05:47 10/16/23 05:47 Assessment and Plan Assessment: Acute urinary tract infection and urosepsis, hemodynamically stable and off pressors, transferred out of the intensive care unit, cultures have been negative Hypotension refractory to fluid resuscitation, currently off pressors, recovered Sepsis/septic shock, recovered Acute kidney injury, likely secondary to hypotension and ATN. CT of chest/abdomen/pelvis did not show any nephrolithiasis, hydronephrosis, or obstructive uropathy, and the patient renal function is normalized Altered mental status, suspect acute metabolic encephalopathy/septic encephalopathy, recovered and the patient's mental status is normalized Atrial fibrillation with rapid ventricular rate, rate is controlled for now patient History of heart failure with reduced ejection fraction, most recent echocardiogram available from May, estimating a left ventricular ejection fraction of 40% History of coronary artery disease with previous PCI/stenting 2.1 x 1.7 cm left lower lobe pulmonary nodule, note that this was previously demonstrated on a chest CT dating back to September 2016, at this time measuring 1.4 x 1.6 cm. History of frequent urinary tract infections Morbid obesity, with a BMI of 40.2 kg/m Plan: The patient was seen and evaluated Medications reviewed Stable and on room air Cleared for discharge from the pulmonary standpoint This patient was seen independently by the pulmonary nurse practitioner addressing pulmonary/critical care issues I have personally seen and examined the patient, performed the documentation and the assessment and plan as written. Number of minutes spent on the visit: 25.
[2023-10-17 13:54] VITALS: BP 102/71; PULSE 85; RESP 16; TEMP 98.3
--- NOTE | 2023-10-19 20:59 | P.DS ---
Providers Date of admission: 10/12/23 02:58 Attending physician: Juana Norman Consults: 10/12/23 02:58 Consult Physician Stat Consulting Provider: Gaby Piña Consult Reason/Comments: uti, septic shock. spoke with Mac Do you want consulting provider notified?: Already Contacted Primary care physician: Joe Araya [facility] Hospital Course: Final Diagnosis -Septic shock: Secondary to urinary tract infection considering her Klebsiella which was pansensitive patient will be switched to Rocephin 2 g. Urine cultures are negative. Blood cultures negative pulmonary report. -Hyponatremia hypovolemic hyponatremia IV fluids as mentioned above and can be secondary to Lasix and Aldactone; sodium level normalized.. -Congestive heart failure chronic systolic function without any acute exacerbation, IV fluids have been stopped secondary to increased peripheral edema and will monitor closely -Atrial fibrillation with rapid ventricular rate: Patient received low-dose of metoprolol ordered by cardiology expected to improve with improvement of septic shock . Started back on metoprolol at a lower dose 12.5 mg BID by cardiology -Type 2 diabetes mellitus patient is on SGLT2 and is not a candidate for that be cause of frequent UTIs. Continue accuchecks ACHS and sliding scale insulin. -Acute renal failure: Secondary to septic shock possibly of acute tubular necrosis combined with diuretics. Improving, currently maintained off IV fluids and diuretics -Hyperlipidemia history -Hypertension history -Elevated MCV; normal B12 level. Discharge Disposition Patient is stable for discharge home. Has been cleared by cardiology. Patient will finish course of antibiotics with 3 more days of ora ceftin. Patient will continue on oral metoprolol 25 mg PO BID. Follow up with PCP Dr Joe Araya in 1 to 2 days. Repeat blood work 2 to 3 days. Hospital Course 82-year-old female came in with complaints of dysuria suprapubic pain found to be in sepsis and septic shock secondary to urinary tract infection.. Patient is also in atrial fibrillation with rapid unclear rate patient has a known atrial fibrillation. Patient does have history of congestive heart failure decreased ejection fraction of 40% patient is presently not in heart failure exacerbation. Patient had Klebsiella in the urine about a month ago which is pansensitive patient is presently receiving cefepime and vancomycin both of which will be di scontinued and patient will be started on Rocephin 2 g daily patient kidney function is low with serum creatinine of 2.14, baseline within normal limits patient will be on sliding scale insulin patient is bit hyponatremic. Patient is also on pressor support at this time. Patient does not have any fever. Patient white blood cell count is high normal. Patient clinically improved and blood pressure stabilized. She was moved out of the ICU and off pressor support. Has been alert and oriented and up ambulating. Her creatinine has come down to 1.0. No acute complaints. Heart rate has been controlled. Cleared by all consultations and was discharged home to finish course of oral antibiotics. Please see medication reconciliation for a list of current medications. Thank you for allowing us to participate in the care of this patient. The impression and plan of care has been dictated by Yesi Larios, Nurse Practitioner as directed. Dr. Ave MD I have performed a history and physical examination and medical decision making of this patient, discussed the same with the dictator, and agree with the dictators assessment and plan as written, documented as a scribe. Based on total visit time, I have performed more than 50% of this visit. Patient Condition at Discharge: Fair Plan - Discharge Summary Discharge Rx Participant: No New Discharge Prescriptions: New Metoprolol Tartrate [Lopressor] 25 mg PO BID #60 tab Famotidine [Pepcid] 20 mg PO DAILY #30 tab cefUROXime axetiL [Ceftin] 500 mg PO BID 3 Days #6 tab Continue Atorvastatin [Lipitor] 80 mg PO HS #30 tab Spironolactone 50 mg PO DAILY Apixaban [Eliquis] 5 mg PO BID Furosemide [Lasix] 40 mg PO DAILY #30 tablet traZODone HCL [Desyrel] 50 mg PO HS PRN PRN Reason: Insomnia Tolterodine ER [Detrol LA] 4 mg PO DAILY Acetaminophen Tab [Tylenol] 1,000 mg PO Q6H PRN #60 tablet PRN Reason: Pain Dapagliflozin Propanediol [Farxiga] 10 mg PO DAILY #30 tablet Discontinued Metoprolol Tartrate [Lopressor] 50 mg PO BID tab Discharge Medication List Atorvastatin [Lipitor] 80 mg PO HS #30 tab 02/23/17 [Rx] Spironolactone 50 mg PO DAILY 02/25/17 [History] Apixaban [Eliquis] 5 mg PO BID 08/04/18 [History] Tolterodine ER [Detrol LA] 4 mg PO DAILY 05/13/23 [History] Acetaminophen Tab [Tylenol] 1,000 mg PO Q6H PRN #60 tablet 05/19/23 [Rx] Dapagliflozin Propanediol [Farxiga] 10 mg PO DAILY #30 tablet 05/19/23 [Rx] Furosemide [Lasix] 40 mg PO DAILY #30 tablet 05/19/23 [Rx] traZODone HCL [Desyrel] 50 mg PO HS PRN 08/26/23 [History] Famotidine [Pepcid] 20 mg PO DAILY #30 tab 10/17/23 [Rx] Metoprolol Tartrate [Lopressor] 25 mg PO BID #60 tab 10/17/23 [Rx] cefUROXime axetiL [Ceftin] 500 mg PO BID 3 Days #6 tab 10/17/23 [Rx] Follow up Appointment(s)/Referral(s): Luna Coates MD [STAFF PHYSICIAN] - 1 Week (Office busy at time of discharge Please call to schedule appointment ) Joe Araya [Primary Care Provider] - 1-2 days Ambulatory/Diagnostic Orders: Basic Metabolic Panel [LAB.AMB] Time Frame: 3 Days, Location: None Selected Complete Blood Count w/diff [LAB.AMB] Location: None Selected Patient Instructions/Handouts: Urinary Tract Infection in Women (DC) Discharge Disposition: HOME SELF-CARE
== END 2023-10-17 17:53 | disposition home or self-care (01) | DRG 871 ==
LOC: EC 22:44 → 2SICU 10-12 02:58 → 4SSUR 10-14 19:06
PROVIDERS: ADMIT Hospitalist; ATTEND Hospitalist
PROC: 3E033XZ Introduction of Vasopressor into Peripheral Vein, Percutaneous Approach (ICD-10-PCS; principal; 2023-10-12)
DX: A41.89 Other specified sepsis (principal); N17.0 Acute kidney failure with tubular necrosis; R65.21 Severe sepsis with septic shock; N39.0 Urinary tract infection, site not specified; I50.22 Chronic systolic (congestive) heart failure; Z68.41 Body mass index [BMI] 40.0-44.9, adult; E87.1 Hypo-osmolality and hyponatremia; I48.19 Other persistent atrial fibrillation; E66.01 Morbid (severe) obesity due to excess calories; E78.5 Hyperlipidemia, unspecified; E86.0 Dehydration; E86.1 Hypovolemia; I25.10 Atherosclerotic heart disease of native coronary artery without angina pectoris; I11.0 Hypertensive heart disease with heart failure; E11.9 Type 2 diabetes mellitus without complications; Z95.5 Presence of coronary angioplasty implant and graft; Z87.440 Personal history of urinary (tract) infections; Z79.01 Long term (current) use of anticoagulants; Z79.84 Long term (current) use of oral hypoglycemic drugs; Z79.899 Other long term (current) drug therapy
CPT/HCPCS: 36415; 70450; 71046; 71250; 74176; 80048; 80053; 80061; 80202; 81001; 82607; 83036; 83605; 83690; 83735; 83880; 84443; 84484; 85025; 85610; 85730; 87040; 87086; 87636; 93005; 94760; 96361; 96365; 96366; 96368; 99291

== ENCOUNTER 2023-11-12 18:28 | Inpatient (IN) | payer MEDICARE ==
--- NOTE | 2023-11-12 19:30 | ED ---
General Adult HPI - General Chief complaint: Recheck/Abnormal Lab/Rx Stated complaint: chest pain Time Seen by Provider: 11/12/23 18:55 Source: patient, RN notes reviewed, old records reviewed Mode of arrival: wheelchair - History of Present Illness Initial comments: This is an 83-year-old female who presents to the emergency department stating that she has low blood pressure. Patient states earlier today when it was low she did feel dizzy and weak. Patient states this always happens when she has a urinary tract infection and she was diagnosed with urinary tract infection yesterday. Patient woke up this morning at 103 systolic blood pressure and she took her blood pressure medications after that. Also states yesterday while lifting up her back she hurt the left side of her chest wall and it hurt a little bit this morning and it does hurt to palpate but it no longer hurts while she is just lying still. Patient denies shortness of breath or difficulty breathing. Patient denies any other symptoms at this time. - Related Data Home Medications Medication Instructions Recorded Confirmed Spironolactone 50 mg PO DAILY 02/25/17 10/12/23 Apixaban [Eliquis] 5 mg PO BID 08/04/18 10/12/23 Tolterodine ER [Detrol LA] 4 mg PO DAILY 05/13/23 10/12/23 traZODone HCL [Desyrel] 50 mg PO HS PRN 08/26/23 10/12/23 Previous Rx's Medication Instructions Recorded Atorvastatin [Lipitor] 80 mg PO HS #30 tab 02/23/17 Acetaminophen Tab [Tylenol] 1,000 mg PO Q6H PRN #60 tablet 05/19/23 Dapagliflozin Propanediol [Farxiga] 10 mg PO DAILY #30 tablet 05/19/23 Furosemide [Lasix] 40 mg PO DAILY #30 tablet 05/19/23 Famotidine [Pepcid] 20 mg PO DAILY #30 tab 10/17/23 Metoprolol Tartrate [Lopressor] 25 mg PO BID #60 tab 10/17/23 cefUROXime axetiL [Ceftin] 500 mg PO BID 3 Days #6 tab 10/17/23 Allergies Allergy/AdvReac Type Severity Reaction Status Date / Time Sulfa (Sulfonamide Allergy Unknown Verified 10/12/23 08:35 Antibiotics) codeine AdvReac Hallucinati Verified 10/12/23 08:35 ons Review of Systems ROS Statement: Those systems with pertinent positive or pertinent negative responses have been documented in the HPI. ROS Other: All systems not noted in ROS Statement are negative. Past Medical History Past Medical History: Atrial Fibrillation, Hyperlipidemia, Hypertension, Osteoarthritis (OA), Vascular Disorder Additional Past Medical History / Comment(s): -hx irregular heart rate, 2 ruptured disc back, bladder leakage, pancreatitis, edd. lower leg swelling, shortness of breath History of Any Multi-Drug Resistant Organisms: ESBL Date of last positivie culture/infection: 07/15/20 ESBL Klebsiella MDRO Source:: Urine Past Surgical History: Cholecystectomy, Heart Catheterization With Stent, Hysterectomy, Orthopedic Surgery Additional Past Surgical History / Comment(s): lt knee arthroscopy Past Anesthesia/Blood Transfusion Reactions: No Reported Reaction Date of Last Stent Placement:: MAY 2017 Past Psychological History: Anxiety Smoking Status: Never smoker Past Alcohol Use History: Occasional Past Drug Use History: None Reported - Past Family History Mother Family Medical History: No Reported History Additional Family Medical History / Comment(s): heart issues Father Family Medical History: Cancer Additional Family Medical History / Comment(s): . General Exam - General Exam Comments Initial Comments: GENERAL: Patient is well-developed and well-nourished. Patient is nontoxic and well- hydrated and is in mild distress. ENT: Neck is soft and supple. No significant lymphadenopathy is noted. Oropharynx is clear. Moist mucous membranes. Neck has full range of motion without eliciting any pain. EYES: The sclera were anicteric and conjunctiva were pink and moist. Extraocular movements were intact and pupils were equal round and reactive to light. Eyelids were unremarkable. PULMONARY: Unlabored respirations. Good breath sounds bilaterally. No audible rales rhonchi or wheezing was noted. CARDIOVASCULAR: There is a regular rate and rhythm without any murmurs gallops or rubs. ABDOMEN: Soft and nontender with normal bowel sounds. SKIN: Skin is clear with no lesions or rashes and otherwise unremarkable. NEUROLOGIC: Patient is alert and oriented x3. Cranial nerves II through XII are grossly intact. Motor and sensory are also intact. Normal speech, volume and content. Symmetrical smile. MUSCULOSKELETAL: Normal extremities with adequate strength and full range of motion. LYMPHATICS: No significant lymphadenopathy is noted PSYCHIATRIC: Normal psychiatric evaluation Course Vital Signs 11/12/23 11/12/23 11/12/23 18:44 19:19 19:44 Temperature 99.2 F Pulse Rate 81 98 99 Respiratory 18 18 18 Rate Blood Pressure 106/61 93/43 96/41 O2 Sat by Pulse 95 95 95 Oximetry 11/12/23 20:00 Temperature Pulse Rate 103 H Respiratory 18 Rate Blood Pressure 83/54 O2 Sat by Pulse 95 Oximetry Medical Decision Making - Medical Decision Making EKG is interpreted by myself. EKG shows atrial fibrillation at 98 bpm QRS is 85 QT interval 321 QTc is 376. Patient's EKG shows no ST segment elevation or depression. Was pt. sent in by a medical professional or institution (, [facility], [facility], urgent care, hospital, or fdc...) When possible be specific @ -No Did you speak to anyone other than the patient for history (EMS, parent, family, police, friend...)? What history was obtained from this source @ -Gave quite a bit of the history Did you review nursing and triage notes (agree or disagree)? Why? @ -I reviewed and agree with nursing and triage notes Were old charts reviewed (outside hosp., previous admission, EMS record, old EKG, old radiological studies, urgent care reports/EKG's, fdc records)? Report findings @ -No old charts were reviewed Differential Diagnosis? @ -Urinary tract infection, hypotension, sepsis, this is not an all-inclusive list EKG interpreted by me (3pts min.). @ -As above X-rays interpreted by me (1pt min.). @ -None done CT interpreted by me (1pt min.). @ -None done U/S interpreted by me (1pt. min.). @ -None done What testing was considered but not performed or refused? (CT, X-rays, U/S, labs)? Why? @ -None What meds were considered but not given or refused? Why? @ -None Did you discuss the management of the patient with other professionals (professionals i.e. [facility] Morales, [facility], lab, RT, psych nurse, social group worker, title insurance examiner, teacher, supervisory cbp officer, showcase maker)? Give summary @ -I spoke with Dr. Bernard he agrees to admit the patient Was smoking cessation discussed for >3mins.? @ -No Was critical care preformed (if so, how long)? @ -No Were there social determinants of health that impacted care today? How? (Homelessness, low income, unemployed, alcoholism, drug addiction, transport ation, low edu. Level, literacy, decrease access to med. care, halfway, rehab)? @ -No Was there de-escalation of care discussed even if they declined (Discuss DNR or withdrawal of care, Hospice)? DNR status @ -No What co-morbidities impacted this encounter? (DM, HTN, Smoking, COPD, CAD, Cancer, CVA, ARF, Chemo, Hep., AIDS, mental health diagnosis, sleep apnea, morbid obesity)? @ -None Was patient admitted / discharged? Hospital course, mention meds given and route, prescriptions, significant lab abnormalities, going to OR and other pertinent info. @ -Patient has urinary tract infection with a 17,000 white count patient was given 2 g of Rocephin and patient will be admitted to Dr. Bernard Undiagnosed new problem with uncertain prognosis? @ -No Drug Therapy requiring intensive monitoring for toxicity (Heparin, Nitro, Insulin, Cardizem)? @ -No Were any procedures done? @ -No Diagnosis/symptom? @ -Urinary tract infection Acute, or Chronic, or Acute on Chronic? @ -Default Uncomplicated (without systemic symptoms) or Complicated (systemic symptoms)? @ -Acute complicated Side effects of treatment? @ -No Exacerbation, Progression, or Severe Exacerbation? @ -No Poses a threat to life or bodily function? How? (Chest pain, USA, MD, pneumonia, PE, COPD, DKA, ARF, appy, cholecystitis, CVA, Diverticulitis, Homicidal, Suicidal, threat to staff... and all critical care pts) @ -Yes this could lead to sepsis and endorgan dysfunction Diagnosis/symptom? @ -Hypotension Acute, or Chronic, or Acute on Chronic? @ -Acute Uncomplicated (without systemic symptoms) or Complicated (systemic symptoms)? @ -Complicated Side effects of treatment? @ -None Exacerbation, Progression, or Severe Exacerbation] @ -No Poses a threat to life or bodily function? @ -Yes this could lead to poor perfusion and endorgan dysfunction - Lab Data Result diagrams: 11/12/23 19:41 11/12/23 19:41 Lab Results 11/12/23 11/12/23 11/12/23 Range/Units 19:41 19:41 19:41 WBC 17.6 H (3.8-10.6) k/uL RBC 4.13 (3.80-5.40) m/uL Hgb 13.3 (11.4-16.0) gm/dL Hct 41.6 (34.0-46.0) % MCV 100.7 H (80.0-100.0) fL MCH 32.1 (25.0-35.0) pg MCHC 31.9 (31.0-37.0) g/dL RDW 12.7 (11.5-15.5) % Plt Count 198 (150-450) k/uL MPV 7.0 Neutrophils % 90 % Lymphocytes % 5 % Monocytes % 3 % Eosinophils % 1 % Basophils % 0 % Neutrophils # 15.8 H (1.3-7.7) k/uL Lymphocytes # 0.8 L (1.0-4.8) k/uL Monocytes # 0.6 (0-1.0) k/uL Eosinophils # 0.2 (0-0.7) k/uL Basophils # 0.0 (0-0.2) k/uL PT 11.9 (10.0-12.5) sec INR 1.1 (<1.2) APTT 26.4 (22.0-30.0) sec Sodium 132 L (137-145) mmol/L Potassium 4.2 (3.5-5.1) mmol/L Chloride 98 (98-107) mmol/L Carbon Dioxide 26 (22-30) mmol/L Anion Gap 8 mmol/L BUN 26 H (7-17) mg/dL Creatinine 1.20 H (0.52-1.04) mg/dL Est GFR (CKD-EPI)AfAm 48 (>60 ml/min/1.73 sqM) Est GFR (CKD-EPI)NonAf 42 (>60 ml/min/1.73 sqM) Glucose 107 H (74-99) mg/dL Plasma Lactic Acid Rony (0.7-2.0) mmol/L Calcium 8.6 (8.4-10.2) mg/dL Total Bilirubin 1.8 H (0.2-1.3) mg/dL AST 29 (14-36) U/L ALT 19 (4-34) U/L Alkaline Phosphatase 167 H (38-126) U/L Total Protein 6.1 L (6.3-8.2) g/dL Albumin 3.6 (3.5-5.0) g/dL 11/12/23 Range/Units 19:41 WBC (3.8-10.6) k/uL RBC (3.80-5.40) m/uL Hgb (11.4-16.0) gm/dL Hct (34.0-46.0) % MCV (80.0-100.0) fL MCH (25.0-35.0) pg MCHC (31.0-37.0) g/dL RDW (11.5-15.5) % Plt Count (150-450) k/uL MPV Neutrophils % % Lymphocytes % % Monocytes % % Eosinophils % % Basophils % % Neutrophils # (1.3-7.7) k/uL Lymphocytes # (1.0-4.8) k/uL Monocytes # (0-1.0) k/uL Eosinophils # (0-0.7) k/uL Basophils # (0-0.2) k/uL PT (10.0-12.5) sec INR (<1.2) APTT (22.0-30.0) sec Sodium (137-145) mmol/L Potassium (3.5-5.1) mmol/L Chloride (98-107) mmol/L Carbon Dioxide (22-30) mmol/L Anion Gap mmol/L BUN (7-17) mg/dL Creatinine (0.52-1.04) mg/dL Est GFR (CKD-EPI)AfAm (>60 ml/min/1.73 sqM) Est GFR (CKD-EPI)NonAf (>60 ml/min/1.73 sqM) Glucose (74-99) mg/dL Plasma Lactic Acid Rony 1.8 (0.7-2.0) mmol/L Calcium (8.4-10.2) mg/dL Total Bilirubin (0.2-1.3) mg/dL AST (14-36) U/L ALT (4-34) U/L Alkaline Phosphatase (38-126) U/L Total Protein (6.3-8.2) g/dL Albumin (3.5-5.0) g/dL Disposition Clinical Impression: Urinary tract infection, Hypotension Disposition: ADMITTED IP TO THIS HOSP Referrals: Joe Araya [Primary Care Provider] - 1-2 days Time of Disposition: 21:18
[2023-11-12] MEDS: cefTRIAXone IN SWFI 1,000 MG/10 ML SYRINGE IVP STA (19:43)
[2023-11-12] MEDS: SODIUM CHLORIDE 0.9% 500 ML 500 ML IV SCH (19:44)
[2023-11-12 19:52] LABS: Basophils % (A) 0 %; Eosinophils # (A) 0.2 k/uL (0-0.7); Eosinophils % (A) 1 %; HCT 41.6 % (34.0-46.0); HGB 13.3 gm/dL (11.4-16.0); Lymphocytes # (A) 0.8 k/uL (1.0-4.8); Lymphocytes % (A) 5 %; MCH 32.1 pg (25.0-35.0); MCHC 31.9 g/dL (31.0-37.0); MCV 100.7 fL (80.0-100.0); Monocytes # (A) 0.6 k/uL (0-1.0); Monocytes % (A) 3 %; Neutrophils # (A) 15.8 k/uL (1.3-7.7); Neutrophils % (A) 90 %; Platelet Count 198 k/uL (150-450); RBC 4.13 m/uL (3.80-5.40); RDW 12.7 % (11.5-15.5); WBC 17.6 k/uL (3.8-10.6)
[2023-11-12 20:05] LABS: ALT 19 U/L (4-34); AST 29 U/L (14-36); African American GFR (CKD) 48 (>60 ml/min/1.73 sqM); Albumin 3.6 g/dL (3.5-5.0); Alkaline Phosphatase 167 U/L (38-126); Anion Gap 8 mmol/L; Blood Urea Nitrogen 26 mg/dL (7-17); Calcium 8.6 mg/dL (8.4-10.2); Carbon Dioxide 26 mmol/L (22-30); Chloride 98 mmol/L (98-107); Glucose 107 mg/dL (74-99); Non-African American GFR(CKD) 42 (>60 ml/min/1.73 sqM); Potassium 4.2 mmol/L (3.5-5.1); Sodium 132 mmol/L (137-145); Total Bilirubin 1.8 mg/dL (0.2-1.3); Total Protein 6.1 g/dL (6.3-8.2)
[2023-11-12 20:08] LABS: INR 1.1 (<1.2); Partial Thromboplastin Time 26.4 sec (22.0-30.0); Prothrombin Time 11.9 sec (10.0-12.5)
[2023-11-12] MEDS: SODIUM CHLORIDE 0.9% 500 ML 500 ML IV ONE (20:52)
[2023-11-12 21:11] LABS: Appearance,Urine Clear (Clear); Bilirubin,Urine Negative (Negative); Blood,Urine Negative (Negative); Color,Urine Yellow; Glucose,Urine (UA) 3+ (Negative); Hyaline Casts,Urine 8 /lpf (0-2); Ketones,Urine Negative (Negative); Leukocyte Esterase,Urine Moderate (Negative); Mucus,Urine Rare /hpf; Nitrite,Urine Negative (Negative); Protein,Urine Negative (Negative); RBC,Urine <1 /hpf (0-5); Specific Gravity,Urine 1.014 (1.001-1.035); Squamous Epithelial Cell,Urine 1 /hpf (0-4); Urobilinogen,Urine <2.0 mg/dL (<2.0); WBC,Urine 22 /hpf (0-5)
[2023-11-12] MEDS: SODIUM CHLORIDE 0.9% 1,000 ML IV SCH (21:35)
[2023-11-13] MEDS: IOPAMIDOL CONTRAST (ORAL USE) VIAL PO PRN (15:50)
--- NOTE | 2023-11-13 16:22 | XR ---
EXAMINATION TYPE: XR chest 1V portable DATE OF EXAM: 11/13/2023 3:51 PM CLINICAL INDICATION: Female, 83 years old with history of chf; [facility] COMPARISON: Chest radiographs from 10/12/2023 TECHNIQUE: XR chest 1V portable Frontal view of the chest. FINDINGS: Lungs/Pleura: There is no evidence of pleural effusion, focal consolidation, or pneumothorax. Pulmonary vascularity: Unremarkable. Heart/mediastinum: Cardiomediastinal silhouette is enlarged. Musculoskeletal: No acute osseous pathology. IMPRESSION: Cardiomegaly and mild pulmonary vascular congestion. Correlate with BNP for congestive heart failure. [facility], , 11/13/2023 4:20 PM
--- NOTE | 2023-11-13 18:00 | CT ---
EXAMINATION TYPE: CT ChestAbdPelvis wo con CT DLP: 1624.9 mGycm, Automated exposure control for dose reduction was used. DATE OF EXAM: 11/13/2023 5:50 PM COMPARISON: 10/12/2023 CLINICAL INDICATION: Female, 83 years old with history of sepsis; PH[facility], sepsis Technique: CT ChestAbdPelvis wo con; Multiple axial images were obtained. Two-dimensional coronal and sagittal reconstructions were obtained. Contrast used: mL of , Oral contrast used: with Oral Contrast Findings: CHEST: LUNGS/ PLEURA: LEFT lower lung pulmonary nodule measuring up to 20 mm. Pulmonary anterior lobular sep adrian thickening. No pneumothorax or pleural effusion. AIRWAY: Patent and unremarkable. HEART: Cardiomegaly is demonstrated.Atherosclerosis of the arterial vasculature. MEDIASTINUM: No gross evidence of adenopathy. VASCULATURE: No aortic aneurysm. MUSCULOSKELETAL: No acute osseous abnormalities. SOFT TISSUES/LYMPH NODES: Unremarkable. LOWER NECK: No significant findings. ABDOMEN: ABDOMEN LIVER: Unremarkable GALLBLADDER AND BILE DUCTS: Gallbladder surgically absent. PANCREAS: Unremarkable. SPLEEN: Unremarkable. ADRENAL GLANDS: Unremarkable. KIDNEYS AND URETERS: No evidence of hydronephrosis or renal calculus. The ureters are unremarkable. PELVIS BLADDER: Unremarkable REPRODUCTIVE: The uterus is not definitively visualized may be surgically absent. ABDOMEN & PELVIS STOMACH AND BOWEL: No evidence of bowel obstruction. PERITONEUM/RETROPERITONEUM: No evidence of pneumoperitoneum or free fluid. VASCULATURE: Moderate atherosclerotic calcifications are present throughout the abdominal aorta and i ts branches. No evidence of aortic aneurysm. MUSCULOSKELETAL: No acute osseous abnormalities, grade 1 anterolisthesis of L4 and L5. Moderate degen eration changes throughout the spine. LYMPH NODES: No gross evidence for lymphadenopathy. SOFT TISSUE/ABDOMINAL WALL: Unremarkable IMPRESSION: 1. No evidence for acute thoracic or abdominal process to explain the patient's sepsis. 2. Left lower lobe pulmonary nodule was mistakenly labeled on the right on prior examination 11/01/19. This is slowly enlarging from 2016 and favors granulomatous disease. Consider yearly low-dose parris g cancer screening. 3. Cardiomegaly and mild pulmonary vascular prominence correlate with serum BNP. [facility], Workstation: [id number], 11/13/2023 5:57 PM
[2023-11-13] MEDS: APIXABAN 5 MG TAB PO SCH (21:09)
[2023-11-13] MEDS: ACETAMINOPHEN TAB 500 MG TAB PO PRN (21:09)
[2023-11-13] MEDS: ATORVASTATIN 80 MG TAB PO SCH (21:09)
--- NOTE | 2023-11-14 02:37 | HP ---
HISTORY AND PHYSICAL CHIEF COMPLAINT: Back pain, pain all over, and fever. HISTORY OF PRESENT ILLNESS: This 83-year-old woman with a past medical history of multiple medical problems, recently admitted with UTI. Currently the patient has fever, generalized aches and pains, back pain, chest pain. The patient UTI. There is no history of fever, rigors, or chills. PAST MEDICAL HISTORY: History of recent UTI and atrial fibrillation. Rest of the chart and also rest of the history is also noted. HOME MEDICATIONS: Reviewed include Desyrel. Dose and rest of medications noted. ALLERGIES: Sulfa. FAMILY HISTORY: History of cancer in the family. SOCIAL HISTORY: No history of smoking. REVIEW OF SYSTEMS: Fourteen-point review is negative except as mentioned above. PHYSICAL EXAMINATION: VITAL SIGNS: Pulse is 113, blood pressure 110/70, respirations 17. HEENT: Conjunctivae normal. NECK: No JVD. CARDIOVASCULAR: S1, S2. RESPIRATIONS: Few scattered rhonchi. ABDOMEN: Soft, obese. NERVOUS SYSTEM: No focal deficits. LABORATORY DATA: WBC 17.6 and creatinine 1.20. ASSESSMENT: 1. UTI. 2. Chest and back pain for evaluation. 3. Elevated WBC. 4. History of atrial fibrillation. 5. Hypertension. 6. History of ESBL Klebsiella. 7. History of CAD stent. RECOMMENDATIONS AND DISCUSSION: This 83-year-old woman presented with multiple complex medical issues, we will monitor the patient closely, and symptomatic treatment. I recommend to continue the IV antibiotics. Obtain cultures. Infectious Disease evaluation. I would also recommend CT scan of the abdomen, pelvis, and chest to complete the workup. Prognosis is extremely guarded because of multiple complex medical issues. Further recommendations to follow. See orders for details. The patient has allergy to morphine and codeine. Apparently, we will start with Tylenol at this time. MMODL / IJN: [id number] / MTDD
[2023-11-14] MEDS: PANTOPRAZOLE 40 MG TABLET PO SCH (08:09)
[2023-11-14] MEDS: FAMOTIDINE 20 MG TAB PO SCH (08:09)
[2023-11-14] MEDS: DAPAGLIFLOZIN PROPANEDIOL 10 MG TABLET PO SCH (08:09)
[2023-11-14] MEDS: OXYBUTYNIN 10 MG TAB.ER.24 PO SCH (08:09)
[2023-11-14] MEDS: FUROSEMIDE 40 MG TAB PO SCH (08:10)
[2023-11-14 08:46] LABS: Basophils # (A) 0.04 X 10*3/uL (0.00-0.10); Basophils % (A) 0.5 %; Eosinophils # (A) 0.57 X 10*3/uL (0.04-0.35); Eosinophils % (A) 7.1 %; HGB 11.7 g/dL (12.0-15.0); Lymphocytes # (A) 1.63 X 10*3/uL (0.90-5.00); Lymphocytes % (A) 20.2 %; MCH 32.6 pg (27.0-32.0); MCHC 31.6 g/dL (32.0-37.0); MCV 103.1 FL (80.0-97.0); Mean Platelet Volume 9.7 FL (9.5-12.2); Monocytes # (A) 1.08 X 10*3/uL (0.20-1.00); Monocytes % (A) 13.4 %; NRBC Per 100 WBC 0 X 10*3/uL (0.00-0.01); Neutrophils # (A) 4.72 X 10*3/uL (1.80-7.70); Neutrophils % (A) 58.4 %; Platelet Count 172 X 10*3/uL (140-440); RBC 3.59 X 10*6/uL (4.10-5.20); RDW 13.4 % (11.5-14.5); WBC 8.07 X 10*3/uL (4.50-10.00)
[2023-11-14 08:51] LABS: ALT 18 U/L (8-44); AST 19 U/L (13-35); Albumin 3.2 g/dL (3.8-4.9); Albumin/Globulin Ratio 1.68 Ratio (1.60-3.17); Alkaline Phosphatase 172 U/L (41-126); Blood Urea Nitrogen 17.5 mg/dL (9.0-27.0); Calcium 7.9 mg/dL (8.7-10.3); Carbon Dioxide 25.2 mmol/L (21.6-31.8); Chloride 106 mmol/L (96-109); Globulin 1.9 g/dL (1.6-3.3); Glucose 107 mg/dL (70-110); Potassium 4.1 mmol/L (3.5-5.5); Sodium 140 mmol/L (135-145); Total Bilirubin 0.4 mg/dL (0.3-1.2); Total Protein 5.1 g/dL (6.2-8.2)
[2023-11-14] MEDS: traZODone HCL 50 MG TAB PO PRN (20:44)
--- NOTE | 2023-11-15 04:41 | PN ---
PROGRESS NOTE DATE OF SERVICE: 11/14/2023 SUBJECTIVE: This is an 83-year-old woman who was admitted with UTI, had multiple symptomatology including chest and back pain, diffuse pains in the chest, abdomen, and pelvis. CAT scan was done yesterday, which showed no evidence of any significant abnormality. Left lower lobe pulmonary nodule was noted. Recommend outpatient followup. No chest pain. No palpitation. OBJECTIVE: VITAL SIGNS: Pulse is 90, blood pressure 108/53, respirations 18. CHEST: Clear to auscultation. CARDIOVASCULAR: S1, S2. ABDOMEN: Soft. NERVOUS SYSTEM: Nonfocal. LABORATORY DATA: WBC 8.07, hemoglobin 11.7. UA noted. ASSESSMENT: 1. Acute urinary tract infection present on admission. 2. Left lower lobe lung nodule slowly increasing the need for outpatient followup and lung cancer screening. 3. Chest and back pain, musculoskeletal, improved. 4. Elevated WBC, improved. 5. Atrial fibrillation. 6. Hypertension. 7. History of Extended-spectrum beta-lactamases Klebsiella. 8. History of coronary artery disease stent. RECOMMENDATIONS AND DISCUSSION: Recommend to continue current medications, continue symptomatic treatment. Otherwise, final cultures are pending at this time. I recommend continue with symptomatic treatment. Closely follow. Repeat labs. Increase ambulation. As mentioned earlier, recommend close followup with Pulmonary after discharge. Further recommendations to follow. MMODL / IJN: [id number] /
[2023-11-15 08:22] LABS: Basophils # (A) 0.04 X 10*3/uL (0.00-0.10); Basophils % (A) 0.4 %; Eosinophils # (A) 0.54 X 10*3/uL (0.04-0.35); Eosinophils % (A) 5.9 %; HCT 37.2 % (37.2-46.3); HGB 11.6 g/dL (12.0-15.0); Lymphocytes % (A) 19.8 %; MCH 31.9 pg (27.0-32.0); MCHC 31.2 g/dL (32.0-37.0); MCV 102.2 FL (80.0-97.0); Mean Platelet Volume 9.7 FL (9.5-12.2); Monocytes # (A) 1.01 X 10*3/uL (0.20-1.00); Monocytes % (A) 11.1 %; NRBC Per 100 WBC 0 X 10*3/uL (0.00-0.01); Neutrophils # (A) 5.67 X 10*3/uL (1.80-7.70); Neutrophils % (A) 62.5 %; Platelet Count 173 X 10*3/uL (140-440); RBC 3.64 X 10*6/uL (4.10-5.20); RDW 13.5 % (11.5-14.5); WBC 9.09 X 10*3/uL (4.50-10.00)
[2023-11-15 08:39] LABS: Blood Urea Nitrogen 18.9 mg/dL (9.0-27.0); Calcium 8.3 mg/dL (8.7-10.3); Carbon Dioxide 26.1 mmol/L (21.6-31.8); Chloride 106 mmol/L (96-109); Glucose 101 mg/dL (70-110); Potassium 4.1 mmol/L (3.5-5.5); Sodium 141 mmol/L (135-145)
--- NOTE | 2023-11-15 08:41 | P.CONS ---
History of Present Illness - Reason for Consult Consult date: 11/14/23 UTI Requesting physician: Juana Norman - Chief Complaint Weakness and dizziness x few days - History of Present Illness Patient is a 83-year-old female with a past medical history significant for hypertension hyperlipidemia osteoarthritis atrial fibrillation presenting to the hospital 2 days ago concerning for weakness felt dizzy and apparently has been recently diagnosed with a UTI and started on antibiotic in the outpatient setting patient also apparently did have a fall and has been complaining of pain to the left side of her chest describing the pain to be sharp moderate intensity without any radiation with the symptoms the patient has been evaluated, patient on presentation to hospital did have a low-grade fever of 99.2 F patient was mildly tachycardic but not hypotensive or hypoxic no need for supplemental oxygen she did have WBC of 17.6 on admission with a left shift BUN/creatinine was mildly elevated did have a positive UA with moderate joyce kocyte esterase 22 WBC cultures are pending started on Rocephin infectious disease was consulted for further management of antibiotic therapy patient did report urinary symptoms of burning frequency but no hematuria, patient did have a CT of the chest abdominal pelvis with no evidence of acute thoracoabdominal process left lower lobe nodule cardiomegaly and mild pulmonary vascular congestion Review of Systems Positive point and negatives has been mentioned in the HPI, complete review of systems was performed and all other systems are negative Past Medical History Past Medical History: Atrial Fibrillation, Hyperlipidemia, Hypertension, Osteoarthritis (OA), Vascular Disorder Additional Past Medical History / Comment(s): -hx irregular heart rate, 2 ruptured disc back, bladder leakage, pancreatitis, edd. 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 MDRO Source:: Urine Past Surgical History: Cholecystectomy, Heart Catheterization With Stent, Hysterectomy, Orthopedic Surgery Additional Past Surgical History / Comment(s): lt knee arthroscopy Past Anesthesia/Blood Transfusion Reactions: No Reported Reaction Date of Last Stent Placement:: MAY 2017 Past Psychological History: Anxiety Smoking Status: Never smoker Past Alcohol Use History: Occasional Past Drug Use History: None Reported - Past Family History Mother Family Medical History: No Reported History Additional Family Medical History / Comment(s): heart issues Father Family Medical History: Cancer Additional Family Medical History / Comment(s): . Medications and Allergies Home Medications Medication Instructions Recorded Confirmed Type Atorvastatin [Lipitor] 80 mg PO HS #30 tab 02/23/17 11/13/23 Rx Spironolactone 50 mg PO DAILY 02/25/17 11/13/23 History Apixaban [Eliquis] 5 mg PO BID 08/04/18 11/13/23 History Tolterodine ER [Detrol LA] 4 mg PO DAILY 05/13/23 11/13/23 History Dapagliflozin Propanediol [Farxiga] 10 mg PO DAILY #30 tablet 05/19/23 11/13/23 Rx Furosemide [Lasix] 40 mg PO DAILY #30 tablet 05/19/23 11/13/23 Rx traZODone HCL [Desyrel] 50 mg PO HS PRN 08/26/23 11/13/23 History Famotidine [Pepcid] 20 mg PO DAILY #30 tab 10/17/23 11/13/23 Rx Metoprolol Tartrate [Lopressor] 25 mg PO BID #60 tab 10/17/23 11/13/23 Rx Nitrofurantoin Monohyd/M-Cryst 100 mg PO BID 11/13/23 11/13/23 History [Macrobid] Allergies Allergy/AdvReac Type Severity Reaction Status Date / Time Sulfa (Sulfonamide Allergy Unknown Verified 11/13/23 12:06 Antibiotics) codeine AdvReac Hallucinati Verified 11/13/23 12:06 ons Physical Exam Vitals: Vital Signs Temp Pulse Resp BP Pulse Ox 11/14/23 07:20 98 F 90 18 108/53 98 11/14/23 01:27 97.4 F L 86 16 101/65 98 11/13/23 21:05 84 100/62 11/13/23 19:48 98.1 F 90 15 94/58 97 11/13/23 14:00 97.8 F 80 17 117/64 95 Intake and Output 11/13/23 11/14/23 11/14/23 22:59 06:59 14:59 Output Total 800 450 Balance -800 -450 Output: Urine 800 450 Other: Voiding Method External Catheter # Voids 2 GENERAL DESCRIPTION: Elderly female up in the chair, no distress. No tachypnea or accessory muscle of respiration use. HEENT: Shows Pallor , no scleral icterus. Oral mucous membrane is dry. No pharyngeal erythema or thrush NECK: Trachea central, no thyromegaly. LUNGS: Unlabored breathing. Clear to auscultation anteriorly. No wheeze or crackle. HEART: S1, S2, regular rate and rhythm. No loud murmur ABDOMEN: Soft, no tenderness , guarding or rigidity, no organomegaly EXTREMITIES: No edema of feet. SKIN: No rash, no masses palpable. NEUROLOGICAL: The patient is awake, alert, oriented x3, mood and affect normal. Results CBC & Chem 7: 11/15/23 03:46 11/15/23 03:46 Labs: Abnormal Lab Results - Last 24 Hours (Table) 11/14/23 11/14/23 Range/Units 03:34 03:34 RBC 3.59 L (4.10-5.20) X 10*6/uL Hgb 11.7 L (12.0-15.0) g/dL Hct 37.0 L (37.2-46.3) % MCV 103.1 H (80.0-97.0) FL MCH 32.6 H (27.0-32.0) pg MCHC 31.6 L (32.0-37.0) g/dL Monocytes # 1.08 H (0.20-1.00) X 10*3/uL Eosinophils # 0.57 H (0.04-0.35) X 10*3/uL Est GFR (CKD-EPI) 56 L (>=60) Calcium 7.9 L (8.7-10.3) mg/dL Alkaline Phosphatase 172 H (41-126) U/L Total Protein 5.1 L (6.2-8.2) g/dL Albumin 3.2 L (3.8-4.9) g/dL Microbiology - Last 24 Hours (Table) 11/12/23 19:41 Urine Culture - Final Urine,Voided 11/12/23 19:41 Blood Culture - Preliminary Blood Assessment and Plan (1) Leukocytosis Current Visit: Yes Status: Acute Code(s): D72.829 - ELEVATED WHITE BLOOD CELL COUNT, UNSPECIFIED SNOMED Code(s): 032793712 (2) UTI (urinary tract infection) Current Visit: Yes Status: Acute Code(s): N39.0 - URINARY TRACT INFECTION, SITE NOT SPECIFIED SNOMED Code(s): 18144715 (3) Allergy to sulfa drugs Current Visit: No Status: Acute Code(s): Z88.2 - SNOMED Code(s): 43888494 Plan: 1patient presented to hospital with weakness dizziness did have a low blood pressure and also elevated white count and urinary symptoms of burning frequency positive UA concerning for symptomatic UTI likely from enteric gram-negative pathogen. 2sulfa allergy that will limit the number of antibiotics safe to use. 3leukocytosis more likely related to UTI as no evidence of any other acute abnormality seen on the CT of the chest abdominal pelvis. 4continue with Rocephin while waiting for the culture to finalize determine discharge antibiotics. We will follow on clinical condition and cultures to further adjust medication if needed Thank you for this consultation we will follow the patient along with you Dictation was produced using [employer] dictation software. please excuse any grammatical, word or spelling errors. Time with Patient: Greater than 30
--- NOTE | 2023-11-15 13:38 | P.PN ---
Subjective Progress Note Date: 11/15/23 Principal diagnosis: Reason for follow-up is a urinary tract infection Patient is a 83-year-old female with a past medical history significant for hypertension hyperlipidemia osteoarthritis atrial fibrillation presenting to the hospital concerning for weakness felt dizzy and low blood pressure also have a urinary symptoms of burning frequency diagnosed with symptomatic UTI. On today's evaluation that is 11/15/2023, the patient continues to be afebrile, the patient is on room air and breathing comfortably, the Pt denies having any chest pain or cough, the patient denies having any abdominal pain no vomiting or any diarrhea, still concerned about low blood pressure this morning of 95 systolic. Patient white count is down to 9.09, creatinine is 1.0 urine cultures so far pending Objective - Vital Signs Vital signs: Vital Signs Temp 97.8 F 11/15/23 07:22 Pulse 110 H 11/15/23 07:22 Resp 17 11/15/23 07:22 BP 95/59 11/15/23 07:22 Pulse Ox 95 11/15/23 07:22 FiO2 Intake & Output 11/14/23 11/15/23 11/15/23 18:59 06:59 18:59 Output Total 9858 888 7001 Balance -1300 -300 -2000 Output: Urine 7068 756 7075 Other: Voiding Method External Catheter Diaper # Voids 4 - Exam GENERAL DESCRIPTION: An elderly female lying in bed in no distress RESPIRATORY SYSTEM: Unlabored breathing , decreased breath sounds at bases HEART: S1 S2 regular rate and rhythm , ABDOMEN: Soft , no tenderness EXTREMITIES: No edema feet - Labs CBC & Chem 7: 11/15/23 03:46 11/15/23 03:46 Labs: Abnormal Lab Results - Last 24 Hours (Table) 11/14/23 11/14/23 11/15/23 Range/Units 14:56 14:57 03:46 RBC 3.64 L (4.10-5.20) X 10*6/uL Hgb 11.6 L (12.0-15.0) g/dL MCV 102.2 H (80.0-97.0) FL MCHC 31.2 L (32.0-37.0) g/dL Monocytes # 1.01 H (0.20-1.00) X 10*3/uL Eosinophils # 0.54 H (0.04-0.35) X 10*3/uL ESR 39 H (0-30) mm/Hr Est GFR (CKD-EPI) (>=60) Calcium (8.7-10.3) mg/dL C-Reactive Protein 7.5 H (<1.0) mg/dL 11/15/23 Range/Units 03:46 RBC (4.10-5.20) X 10*6/uL Hgb (12.0-15.0) g/dL MCV (80.0-97.0) FL MCHC (32.0-37.0) g/dL Monocytes # (0.20-1.00) X 10*3/uL Eosinophils # (0.04-0.35) X 10*3/uL ESR (0-30) mm/Hr Est GFR (CKD-EPI) 56 L (>=60) Calcium 8.3 L (8.7-10.3) mg/dL C-Reactive Protein (<1.0) mg/dL Microbiology - Last 24 Hours (Table) 11/12/23 19:41 Blood Culture - Preliminary Blood Assessment and Plan (1) Leukocytosis Current Visit: Yes Status: Acute Code(s): D72.829 - ELEVATED WHITE BLOOD CELL COUNT, UNSPECIFIED SNOMED Code(s): 102610081 (2) UTI (urinary tract infection) Current Visit: Yes Status: Acute Code(s): N39.0 - URINARY TRACT INFECTION, SITE NOT SPECIFIED SNOMED Code(s): 55134117 (3) Allergy to sulfa drugs Current Visit: No Status: Acute Code(s): Z88.2 - SNOMED Code(s): 87417355 Plan: 1patient presented to hospital with weakness dizziness did have a low blood pressure and also elevated white count and urinary symptoms of burning frequency positive UA concerning for symptomatic UTI likely from enteric gram-negative pathogen. 2sulfa allergy that will limit the number of antibiotics safe to use. 3leukocytosis more likely related to UTI as no evidence of any other acute abnormality seen on the CT of the chest abdominal pelvis. 4patient to continue with Rocephin while waiting for the culture to finalize and monitor clinical course closely Dictation was produced using [employer] dictation software. please excuse any grammatical, word or spelling errors. Time with Patient: Less than 30
[2023-11-16 07:55] VITALS: RESP 16
--- NOTE | 2023-11-16 08:58 | P.PN ---
Subjective Progress Note Date: 11/15/23 This is a pleasant 83-year-old female who was recently admitted with concerns of urinary tract infection along with lower blood pressure readings in close to monitor. Infectious disease following and patient is maintained on ceftriaxone. Urine culture is negative patient reports to feeling improved although has been having low blood pressure readings. Patient reports this is been ongoing for the last couple of months and most recently started on Farxiga. Will hold Farxiga and have patient follow-up with cardiology outpatient. Patient is afebrile with no reports of chest pain or shortness of breath. Will obtain orthostatic vitals and encouraged the patient to increase activity as tolerated. Recommend PT/OT therapy evaluation. Review of systems: Constitutional: No reports of fatigue, fever, or chills Cardiovascular: No reports of chest pain or palpitations Respiratory: No reports of shortness of breath or cough GI: No reports of nausea, no reports of vomiting, no diarrhea : No reports of dysuria or retention Neurovascular: reports of generalized weakness All medications have been reviewed PHYSICAL EXAMINATION: GENERAL: The patient is alert and oriented x4, Well developed, elderly appearing, morbidly obese HEENT: Pupils are round and equally reacting to light. EOMI. no scleral icterus. No conjunctival pallor. Normocephalic, atraumatic. No pharyngeal erythema. No thyromegaly. CARDIOVASCULAR: S1 and S2 muffled PULMONARY: diminished breath sounds bilaterally with no wheezing or rhonchi noted. ABDOMEN: soft. Nontender on exam. obese. non-distended, normoactive bowel sounds. No palpable organomegaly. MUSCULOSKELETAL: No joint swelling or deformity. EXTREMITIES: No cyanosis, clubbing, or pedal edema. NEUROLOGICAL: Gross neurological examination did not reveal any focal deficits. Diffuse weakness SKIN: No rashes. Assessment: Acute urinary tract infection, present on admission Leukocytosis, secondary to above, improved Left lower lobe lung nodule slowly increasing and will need outpatient follow-up with lung cancer screening and further imaging Chest and back pain, musculoskeletal, improved History of atrial fibrillation, currently rate controlled History of hypertension History of ESBL with Klebsiella History of coronary artery disease with stenting Morbid obesity with a BMI of 43.2 GI prophylaxis DVT prophylaxis Full code Plan: Recommend to continue with current medications and management and infectious disease following. Patient is maintained on IV antibiotics in the form of ceftriaxone and will continue. Urine cultures have finalized and are negative and will discuss further with infectious disease as patient will require antibiotics on discharge Encouraged increase activity as tolerated Will have PT/OT therapy evaluate the patient Obtain orthostatic vitals as patient is having lower blood pressure readings, possibly secondary to Farxiga and will hold for now and have patient follow-up in the outpatient setting with cardiology Patient will need outpatient follow-up with pulmonary regarding lung nodules found on imaging and lung cancer screening in the outpatient setting Possible discharge in the next 24 to 48 hours Due to multiple complex medical issues, overall prognosis is guarded The impression and plan of care has been dictated by Lydia Li, nurse practitioner as directed. Dr. Emerson MD I have performed a history and examination and MDM of this patient, discussed the same with the dictator, and agree with the dictator's assessment and plan as written ,documented as a scribe. Based on total visit time, I have performed more than 50% of the visit. Any additional findings or plans will be noted. Objective - Vital Signs Vital signs: Vital Signs Temp 97.8 F 11/15/23 07:22 Pulse 110 H 11/15/23 07:22 Resp 17 11/15/23 07:22 BP 95/59 11/15/23 07:22 Pulse Ox 95 11/15/23 07:22 FiO2 Intake & Output 11/14/23 11/15/23 11/15/23 18:59 06:59 18:59 Output Total 5238 853 5889 Balance -1300 -300 -2000 Output: Urine 4966 814 5387 Other: Voiding Method External Catheter Diaper # Voids 4 - Labs CBC & Chem 7: 11/15/23 03:46 11/15/23 03:46 Labs: Abnormal Lab Results - Last 24 Hours (Table) 11/14/23 11/14/23 11/15/23 Range/Units 14:56 14:57 03:46 RBC 3.64 L (4.10-5.20) X 10*6/uL Hgb 11.6 L (12.0-15.0) g/dL MCV 102.2 H (80.0-97.0) FL MCHC 31.2 L (32.0-37.0) g/dL Monocytes # 1.01 H (0.20-1.00) X 10*3/uL Eosinophils # 0.54 H (0.04-0.35) X 10*3/uL ESR 39 H (0-30) mm/Hr Est GFR (CKD-EPI) (>=60) Calcium (8.7-10.3) mg/dL C-Reactive Protein 7.5 H (<1.0) mg/dL 11/15/23 Range/Units 03:46 RBC (4.10-5.20) X 10*6/uL Hgb (12.0-15.0) g/dL MCV (80.0-97.0) FL MCHC (32.0-37.0) g/dL Monocytes # (0.20-1.00) X 10*3/uL Eosinophils # (0.04-0.35) X 10*3/uL ESR (0-30) mm/Hr Est GFR (CKD-EPI) 56 L (>=60) Calcium 8.3 L (8.7-10.3) mg/dL C-Reactive Protein (<1.0) mg/dL Microbiology - Last 24 Hours (Table) 11/12/23 19:41 Blood Culture - Preliminary Blood
[2023-11-16 10:57] LABS: Blood Urea Nitrogen 19.7 mg/dL (9.0-27.0); Calcium 8.5 mg/dL (8.7-10.3); Carbon Dioxide 26.5 mmol/L (21.6-31.8); Chloride 104 mmol/L (96-109); Glucose 105 mg/dL (70-110); Potassium 4.2 mmol/L (3.5-5.5); Sodium 139 mmol/L (135-145)
[2023-11-16 13:42] VITALS: BP 113/60; PULSE 93; TEMP 98
--- NOTE | 2023-11-17 10:13 | P.DS ---
Providers Date of admission: 11/13/23 15:34 Expected date of discharge: 11/16/23 Attending physician: Kirt Bernard MD Consults: 11/13/23 15:30 Consult Physician Routine Consulting Provider: Mary Sloan Consult Reason/Comments: uti Do you want consulting provider notified?: Yes Primary care physician: Joe Araya Hospital Course: Final diagnosis Acute urinary tract infection, present on admission, urine cultures negative Leukocytosis, secondary to above, improved Left lower lobe lung nodule slowly increasing and will need outpatient follow-up with lung cancer screening and further imaging Chest and back pain, musculoskeletal, improved History of atrial fibrillation, currently rate controlled History of hypertension History of ESBL with Klebsiella History of coronary artery disease with stenting Morbid obesity with a BMI of 43.2 GI prophylaxis DVT prophylaxis Full code Discharge disposition Patient is being discharged in a stable condition with guarded prognosis to home. Patient will follow-up with Dr. Araya in the outpatient setting upon discharge. Patient is to continue with oral Ceftin for the next 3 days and close outpatient follow-up with urology as scheduled. Patient also to follow-up with gynecology in the outpatient setting as well as cardiology. Total time taken is greater than 35 minutes. Hospital course This is a 83-year-old female who was recently admitted with chest and back pain also with acute urinary tract infection. Patient maintained on IV antibiotics in the form of ceftriaxone and urine cultures finalized as negative being followed by infectious disease. Patient showing clinical improvement although reports she has been having recurrent urinary tract infections this past year. Patient does follow with urology and was maintained on Macrobid. Patient will continue oral Ceftin twice daily for the next 3 days to complete the course and has been instructed to continue to hold Farxiga for now and follow-up with ca rdiology in the outpatient setting. Patient has an appointment with urology. Patient also instructed to follow-up with gynecology for further evaluation. Please refer to other documentation for further HPI. Currently no reports of chest pain, shortness of breath, or palpitations. Patient is afebrile. No reports of nausea or vomiting and patient is tolerating diet. Patient will be discharged home today. Guarded prognosis and high risk for readmissions given patient's significant comorbidities. Patient was also instructed to follow-up in the outpatient setting for further lung screening and imaging regarding a left lower lobe lung nodule. Physical exam: Gen: This is a 83-year-old female who is awake, alert and oriented x 3, well- developed, well-nourished, morbidly obese HEENT: Head is atraumatic, normocephalic. Pupils equal, round. Sclerae is anicteric. NECK: Supple. No JVD. No lymphadenopathy. No thyromegaly. LUNGS: Diminished breath sounds bilaterally otherwise clear to auscultation. No wheezes or rhonchi. No intercostal retractions. HEART: S1, S2 are muffled ABDOMEN: Soft. Obese. Bowel sounds are present. No masses. No tenderness. EXTREMITIES: No pedal edema. No calf tenderness. Generalized lower extremity edema, nonpitting NEUROLOGICAL: Patient is awake, alert and oriented x3. Cranial nerves 2 through 12 are grossly intact. Please refer to medication reconciliation sheet for a list of medications. The impression and plan of care has been dictated by Lydia Li, Nurse Practitioner as directed. Dr. Emerson MD I have performed a history and examination and MDM of this patient, discussed the same with the dictator, and agree with the dictator's assessment and plan as written ,documented as a scribe. Based on total visit time, I have performed more than 50% of the visit. Patient Condition at Discharge: Fair Plan - Discharge Summary Discharge Rx Participant: No New Discharge Prescriptions: New Pantoprazole [Protonix] 40 mg PO AC-BRKFST tab Acetaminophen Tab [Tylenol] 500 mg PO Q6HR PRN tab PRN Reason: Fever And/ Or Pain cefUROXime axetiL [Ceftin] 500 mg PO BID 3 Days #6 tab Continue Atorvastatin [Lipitor] 80 mg PO HS #30 tab Apixaban [Eliquis] 5 mg PO BID Furosemide [Lasix] 40 mg PO DAILY #30 tablet traZODone HCL [Desyrel] 50 mg PO HS PRN PRN Reason: Insomnia Tolterodine ER [Detrol LA] 4 mg PO DAILY Metoprolol Tartrate [Lopressor] 25 mg PO BID #60 tab Famotidine [Pepcid] 20 mg PO DAILY #30 tab Discontinued Spironolactone 50 mg PO DAILY Dapagliflozin Propanediol [Farxiga] 10 mg PO DAILY #30 tablet Nitrofurantoin Monohyd/M-Cryst [Macrobid] 100 mg PO BID Discharge Medication List Atorvastatin [Lipitor] 80 mg PO HS #30 tab 02/23/17 [Rx] Apixaban [Eliquis] 5 mg PO BID 08/04/18 [History] Tolterodine ER [Detrol LA] 4 mg PO DAILY 05/13/23 [History] Furosemide [Lasix] 40 mg PO DAILY #30 tablet 05/19/23 [Rx] traZODone HCL [Desyrel] 50 mg PO HS PRN 08/26/23 [History] Famotidine [Pepcid] 20 mg PO DAILY #30 tab 10/17/23 [Rx] Metoprolol Tartrate [Lopressor] 25 mg PO BID #60 tab 10/17/23 [Rx] Acetaminophen Tab [Tylenol] 500 mg PO Q6HR PRN tab 11/16/23 [Rx] Pantoprazole [Protonix] 40 mg PO AC-BRKFST tab 11/16/23 [Rx] cefUROXime axetiL [Ceftin] 500 mg PO BID 3 Days #6 tab 11/16/23 [Rx] Follow up Appointment(s)/Referral(s): Luna Coates MD [STAFF PHYSICIAN] - 1 Week Jennifer Antoine MD [STAFF PHYSICIAN] - 1 Week Joe Araya [Primary Care Provider] - 1-2 days Patient Instructions/Handouts: Urinary Tract Infection in Women (DC), Hypotension (DC) Activity/Diet/Wound Care/Special Instructions: Activity limited until follow-up Follow-up with primary care provider on discharge Follow-up with urology at your scheduled appointment Follow-up with gynecology outpatient for further evaluation Continue holding [facility] until follow-up with cardiology Monitor blood pressure daily at the same time and keep a diary of all readings Discharge Disposition: HOME SELF-CARE
--- NOTE | 2023-11-17 14:14 | P.PN ---
Subjective Progress Note Date: 11/16/23 Principal diagnosis: Reason for follow-up is a urinary tract infection Patient is a 83-year-old female with a past medical history significant for hypertension hyperlipidemia osteoarthritis atrial fibrillation presenting to the hospital concerning for weakness felt dizzy and low blood pressure also have a urinary symptoms of burning frequency diagnosed with symptomatic UTI. On today's evaluation that is 11/16/2023, Patient is afebrile patient is currently on room air and denies having any shortness of breath, the patient denies any chest pain or cough, the patient denies any nausea vomiting did not have any abdominal pain and no diarrhea, mention feeling better blood pressure has improved. Patient did have a creatinine 1.0 no CBC was done today blood and urine culture have been negative Objective - Vital Signs Vital signs: Vital Signs Temp 97.8 F 11/16/23 07:26 Pulse 110 H 11/16/23 07:26 Resp 16 11/16/23 07:26 BP 112/70 11/16/23 09:04 Pulse Ox 96 11/16/23 08:22 FiO2 Intake & Output 11/15/23 11/16/23 11/16/23 18:59 06:59 18:59 Output Total 2100 450 Balance -2100 -450 Output: Urine 2100 450 Other: Voiding Method Diaper External Catheter # Voids 5 - Exam GENERAL DESCRIPTION: An elderly female lying in bed in no distress RESPIRATORY SYSTEM: Unlabored breathing , decreased breath sounds at bases HEART: S1 S2 regular rate and rhythm , ABDOMEN: Soft , no tenderness EXTREMITIES: No edema feet - Labs CBC & Chem 7: 11/15/23 03:46 11/16/23 05:45 Labs: Abnormal Lab Results - Last 24 Hours (Table) 11/16/23 Range/Units 05:45 Est GFR (CKD-EPI) 56 L (>=60) Calcium 8.5 L (8.7-10.3) mg/dL Microbiology - Last 24 Hours (Table) 11/12/23 19:41 Blood Culture - Preliminary Blood Assessment and Plan (1) Leukocytosis Status: Acute Code(s): D72.829 - ELEVATED WHITE BLOOD CELL COUNT, UNSPECIFIED SNOMED Code(s): 488992603 (2) UTI (urinary tract infection) Status: Acute Code(s): N39.0 - URINARY TRACT INFECTION, SITE NOT SPECIFIED SNOMED Code(s): 11062730 (3) Allergy to sulfa drugs Status: Acute Code(s): Z88.2 - ALLERGY STATUS TO SULFONAMIDES SNOMED Code(s): 89695386 Plan: 1patient presented to hospital with weakness dizziness did have a low blood pressure and also elevated white count and urinary symptoms of burning frequency positive UA concerning for symptomatic UTI likely from enteric gram-negative pathogen. 2sulfa allergy that will limit the number of antibiotics safe to use. 3leukocytosis more likely related to UTI as no evidence of any other acute abnormality seen on the CT of the chest abdominal pelvis. 4patient has shown clinical improvement on Rocephin short course of Ceftin on discharge Dictation was produced using [employer] dictation software. please excuse any grammatical, word or spelling errors. Time with Patient: Less than 30
== END 2023-11-16 15:32 | disposition home or self-care (01) | DRG 690 ==
LOC: EC 18:28 → 4SSUR 21:20 → OBSVTOIN 11-13 15:34
PROVIDERS: ADMIT Internal Medicine; ATTEND Internal Medicine
DX: N39.0 Urinary tract infection, site not specified (principal); Z68.41 Body mass index [BMI] 40.0-44.9, adult; I10 Essential (primary) hypertension; E66.01 Morbid (severe) obesity due to excess calories; I48.91 Unspecified atrial fibrillation; I25.10 Atherosclerotic heart disease of native coronary artery without angina pectoris; M54.9 Dorsalgia, unspecified; R91.1 Solitary pulmonary nodule; E78.5 Hyperlipidemia, unspecified; R07.89 Other chest pain; Z86.19 Personal history of other infectious and parasitic diseases; Z95.5 Presence of coronary angioplasty implant and graft; Z79.01 Long term (current) use of anticoagulants; Z79.899 Other long term (current) drug therapy; Z87.440 Personal history of urinary (tract) infections; Z90.710 Acquired absence of both cervix and uterus; Z88.2 Allergy status to sulfonamides; Z88.5 Allergy status to narcotic agent; Z80.9 Family history of malignant neoplasm, unspecified
CPT/HCPCS: 36415; 71045; 71250; 74176; 80048; 80053; 81001; 83605; 85025; 85610; 85652; 85730; 86140; 87040; 87086; 93005; 94760; 96361; 96374; 99285

== ENCOUNTER 2023-11-17 17:45 | Emergency (ER) | payer MEDICARE ==
[2023-11-17 17:56] VITALS: TEMP 97.8
[2023-11-17 18:43] LABS: Basophils % (A) 0 %; Eosinophils # (A) 0.4 k/uL (0-0.7); Eosinophils % (A) 2 %; HCT 42.1 % (34.0-46.0); HGB 13.8 gm/dL (11.4-16.0); Lymphocytes # (A) 0.8 k/uL (1.0-4.8); Lymphocytes % (A) 4 %; MCH 32.6 pg (25.0-35.0); MCHC 32.7 g/dL (31.0-37.0); MCV 99.6 fL (80.0-100.0); Mean Platelet Volume 7.6; Monocytes # (A) 0.7 k/uL (0-1.0); Monocytes % (A) 4 %; Neutrophils # (A) 17.2 k/uL (1.3-7.7); Neutrophils % (A) 89 %; Platelet Count 241 k/uL (150-450); RBC 4.23 m/uL (3.80-5.40); WBC 19.3 k/uL (3.8-10.6)
[2023-11-17] MEDS: SODIUM CHLORIDE 0.9% 500 ML 500 ML IV STA (18:50)
--- NOTE | 2023-11-17 18:52 | ED ---
Dizziness HPI - General Chief Complaint: Dizziness Stated Complaint: dizzy, SUPA Time Seen by Provider: 11/17/23 17:59 Source: patient, family Mode of arrival: wheelchair Limitations: physical limitation - History of Present Illness Initial Comments: This patient is an 83-year-old woman who presents to have evaluation because she is feeling dizzy and lightheaded, mainly when she gets up to try to walk. Patient had been admitted in the hospital being discharged yesterday. Patient states she was admitted with urinary tract infection. she has not noted fever or chills. No cough or dyspnea. No chest pain, abdominal pain, nausea or vomiting. MD Complaint: dizziness -: hour(s) Timing: gradual onset Description: lightheadedness History of Trauma: No Severity: mild Improves With: rest Worsens With: movement Associated Symptoms: denies other symptoms - Related Data Home Medications Medication Instructions Recorded Confirmed Apixaban [Eliquis] 5 mg PO BID 08/04/18 11/13/23 Tolterodine ER [Detrol LA] 4 mg PO DAILY 05/13/23 11/13/23 traZODone HCL [Desyrel] 50 mg PO HS PRN 08/26/23 11/13/23 Previous Rx's Medication Instructions Recorded Atorvastatin [Lipitor] 80 mg PO HS #30 tab 02/23/17 Furosemide [Lasix] 40 mg PO DAILY #30 tablet 05/19/23 Famotidine [Pepcid] 20 mg PO DAILY #30 tab 10/17/23 Metoprolol Tartrate [Lopressor] 25 mg PO BID #60 tab 10/17/23 Acetaminophen Tab [Tylenol] 500 mg PO Q6HR PRN tab 11/16/23 Pantoprazole [Protonix] 40 mg PO AC-BRKFST tab 11/16/23 cefUROXime axetiL [Ceftin] 500 mg PO BID 3 Days #6 tab 11/16/23 Allergies Allergy/AdvReac Type Severity Reaction Status Date / Time Sulfa (Sulfonamide Allergy Unknown Verified 11/13/23 12:06 Antibiotics) codeine AdvReac Hallucinati Verified 11/13/23 12:06 ons Review of Systems ROS Statement: Those systems with pertinent positive or pertinent negative responses have been documented in the HPI. ROS Other: All systems not noted in ROS Statement are negative. Constitutional: Reports: weakness. Denies: fever, chills Eyes: Denies: vision change Respiratory: Denies: cough, dyspnea Cardiovascular: Denies: chest pain, palpitations, edema, syncope Gastrointestinal: Denies: abdominal pain, nausea, vomiting, diarrhea Genitourinary: Denies: dysuria, hematuria Musculoskeletal: Denies: back pain Skin: Denies: rash Neurological: Denies: headache, weakness Past Medical History Past Medical History: Atrial Fibrillation, Hyperlipidemia, Hypertension, Osteoarthritis (OA), Vascular Disorder Additional Past Medical History / Comment(s): -hx irregular heart rate, 2 ruptured disc back, bladder leakage, pancreatitis, edd. lower leg swelling, shortness of breath History of Any Multi-Drug Resistant Organisms: ESBL Date of last positivie culture/infection: 07/15/20 ESBL Klebsiella MDRO Source:: Urine Past Surgical History: Cholecystectomy, Heart Catheterization With Stent, Hysterectomy, Orthopedic Surgery Additional Past Surgical History / Comment(s): lt knee arthroscopy Past Anesthesia/Blood Transfusion Reactions: No Reported Reaction Date of Last Stent Placement:: MAY 2017 Past Psychological History: Anxiety Smoking Status: Never smoker Past Alcohol Use History: Occasional Past Drug Use History: None Reported - Past Family History Mother Family Medical History: No Reported History Additional Family Medical History / Comment(s): heart issues Father Family Medical History: Cancer Additional Family Medical History / Comment(s): . General Exam Limitations: physical limitation General appearance: alert, in no apparent distress Head exam: Present: atraumatic, normocephalic Eye exam: Present: normal appearance. Absent: scleral icterus, conjunctival injection ENT exam: Present: mucous membranes dry Neck exam: Present: normal inspection Respiratory exam: Present: normal lung sounds bilaterally. Absent: respiratory distress, wheezes, rales, rhonchi, stridor, accessory muscle use Cardiovascular Exam: Present: regular rate, normal rhythm, normal heart sounds. Absent: systolic murmur, diastolic murmur, rubs, gallop GI/Abdominal exam: Present: soft. Absent: distended, tenderness, guarding, rebound, rigid, mass Extremities exam: Present: normal inspection, normal capillary refill. Absent: pedal edema, calf tenderness Back exam: Present: normal inspection. Absent: CVA tenderness (R), CVA tenderness (L) Neurological exam: Present: alert Skin exam: Present: warm, dry, intact, normal color. Absent: rash Course Vital Signs 11/17/23 11/17/23 11/17/23 17:52 18:07 18:50 Temperature 97.8 F Pulse Rate 82 105 H 112 H Respiratory 18 22 20 Rate Blood Pressure 68/44 74/48 84/50 O2 Sat by Pulse 92 L 92 L 93 L Oximetry 11/17/23 11/17/23 20:39 21:35 Temperature Pulse Rate 102 H 100 Respiratory 18 20 Rate Blood Pressure 81/58 90/50 O2 Sat by Pulse 94 L 97 Oximetry EKG Findings - EKG Results: EKG: interpreted by ERMD EKG shows: atrial fibrillation (Rate 112 bpm) - Blocks, Leonardo, Hypertrophy, ST Abn: QRS axis and voltage: low voltage (<0.5 MV total QRS and <1.0 MV in each precordial lead) Repolarization changes or abnormalities: nonspecific abnormality, ST segment, and/or T wave Medical Decision Making - Medical Decision Making Patient is an 83-year-old woman presenting with dizziness/lightheadedness mainly when she is up trying to move around. On the exam she does appear dry and was initially hypotensive. The patient feeling better following some fluid administration. On reevaluation, she would like to go home. It is noted that creatinine is elevated consistent with some degree of dehydration. Discussed appropriate further care and did recommend overnight observation but again patient would prefer to go home at this point. To hold Lasix. Patient to have close follow-up, return if symptoms recur or not feeling well in any way The patient had chest x-ray that I interpreted as negative for infiltrate, pneumothorax, congestive heart failure Was pt. sent in by a medical professional or institution (Dr. PA, DAY CARE HOME MOTHER, urgent care, hospital, or penitentiary...) When possible be specific @ -[No] Did you speak to anyone other than the patient for history (EMS, parent, family, police, friend...)? What history was obtained from this source @ -[No] Did you review nursing and triage notes (agree or disagree)? Why? @ -[I reviewed and agree with nursing and triage notes] Were old charts reviewed (outside hosp., previous admission, EMS record, old EKG, old radiological studies, urgent care reports/EKG's, penitentiary records)? Report findings @ -[No old charts were reviewed] Differential Diagnosis (chest pain, altered mental status, abdominal pain women, abdominal pain men, vaginal bleeding, weakness, fever, dyspnea, syncope, headache, dizziness, GI bleed, back pain, seizure, CVA, palpatations, mental health, musculoskeletal)? @ -[Differential Dizziness: Benign paroxysmal positional Vertigo, Meniere's disease, otitis media, acoustic neuroma, vertebrobasilar insufficiency, cerebellar stroke, encephalitis, hypovolemic, arrhythmia, coronary artery syndrome, anemia, this is not meant to be an all-inclusive list EKG interpreted by me (3pts min.). @ -[I interpreted as above] X-rays interpreted by me (1pt min.). @ -[I interpreted as above CT interpreted by me (1pt min.). @ -[None done] U/S interpreted by me (1pt. min.). @ -[None done] What testing was considered but not performed or refused? (CT, X-rays, U/S, labs)? Why? @ -[None] What meds were considered but not given or refused? Why? @ -[None] Did you discuss the management of the patient with other professionals (professionals i.e. , PA, DAY CARE HOME MOTHER, lab, RT, psych nurse, nursing home social worker, loss control consultant, teacher, deportation officer, keycase assembler)? Give summary @ -[No] Was smoking cessation discussed for >3mins.? @ -[No] Was critical care preformed (if so, how long)? @ -[No] Were there social determinants of health that impacted care today? How? (Homelessness, low income, unemployed, alcoholism, drug addiction, transportation, low edu. Level, literacy, decrease access to med. care, skilled nursing, rehab)? @ -[No] Was there de-escalation of care discussed even if they declined (Discuss DNR or withdrawal of care, Hospice)? DNR status @ -[No] What co-morbidities impacted this encounter? (DM, HTN, Smoking, COPD, CAD, Cancer, CVA, ARF, Chemo, Hep., AIDS, mental health diagnosis, sleep apnea, morbid obesity)? @ -[None] Was patient admitted / discharged? Hospital course, mention meds given and route, prescriptions, significant lab abnormalities, going to OR and other pertinent info. @ -[As above Undiagnosed new problem with uncertain prognosis? @ -[No] Drug Therapy requiring intensive monitoring for toxicity (Heparin, Nitro, Insulin, Cardizem)? @ -[No] Were any procedures done? @ -[No] Diagnosis/symptom? @ -[Acute dehydration Acute, or Chronic, or Acute on Chronic? @ -[default] Uncomplicated (without systemic symptoms) or Complicated (systemic symptoms)? @ -[default] Side effects of treatment? @ -[No] Exacerbation, Progression, or Severe Exacerbation? @ -[No] Poses a threat to life or bodily function? How? (Chest pain, [place], [place], pneumonia, PE, COPD, DKA, ARF, appy, cholecystitis, CVA, Diverticulitis, Homicidal, Suicidal, threat to staff... and all critical care pts) @ -[No] - Lab Data Result diagrams: 11/17/23 18:26 11/17/23 18:26 Lab Results 11/17/23 11/17/23 11/17/23 Range/Units 18:26 18:26 18:26 WBC 19.3 H (3.8-10.6) k/uL RBC 4.23 (3.80-5.40) m/uL Hgb 13.8 (11.4-16.0) gm/dL Hct 42.1 (34.0-46.0) % MCV 99.6 (80.0-100.0) fL MCH 32.6 (25.0-35.0) pg MCHC 32.7 (31.0-37.0) g/dL RDW 13.0 (11.5-15.5) % Plt Count 241 (150-450) k/uL MPV 7.6 Neutrophils % 89 % Lymphocytes % 4 % Monocytes % 4 % Eosinophils % 2 % Basophils % 0 % Neutrophils # 17.2 H (1.3-7.7) k/uL Lymphocytes # 0.8 L (1.0-4.8) k/uL Monocytes # 0.7 (0-1.0) k/uL Eosinophils # 0.4 (0-0.7) k/uL Basophils # 0.0 (0-0.2) k/uL Sodium 135 L (137-145) mmol/L Potassium 4.6 (3.5-5.1) mmol/L Chloride 99 (98-107) mmol/L Carbon Dioxide 27 (22-30) mmol/L Anion Gap 9 mmol/L BUN 34 H (7-17) mg/dL Creatinine 1.57 H (0.52-1.04) mg/dL Est GFR (CKD-EPI)AfAm 35 (>60 ml/min/1.73 sqM) Est GFR (CKD-EPI)NonAf 30 (>60 ml/min/1.73 sqM) Glucose 120 H (74-99) mg/dL Lactic Ac Sepsis Rflx Plasma Lactic Acid Rony 3.4 H* (0.7-2.0) mmol/L Calcium 9.0 (8.4-10.2) mg/dL Total Bilirubin 1.8 H (0.2-1.3) mg/dL AST 56 H (14-36) U/L ALT 35 H (4-34) U/L Alkaline Phosphatase 180 H (38-126) U/L Troponin I (0.000-0.034) ng/mL Total Protein 6.1 L (6.3-8.2) g/dL Albumin 3.5 (3.5-5.0) g/dL Urine Color Urine Appearance (Clear) Urine pH (5.0-8.0) Ur Specific [place] (1.001-1.035) Urine Protein (Negative) Urine Glucose (UA) (Negative) Urine Ketones (Negative) Urine Blood (Negative) Urine Nitrite (Negative) Urine Bilirubin (Negative) Urine Urobilinogen (<2.0) mg/dL Ur Leukocyte Esterase (Negative) Urine RBC (0-5) /hpf Urine WBC (0-5) /hpf Ur Squamous Epith Cells (0-4) /hpf Urine Mucus (None) /hpf 11/17/23 11/17/23 11/17/23 Range/Units 18:26 19:14 19:16 WBC (3.8-10.6) k/uL RBC (3.80-5.40) m/uL Hgb (11.4-16.0) gm/dL Hct (34.0-46.0) % MCV (80.0-100.0) fL MCH (25.0-35.0) pg MCHC (31.0-37.0) g/dL RDW (11.5-15.5) % Plt Count (150-450) k/uL MPV Neutrophils % % Lymphocytes % % Monocytes % % Eosinophils % % Basophils % % Neutrophils # (1.3-7.7) k/uL Lymphocytes # (1.0-4.8) k/uL Monocytes # (0-1.0) k/uL Eosinophils # (0-0.7) k/uL Basophils # (0-0.2) k/uL Sodium (137-145) mmol/L Potassium (3.5-5.1) mmol/L Chloride (98-107) mmol/L Carbon Dioxide (22-30) mmol/L Anion Gap mmol/L BUN (7-17) mg/dL Creatinine (0.52-1.04) mg/dL Est GFR (CKD-EPI)AfAm (>60 ml/min/1.73 sqM) Est GFR (CKD-EPI)NonAf (>60 ml/min/1.73 sqM) Glucose (74-99) mg/dL Lactic Ac Sepsis Rflx Y Plasma Lactic Acid Rony (0.7-2.0) mmol/L Calcium (8.4-10.2) mg/dL Total Bilirubin (0.2-1.3) mg/dL AST (14-36) U/L ALT (4-34) U/L Alkaline Phosphatase (38-126) U/L Troponin I 0.015 (0.000-0.034) ng/mL Total Protein (6.3-8.2) g/dL Albumin (3.5-5.0) g/dL Urine Color Yellow Urine Appearance Cloudy H (Clear) Urine pH 5.0 (5.0-8.0) Ur Specific [place] 1.021 (1.001-1.035) Urine Protein Trace H (Negative) Urine Glucose (UA) 1+ H (Negative) Urine Ketones Negative (Negative) Urine Blood Negative (Negative) Urine Nitrite Negative (Negative) Urine Bilirubin Negative (Negative) Urine Urobilinogen <2.0 (<2.0) mg/dL Ur Leukocyte Esterase Large H (Negative) Urine RBC 2 (0-5) /hpf Urine WBC 14 H (0-5) /hpf Ur Squamous Epith Cells <1 (0-4) /hpf Urine Mucus Rare H (None) /hpf 11/17/23 11/17/23 Range/Units 21:30 22:23 WBC (3.8-10.6) k/uL RBC (3.80-5.40) m/uL Hgb (11.4-16.0) gm/dL Hct (34.0-46.0) % MCV (80.0-100.0) fL MCH (25.0-35.0) pg MCHC (31.0-37.0) g/dL RDW (11.5-15.5) % Plt Count (150-450) k/uL MPV Neutrophils % % Lymphocytes % % Monocytes % % Eosinophils % % Basophils % % Neutrophils # (1.3-7.7) k/uL Lymphocytes # (1.0-4.8) k/uL Monocytes # (0-1.0) k/uL Eosinophils # (0-0.7) k/uL Basophils # (0-0.2) k/uL Sodium (137-145) mmol/L Potassium (3.5-5.1) mmol/L Chloride (98-107) mmol/L Carbon Dioxide (22-30) mmol/L Anion Gap mmol/L BUN (7-17) mg/dL Creatinine (0.52-1.04) mg/dL Est GFR (CKD-EPI)AfAm (>60 ml/min/1.73 sqM) Est GFR (CKD-EPI)NonAf (>60 ml/min/1.73 sqM) Glucose (74-99) mg/dL Lactic Ac Sepsis Rflx Y Plasma Lactic Acid Rony 2.2 H* (0.7-2.0) mmol/L Calcium (8.4-10.2) mg/dL Total Bilirubin (0.2-1.3) mg/dL AST (14-36) U/L ALT (4-34) U/L Alkaline Phosphatase (38-126) U/L Troponin I (0.000-0.034) ng/mL Total Protein (6.3-8.2) g/dL Albumin (3.5-5.0) g/dL Urine Color Urine Appearance (Clear) Urine pH (5.0-8.0) Ur Specific [place] (1.001-1.035) Urine Protein (Negative) Urine Glucose (UA) (Negative) Urine Ketones (Negative) Urine Blood (Negative) Urine Nitrite (Negative) Urine Bilirubin (Negative) Urine Urobilinogen (<2.0) mg/dL Ur Leukocyte Esterase (Negative) Urine RBC (0-5) /hpf Urine WBC (0-5) /hpf Ur Squamous Epith Cells (0-4) /hpf Urine Mucus (None) /hpf Disposition Clinical Impression: Dehydration Disposition: HOME SELF-CARE Condition: Fair Is patient prescribed a controlled substance at d/c from ED?: No Referrals: Joe Araya [Primary Care Provider] - 1-2 days
[2023-11-17 19:06] LABS: ALT 35 U/L (4-34); AST 56 U/L (14-36); African American GFR (CKD) 35 (>60 ml/min/1.73 sqM); Albumin 3.5 g/dL (3.5-5.0); Alkaline Phosphatase 180 U/L (38-126); Anion Gap 9 mmol/L; Blood Urea Nitrogen 34 mg/dL (7-17); Carbon Dioxide 27 mmol/L (22-30); Chloride 99 mmol/L (98-107); Glucose 120 mg/dL (74-99); Non-African American GFR(CKD) 30 (>60 ml/min/1.73 sqM); Potassium 4.6 mmol/L (3.5-5.1); Sodium 135 mmol/L (137-145); Total Bilirubin 1.8 mg/dL (0.2-1.3); Total Protein 6.1 g/dL (6.3-8.2)
[2023-11-17 19:30] LABS: Appearance,Urine Cloudy (Clear); Bilirubin,Urine Negative (Negative); Blood,Urine Negative (Negative); Color,Urine Yellow; Glucose,Urine (UA) 1+ (Negative); Ketones,Urine Negative (Negative); Leukocyte Esterase,Urine Large (Negative); Mucus,Urine Rare /hpf; Nitrite,Urine Negative (Negative); Protein,Urine Trace (Negative); RBC,Urine 2 /hpf (0-5); Specific Gravity,Urine 1.021 (1.001-1.035); Squamous Epithelial Cell,Urine <1 /hpf (0-4); Urobilinogen,Urine <2.0 mg/dL (<2.0); WBC,Urine 14 /hpf (0-5)
--- NOTE | 2023-11-17 20:26 | XR ---
EXAMINATION TYPE: XR chest 2V DATE OF EXAM: 11/17/2023 7:03 PM CLINICAL INDICATION:Female, 83 years old with history of dizziness; [facility] COMPARISON: 11/13/2023 TECHNIQUE: XR chest 2V. Frontal and lateral views of the chest.. FINDINGS: Lines/Tubes/Devices: No indwelling lines are seen. Heart/mediastinum: Heart appears enlarged. Mediastinum appears normal. Pulmonary vascularity: Increased. Increasing diffuse interstitial markings bilaterally as well. Lungs/Pleura: No focal consolidation. Suspect small pleural effusions. No visualized pneumothorax. Musculoskeletal: No acute osseous abnormality demonstrated in the limits of the exam. Degenerative c hanges of the shoulders and spine. Other findings: None. IMPRESSION: Cardiomegaly with central vascular congestion and slight increase in interstitial lung markings evan red to prior, likely related to volume overload/CHF. [facility], , 11/17/2023 8:24 PM
[2023-11-17] MEDS: SODIUM CHLORIDE 0.9% 1,000 ML IV STA (20:38)
[2023-11-17] MEDS: SODIUM CHLORIDE 0.9% 1,000 ML IV ONE (20:39)
[2023-11-17 21:35] VITALS: BP 90/50; PULSE 100; RESP 20
== END 2023-11-17 21:54 | disposition home or self-care (01) ==
LOC: EC 17:45
CPT/HCPCS: 36415; 71046; 80053; 81001; 83605; 84484; 85025; 93005; 96365; 99284

== ENCOUNTER 2023-12-15 14:35 | Emergency (ER) | payer MEDICARE ==
--- NOTE | 2023-12-15 14:57 | ED ---
Abdominal Pain HPI - General Chief Complaint: Abdominal Pain Stated Complaint: Abd pain Time Seen by Provider: 12/15/23 14:55 Source: patient, RN notes reviewed Mode of arrival: ambulatory Limitations: no limitations - History of Present Illness Initial Comments: 83-year-old female presents emergency department chief complaint of dysuria. Patient states she has had near frequency and dysuria. Patient's had recurrent UTIs currently seeing neurology she contacted office today and was nobody was in office to see who they recommend, the emergency department. She denies any flank pain no fevers chills no chest pain. - Related Data Home Medications Medication Instructions Recorded Confirmed Apixaban [Eliquis] 5 mg PO BID 08/04/18 11/13/23 Tolterodine ER [Detrol LA] 4 mg PO DAILY 05/13/23 11/13/23 traZODone HCL [Desyrel] 50 mg PO HS PRN 08/26/23 11/13/23 Previous Rx's Medication Instructions Recorded Atorvastatin [Lipitor] 80 mg PO HS #30 tab 02/23/17 Furosemide [Lasix] 40 mg PO DAILY #30 tablet 05/19/23 Famotidine [Pepcid] 20 mg PO DAILY #30 tab 10/17/23 Metoprolol Tartrate [Lopressor] 25 mg PO BID #60 tab 10/17/23 Acetaminophen Tab [Tylenol] 500 mg PO Q6HR PRN tab 11/16/23 Pantoprazole [Protonix] 40 mg PO AC-BRKFST tab 11/16/23 cefuroxime axetiL [Ceftin] 500 mg PO BID 3 Days #6 tab 11/16/23 Nitrofurantoin Monohyd/M-Cryst 100 mg PO Q12HR #14 cap 12/15/23 [Macrobid] Allergies Allergy/AdvReac Type Severity Reaction Status Date / Time Sulfa (Sulfonamide Allergy Unknown Verified 12/15/23 14:55 Antibiotics) codeine AdvReac Hallucinati Verified 12/15/23 14:55 ons Review of Systems ROS Statement: Those systems with pertinent positive or pertinent negative responses have been documented in the HPI. ROS Other: All systems not noted in ROS Statement are negative. Past Medical History Past Medical History: Atrial Fibrillation, Hyperlipidemia, Hypertension, Osteoarthritis (OA), Vascular Disorder Additional Past Medical History / Comment(s): -hx irregular heart rate, 2 ruptured disc back, bladder leakage, pancreatitis, edd. lower leg swelling, shortness of breath History of Any Multi-Drug Resistant Organisms: ESBL Date of last positivie culture/infection: 07/15/20 ESBL Klebsiella MDRO Source:: Urine Past Surgical History: Cholecystectomy, Heart Catheterization With Stent, Hysterectomy, Orthopedic Surgery Additional Past Surgical History / Comment(s): lt knee arthroscopy Past Anesthesia/Blood Transfusion Reactions: No Reported Reaction Date of Last Stent Placement:: MAY 2017 Past Psychological History: Anxiety Smoking Status: Never smoker Past Alcohol Use History: Occasional Past Drug Use History: None Reported - Past Family History Mother Family Medical History: No Reported History Additional Family Medical History / Comment(s): heart issues Father Family Medical History: Cancer Additional Family Medical History / Comment(s): . General Exam Limitations: no limitations General appearance: alert, in no apparent distress Head exam: Present: atraumatic, normocephalic, normal inspection Eye exam: Present: normal appearance, PERRL, EOMI. Absent: scleral icterus, conjunctival injection, periorbital swelling ENT exam: Present: normal exam, mucous membranes moist Neck exam: Present: normal inspection. Absent: tenderness, meningismus, lymphadenopathy Respiratory exam: Present: normal lung sounds bilaterally. Absent: respiratory distress, wheezes, rales, rhonchi, stridor Cardiovascular Exam: Present: regular rate, normal rhythm, normal heart sounds. Absent: systolic murmur, diastolic murmur, rubs, gallop, clicks GI/Abdominal exam: Present: soft, normal bowel sounds. Absent: distended, tenderness, guarding, rebound, rigid Back exam: Absent: CVA tenderness (R) Neurological exam: Present: alert Skin exam: Present: warm, dry, intact, normal color. Absent: rash Course Vital Signs 12/15/23 12/15/23 14:52 15:50 Temperature 97.6 F 98.4 F Pulse Rate 78 76 Respiratory 20 18 Rate Blood Pressure 120/70 124/74 O2 Sat by Pulse 97 98 Oximetry Medical Decision Making - Medical Decision Making Was pt. sent in by a medical professional or institution (, PA, PROJECT ADMINISTRATIVE ASSISTANT, urgent care, hospital, or fpc...) When possible be specific @ -No Did you speak to anyone other than the patient for history (EMS, parent, family, police, friend...)? What history was obtained from this source @ -No Did you review nursing and triage notes (agree or disagree)? Why? @ -I reviewed and agree with nursing and triage notes Were old charts reviewed (outside hosp., previous admission, EMS record, old EKG, old radiological studies, urgent care reports/EKG's, fpc records)? Report findings @ -No old charts were reviewed Differential Diagnosis (chest pain, altered mental status, abdominal pain women, abdominal pain men, vaginal bleeding, weakness, fever, dyspnea, syncope, headache, dizziness, GI bleed, back pain, seizure, CVA, palpatations, mental health, musculoskeletal)? @ -UTI, dysuria EKG interpreted by me (3pts min.). @ -None X-rays interpreted by me (1pt min.). @ -None done CT interpreted by me (1pt min.). @ -None done U/S interpreted by me (1pt. min.). @ -None done What testing was considered but not performed or refused? (CT, X-rays, U/S, labs)? Why? @ -None What meds were considered but not given or refused? Why? @ -None Did you discuss the management of the patient with other professionals (professionals i.e. , PA, PROJECT ADMINISTRATIVE ASSISTANT, lab, RT, psych nurse, transition social worker, software support analyst, t eacher, branch officer, director of casework)? Give summary @ -No Was smoking cessation discussed for >3mins.? @ -No Was critical care preformed (if so, how long)? @ -No Were there social determinants of health that impacted care today? How? (Homelessness, low income, unemployed, alcoholism, drug addiction, transportation, low edu. Level, literacy, decrease access to med. care, prison, rehab)? @ -No Was there de-escalation of care discussed even if they declined (Discuss DNR or withdrawal of care, Hospice)? DNR status @ -No What co-morbidities impacted this encounter? (DM, HTN, Smoking, COPD, CAD, Cance r, CVA, ARF, Chemo, Hep., AIDS, mental health diagnosis, sleep apnea, morbid obesity)? @ -None Was patient admitted / discharged? Hospital course, mention meds given and route, prescriptions, significant lab abnormalities, going to OR and other pertinent info. @ -Discharge patient has evidence of UTI patient was given Rocephin patient discharged in stable condition with Keflex return parens discussed. Undiagnosed new problem with uncertain prognosis? @ -No Drug Therapy requiring intensive monitoring for toxicity (Heparin, Nitro, Insulin, Cardizem)? @ -No Were any procedures done? @ -No Diagnosis/symptom? @ -UTI Acute, or Chronic, or Acute on Chronic? @ -Acute Uncomplicated (without systemic symptoms) or Complicated (systemic symptoms)? @ -Uncomplicated Side effects of treatment? @ -No Exacerbation, Progression, or Severe Exacerbation? @ -No Poses a threat to life or bodily function? How? (Chest pain, [place], [place], pneumonia, PE, COPD, DKA, ARF, appy, cholecystitis, CVA, Diverticulitis, Homicidal, Suicidal, threat to staff... and all critical care pts) @ -No - Lab Data Lab Results 12/15/23 Range/Units 15:04 Urine Color Light Yellow Urine Appearance Turbid H (Clear) Urine pH 5.0 (5.0-8.0) Ur Specific [place] 1.013 (1.001-1.035) Urine Protein Trace H (Negative) Urine Glucose (UA) 4+ H (Negative) Urine Ketones Negative (Negative) Urine Blood Small H (Negative) Urine Nitrite Positive H (Negative) Urine Bilirubin Negative (Negative) Urine Urobilinogen <2.0 (<2.0) mg/dL Ur Leukocyte Esterase Large H (Negative) Urine RBC 13 H (0-5) /hpf Urine WBC >182 H (0-5) /hpf Urine WBC Clumps Many H (None) /hpf Ur Squamous Epith Cells <1 (0-4) /hpf Urine Bacteria Many H (None) /hpf Urine Mucus Rare H (None) /hpf Disposition Clinical Impression: UTI (urinary tract infection) Disposition: HOME SELF-CARE Condition: Stable Instructions (If sedation given, give patient instructions): Urinary Tract Infection in Women (ED) Additional Instructions: Please return to the Emergency Department if symptoms worsen or any other concerns. Prescriptions: Nitrofurantoin Monohyd/M-Cryst [Macrobid] 100 mg PO Q12HR #14 cap Is patient prescribed a controlled substance at d/c from ED?: No Referrals: Joe Araya [Primary Care Provider] - 1-2 days Time of Disposition: 15:29
[2023-12-15 15:19] LABS: Appearance,Urine Turbid (Clear); Bacteria,Urine Many /hpf; Bilirubin,Urine Negative (Negative); Blood,Urine Small (Negative); Color,Urine Light Yellow; Glucose,Urine (UA) 4+ (Negative); Ketones,Urine Negative (Negative); Leukocyte Esterase,Urine Large (Negative); Mucus,Urine Rare /hpf; Nitrite,Urine Positive (Negative); Protein,Urine Trace (Negative); RBC,Urine 13 /hpf (0-5); Specific Gravity,Urine 1.013 (1.001-1.035); Squamous Epithelial Cell,Urine <1 /hpf (0-4); Urobilinogen,Urine <2.0 mg/dL (<2.0); WBC,Urine >182 /hpf (0-5)
[2023-12-15] MEDS: cefTRIAXone 1,000 MG VIAL (IM USE) IM STA (15:46)
[2023-12-15 15:54] VITALS: BP 124/74; PULSE 76; RESP 18; TEMP 98.4
== END 2023-12-15 15:54 | disposition home or self-care (01) ==
LOC: EC 14:35
DX: N39.0 Urinary tract infection, site not specified (principal); B96.89 Other specified bacterial agents as the cause of diseases classified elsewhere; Z88.2 Allergy status to sulfonamides; Z88.5 Allergy status to narcotic agent
CPT/HCPCS: 81001; 87086; 87077; 87186; 99284; 96372; J0696

== ENCOUNTER 2024-08-12 14:42 | Emergency (ER) | payer MEDICARE ==
[2024-08-12 14:55] VITALS: RESP 20
--- NOTE | 2024-08-12 15:18 | ED ---
General Adult HPI - General Chief complaint: Animal Bite Stated complaint: Dog bite Time Seen by Provider: 08/12/24 14:54 Source: patient, RN notes reviewed, old records reviewed Limitations: no limitations - History of Present Illness Initial comments: 84-year-old female presenting with dog bite to the left index finger. This occurred with the patient's dog she was attempting to remove a ball from the dog's mouth and the dog bit her index finger. There was bleeding. She had washed it prior to arrival. She states her tetanus is up-to-date. She is able to move the finger but is having some pain. Bleeding controlled. - Related Data Home Medications Medication Instructions Recorded Confirmed Apixaban [Eliquis] 5 mg PO BID 08/04/18 11/13/23 Tolterodine ER [Detrol LA] 4 mg PO DAILY 05/13/23 11/13/23 traZODone HCL [Desyrel] 50 mg PO HS PRN 08/26/23 11/13/23 Previous Rx's Medication Instructions Recorded Atorvastatin [Lipitor] 80 mg PO HS #30 tab 02/23/17 Furosemide [Lasix] 40 mg PO DAILY #30 tablet 05/19/23 Famotidine [Pepcid] 20 mg PO DAILY #30 tab 10/17/23 Metoprolol Tartrate [Lopressor] 25 mg PO BID #60 tab 10/17/23 Acetaminophen Tab [Tylenol] 500 mg PO Q6HR PRN tab 11/16/23 Pantoprazole [Protonix] 40 mg PO AC-BRKFST tab 11/16/23 cefuroxime axetiL [Ceftin] 500 mg PO BID 3 Days #6 tab 11/16/23 Nitrofurantoin Monohyd/M-Cryst 100 mg PO Q12HR #14 cap 12/15/23 [Macrobid] Amoxic-Pot Clav 875-125Mg 1 tab PO Q12HR 5 Days #10 tab 08/12/24 [Augmentin 875-125] Allergies Allergy/AdvReac Type Severity Reaction Status Date / Time Sulfa (Sulfonamide Allergy Unknown Verified 08/12/24 14:54 Antibiotics) codeine AdvReac Hallucinati Verified 08/12/24 14:54 ons Review of Systems ROS Statement: Those systems with pertinent positive or pertinent negative responses have been documented in the HPI. ROS Other: All systems not noted in ROS Statement are negative. Past Medical History Past Medical History: Atrial Fibrillation, Hyperlipidemia, Hypertension, Osteoarthritis (OA), Vascular Disorder Additional Past Medical History / Comment(s): -hx irregular heart rate, 2 ruptured disc back, bladder leakage, pancreatitis, edd. lower leg swelling, shortness of breath History of Any Multi-Drug Resistant Organisms: ESBL Date of last positivie culture/infection: 07/15/20 ESBL Klebsiella MDRO Source:: Urine Past Surgical History: Cholecystectomy, Heart Catheterization With Stent, Hysterectomy, Orthopedic Surgery Additional Past Surgical History / Comment(s): lt knee arthroscopy Past Anesthesia/Blood Transfusion Reactions: No Reported Reaction Date of Last Stent Placement:: MAY 2017 Past Psychological History: Anxiety Smoking Status: Never smoker Past Alcohol Use History: Occasional Past Drug Use History: None Reported - Past Family History Mother Family Medical History: No Reported History Additional Family Medical History / Comment(s): heart issues Father Family Medical History: Cancer Additional Family Medical History / Comment(s): . General Exam Limitations: no limitations General appearance: alert, in no apparent distress Head exam: Present: atraumatic, normocephalic Eye exam: Present: normal appearance, PERRL Respiratory exam: Present: normal lung sounds bilaterally. Absent: respiratory distress, wheezes Cardiovascular Exam: Present: regular rate, normal rhythm GI/Abdominal exam: Present: soft. Absent: distended, tenderness Extremities exam: Present: other (3 superficial lacerations to the left index finger no active bleeding, patient is able to extend and flex ) Neurological exam: Present: alert, oriented X3 Psychiatric exam: Present: normal affect, normal mood Course Vital Signs 08/12/24 14:51 Temperature 98 F Pulse Rate 87 Respiratory 20 Rate Blood Pressure 102/64 O2 Sat by Pulse 96 Oximetry Medical Decision Making - Medical Decision Making Was pt. sent in by a medical professional or institution (, PA, MARKETING PROFESSOR, urgent care, hospital, or custodial...) When possible be specific @ -No Did you speak to anyone other than the patient for history (EMS, parent, family, police, friend...)? What history was obtained from this source @ -No Did you review nursing and triage notes (agree or disagree)? Why? @ -I reviewed and agree with nursing and triage notes Were old charts reviewed (outside hosp., previous admission, EMS record, old EKG, old radiological studies, urgent care reports/EKG's, custodial records)? Report findings @ -No old charts were reviewed Differential Diagnosis: Traumatic injury from dog bite EKG interpreted by me (3pts min.). @ -As above X-rays interpreted by me (1pt min.). @ -None done CT interpreted by me (1pt min.). @ -None done U/S interpreted by me (1pt. min.). @ -None done What testing was considered but not performed or refused? (CT, X-rays, U/S, labs)? Why? @ -None What meds were considered but not given or refused? Why? @ -None Did you discuss the management of the patient with other professionals (professionals i.e. , PA, MARKETING PROFESSOR, lab, RT, psych nurse, social service liaison, law office assistant, teacher, air defense artillery officer, supportive employment case manager)? Give summary @ -No Was smoking cessation discussed for >3mins.? @ -No Was critical care preformed (if so, how long)? @ -No Were there social determinants of health that impacted care today? How? (Homelessness, low income, unemployed, alcoholism, drug addiction, tr ansportation, low edu. Level, literacy, decrease access to med. care, longterm, rehab)? @ -No Was there de-escalation of care discussed even if they declined (Discuss DNR or withdrawal of care, Hospice)? DNR status @ -No What co-morbidities impacted this encounter? (DM, HTN, Smoking, COPD, CAD, Cancer, CVA, ARF, Chemo, Hep., AIDS, mental health diagnosis, sleep apnea, morbid obesity)? @ -None Was patient admitted / discharged? Hospital course, mention meds given and route, prescriptions, significant lab abnormalities, going to OR and other pertinent info. @ -84-year-old with dog bite to the left index finger. The wound is cleansed and dressing is placed. Antibiotics are initiated in the emergency department. Tetanus is up-to-date and the dog is vaccinated and owned by the victim Undiagnosed new problem with uncertain prognosis? @ -No Drug Therapy requiring intensive monitoring for toxicity (Heparin, Nitro, Insulin, Cardizem)? @ -No Were any procedures done? @ -No Diagnosis/symptom? @ -Dog bite left hand Acute, or Chronic, or Acute on Chronic? @ -Acute Uncomplicated (without systemic symptoms) or Complicated (systemic symptoms)? @ -Default Side effects of treatment? @ -No Exacerbation, Progression, or Severe Exacerbation? @ -No Poses a threat to life or bodily function? How? (Chest pain, [place], [place], pneumonia, PE, COPD, DKA, ARF, appy, cholecystitis, CVA, Diverticulitis, Homicidal, Suicidal, threat to staff... and all critical care pts) @ -No Disposition Clinical Impression: Dog bite Disposition: HOME SELF-CARE Condition: Fair Instructions (If sedation given, give patient instructions): Animal Bite (ED) Prescriptions: Amoxic-Pot Clav 875-125Mg [Augmentin 875-125] 1 tab PO Q12HR 5 Days #10 tab Is patient prescribed a controlled substance at d/c from ED?: No Referrals: Joe Araya [Primary Care Provider] - 1-2 days Time of Disposition: 15:18
[2024-08-12] MEDS: AMOXIC-POT CLAV 875-125MG 1 EACH TAB PO STA (15:23)
[2024-08-12 15:41] VITALS: BP 111/70; PULSE 82; TEMP 97.9
== END 2024-08-12 15:59 | disposition home or self-care (01) ==
LOC: EC 14:42
DX: S61.251A Open bite of left index finger without damage to nail, initial encounter (principal); Z88.2 Allergy status to sulfonamides; Z88.5 Allergy status to narcotic agent; W54.0XXA Bitten by dog, initial encounter
CPT/HCPCS: 99283